=== PATIENT | male | born 1960 | race Caucasian/White ===

== ENCOUNTER 2016-02-24 22:57 | Inpatient (IN) | payer OTHER ==
[~2016-02-24] VITALS: Ht 185.4 cm; Wt 131.5 kg
[~2016-02-24 22:57] MED LIST: BICALUTAMIDE50 M1 PO; CIPRO500 M1 PO; LASIX20 M1 PO; LUPRON DEPOT7.5 M1; MOBIC 15MG15 MG PO; MOVANTIK25 M1 PO; OXYBUTYNIN CHLOR5 M2 PO; PERCOCET 5-3251 EACH PO; PREDNISONE5 M1 PO; TAMSULOSIN HCL0.4 M1 PO; URIBEL CAPSULE1 EACH PO; VALTREX1000 MG PO; ZYTIGA250 M1 PO
--- NOTE | 2016-02-24 23:45 | ED GI/GU/ABDOMINAL COMPLAINT ---
History of Present Illness General Chief Complaint: Abdominal Pain/Flank Pain Stated Complaint: "NO BM X3DAYS, ABD PAIN" Source: patient, family Exam Limitations: no limitations Vital Signs & Intake/Output Vital Signs & Intake/Output Vital Signs Date Time Temp Pulse Resp B/P Pulse O2 O2 Flow FiO2 Ox Delivery Rate 02/24 0239 97.8 87 18 134/73 93 Room Air 02/23 2305 97.5 90 18 131/83 96 Room Air ED Intake and Output 02/24 0000 02/23 1200 Intake Total Output Total Balance Patient 290 lb Weight Allergies Coded Allergies: Penicillins (Intermediate, CLOSES THROAT, HIVES 02/07/16) ragweed pollen (Intermediate, NASAL CONGESTION 01/07/16) Reconcile Medications Abiraterone Acetate (Zytiga) 250 MG TABLET 4 TAB PO DAILY CHEMO (Reported) Bicalutamide 50 MG TABLET 1 TAB PO DAILY HORMONE (Reported) Ciprofloxacin HCl (Cipro) 500 MG TABLET 1 TAB PO BID PROSTATE CANCER ( Reported) Naloxegol Oxalate (Movantik) 25 MG TABLET 1 TAB PO DAILY PRN CONSTIPATION Oxycodone HCl/Acetaminophen (Percocet 5-325 MG Tablet) 5 MG-325 MG TABLET 1-2 TAB PO Q6P PRN PAIN Prednisone 5 MG TABLET 1 TAB PO BID STEROID (Reported) Tamsulosin HCl 0.4 MG CAP.ER.24H 1 CAP PO BID PROSTATE (Reported) Valacyclovir HCl (Valtrex) 1,000 MG TABLET 1 TAB PO TID SHINGLES Triage Note: PT STATES THAT HE HAS STAGE 4 PROSTATE CANCER AND THAT HE WAS SEEN HERE WEDNESDAY FOR URINARY PROBLEMS, PT STATES THAT HE IS STILL HAVING L SIDE ABD PAIN BUT THAT HE HAS NOT MOVED HIS BOWELS IN 5 DAYS, USED SUPOSITORY 0930/1130 THIS AM , [facility] AND [facility] WITH NO RESULTS, COMPLAINS OF NAUSEA. Triage Nurses Notes Reviewed? yes Onset: Gradual Duration: day(s):, continues in ED, getting worse Timing: recent history Quality/Severity: cramping Location: generalized abdomen Radiation: no radiation Activities at Onset: "I've been on pain medications." Prior Abdominal Problems: "different from when I couldn't urinate." Modifying Factors: Worsens With: palpation. Associated Symptoms: abdominal pain HPI: 55 yo gentleman with stage iv prostate cancer, s/p Transurethral prostate debulking, now presents with abdominal pain, distension. He notes that he has not had a bowel movement for the past 5 days. He notes that he is able to urinate without problem. He has no fever, chills, flank pain , dyspnea, cough. He is otherwise well. Past History Travel History Traveled to [place] past 21 day No Medical History Any Pertinent Medical History? 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 No Review of Systems Review of Systems Constitutional: Reports: no symptoms. EENTM: Reports: no symptoms. Respiratory: Reports: no symptoms. Cardiovascular: Reports: no symptoms. GI: Reports: no symptoms. Genitourinary: Reports: no symptoms. Musculoskeletal: Reports: no symptoms. Skin: Reports: no symptoms. Neurological/Psychological: Reports: no symptoms. Hematologic/Endocrine: Reports: no symptoms. Immunologic/Allergic: Reports: no symptoms. All Other Systems: Reviewed and Negative Physical Exam Physical Exam General Appearance: well developed/nourished, mild distress Head: atraumatic, normal appearance Eyes: Bilateral: normal appearance. Ears, Nose, Throat, Mouth: hearing grossly normal, moist mucous membrane Neck: normal inspection, supple, full range of motion, normal alignment Respiratory: normal breath sounds, chest non-tender, no respiratory distress, quiet respiration, lungs clear Cardiovascular: regular rate/rhythm Gastrointestinal: normal bowel sounds, soft, mild distension, minimally tender to palpation. diminished bowel sounds. Rectal: guiac negative. no stool in the rectal vault. Extremities: normal range of motion Neurologic/Psych: no motor/sensory deficits, awake, alert, oriented x 3 Skin: intact, normal color, warm/dry Core Measures ACS in differential dx? No Severe Sepsis Present: No Septic Shock Present: No Progress Differential Diagnosis: constipation, obstruction, vs other. Plan of Care: Orders Procedure Date/time Status Regular Diet 02/24 B Active Intake & Output 02/24 629 Active Patient Data 02/24 050 Active Lab Add-on Test 02/24 458 Active Pathway - chart 02/25 456 Active House Staff 02/25 456 Active Patient Data 02/25 456 Active Code Status 02/25 456 Active Patient Data 02/24 442 Active BLOOD CULTURE 02/24 035 Active Admit to inpatient 02/24 349 Active Add-on Test (ER Only) 02/24 349 Active BLOOD CULTURE 02/24 349 Active CULTURE,URINE 02/24 0026 Active VTE Mechanical Prophylaxis 02/24 UNK Active URINALYSIS 02/23 235 Complete LIPASE 02/23 2352 Complete HEPATIC FUNCTION PANEL 02/23 235 Complete CBC WITHOUT DIFFERENTIAL 02/24 2352 Complete BASIC METABOLIC PANEL 02/23 235 Complete AMYLASE 02/23 235 Complete Current Medications Sig/Aurora Start time Last Medication Dose Stop Time Status Admin Bicalutamide 50 MG DAILY 02/24 1000 AC (Casodex 50MG) Cefepime HCl 1,000 MG Q12 02/24 1000 AC (Maxipime) Polyethylene Glycol 17 GM DAILY 02/24 1000 AC (Miralax) Prednisone 5 MG BID 02/24 1000 AC Tamsulosin HCl 0.4 MG BID 02/24 1000 AC (Flomax) Valacyclovir HCl 1,000 MG TID 02/24 1000 AC (Valtrex) Bisacodyl 10 MG DAILY PRN 02/24 0615 AC (Dulcolax Supp) Senna/Docusate Sodium 2 TAB DAILY PRN 02/24 0615 AC (Senokot S) Heparin Sodium 5,000 UNIT Q8 02/24 0600 AC (Porcine) Oxycodone/ See Dose Q6P PRN 02/24 0515 AC Acetaminophen Insts (1) (Percocet) Acetaminophen 325 MG Q6 PRN 02/24 0500 AC (Tylenol) Sodium Chloride 1,000 ML Q13H 02/24 0500 AC (Normal Saline 0.9%) 02/24 1759 Dose Instructions: (1)Oxycodone/Acetaminophen (Percocet): 1-2 TAB Laboratory Tests 02/25/16 0026: Urinalysis MANY H, Urine Color YEL, Urine Clarity TURBD H, Urine pH 6.0, Ur Specific Maynard >= 1.030, Urine Protein 100 H, Urine Ketones NEG, Urine Nitrite POS H, Urine Bilirubin NEG, Urine Urobilinogen 1.0, Ur Leukocyte Esterase SMALL H, Ur Microscopic SEDIMENT EXAMINED, Urine RBC 25-50 H, Urine WBC 25-50 H, Ur Epithelial Cells FEW, Urine Mucus MOD H, Urine Hemoglobin LARGE H, Urine Glucose NEG 02/25/16 0021: Anion Gap 8, Estimated GFR 49 L, BUN/Creatinine Ratio 13.3, Glucose 114 H, Calcium 8.5, Total Bilirubin 0.6, Direct Bilirubin 0.4, AST 23, ALT 22, Alkaline Phosphatase 125, Total Protein 6.0 L, Albumin 3.2 L, Amylase 30, Lipase 66, CBC w Diff NO MAN DIFF REQ, RBC 4.29 L, MCV 81.9, MCH 26.7 L, RDW 14.4, MPV 8.3, Gran % 81.3 H, Lymphocytes % 12.1 L, Monocytes % 5.9, Eosinophils % 0.6, Basophils % 0.1, Absolute Granulocytes 10.2 H, Absolute Lymphocytes 1.5, Absolute Monocytes 0.7 H, Absolute Eosinophils 0.1, Absolute Basophils 0, PUBS MCHC 32.6 L Microbiology 02/24 0518 BLOOD: Blood Culture - RECD 02/24 0447 BLOOD: Blood Culture - RECD 02/24 0026 URINE ROUT: Urine Culture - RECD Diagnostic Imaging: Viewed by Me: CT Scan. Discussed w/RAD: CT Scan. Radiology Impression: abd/pelvic ct... left perinephric stranding with left hydro ... full report below. Initial ED EKG: none Comments: PATIENT: EFRAIN OLIVERA PRESENT AGE: 55 PATIENT ACCOUNT NO: [id number] : 62 LOCATION: [facility] ORDERING PHYSICIAN: JULIETTE QUINTERO MD SERVICE DATE: 02/24/16 EXAM TYPE: CAT - CT ABD & PELVIS W/O IV CONTRAS EXAMINATION: CT ABDOMEN AND PELVIS WITHOUT CONTRAST CLINICAL INFORMATION: Abdominal pain and distention. Question small bowel obstruction. History of prostate cancer. COMPARISON: CT abdomen pelvis 02/22/2016. TECHNIQUE: Multidetector volumetric imaging was performed from the superior aspect of the liver through the pubic symphysis. Sagittal and coronal reformatted images were obtained on the technologist's workstation. DLP: 1553 mGy-cm. FINDINGS: LUNG BASES: Trace bilateral pleural effusions and adjacent basilar atelectasis/consolidation. LIVER, GALLBLADDER, AND BILIARY TREE: Persistent hypodense lesions within Couinaud's segment 8 and 4. No biliary ductal dilatation. No evidence of gallstones or cholecystitis. PANCREAS: Unremarkable. SPLEEN: Unremarkable. ADRENAL GLANDS: Unchanged nodular fullness of the left adrenal gland measuring less than 10 Hounsfield units, consistent with an adenoma. KIDNEYS AND URETERS: There is left-sided hydroureteronephrosis with increased left perinephric stranding. Fluid extends inferiorly within the left retroperitoneum into the pelvis. No obstructing calculus is demonstrated. No suspicious renal mass. BLADDER: Predominantly decompressed. Mild indistinctness of the bladder wall. GASTROINTESTINAL TRACT: Bowel gas pattern is nonobstructive. No evidence of acute bowel inflammation. A few colonic diverticula are noted. The appendix is normal. ABDOMINAL WALL: No significant hernia is appreciated. LYMPH NODES: Retroperitoneal and pelvic adenopathy is redemonstrated. VASCULAR: Scattered atherosclerotic calcification including mild coronary artery calcification. PELVIC VISCERA: Trace free fluid within the pelvis. Prostate gland and seminal vesicles are unchanged. OSSEOUS STRUCTURES: A few unchanged scattered sclerotic foci within the visualized skeleton are redemonstrated. IMPRESSION: 1. New left perinephric stranding and left retroperitoneal fluid suggesting a left renal/ureteral inflammatory process. There is persistent left hydroureteronephrosis extending to the bladder. No obstructing calculus. There is mural indistinctness of the predominantly decompressed bladder, which may represent inflammation. 2. Persistent retroperitoneal/pelvic adenopathy. 3. Persistent hypodense hepatic lesions. 4. No evidence of bowel obstruction. No acute bowel pathology. 5. Additional findings as described. DICTATED BY: LAITH DE GUZMAN MD DATE/TIME DICTATED:02/25/1644 MANAGER CARDIOVASCULAR:KAYY DATE/TIME TRANSCRIBED:02/25/1644 CONFIDENTIAL, DO NOT COPY WITHOUT APPROPRIATE AUTHORIZATION. <Electronically signed in Other Vendor System> SIGNED BY: LAITH DE GUZMAN MD 02/25/16 0118 Departure Departure Disposition: STILL A PATIENT Condition: Stable Clinical Impression Primary Impression: Pyelonephritis Secondary Impressions: Dehydration, Prostate cancer metastatic to bone, Renal failure, Sepsis Referrals: MATTHEW VALDEZ DO (PCP/Family) Referred to [facility] as new patient No Departure Forms: Customer Survey General Discharge Information Admission Note Spoke With: JACKELINE YOUNG MD Documentation of Exam: Documentation of any treatments & extenuating circumstances including Concerns Regarding Discharge (functional status, medication knowledge or non-compliance, living conditions, etc.) that warrant an admission rather than observation: pt meets criteria for sepsis, merits iv fluids, iv abx. Also will need coordination of care with his prostate CA chemotherapy. Critical Care Note Critical Care Note Critical Care Time: 30-74 min
[2016-02-25 00:49] LABS: ABSOLUTE BASOPHIL COUNT 0 /CUMM (0.0-0.2); ABSOLUTE EOSINOPHIL COUNT 0.1 /CUMM (0.0-0.7); ABSOLUTE GRANULOCYTE CT 10.2 /CUMM (1.4-6.5); ABSOLUTE LYMPH COUNT 1.5 /CUMM (1.2-3.4); ABSOLUTE MONOCYTE COUNT 0.7 /CUMM (0.10-0.60); BASOPHIL % 0.1 % (0.0-2.0); EOSINOPHIL % 0.6 % (0-5); GRANULOCYTE % 81.3 % (42.2-75.2); HEMATOCRIT 35.2 % (42-52); MEAN CORPUSCULAR HGB 26.7 PG (27.0-31.0); MEAN CORPUSCULAR HGB CONC 32.6 G/DL (33.0-37.0); MEAN CORPUSCULAR VOLUME 81.9 FL (80.0-94.0); MEAN PLATELET VOLUME 8.3 FL (7.4-10.4); PLATELET COUNT 240 /CUMM (130-400); RBC DISTRIBUTION WIDTH 14.4 % (11.5-14.5); RED BLOOD CELL CT 4.29 /CUMM (4.70-6.10); WHITE BLOOD CELL COUNT 12.5 /CUMM (4.8-10.8)
--- NOTE | 2016-02-25 01:18 | CT SCAN REPORT ---
EXAMINATION: CT ABDOMEN AND PELVIS WITHOUT CONTRAST CLINICAL INFORMATION: Abdominal pain and distention. Question small bowel obstruction. History of prostate cancer. COMPARISON: CT abdomen pelvis 02/22/2016. TECHNIQUE: Multidetector volumetric imaging was performed from the superior aspect of the liver through the pubic symphysis. Sagittal and coronal reformatted images were obtained on the technologist's workstation. DLP: 1553 mGy-cm. FINDINGS: LUNG BASES: Trace bilateral pleural effusions and adjacent basilar atelectasis/consolidation. LIVER, GALLBLADDER, AND BILIARY TREE: Persistent hypodense lesions within Couinaud's segment 8 and 4. No biliary ductal dilatation. No evidence of gallstones or cholecystitis. PANCREAS: Unremarkable. SPLEEN: Unremarkable. ADRENAL GLANDS: Unchanged nodular fullness of the left adrenal gland measuring less than 10 Hounsfield units, consistent with an adenoma. KIDNEYS AND URETERS: There is left-sided hydroureteronephrosis with increased left perinephric stranding. Fluid extends inferiorly within the left retroperitoneum into the pelvis. No obstructing calculus is demonstrated. No suspicious renal mass. BLADDER: Predominantly decompressed. Mild indistinctness of the bladder wall. GASTROINTESTINAL TRACT: Bowel gas pattern is nonobstructive. No evidence of acute bowel inflammation. A few colonic diverticula are noted. The appendix is normal. ABDOMINAL WALL: No significant hernia is appreciated. LYMPH NODES: Retroperitoneal and pelvic adenopathy is redemonstrated. VASCULAR: Scattered atherosclerotic calcification including mild coronary artery calcification. PELVIC VISCERA: Trace free fluid within the pelvis. Prostate gland and seminal vesicles are unchanged. OSSEOUS STRUCTURES: A few unchanged scattered sclerotic foci within the visualized skeleton are redemonstrated. IMPRESSION: 1. New left perinephric stranding and left retroperitoneal fluid suggesting a left renal/ureteral inflammatory process. There is persistent left hydroureteronephrosis extending to the bladder. No obstructing calculus. There is mural indistinctness of the predominantly decompressed bladder, which may represent inflammation. 2. Persistent retroperitoneal/pelvic adenopathy. 3. Persistent hypodense hepatic lesions. 4. No evidence of bowel obstruction. No acute bowel pathology. 5. Additional findings as described.
--- NOTE | 2016-02-25 05:04 | History & Physical ---
General Information and HPI Allergies/Medications Allergies: Coded Allergies: Penicillins (Intermediate, CLOSES THROAT, HIVES 02/07/16) ragweed pollen (Intermediate, NASAL CONGESTION 01/07/16) Home Med list Abiraterone Acetate (Zytiga) 250 MG TABLET 4 TAB PO DAILY CHEMO (Reported) Bicalutamide 50 MG TABLET 1 TAB PO DAILY HORMONE (Reported) Ciprofloxacin HCl (Cipro) 500 MG TABLET 1 TAB PO BID PROSTATE CANCER ( Reported) Naloxegol Oxalate (Movantik) 25 MG TABLET 1 TAB PO DAILY PRN CONSTIPATION Oxycodone HCl/Acetaminophen (Percocet 5-325 MG Tablet) 5 MG-325 MG TABLET 1-2 TAB PO Q6P PRN PAIN Prednisone 5 MG TABLET 1 TAB PO BID STEROID (Reported) Tamsulosin HCl 0.4 MG CAP.ER.24H 1 CAP PO BID PROSTATE (Reported) Valacyclovir HCl (Valtrex) 1,000 MG TABLET 1 TAB PO TID SHINGLES Past History Travel History Traveled to [place] past 21 day No Medical History Neurological: NONE EENT: NONE Cardiovascular: NONE Respiratory: obstructive sleep apnea Gastrointestinal: NONE Hepatic: NONE Renal: NONE Musculoskeletal: NONE Psychiatric: NONE Endocrine: NONE Blood Disorders: NONE Cancer(s): 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
--- NOTE | 2016-02-25 05:53 | History & Physical ---
DOARNELMARGARET 02/25/16 0522: General Information and HPI MD Statement: I have seen and personally examined EFRAIN OLIVERA and documented this H&P. The patient is a 55 year old M who presented with a patient stated chief complaint of [left-sided flank pain]. Source of Information: patient, family Exam Limitations: no limitations History of Present Illness: Patient is a 55-year-old male with a past medical history of 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 Patient was diagnosed with stage IV prostate cancer about 1-1/2 years ago and has been on chemotherapy, follows up with Dr. Mondragon. He was found to have bony metastasis and a recent imaging showed a new spot in his lung. He has been having urinary problems since the past one year primarily urinary retention and abdominal discomfort. He underwent TURP for urinary retention on 02/10/2016. He was on Marie after the procedure which was later removed as he was able to urinate by himself. Was started on mouth ciprofloxacin. Patient was urinating well at home but developed left-sided flank pain radiating to whole abdomen which has been worsening since the last 2 weeks. Pain is 8 on 10 in intensity, continuous, radiating to the whole andomen. Patient denies any fevers, chills, nausea, vomiting, dysuria, lightheadedness, palpitations, chest pain. He has been having severe constipation and had used several suppositories/enemas with no result. He was also seen in the ER on February 21 and for similar complaints and discharged home with enema and suppository but there was improvement in his symptoms. Vitals in the ED temperature of 97.5, pulse 90, respiration 18, blood pressure 131/83, pulse ox and 6% on room air. Labs showed white count of 12.5, H&H 11.4/ 35.2, creatinine 1.5(baseline 0.9) UA: Turbid, nitrate positive, small leukocyte esterase, white cells 25-30, hemoglobin large. Abdominal and pelvis CT: New left perinephric stranding and left retroperitoneal fluid suggesting a left renal/ureteral inflammatory process. There is persistent left hydroureteronephrosis extending to the bladder. No obstructing calculus. There is mural indistinctness of the predominantly decompressed bladder,which may represent inflammation.Persistent retroperitoneal/pelvic adenopathy. Persistent hypodense hepatic lesions.No evidence of bowel obstruction. Allergies/Medications Home Med list Abiraterone Acetate (Zytiga) 250 MG TABLET 4 TAB PO DAILY CHEMO (Reported) Bicalutamide 50 MG TABLET 1 TAB PO DAILY HORMONE (Reported) Ciprofloxacin HCl (Cipro) 500 MG TABLET 1 TAB PO BID PROSTATE CANCER ( Reported) Naloxegol Oxalate (Movantik) 25 MG TABLET 1 TAB PO DAILY PRN CONSTIPATION Oxycodone HCl/Acetaminophen (Percocet 5-325 MG Tablet) 5 MG-325 MG TABLET 1-2 TAB PO Q6P PRN PAIN Prednisone 5 MG TABLET 1 TAB PO BID STEROID (Reported) Tamsulosin HCl 0.4 MG CAP.ER.24H 1 CAP PO BID PROSTATE (Reported) Valacyclovir HCl (Valtrex) 1,000 MG TABLET 1 TAB PO TID SHINGLES Past History Travel History Traveled to [place] past 21 day No Medical History Neurological: NONE EENT: NONE Cardiovascular: NONE Respiratory: obstructive sleep apnea Gastrointestinal: NONE Hepatic: NONE Renal: NONE Musculoskeletal: NONE Psychiatric: NONE Endocrine: NONE Blood Disorders: NONE Cancer(s): prostate cancer, METS TO BREASTBONE 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 EENTM: Reports: no symptoms. Cardiovascular: Reports: no symptoms. Respiratory: Reports: no symptoms. GI: Reports: abdominal pain, constipation. Genitourinary: Reports: no symptoms. Musculoskeletal: Reports: no symptoms. Exam & Diagnostic Data Last 24 Hrs of Vital Signs/I&O Vital Signs Date Time Temp Pulse Resp B/P Pulse O2 O2 Flow FiO2 Ox Delivery Rate 02/24 0239 97.8 87 18 134/73 93 Room Air 02/23 2305 97.5 90 18 131/83 96 Room Air Intake & Output 02/24 0800 02/24 0000 02/23 1600 Intake Total Output Total Balance Patient 131.542 kg Weight Physical Exam General Appearance Alert, Oriented X3, Mild Distress Skin swelling over the sternum 2/2 metastasis HEENT Atraumatic, PERRLA, EOMI Neck Supple, No JVD Lymphatic Cervical nl Cardiovascular Regular Rate, Normal S1, Normal S2, No Murmurs Lungs Clear to Auscultation, basal crackles on the left base Abdomen Soft, CVA TENDERNESS ON THE LEFT, NORMAL BOWEL SOUNDS Neurological Normal Gait, Normal Speech, Strength at 5/5 X4 Ext, Normal Tone, Sensation Intact Extremities No Clubbing, No Cyanosis, No Edema, Normal Pulses Assessment/Plan Assessment: Patient is a 55-year-old male with a past medical history of 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 Patient is status post TURP on 02/10/2016. Has increasing left flank pain/CVA tenderness with dirty urine and constipation. Labs showed white count of 12.5, H&H 11.4/ 35.2, creatinine 1.5(baseline 0.9) UA: Turbid, nitrate positive, small leukocyte esterase, white cells 25-30, hemoglobin large. Abdominal and pelvis CT: New left perinephric stranding and left retroperitoneal fluid suggesting a left renal/ureteral inflammatory process. There is persistent left hydroureteronephrosis extending to the bladder. No obstructing calculus. There is mural indistinctness of the predominantly decompressed bladder,which may represent inflammation.Persistent retroperitoneal/pelvic adenopathy. Persistent hypodense hepatic lesions.No evidence of bowel obstruction. Problems: * Pyelonephritis with perinephric stranding and retroperitoneal fluid. * Status post TURP on 02/10/2016 for urinary retention with outpatient treatment with by mouth ciprofloxacin * Left-sided hydronephrosis extending to the bladder * Stage IV prostate cancer with metastases to bones and lung * HEENA likely postrenal due to urinary obstruction * Constipation * Shingles Plan * Admit patient to GEN med * Gentle Hydration with normal saline at 75 mL x1 bag * Urology consult with Dr. Granados in a.m. * Will start patient on IV Ceftriaxone at that time 1 g every 12 hours given recent instrumentation an outpatient by mouth Cipro failure * Closely monitor urine output, Marie if signs of retention * Follow blood and urine cultures * Continue chemotherapy zytiga,bicalutamide and prednisone * Continue Valtrex for herpes zoster * Bowel regimen for constipation * Consider called to Dr. Mondragon to inform him of the admission * DVT prophylaxis subcutaneous heparin * Full code * Regular diet * Mild pain pathway As Ranked By This Provider Problem List: 1. Hydronephrosis, left 2. Urinary obstruction 3. Urinary retention 4. Pyelonephritis Core Measures/Miscellaneous Acute Coronary Syndrome ACS Diagnosis: No Cerebrovascular Accident CVA/TIA Diagnosis: No Congestive Heart Failure CHF Diagnosis: No Venous Thromboembolism VTE Risk Factors: Age > 40, Cancer/chemo/oth therapy VTE Prophylaxis Ordered Inpt: Pharm- Heparin No Mech VTE prophylaxis d/t: No contraindications No VTE Pharm Prophylaxis d/t: No contraindications VTE Diagnosis: No VTE Type: NONE VTE Confirmed by (Test): NONE Severe Sepsis Severe Sepsis Present: No Septic Shock Septic Shock Present: No Miscellaneous Documentation Attending Case Discussed With: FEDE GONSALES MD Primary Care Physician: MATTHEW VALDEZ DO Patient sees these Specialists Dr Granados Level of Patient Care: General Medicine FEDE GONSALES MD 02/27/16 1114: General Information and HPI Allergies/Medications Allergies: Coded Allergies: ragweed pollen (Intermediate, NASAL CONGESTION 01/07/16) Penicillins (UNKNOWN 02/27/16) Attending MD Review Statement Attending Statement Attending MD Statement: examined this patient, discuss w/resident/PA/INTERLOCKING MACHINE OPERATOR, agreed w/resident/PA/INTERLOCKING MACHINE OPERATOR, reviewed EMR data (avail) Attending Assessment/Plan: 55-year-old male with a history of metastatic prostate CA, obstructive uropathy who is here with what appears to be an acute pyelonephritis. He had a recent TURP procedure and he came in with a white count of 12,000, and a positive UA. I am worried that he is growing coag negative staph in the past in the urine and given that ,the choice of antibiotics appears to be unclear. He also is allergy to penicillin and really cannot recall any time that he has gotten cephalosporins. At this point will call ID and urology to help us out for choice of antibiotics. Onc f/u, hydrate and DVT prophylaxis
--- NOTE | 2016-02-25 07:23 | PN- Housestaff ---
JAKUB CAMPOS 02/25/16 0721: Subjective Follow-up For: pylonephritis Subjective: I have seen and examined the patient. He still has the pain in her left side. On IV fluids. Review of Systems Constitutional: Reports: see HPI. Objective Last 24 Hrs of Vital Signs/I&O Vital Signs Date Time Temp Pulse Resp B/P Pulse O2 O2 Flow FiO2 Ox Delivery Rate 02/24 0239 97.8 87 18 134/73 93 Room Air 02/23 2305 97.5 90 18 131/83 96 Room Air Intake & Output 02/24 0800 02/24 0000 02/23 1600 Intake Total 200 Output Total Balance 200 Intake, IV 200 Patient 290 lb Weight Physical Exam General Appearance: Alert, Oriented X3, Cooperative Assessment/Plan Assessment: Patient is a 55-year-old male with a past medical history of 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 Patient is status post TURP on 02/10/2016. Has increasing left flank pain/CVA tenderness with dirty urine and constipation. Labs showed white count of 12.5, H&H 11.4/ 35.2, creatinine 1.5(baseline 0.9) UA: Turbid, nitrate positive, small leukocyte esterase, white cells 25-30, hemoglobin large. Abdominal and pelvis CT: New left perinephric stranding and left retroperitoneal fluid suggesting a left renal/ureteral inflammatory process. There is persistent left hydroureteronephrosis extending to the bladder. No obstructing calculus. There is mural indistinctness of the predominantly decompressed bladder,which may represent inflammation.Persistent retroperitoneal/pelvic adenopathy. Persistent hypodense hepatic lesions.No evidence of bowel obstruction. Problems: * Pyelonephritis with perinephric stranding and retroperitoneal fluid. * Status post TURP on 02/10/2016 for urinary retention with outpatient treatment with by mouth ciprofloxacin * Left-sided hydronephrosis extending to the bladder * Stage IV prostate cancer with metastases to bones and lung * HEENA likely postrenal due to urinary obstruction * Constipation Plan * Gentle Hydration with normal saline at 75 mL for now * Urology consult with PENDING * Will start patient on IV Ceftriaxone at that time 1 g every 12 hours given recent instrumentation an outpatient by mouth Cipro failure * Closely monitor urine output, Marie if signs of retention * Follow blood and urine cultures * Continue chemotherapy zytiga,bicalutamide and prednisone * Bowel regimen for constipation * Dr. Mondragon is aware * Antibiotic therapy per ID recommendation * penicillin allergy removed inCMR per ID rec DVT prophylaxis subcutaneous heparin,Full code,Regular diet, Mild pain pathway Problem List: 1. Pyelonephritis Pain Ratin Pain Location: left flank Pain Goal: Pain 4 or less Pain Plan: same Tomorrow's Labs & Rationales: cbc bEP kidney infection FEDE GONSALES MD 02/25/16 1300: Attending MD Review Statement Attending Statement Attending MD Statement: examined this patient, discuss w/resident/PA/WIRE ANNEALER, agreed w/resident/PA/WIRE ANNEALER, reviewed EMR data (avail), discussed with nursing Attending Assessment/Plan: 55-year-old male with a history of metastatic prostate CA, obstructive uropathy who is here with what appears to be an acute pyelonephritis. He had a recent TURP procedure and he came in with a white count of 12,000, and a positive UA. I am worried that he is growing coag negative staph in the past in the urine and given that ,the choice of antibiotics appears to be unclear. He also is allergy to penicillin and really cannot recall any time that he has gotten cephalosporins. At this point will call ID and urology to help us out for choice of antibiotics.
[2016-02-25 08:39] VITALS: BP 150/90
[2016-02-25 13:55] VITALS: BP 160/70
--- NOTE | 2016-02-25 16:29 | Cons- Infect Disease ---
General Information and HPI Consulting Request Date of Consult: 02/25/16 Requested By: FEDE GONSALES MD Reason for Consult: Rule out left pyelonephritis Source of Information: patient, old records, friend History of Present Illness: This is a 55-year-old man diagnosed with prostate cancer over one year prior to admission, treated with chemotherapy for 3 months and hormonal therapy to the present time, restarted on chemotherapy 2-1/2 months prior to admission based on an increase in his PSA and findings on CT scan and bone scan of metastatic disease to the lymph nodes, bone and, possibly, the liver, seen in the emergency room several times over the past few months for urinary retention and hematuria, requiring a Marie catheter for over one month, with a urine culture sent from the ER nearly 3 weeks prior to admission positive for coag negative Staph, apparently treated with Ciprofloxacin, status post TURP 2 weeks prior to admission, with the urine culture again positive for coag negative Staph, discharged on Ciprofloxacin for 5 days, with no Marie catheter, seen in the emergency room 3 days prior to admission with left flank pain and hematuria, found to be afebrile, with a urinalysis revealing greater than 75 RBCs and 15-25 WBCs, and a CT of the abdomen and pelvis revealing impingement on the bladder base with mild left hydronephrosis, discharged on pain meds, admitted on February 23 after returning to the emergency room with persistent left flank pain, nausea and constipation with mild dysuria. On admission he was afebrile. Laboratory data revealed a white blood cell count of 13,000, BUN/creatinine 20 and 1.5, with normal liver enzymes. Urinalysis 25-50 RBC/25-[address] of the abdomen and pelvis revealed new left perinephric stranding and left retroperitoneal fluid, with persistent left hydroureteronephrosis extending to the bladder. He was given 1 dose of Ciprofloxacin this morning. He has been afebrile since admission. Allergies/Medications Allergies: Coded Allergies: Penicillins (Intermediate, CLOSES THROAT, HIVES 02/07/16) ragweed pollen (Intermediate, NASAL CONGESTION 01/07/16) Home Med List: Abiraterone Acetate (Zytiga) 250 MG TABLET 4 TAB PO DAILY CHEMO (Reported) Bicalutamide 50 MG TABLET 1 TAB PO DAILY HORMONE (Reported) Ciprofloxacin HCl (Cipro) 500 MG TABLET 1 TAB PO BID PROSTATE CANCER ( Reported) Naloxegol Oxalate (Movantik) 25 MG TABLET 1 TAB PO DAILY PRN CONSTIPATION Oxycodone HCl/Acetaminophen (Percocet 5-325 MG Tablet) 5 MG-325 MG TABLET 1-2 TAB PO Q6P PRN PAIN Prednisone 5 MG TABLET 1 TAB PO BID STEROID (Reported) Tamsulosin HCl 0.4 MG CAP.ER.24H 1 CAP PO BID PROSTATE (Reported) Valacyclovir HCl (Valtrex) 1,000 MG TABLET 1 TAB PO TID SHINGLES Past History Travel History Traveled to [place] past 21 day No Medical History Blood Transfusion Hx: No Neurological: NONE EENT: NONE Cardiovascular: NONE Respiratory: obstructive sleep apnea Gastrointestinal: NONE Hepatic: NONE Musculoskeletal: NONE Psychiatric: NONE Endocrine: NONE Blood Disorders: NONE Cancer(s): prostate cancer, METS TO the lymph nodes, bone and, possibly, the liver 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 Home Services at Home: None Smoking Status: Current Some Day Smoker ETOH Use: denies use Illicit Drug Use: denies illicit drug use Review of Systems Review of Systems Respiratory: Denies: cough, short of breath. GI: Reports: abdominal pain, constipation, nausea. Denies: vomiting. All Other Systems: Reviewed and Negative Exam & Diagnostic Data Last 24 Hrs of Vital Signs/I&O Vital Signs Date Time Temp Pulse Resp B/P Pulse O2 O2 Flow FiO2 Ox Delivery Rate 02/24 1355 97.8 83 20 160/70 92 Room Air 02/24 0839 98.7 81 20 150/90 94 Room Air 02/24 0758 94 Room Air 02/24 0745 99.5 84 18 122/73 94 Room Air 02/24 0239 97.8 87 18 134/73 93 Room Air 02/23 2305 97.5 90 18 131/83 96 Room Air Intake & Output 02/24 1600 02/24 0800 02/24 0000 Intake Total 1000 200 Output Total 375 Balance 625 200 Intake, IV 600 200 Intake, Oral 400 Number 1 Bowel Movements Output, Urine 375 Patient 290 lb 290 lb Weight Physical Exam Other Physical Findings: He is awake and alert in no acute distress. He is afebrile. Skin reveals no rash. HEENT exam is negative. Neck is supple with no adenopathy. Lungs bibasilar crackles. Heart regular rhythm with no murmur. Abdomen is obese, soft, mildly tender on palpation of the left upper quadrant, with positive bowel sounds. Back marked left CVA tenderness. Extremities no cyanosis, clubbing or edema. Neuro is without focality. Last 24 Hours of Lab Results: Laboratory Tests 02/24 02/24 0026 0021 Chemistry Sodium (137 - 145 mmol/L) 137 Potassium (3.5 - 5.1 mmol/L) 4.3 Chloride (98 - 107 mmol/L) 102 Carbon Dioxide (22 - 30 mmol/L) 27 Anion Gap (5 - 16) 8 BUN (9 - 20 mg/dL) 20 Creatinine (0.7 - 1.2 mg/dL) 1.5 H Estimated GFR (>60 ml/min) 49 L BUN/Creatinine Ratio (7 - 25 %) 13.3 Glucose (65 - 99 mg/dL) 114 H Calcium (8.4 - 10.2 mg/dL) 8.5 Total Bilirubin (0.2 - 1.3 mg/dL) 0.6 Direct Bilirubin (< 0.4 mg/dL) 0.4 AST (17 - 59 U/L) 23 ALT (21 - 72 U/L) 22 Alkaline Phosphatase (< 127 U/L) 125 Total Protein (6.3 - 8.2 g/dL) 6.0 L Albumin (3.5 - 5.0 g/dL) 3.2 L Amylase (30 - 110 U/L) 30 Lipase (23 - 300 U/L) 66 Hematology CBC w Diff NO MAN DIFF REQ WBC (4.8 - 10.8 /CUMM) 12.5 H RBC (4.70 - 6.10 /CUMM) 4.29 L Hgb (14.0 - 18.0 G/DL) 11.4 L Hct (42 - 52 %) 35.2 L MCV (80.0 - 94.0 FL) 81.9 MCH (27.0 - 31.0 PG) 26.7 L RDW (11.5 - 14.5 %) 14.4 Plt Count (130 - 400 /CUMM) 240 MPV (7.4 - 10.4 FL) 8.3 Gran % (42.2 - 75.2 %) 81.3 H Lymphocytes % (20.5 - 51.1 %) 12.1 L Monocytes % (1.7 - 9.3 %) 5.9 Eosinophils % (0 - 5 %) 0.6 Basophils % (0.0 - 2.0 %) 0.1 Absolute Granulocytes (1.4 - 6.5 /CUMM) 10.2 H Absolute Lymphocytes (1.2 - 3.4 /CUMM) 1.5 Absolute Monocytes (0.10 - 0.60 /CUMM) 0.7 H Absolute Eosinophils (0.0 - 0.7 /CUMM) 0.1 Absolute Basophils (0.0 - 0.2 /CUMM) 0 PUBS MCHC (33.0 - 37.0 G/DL) 32.6 L Urines Urinalysis MANY H Urine Color (YEL,AMB,STR) YEL Urine Clarity (CLEAR) TURBD H Urine pH (5.0 - 8.0) 6.0 Ur Specific [place] (1.001 - 1.035) >= 1.030 Urine Protein (NEG,<30 MG/DL) 100 H Urine Ketones (NEG) NEG Urine Nitrite (NEG) POS H Urine Bilirubin (NEG) NEG Urine Urobilinogen (0.1 - 1.0 EU/dl) 1.0 Ur Leukocyte Esterase (NEG) SMALL H Ur Microscopic SEDIMENT EXAMINED Urine RBC (0 - 5 /HPF) 25-50 H Urine WBC (0 - 2 /HPF) 25-50 H Ur Epithelial Cells (NONE,FEW) FEW Urine Mucus (FEW,NONE) MOD H Urine Hemoglobin (NEG) LARGE H Urine Glucose (N MG/DL) NEG Last 24 Hours of Raymundo Results: Blood cultures February 24 pending Urine culture February 24 pending Blood cultures February 21 negative Urine culture February 21 greater than 100,000 colonies of coag-negative Staph sensitive to Nitrofurantoin, Tetracycline, Bactrim, Azithromycin, Clindamycin, Erythromycin and Vancomycin Diagnostic Data Recent Imaging Findings: CT of the abdomen and pelvis February 23 reveals new left perinephric stranding with left retroperitoneal fluid suggesting a left renal/ureteral inflammatory process, with persistent left hydroureteronephrosis extending to the bladder, with no obstructing calculus; persistent retroperitoneal/pelvic adenopathy; persistent hypodense hepatic lesions; trace bilateral pleural effusions with adjacent basilar atelectasis/consolidation Assessment/Plan Assessment/Plan Impression: This is a 55-year-old man with metastatic prostate cancer, treated in the past with chemotherapy and maintained on hormonal therapy, with chemotherapy restarted 2 1/2 months prior to admission because of evidence of metastatic disease, with urinary retention and hematuria over the last several months prior to admission, status post TURP 2 weeks prior to admission, treated with Ciprofloxacin for 10 days perioperatively, with multiple urine cultures over the past several weeks positive for coag negative Staph, admitted early this morning with several days of left flank pain and constipation, found to be afebrile with a mild leukocytosis, hematuria and pyuria, and with evidence on CT scan of left perinephric stranding and mild left hydroureteronephrosis. Though coag-negative Staph is not a typical urinary pathogen his symptoms are suggestive of pyelonephritis and, in the absence of any other microbiologic data, feel that this organism should be treated. The hydroureteronephrosis suggests obstruction and, as discussed with Urology, he may require a ureteral stent. He has a remote history of a Penicillin allergy, but he was apparently given Amoxicillin in September 2014 by his previous urologist, Dr. Starks, for a presumed urinary tract infection, and he tolerated this without any problems; therefore he should not be considered Penicillin allergic. Suggestion: 1. Follow-up recent cultures 2. Await Urology follow-up for possible cystoscopy and left ureteral stent 3. Would remove Penicillin from patient's list of allergies 4. Begin Vancomycin 1.25 grams IV every 12 hours Consult Acknowledgment - Thank you for your consult request.
--- NOTE | 2016-02-25 17:08 | Cons- Oncology ---
General Information and HPI Consulting Request Date of Consult: 02/25/16 Requested By: ILDA BROWN,FEDE Velez History of Present Illness: The patient is a 55-year-old gentleman well-known to me with advanced prostate cancer. Initially treated with complete hormonal blockade and Taxotere. Since The discontinuation Taxotere , his PSA was noted to rise and he had objective radiologic data to suggest progression. He was then switched Zytiga/prednisone 10 mg per day. Patient is now admitted flank pain and chills. Allergies/Medications Allergies: Coded Allergies: ragweed pollen (Intermediate, NASAL CONGESTION 01/07/16) Home Med List: Abiraterone Acetate (Zytiga) 250 MG TABLET 4 TAB PO DAILY CHEMO (Reported) Bicalutamide 50 MG TABLET 1 TAB PO DAILY HORMONE (Reported) Ciprofloxacin HCl (Cipro) 500 MG TABLET 1 TAB PO BID PROSTATE CANCER ( Reported) Naloxegol Oxalate (Movantik) 25 MG TABLET 1 TAB PO DAILY PRN CONSTIPATION Oxycodone HCl/Acetaminophen (Percocet 5-325 MG Tablet) 5 MG-325 MG TABLET 1-2 TAB PO Q6P PRN PAIN Prednisone 5 MG TABLET 1 TAB PO BID STEROID (Reported) Tamsulosin HCl 0.4 MG CAP.ER.24H 1 CAP PO BID PROSTATE (Reported) Valacyclovir HCl (Valtrex) 1,000 MG TABLET 1 TAB PO TID SHINGLES Current Medications: Current Medications Sig/Aurora Start time Last Medication Dose Route Stop Time Status Admin Acetaminophen 325 MG Q6 PRN 02/24 0500 AC PO Bicalutamide 50 MG DAILY 02/24 1000 AC 02/24 PO 1001 Bisacodyl 10 MG DAILY PRN 02/24 0615 AC [place] Cefepime HCl 1,000 MG Q12 02/24 1000 CAN IV Ceftriaxone Sodium 1,000 MG DAILY 02/24 1000 DC IV Ciprofloxacin 400 MG ONCE ONE 02/24 0400 DC 02/24 IV 02/24 0401 0526 Heparin Sodium 0 .STK-MED ONE 02/24 0753 DC (Porcine) .ROUTE Heparin Sodium 5,000 UNIT Q8 02/24 0600 AC 02/24 (Porcine) SC 1403 Hydromorphone HCl 0 .STK-MED ONE 02/24 0034 DC .ROUTE Hydromorphone HCl 1 MG ONCE ONE 02/24 0015 DC 02/24 IV 02/24 0016 0045 Oxycodone/ See Dose Q6P PRN 02/24 0515 02/24 Acetaminophen Insts (1) PO 1049 Patient Medication 1 ED .STK-MED ONE 02/24 1416 OR Teaching ED 02/24 1417 Polyethylene Glycol 17 GM DAILY 02/24 1000 AC 02/24 PO 1002 Prednisone 5 MG BID 02/24 1000 AC 02/24 PO 1002 Senna/Docusate Sodium 2 TAB DAILY PRN 02/24 0615 02/24 PO 1001 Sodium Chloride 1,000 ML Q13H 02/24 0500 02/24 IV 1600 Tamsulosin HCl 0.4 MG BID 02/24 1000 AC 02/24 PO 1001 Valacyclovir HCl 1,000 MG TID 02/24 1000 DC PO Dose Instructions: (1)Oxycodone/Acetaminophen: 1-2 TAB Review of Systems Review of Systems: Patient denies headaches or dizziness. The patient denies shortness of breath cough chest pain or hemoptysis. The patient denies nausea vomiting or upper abdominal pain. 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 Home Services at Home: None Smoking Status: Current Some Day Smoker ETOH Use: denies use Illicit Drug Use: denies illicit drug use Exam & Diagnostic Data Vital Signs and I&O Vital Signs Date Time Temp Pulse Resp B/P Pulse O2 O2 Flow FiO2 Ox Delivery Rate 02/24 1355 97.8 83 20 160/70 92 Room Air 02/24 0839 98.7 81 20 150/90 94 Room Air 02/24 0758 94 Room Air 02/24 0745 99.5 84 18 122/73 94 Room Air 02/24 0239 97.8 87 18 134/73 93 Room Air 02/23 2305 97.5 90 18 131/83 96 Room Air Intake & Output 02/24 1600 02/24 0800 02/24 0000 Intake Total 1000 200 Output Total 375 Balance 625 200 Intake, IV 600 200 Intake, Oral 400 Number 1 Bowel Movements Output, Urine 375 Patient 290 lb 290 lb Weight Gen.: in NAD ENT: Sclera anicteric Chest: Normal respiratory effort, decreased breath sounds Cor: RRR, no extra sounds Abdomen: Soft, bowel sounds present, no tenderness, no rebound Extremities: Without clubbing, cyanosis, or edema, no dramatic CVA tenderness Neurology: Alert and oriented 3, no gross deficit Skin: No rashes Last 48 Hours of Lab Results: Laboratory Tests 02/24 02/24 0026 0021 Chemistry Sodium (137 - 145 mmol/L) 137 Potassium (3.5 - 5.1 mmol/L) 4.3 Chloride (98 - 107 mmol/L) 102 Carbon Dioxide (22 - 30 mmol/L) 27 Anion Gap (5 - 16) 8 BUN (9 - 20 mg/dL) 20 Creatinine (0.7 - 1.2 mg/dL) 1.5 H Estimated GFR (>60 ml/min) 49 L BUN/Creatinine Ratio (7 - 25 %) 13.3 Glucose (65 - 99 mg/dL) 114 H Calcium (8.4 - 10.2 mg/dL) 8.5 Total Bilirubin (0.2 - 1.3 mg/dL) 0.6 Direct Bilirubin (< 0.4 mg/dL) 0.4 AST (17 - 59 U/L) 23 ALT (21 - 72 U/L) 22 Alkaline Phosphatase (< 127 U/L) 125 Total Protein (6.3 - 8.2 g/dL) 6.0 L Albumin (3.5 - 5.0 g/dL) 3.2 L Amylase (30 - 110 U/L) 30 Lipase (23 - 300 U/L) 66 Hematology CBC w Diff NO MAN DIFF REQ WBC (4.8 - 10.8 /CUMM) 12.5 H RBC (4.70 - 6.10 /CUMM) 4.29 L Hgb (14.0 - 18.0 G/DL) 11.4 L Hct (42 - 52 %) 35.2 L MCV (80.0 - 94.0 FL) 81.9 MCH (27.0 - 31.0 PG) 26.7 L RDW (11.5 - 14.5 %) 14.4 Plt Count (130 - 400 /CUMM) 240 MPV (7.4 - 10.4 FL) 8.3 Gran % (42.2 - 75.2 %) 81.3 H Lymphocytes % (20.5 - 51.1 %) 12.1 L Monocytes % (1.7 - 9.3 %) 5.9 Eosinophils % (0 - 5 %) 0.6 Basophils % (0.0 - 2.0 %) 0.1 Absolute Granulocytes (1.4 - 6.5 /CUMM) 10.2 H Absolute Lymphocytes (1.2 - 3.4 /CUMM) 1.5 Absolute Monocytes (0.10 - 0.60 /CUMM) 0.7 H Absolute Eosinophils (0.0 - 0.7 /CUMM) 0.1 Absolute Basophils (0.0 - 0.2 /CUMM) 0 PUBS MCHC (33.0 - 37.0 G/DL) 32.6 L Urines Urinalysis MANY H Urine Color (YEL,AMB,STR) YEL Urine Clarity (CLEAR) TURBD H Urine pH (5.0 - 8.0) 6.0 Ur Specific [place] (1.001 - 1.035) >= 1.030 Urine Protein (NEG,<30 MG/DL) 100 H Urine Ketones (NEG) NEG Urine Nitrite (NEG) POS H Urine Bilirubin (NEG) NEG Urine Urobilinogen (0.1 - 1.0 EU/dl) 1.0 Ur Leukocyte Esterase (NEG) SMALL H Ur Microscopic SEDIMENT EXAMINED Urine RBC (0 - 5 /HPF) 25-50 H Urine WBC (0 - 2 /HPF) 25-50 H Ur Epithelial Cells (NONE,FEW) FEW Urine Mucus (FEW,NONE) MOD H Urine Hemoglobin (NEG) LARGE H Urine Glucose (N MG/DL) NEG Imaging/Other Studies: CT-abdomen and pelvis-left hydronephrosis perinephric stranding, chest and lymphadenopathy, left lower lobe 1.5 cm nodule, bone metastases Assessment/Plan Assessment: 1. Flank pain/hydronephrosis-patient also noted to have bacteriuria (staph coagulase-negative) Presumed to have pyelonephritis Recommend- Follow ID recommendations service to see patient 2. Recent PSA in my office elevated now to 139, recent previous PSA was 26. All data suggest disease progression on Zytiga. Recommend- As an outpatient, I will recommend reinstitution of Taxotere chemotherapy. I have discussed this in full with the patient and house staff Recommendations: .. Consult Acknowledgment - Thank you for your consult request.
[2016-02-25 22:49] VITALS: BP 146/82
[2016-02-26 06:54] VITALS: BP 114/74
--- NOTE | 2016-02-26 07:23 | PN- Housestaff ---
JAKUB CAMPOS 02/26/16 0723: Subjective Follow-up For: PYLONEPHRITIES PROSTATE CANCER WITH METS Subjective: I have seen and examined the patient. Patient is still has left flank pain. But is better with the medication. Creatinine has risen. Review of Systems Constitutional: Reports: see HPI. Objective Last 24 Hrs of Vital Signs/I&O Vital Signs Date Time Temp Pulse Resp B/P Pulse O2 O2 Flow FiO2 Ox Delivery Rate 02/25 0654 98.0 76 20 114/74 93 Room Air 02/25 0524 140/82 02/24 2249 98.3 81 20 146/82 93 Room Air 02/24 1355 97.8 83 20 160/70 92 Room Air 02/24 0839 98.7 81 20 150/90 94 Room Air Intake & Output 02/25 1600 02/25 0800 02/25 0000 Intake Total 800 420 Output Total 100 Balance 800 320 Intake, IV 800 300 Intake, Oral 120 Output, Urine 100 Physical Exam General Appearance: Alert, Oriented X3, Cooperative, No Acute Distress Cardiovascular: Regular Rate, Normal S1, Normal S2 Lungs: Clear to Auscultation, Normal Air Movement Abdomen: Soft, distended with generalized tenderness and left flank tenderness Extremities: No Clubbing, No Cyanosis, No Edema Current Medications: Current Medications Sig/Aurora Start time Last Medication Dose Route Stop Time Status Admin Acetaminophen 325 MG Q6 PRN 02/24 0500 AC PO Bicalutamide 50 MG 0600 02/25 0600 AC 02/25 PO 0525 Bicalutamide 50 MG DAILY 02/24 1000 DC 02/24 PO 1001 Bisacodyl 10 MG DAILY PRN 02/24 0615 AC [place] Cefepime HCl 1,000 MG Q12 02/24 1000 CAN IV Ceftriaxone Sodium 1,000 MG DAILY 02/24 1000 DC IV Heparin Sodium 5,000 UNIT Q8 02/24 0600 AC 02/25 (Porcine) SC 0525 Oxycodone/ See Dose Q6P PRN 02/24 0515 AC 02/25 Acetaminophen Insts (1) PO 0352 Patient Medication 1 ED .STK-MED ONE 02/24 1416 DC Teaching ED 02/24 1417 Polyethylene Glycol 17 GM DAILY 02/24 1000 AC 02/24 PO 1002 Prednisone 5 MG 0600,1800 02/25 0600 AC 02/25 PO 0525 Prednisone 5 MG BID 02/24 1000 DC 02/24 PO 1928 Senna/Docusate Sodium 2 TAB DAILY PRN 02/24 0615 AC 02/24 PO 1001 Sodium Chloride 1,000 ML Q13H 02/24 0500 AC 02/25 IV 0522 Tamsulosin HCl 0.4 MG 0600,1800 02/25 0600 AC 02/25 PO 0524 Tamsulosin HCl 0.4 MG BID 02/24 1000 DC 02/24 PO 1928 Valacyclovir HCl 1,000 MG TID 02/24 1000 DC PO Vancomycin HCl 1,250 MG Q12 02/24 2200 DC Sodium Chloride 250 ML IV Vancomycin HCl 1,250 MG Q12H 02/24 1900 AC 02/25 Sodium Chloride 250 ML IV 0646 Dose Instructions: (1)Oxycodone/Acetaminophen: 1-2 TAB Assessment/Plan Assessment: Patient is a 55-year-old male with a past medical history of 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 Patient is status post TURP on 02/10/2016. Has increasing left flank pain/CVA tenderness with dirty urine and constipation. Labs showed white count of 12.5, H&H 11.4/ 35.2, creatinine 1.5(baseline 0.9) UA: Turbid, nitrate positive, small leukocyte esterase, white cells 25-30, hemoglobin large. Abdominal and pelvis CT: New left perinephric stranding and left retroperitoneal fluid suggesting a left renal/ureteral inflammatory process. There is persistent left hydroureteronephrosis extending to the bladder. No obstructing calculus. There is mural indistinctness of the predominantly decompressed bladder,which may represent inflammation.Persistent retroperitoneal/pelvic adenopathy. Persistent hypodense hepatic lesions.No evidence of bowel obstruction. Problems: * Pyelonephritis with perinephric stranding and retroperitoneal fluid. * Status post TURP on 02/10/2016 for urinary retention with outpatient treatment with by mouth ciprofloxacin * Left-sided hydronephrosis extending to the bladder * Stage IV prostate cancer with metastases to bones and lung * HEENA likely postrenal due to urinary obstruction * Constipation Plan * dc Hydration, patient creatinine is rising. * Urology consult with , patient will get left-sided stent tomorrow, and NPO tonight * Patient is on vancomycin twice a day per ID * Closely monitor urine output, Marie if signs of retention * Follow blood and urine cultures(gram-positive cocci in clusters in the urine) * Continue chemotherapy zytiga,bicalutamide and prednisone * Bowel regimen for constipation, portable abdominal x-ray did not show any obstruction. Decrease the interval of oxycodone * Dr. Mondragon is aware DVT prophylaxis subcutaneous heparin,Full code,Regular diet, Mild pain pathway Problem List: 1. Hydronephrosis, left 2. Constipation 3. Pyelonephritis Pain Ratin Pain Location: left Flank Pain Goal: Pain 4 or less Pain Plan: decreas the interval of the pain meds administration Tomorrow's Labs & Rationales: BC, BEP, PT PTT, stent placement tomorrow FEDE GONSALES MD 02/26/16 1022: Attending MD Review Statement Attending Statement Attending MD Statement: examined this patient, discuss w/resident/PA/SAMPLE ROOM SUPERVISOR, agreed w/resident/PA/SAMPLE ROOM SUPERVISOR, reviewed EMR data (avail), discussed with nursing Attending Assessment/Plan: Patient continues to have flank tenderness and discomfort on urination. Yesterday there was a concern of retention but the bladder scan was negative. He is a 55-year-old male with metastatic prostate CA on chronic prednisone therapy here with pyelonephritis. Appreciate ID evaluation and we are treating him with IV Vanco for coag negative staph in the urine. Dr. Mariano saw him yesterday and given his persistent symptoms and his hydronephrosis he probably needs a stent.
[2016-02-26 08:04] LABS: ABSOLUTE BASOPHIL COUNT 0 /CUMM (0.0-0.2); ABSOLUTE EOSINOPHIL COUNT 0.1 /CUMM (0.0-0.7); ABSOLUTE GRANULOCYTE CT 6.3 /CUMM (1.4-6.5); ABSOLUTE LYMPH COUNT 1.7 /CUMM (1.2-3.4); ABSOLUTE MONOCYTE COUNT 0.6 /CUMM (0.10-0.60); BASOPHIL % 0.6 % (0.0-2.0); EOSINOPHIL % 1.1 % (0-5); GRANULOCYTE % 71.5 % (42.2-75.2); HEMATOCRIT 34.7 % (42-52); MEAN CORPUSCULAR VOLUME 81.7 FL (80.0-94.0); MEAN PLATELET VOLUME 8.6 FL (7.4-10.4); PLATELET COUNT 236 /CUMM (130-400); RED BLOOD CELL CT 4.25 /CUMM (4.70-6.10); WHITE BLOOD CELL COUNT 8.9 /CUMM (4.8-10.8)
[2016-02-26 11:00] VITALS: BP 152/90
--- NOTE | 2016-02-26 13:28 | PN- Infect Dx ---
Subjective Subjective: Afebrile on steroids. He notes no improvement in his left flank pain. He had 2 loose watery stools last night. He notes increased abdominal discomfort and distention with mild nausea. He is urinating minimal amounts, with bladder scan postvoid revealing 90 mL. Objective Last 24 Hrs of Vital Signs/I&O Vital Signs Date Time Temp Pulse Resp B/P Pulse O2 O2 Flow FiO2 Ox Delivery Rate 02/25 1100 152/90 02/25 0654 98.0 76 20 114/74 93 Room Air 02/25 0524 140/82 02/24 2249 98.3 81 20 146/82 93 Room Air 02/24 1355 97.8 83 20 160/70 92 Room Air Intake & Output 02/25 1600 02/25 0800 02/25 0000 Intake Total 800 420 Output Total 100 Balance 800 320 Intake, IV 800 300 Intake, Oral 120 Output, Urine 100 Physical Exam Other Physical Findings: He appears comfortable in no acute distress Lungs crackles at the right base Heart regular rhythm with no murmur Abdomen is obese, soft, mild tenderness on palpation over the left upper quadrant, with no guarding or rebound, positive bowel sounds Back left CVA tenderness Extremities no cyanosis, clubbing or edema Results Last 24 Hours of Lab Results: Laboratory Tests 02/25 0630 Chemistry Sodium (137 - 145 mmol/L) 138 Potassium (3.5 - 5.1 mmol/L) 4.5 Chloride (98 - 107 mmol/L) 102 Carbon Dioxide (22 - 30 mmol/L) 26 Anion Gap (5 - 16) 11 BUN (9 - 20 mg/dL) 20 Creatinine (0.7 - 1.2 mg/dL) 1.6 H Estimated GFR (>60 ml/min) 45 L BUN/Creatinine Ratio (7 - 25 %) 12.5 Hematology CBC w Diff NO MAN DIFF REQ WBC (4.8 - 10.8 /CUMM) 8.9 RBC (4.70 - 6.10 /CUMM) 4.25 L Hgb (14.0 - 18.0 G/DL) 11.5 L Hct (42 - 52 %) 34.7 L MCV (80.0 - 94.0 FL) 81.7 MCH (27.0 - 31.0 PG) 27.0 RDW (11.5 - 14.5 %) 15.0 H Plt Count (130 - 400 /CUMM) 236 MPV (7.4 - 10.4 FL) 8.6 Gran % (42.2 - 75.2 %) 71.5 Lymphocytes % (20.5 - 51.1 %) 19.7 L Monocytes % (1.7 - 9.3 %) 7.1 Eosinophils % (0 - 5 %) 1.1 Basophils % (0.0 - 2.0 %) 0.6 Absolute Granulocytes (1.4 - 6.5 /CUMM) 6.3 Absolute Lymphocytes (1.2 - 3.4 /CUMM) 1.7 Absolute Monocytes (0.10 - 0.60 /CUMM) 0.6 Absolute Eosinophils (0.0 - 0.7 /CUMM) 0.1 Absolute Basophils (0.0 - 0.2 /CUMM) 0 PUBS MCHC (33.0 - 37.0 G/DL) 33.0 Last 24 Hours of Raymundo Results: Blood cultures 2 February 24 negative Urine culture February 24 greater than 100,000 colonies of gram-positive cocci Assessment/Plan Impression: Stable on Vancomycin Day 1 of treatment for presumed pyelonephritis secondary to coag-negative Staph, with this organism isolated from multiple urine cultures, with temperatures remaining normal and with white blood cell count now normal, though he continues to complain of left flank pain/tenderness. He may require urologic intervention, for example left ureteral stent for the mild left hydronephrosis, as discussed yesterday with Urology, and will await their follow -up. His creatinine continues to increase with decreased urine output despite IV fluids, suggesting the possibility of bilateral obstruction, though this was not noted on the recent CT scan, and, again, will await Urology follow-up. His abdominal discomfort is likely secondary to constipation, with the recent CT negative for any evidence of bowel obstruction. Suggestion: 1. Await Urology follow-up for possible cystoscopy and left ureteral stent 2. Follow-up final cultures 3. Further management of his constipation per Medicine 4. Continue Vancomycin pending above
--- NOTE | 2016-02-26 14:50 | RADIOLOGY REPORT ---
EXAMINATION: XR PORTABLE ABDOMEN CLINICAL INFORMATION: Abdominal distention. No bowel movement in one week. Evaluate for bowel obstruction. COMPARISON: CT abdomen and pelvis without contrast 02/25/2016. TECHNIQUE: Single AP view of the abdomen and pelvis. FINDINGS: There is a minimal amount of retained stool within the cecum and ascending colon. The bowel gas pattern is otherwise nonspecific, without findings indicative of obstruction or ileus. There is identified within the descending colon as well as the rectosigmoid colon. Soft tissues appear unremarkable. No acute osseous abnormality. IMPRESSION: Nonspecific bowel gas pattern, without findings indicative of obstruction or ileus. There is a minimal amount of retained stool within the cecum and ascending colon.
[2016-02-26 14:54] VITALS: BP 120/80
[2016-02-26 22:33] VITALS: BP 124/60
[2016-02-27 06:10] VITALS: BP 132/87
--- NOTE | 2016-02-27 07:23 | PN- Housestaff ---
JAKUB CAMPOS 02/27/16 0722: Subjective Follow-up For: metastatis prostate cancer pylonephrities Subjective: I have seen and examined the patient. Patient had minimal bowel movement yesterday. Patient still has the left flank pain. Creatinines rising up. he get this sent today.. Review of Systems Constitutional: Reports: see HPI. Objective Last 24 Hrs of Vital Signs/I&O Vital Signs Date Time Temp Pulse Resp B/P Pulse O2 O2 Flow FiO2 Ox Delivery Rate 02/26 0610 98.0 73 20 132/87 94 02/25 2233 98.3 64 20 124/60 94 02/25 1454 98.1 61 20 120/80 95 02/25 1100 152/90 Intake & Output 02/26 1600 02/26 0800 02/26 0000 Intake Total 360 480 Output Total 275 775 Balance 85 -295 Intake, IV 300 Intake, Oral 60 480 Output, Urine 275 775 Physical Exam General Appearance: Alert, Oriented X3, Cooperative Other Physical Findings: Cardiovascular: Regular Rate, Normal S1, Normal S2 Lungs: Clear to Auscultation, Normal Air Movement Abdomen: Soft, distended with generalized tenderness and left flank tenderness Extremities: No Clubbing, No Cyanosis, No Edema Current Medications: Current Medications Sig/Aurora Start time Last Medication Dose Route Stop Time Status Admin Acetaminophen 325 MG Q6 PRN 02/24 0500 AC 02/26 PO 0830 Al Hydroxide/Mg 30 ML .STK-MED ONE 02/25 1731 DC Hydroxide PO 02/25 1732 Al Hydroxide/Mg 30 ML Q4-6 PRN PRN 02/25 1715 AC 02/25 Hydroxide PO 1737 Bicalutamide 50 MG 0600 02/25 0600 AC 02/26 PO 0555 Bisacodyl 10 MG .STK-MED ONE 02/25 1250 DC ND 02/25 1251 Bisacodyl 10 MG DAILY PRN 02/24 0615 AC ND Heparin Sodium 5,000 UNIT Q8 02/24 0600 AC 02/26 (Porcine) SC 0555 Omeprazole 40 MG DAILY AC 02/25 1706 AC 02/25 PO 1916 Oxycodone/ 1 TAB Q4-6 PRN PRN 02/25 1500 DC Acetaminophen PO Oxycodone/ 2 TAB Q4-6 PRN PRN 02/25 1500 AC 12/29 Acetaminophen PO 0555 Oxycodone/ 1 TAB Q4-6 PRN PRN 02/25 1500 AC Acetaminophen PO Oxycodone/ See Dose Q6P PRN 02/24 0515 DC 02/25 Acetaminophen Insts (1) PO 0921 Polyethylene Glycol 17 GM DAILY 02/24 1000 AC 02/25 PO 0922 Prednisone 5 MG 0600,1800 02/25 0600 AC 02/26 PO 0554 Senna/Docusate Sodium 2 TAB DAILY PRN 02/24 0615 AC 02/25 PO 1328 Sodium Chloride 1,000 ML Q13H 02/26 0600 AC 02/26 IV 0556 Sodium Chloride 1,000 ML Q13H 02/24 0500 DC 02/25 IV 0522 Tamsulosin HCl 0.4 MG 0600,1800 02/25 0600 AC 02/26 PO 0554 Vancomycin HCl 1,250 MG Q12H 02/24 1900 AC 02/26 Sodium Chloride 250 ML IV 0554 Dose Instructions: (1)Oxycodone/Acetaminophen: 1-2 TAB Assessment/Plan Assessment: Patient is a 55-year-old male with a past medical history of 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 Patient is status post TURP on 02/10/2016. Has increasing left flank pain/CVA tenderness with dirty urine and constipation. Labs showed white count of 12.5, H&H 11.4/ 35.2, creatinine 1.5(baseline 0.9) UA: Turbid, nitrate positive, small leukocyte esterase, white cells 25-30, hemoglobin large. Abdominal and pelvis CT: New left perinephric stranding and left retroperitoneal fluid suggesting a left renal/ureteral inflammatory process. There is persistent left hydroureteronephrosis extending to the bladder. No obstructing calculus. There is mural indistinctness of the predominantly decompressed bladder,which may represent inflammation.Persistent retroperitoneal/pelvic adenopathy. Persistent hypodense hepatic lesions.No evidence of bowel obstruction. Problems: * Pyelonephritis with perinephric stranding and retroperitoneal fluid. * Status post TURP on 02/10/2016 for urinary retention with outpatient treatment with by mouth ciprofloxacin * Left-sided hydronephrosis extending to the bladder * Stage IV prostate cancer with metastases to bones and lung * HEENA likely postrenal due to urinary obstruction * Constipation Plan * On Hydration causes NPO today for stent placement, patient creatinine is still rising(1.8) * Urology consult with , patient will get left-sided stent today. * Patient is on vancomycin twice a day per ID * Closely monitor urine output, Marie if signs of retention * Follow blood and urine cultures(gram-positive cocci in clusters in the urine) * Continue chemotherapy zytiga,bicalutamide and prednisone, outpatient start of Taxotere per heme/Onc * Bowel regimen for constipation, portable abdominal x-ray did not show any obstruction. * Pain management with oxycodone DVT prophylaxis subcutaneous heparin,Full code,Regular diet, Mild pain pathway Problem List: 1. Pyelonephritis Pain Ratin Pain Location: left flank Pain Goal: Pain 4 or less Pain Plan: same Tomorrow's Labs & Rationales: CBC, BEP, prostate cancer, HEENA ILDA BROWN,FEDE 02/27/16 1000: Attending MD Review Statement Attending Statement Attending MD Statement: examined this patient, discuss w/resident/PA/CONSTRUCTION IRONWORKER HELPER, agreed w/resident/PA/CONSTRUCTION IRONWORKER HELPER, reviewed EMR data (avail) Attending Assessment/Plan: Pt continues to have discomfort and left flank pain. He is worried about his urine output. He is a 55-year-old male with metastatic prostate CA with documented bony metastases is here with obstructive uropathy and pyelonephritis. He is on IV vancomycin for coag negative staph in his urine per ID and the plan is a stent today for the obstructive nephropathy. His creatinine is going up which is worrisome and will need to follow that closely.
[2016-02-27 08:12] LABS: ABSOLUTE BASOPHIL COUNT 0 /CUMM (0.0-0.2); ABSOLUTE EOSINOPHIL COUNT 0.1 /CUMM (0.0-0.7); ABSOLUTE GRANULOCYTE CT 5.3 /CUMM (1.4-6.5); ABSOLUTE LYMPH COUNT 2.1 /CUMM (1.2-3.4); ABSOLUTE MONOCYTE COUNT 0.5 /CUMM (0.10-0.60); BASOPHIL % 0.5 % (0.0-2.0); EOSINOPHIL % 1.6 % (0-5); GRANULOCYTE % 65.6 % (42.2-75.2); HEMATOCRIT 35.5 % (42-52); MEAN CORPUSCULAR HGB 27.1 PG (27.0-31.0); MEAN CORPUSCULAR VOLUME 82.1 FL (80.0-94.0); MEAN PLATELET VOLUME 8.4 FL (7.4-10.4); PLATELET COUNT 238 /CUMM (130-400); RED BLOOD CELL CT 4.32 /CUMM (4.70-6.10); WHITE BLOOD CELL COUNT 8.1 /CUMM (4.8-10.8)
[2016-02-27 08:24] LABS: PT 11.7 SEC (9.4-12.5); PTT 32 SEC (25-37)
--- NOTE | 2016-02-27 10:05 | Discharge Summary ---
Visit Information Visit Dates Admission Date: 02/25/16 Discharge Date: 03/03/16 Hospital Course Course Attending Physician: ILDA BROWN,FEDE Velez Primary Care Physician: MATTHEW VALDEZ DO Consulting Request: Consulting Specialty: Urology Consulting Physician: Dr BISHOP Reason for Consult: pylonephrities, ureter obstruction Hospital Course: 55-year-old male with a past medical history of stage IV prostate cancer with metastases to bones and lung who presented to the ED with a chief complaint of increased left-sided abdominal discomfort and constipation for the past few weeks. Patient is status post TURP on 02/10/2016. He also had increasing left flank pain/CVA tenderness with dirty urine(despite being on ciprofloxacin ) and constipation. Vitals in the ED temperature of 97.5, pulse 90, respiration 18, blood pressure 131/83, pulse ox and 6% on room air. Physical Exam General Appearance Alert, Oriented X3, Mild Distress Skin swelling over the sternum 2/2 metastasis HEENT Atraumatic, PERRLA, EOMI Neck Supple, No JVD Lymphatic Cervical nl Cardiovascular Regular Rate, Normal S1, Normal S2, No Murmurs Lungs Clear to Auscultation, basal crackles on the left base Abdomen Soft, CVA TENDERNESS ON THE LEFT, NORMAL BOWEL SOUNDS Neurological Normal Gait, Normal Speech, Strength at 5/5 X4 Ext, Normal Tone, Sensation Intact Extremities No Clubbing, No Cyanosis, No Edema, Normal Pulses Labs showed white count of 12.5, H&H 11.4/ 35.2, creatinine 1.5(baseline 0.9) UA: Turbid, nitrate positive, small leukocyte esterase, white cells 25-30, hemoglobin large. Abdominal and pelvis CT: New left perinephric stranding and left retroperitoneal fluid suggesting a left renal/ureteral inflammatory process. There is persistent left hydroureteronephrosis extending to the bladder. No obstructing calculus. There is mural indistinctness of the predominantly decompressed bladder,which may represent inflammation.Persistent retroperitoneal/pelvic adenopathy. Persistent hypodense hepatic lesions.No evidence of bowel obstruction. patient was admitted to general floor and treated for these medical conditions: #HEENA and Pyelonephritis due to Ureteral Obstruction due to progression of the prostate cancer Patient was put on IV hydration, IV Cefrtiaxone>>> on second day changed to IV vancomycin (urine culture showed growth of staph coag negative). The trial of Ureteral stent placement was unsuccessful and Bilateral Nephrostomy tubes were placed by IR. Patient HEENA had resolved and his condition improved. IV vancomycin was changed to PO Bactrim. patient was discharged with instructions to complete the antibiotic therapy and follow up with Urology and his PCP. #Prostate Cancer we continued zytiga,bicalutamide and prednisone.Chest CT showed possible worsening of Metastasis. also saw the patient and recommended restarting outpatient Taxotrete therapy #Constipation patient has suffered from constipation due to being on narcotics. He was put on aggressive bowel regimen which was continued for discharge home medications as well. Allergies: Coded Allergies: ragweed pollen (Intermediate, NASAL CONGESTION 01/07/16) Penicillins (UNKNOWN 02/27/16) Significant Procedures: bilateral nephrostomy tube placement PATIENT: EFRAIN OLIVERA PRESENT AGE: 55 PATIENT ACCOUNT NO: [id number] : 62 LOCATION: [facility] ORDERING PHYSICIAN: JULIETTE QUINTERO MD SERVICE DATE: 02/24/16 EXAM TYPE: CAT - CT ABD & PELVIS W/O IV CONTRAS EXAMINATION: CT ABDOMEN AND PELVIS WITHOUT CONTRAST CLINICAL INFORMATION: Abdominal pain and distention. Question small bowel obstruction. History of prostate cancer. COMPARISON: CT abdomen pelvis 02/22/2016. TECHNIQUE: Multidetector volumetric imaging was performed from the superior aspect of the liver through the pubic symphysis. Sagittal and coronal reformatted images were obtained on the technologist's workstation. DLP: 1553 mGy-cm. FINDINGS: LUNG BASES: Trace bilateral pleural effusions and adjacent basilar atelectasis/consolidation. LIVER, GALLBLADDER, AND BILIARY TREE: Persistent hypodense lesions within Couinaud's segment 8 and 4. No biliary ductal dilatation. No evidence of gallstones or cholecystitis. PANCREAS: Unremarkable. SPLEEN: Unremarkable. ADRENAL GLANDS: Unchanged nodular fullness of the left adrenal gland measuring less than 10 Hounsfield units, consistent with an adenoma. KIDNEYS AND URETERS: There is left-sided hydroureteronephrosis with increased left perinephric stranding. Fluid extends inferiorly within the left retroperitoneum into the pelvis. No obstructing calculus is demonstrated. No suspicious renal mass. BLADDER: Predominantly decompressed. Mild indistinctness of the bladder wall. GASTROINTESTINAL TRACT: Bowel gas pattern is nonobstructive. No evidence of acute bowel inflammation. A few colonic diverticula are noted. The appendix is normal. ABDOMINAL WALL: No significant hernia is appreciated. LYMPH NODES: Retroperitoneal and pelvic adenopathy is redemonstrated. VASCULAR: Scattered atherosclerotic calcification including mild coronary artery calcification. PELVIC VISCERA: Trace free fluid within the pelvis. Prostate gland and seminal vesicles are unchanged. OSSEOUS STRUCTURES: A few unchanged scattered sclerotic foci within the visualized skeleton are redemonstrated. IMPRESSION: 1. New left perinephric stranding and left retroperitoneal fluid suggesting a left renal/ureteral inflammatory process. There is persistent left hydroureteronephrosis extending to the bladder. No obstructing calculus. There is mural indistinctness of the predominantly decompressed bladder, which may represent inflammation. 2. Persistent retroperitoneal/pelvic adenopathy. 3. Persistent hypodense hepatic lesions. 4. No evidence of bowel obstruction. No acute bowel pathology. 5. Additional findings as described. DICTATED BY: LAITH DE GUZMAN MD DATE/TIME DICTATED:02/25/1644 SUPERVISOR POWDER AND PRIMER CANNING:KAYY DATE/TIME TRANSCRIBED:02/25/1644 CONFIDENTIAL, DO NOT COPY WITHOUT APPROPRIATE AUTHORIZATION. <Electronically signed in Other Vendor System> SIGNED BY: LAITH DE GUZMAN MD 02/25/16 0118 Pertinent Lab Results: PATIENT: EFRAIN OLIVERA PRESENT AGE: 55 PATIENT ACCOUNT NO: [id number] : 62 LOCATION: [facility] ORDERING PHYSICIAN: JULIETTE QUINTERO MD SERVICE DATE: 02/24/16 EXAM TYPE: CAT - CT ABD & PELVIS W/O IV CONTRAS EXAMINATION: CT ABDOMEN AND PELVIS WITHOUT CONTRAST CLINICAL INFORMATION: Abdominal pain and distention. Question small bowel obstruction. History of prostate cancer. COMPARISON: CT abdomen pelvis 02/22/2016. TECHNIQUE: Multidetector volumetric imaging was performed from the superior aspect of the liver through the pubic symphysis. Sagittal and coronal reformatted images were obtained on the technologist's workstation. DLP: 1553 mGy-cm. FINDINGS: LUNG BASES: Trace bilateral pleural effusions and adjacent basilar atelectasis/consolidation. LIVER, GALLBLADDER, AND BILIARY TREE: Persistent hypodense lesions within Couinaud's segment 8 and 4. No biliary ductal dilatation. No evidence of gallstones or cholecystitis. PANCREAS: Unremarkable. SPLEEN: Unremarkable. ADRENAL GLANDS: Unchanged nodular fullness of the left adrenal gland measuring less than 10 Hounsfield units, consistent with an adenoma. KIDNEYS AND URETERS: There is left-sided hydroureteronephrosis with increased left perinephric stranding. Fluid extends inferiorly within the left retroperitoneum into the pelvis. No obstructing calculus is demonstrated. No suspicious renal mass. BLADDER: Predominantly decompressed. Mild indistinctness of the bladder wall. GASTROINTESTINAL TRACT: Bowel gas pattern is nonobstructive. No evidence of acute bowel inflammation. A few colonic diverticula are noted. The appendix is normal. ABDOMINAL WALL: No significant hernia is appreciated. LYMPH NODES: Retroperitoneal and pelvic adenopathy is redemonstrated. VASCULAR: Scattered atherosclerotic calcification including mild coronary artery calcification. PELVIC VISCERA: Trace free fluid within the pelvis. Prostate gland and seminal vesicles are unchanged. OSSEOUS STRUCTURES: A few unchanged scattered sclerotic foci within the visualized skeleton are redemonstrated. IMPRESSION: 1. New left perinephric stranding and left retroperitoneal fluid suggesting a left renal/ureteral inflammatory process. There is persistent left hydroureteronephrosis extending to the bladder. No obstructing calculus. There is mural indistinctness of the predominantly decompressed bladder, which may represent inflammation. 2. Persistent retroperitoneal/pelvic adenopathy. 3. Persistent hypodense hepatic lesions. 4. No evidence of bowel obstruction. No acute bowel pathology. 5. Additional findings as described. DICTATED BY: LAITH DE GUZMAN MD DATE/TIME DICTATED:02/25/1644 SUPERVISOR POWDER [employer] PRIM[employer] CANNING:KAYY DATE/TIME TRANSCRIBED:02/25/1644 CONFIDENTIAL, DO NOT COPY WITHOUT APPROPRIATE AUTHORIZATION. <Electronically signed in Other Vendor System> SIGNED BY: LAITH DE GUZMAN MD 02/25/16 0118 Disposition Summary Disposition Principal Diagnosis: pyelonephritis due to ureter stricture Additional Diagnosis: prostate cancer with Metastasis Discharge Disposition: home or self care Discharge Instructions General Discharge Information Code Status: Full Code Patient's Diet: regular Patient's Activity: as tolerated Follow-Up Instructions/Appts: -Please follow-up with your primary care provider within 7 days after discharge. -please follow up with Dr. BISHOP 7 DAYS after discharge. -We have made changes to your home medications, please read the instructions carefully. -Please come back to the hospital if your symptoms got worse. Medications at Discharge Discharge Medications: Stop taking the following medications: Ciprofloxacin HCl (Cipro) 500 MG TABLET ORAL TWICE DAILY Continue taking these medications: Bicalutamide (Bicalutamide) 50 MG TABLET 1 Tablet ORAL DAILY Qty = 30 Comments: Last Taken:03/03/15 Time: 0720 AM Tamsulosin HCl (Tamsulosin HCl) 0.4 MG CAP.ER.24H 1 Capsule ORAL TWICE DAILY Qty = 30 Comments: Last Taken: 03/03/15 Time: 0720 AM Naloxegol Oxalate (Movantik) 25 MG TABLET 1 Tablet ORAL DAILY as needed for CONSTIPATION Qty = 30 Comments: NOT TAKEN IN HOSPITAL Start taking the following new medications: Sulfamethoxazole/Trimethoprim (Sulfamethoxazole-Tmp Ds Tablet) 800 MG-160 MG TABLET 1 Tablet ORAL TWICE DAILY Days = 8 No Refills Comments: Last Taken: 03/03/15 Time: 1000 Morphine Sulfate (Morphine Sulfate) 15 MG TABLET 30 Milligram ORAL EVERY 4 HOURS NEEDED as needed for PAIN SCALE 7-10 ( SEVERE) Qty = 15 No Refills Comments: Last Taken: 03/02/15 Time: 0513 AM Polyethylene Glycol 3350 (Miralax) 17 GRAM/DOSE POWDER 17 Gram ORAL DAILY Days = 28 No Refills Comments: Last Taken: 03/03/15 Time: 1000 Sennosides/Docusate Sodium (Senna Plus Tablet) 8.6 MG-50 MG TABLET 2 Tablet ORAL DAILY as needed for CONSTIPATION Days = 28 No Refills Finasteride (Finasteride) 5 MG TABLET 5 Milligram ORAL DAILY Days = 28 No Refills Comments: Last Taken: 03/03/15 Time: 1000 Copies To: SAIDA VALDEZ DO, MD,MICHELE Velez; MARY JANE BROWN,DESTINEY Kramer; EDNA BROWN,JESSICA
--- NOTE | 2016-02-27 11:15 | Admission Certification ---
Admission Certification Certification Statement - As attending physician, I certify that at the time of - admission, based on clinical presentation, severity of - symptoms, need for further diagnostic testing and - therapeutic interventions, and risk of adverse outcomes - without in-hospital treatment, in my clinical assessment, - this patient requires an acute hospital stay for a minimum - of two nights or longer. I have also considered psychsocial - factors such as support system, advanced age, financial - issues, cognitive issues, and failed out-patient treatments, - past re-admission history, safety of patient, and lack of - compliance as applicable. Specific rationale supporting this admission is: Acute pyelonephritis in patient with metastatic prostate CA.
--- NOTE | 2016-02-27 14:37 | RADIOLOGY REPORT ---
EXAMINATION: XR ABDOMEN CLINICAL INDICATION: Cystoscopy COMPARISON: None. TECHNIQUE: Fluoroscopic guidance for cystoscopy. Total fluoroscopic time 0.9 minutes. 11 fluoroscopic images were submitted. FINDINGS: Initial images demonstrate a scope overlying the bladder. A wire is placed. A catheter is seen in the bladder on later images with contrast filling of the bladder. IMPRESSION: Fluoroscopic guidance for cystoscopy. Please refer to operative report for further information.
--- NOTE | 2016-02-27 15:17 | Cons- Urology ---
General Information and HPI Consulting Request Date of Consult: 02/26/16 Requested By: FEDE GONSALES MD Reason for Consult: METASTATIC PROSTATE CANCER: LEFT HYDRO WITH WORSENING RENAL FUNCTION AND DECREASING URINE OUTPUT Source of Information: patient, family, old records Exam Limitations: no limitations History of Present Illness: 55 YEAR OLD WITH PROSTATE CANCER STAGE 4: ADMITTED WITH HEMATURIA, AND WORSENING PSA DESPITE CHEMOTHERAPY. CT WITH LEFT HYDRO. PLAN IS CYSTO-LEFT STENT: POSSIBLE URETEROSCOPY WITH LASER. Allergies/Medications Allergies: Coded Allergies: ragweed pollen (Intermediate, NASAL CONGESTION 01/07/16) Penicillins (UNKNOWN 02/27/16) Home Med List: Abiraterone Acetate (Zytiga) 250 MG TABLET 4 TAB PO DAILY CHEMO (Reported) Bicalutamide 50 MG TABLET 1 TAB PO DAILY HORMONE (Reported) Ciprofloxacin HCl (Cipro) 500 MG TABLET 1 TAB PO BID PROSTATE CANCER ( Reported) Naloxegol Oxalate (Movantik) 25 MG TABLET 1 TAB PO DAILY PRN CONSTIPATION Oxycodone HCl/Acetaminophen (Percocet 5-325 MG Tablet) 5 MG-325 MG TABLET 1-2 TAB PO Q6P PRN PAIN Prednisone 5 MG TABLET 1 TAB PO BID STEROID (Reported) Tamsulosin HCl 0.4 MG CAP.ER.24H 1 CAP PO BID PROSTATE (Reported) Valacyclovir HCl (Valtrex) 1,000 MG TABLET 1 TAB PO TID SHINGLES Current Medications: Current Medications Sig/Aurora Start time Last Medication Dose Route Stop Time Status Admin Acetaminophen 325 MG Q6 PRN 02/24 0500 AC 02/26 PO 0830 Al Hydroxide/Mg 30 ML .STK-MED ONE 02/25 1731 DC Hydroxide PO 02/25 1732 Al Hydroxide/Mg 30 ML Q4-6 PRN PRN 02/25 1715 DC 02/25 Hydroxide PO 1737 Bicalutamide 50 MG 0600 02/25 0600 AC 02/26 PO 0555 Bisacodyl 10 MG DAILY PRN 02/24 0615 AC MI Docusate Sodium 100 MG BID 02/26 1015 AC PO Heparin Sodium 5,000 UNIT Q8 02/24 0600 DC 02/26 (Porcine) SC 0555 Magnesium Hydroxide 30 ML Q8P PRN 02/26 1015 AC PO Omeprazole 40 MG DAILY AC 02/25 1706 AC 02/25 PO 1916 Oxycodone/ 2 TAB Q4-6 PRN PRN 02/25 1500 AC 02/26 Acetaminophen PO 1001 Oxycodone/ 1 TAB Q4-6 PRN PRN 02/25 1500 AC Acetaminophen PO Polyethylene Glycol 17 GM DAILY 02/24 1000 AC 02/25 PO 0922 Prednisone 5 MG 0600,1800 02/25 0600 AC 02/26 PO 0554 Senna/Docusate Sodium 2 TAB DAILY PRN 02/24 0615 AC 02/25 PO 1328 Sodium Chloride 1,000 ML Q13H 02/26 0600 AC 02/26 IV 02/27 0600 0556 Tamsulosin HCl 0.4 MG 0600,1800 02/25 0600 AC 02/26 PO 0554 Vancomycin HCl 1,250 MG Q12H 02/24 1900 AC 02/26 Sodium Chloride 250 ML IV 0554 Past History Medical History Blood Transfusion Hx: No Neurological: NONE EENT: NONE Cardiovascular: NONE Respiratory: obstructive sleep apnea Gastrointestinal: NONE Hepatic: NONE Musculoskeletal: NONE Psychiatric: NONE Endocrine: NONE Blood Disorders: NONE Cancer(s): prostate cancer, METS TO the lymph nodes, bone and, possibly, the liver 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 Home Services at Home: None Smoking Status: Current Some Day Smoker ETOH Use: denies use Illicit Drug Use: denies illicit drug use Employment History Retired? no Review of Systems Review of Systems Constitutional: Denies: no symptoms. EENTM: Denies: no symptoms. Cardiovascular: Denies: no symptoms. Respiratory: Denies: no symptoms. GI: Reports: abdominal pain. Genitourinary: Reports: hematuria. Musculoskeletal: Denies: no symptoms. Skin: Denies: no symptoms. All Other Systems: Reviewed and Negative Exam & Diagnostic Data Vital Signs and I&O Vital Signs Date Time Temp Pulse Resp B/P Pulse O2 O2 Flow FiO2 Ox Delivery Rate 02/26 08 Room Air 02/26 0610 98.0 73 20 132/87 94 02/25 2233 98.3 64 20 124/60 94 Intake & Output 02/26 1600 02/26 0800 02/26 0000 02/25 1600 02/25 0800 02/25 0000 Intake Total 042 724 7415 800 420 Output Total 275 775 550 100 Balance 85 -295 450 800 320 Intake, IV 300 200 800 300 Intake, Oral 60 480 800 120 Output, Urine 275 775 550 100 Physical Exam General Appearance: well developed/nourished, obese Head: atraumatic Ears, Nose, Throat: normal pharynx Neck: normal inspection Respiratory: normal breath sounds Cardiovascular: regular rate/rhythm Gastrointestinal: normal bowel sounds Back: CVA tenderness (L) Extremities: normal inspection Skin: intact, normal color, warm/dry Reproductive: Normal male genitalia Last 24 Hours of Labs: Laboratory Tests 02/26 0650 Chemistry Sodium (137 - 145 mmol/L) 139 Potassium (3.5 - 5.1 mmol/L) 4.5 Chloride (98 - 107 mmol/L) 100 Carbon Dioxide (22 - 30 mmol/L) 28 Anion Gap (5 - 16) 11 BUN (9 - 20 mg/dL) 19 Creatinine (0.7 - 1.2 mg/dL) 1.8 H Estimated GFR (>60 ml/min) 40 L BUN/Creatinine Ratio (7 - 25 %) 10.6 Coagulation PT (9.4 - 12.5 SEC) 11.7 INR (0.90 - 1.17) 1.12 APTT (25 - 37 SEC) 32 Hematology CBC w Diff NO MAN DIFF REQ WBC (4.8 - 10.8 /CUMM) 8.1 RBC (4.70 - 6.10 /CUMM) 4.32 L Hgb (14.0 - 18.0 G/DL) 11.7 L Hct (42 - 52 %) 35.5 L MCV (80.0 - 94.0 FL) 82.1 MCH (27.0 - 31.0 PG) 27.1 RDW (11.5 - 14.5 %) 15.0 H Plt Count (130 - 400 /CUMM) 238 MPV (7.4 - 10.4 FL) 8.4 Gran % (42.2 - 75.2 %) 65.6 Lymphocytes % (20.5 - 51.1 %) 25.6 Monocytes % (1.7 - 9.3 %) 6.7 Eosinophils % (0 - 5 %) 1.6 Basophils % (0.0 - 2.0 %) 0.5 Absolute Granulocytes (1.4 - 6.5 /CUMM) 5.3 Absolute Lymphocytes (1.2 - 3.4 /CUMM) 2.1 Absolute Monocytes (0.10 - 0.60 /CUMM) 0.5 Absolute Eosinophils (0.0 - 0.7 /CUMM) 0.1 Absolute Basophils (0.0 - 0.2 /CUMM) 0 PUBS MCHC (33.0 - 37.0 G/DL) 33.0 Imaging Results: PATIENT: EFRAIN OLIVERA PRESENT AGE: 55 PATIENT ACCOUNT NO: [id number] : 62 LOCATION: [facility] ORDERING PHYSICIAN: JULIETTE QUINTERO MD SERVICE DATE: 02/24/16 EXAM TYPE: CAT - CT ABD & PELVIS W/O IV CONTRAS EXAMINATION: CT ABDOMEN AND PELVIS WITHOUT CONTRAST CLINICAL INFORMATION: Abdominal pain and distention. Question small bowel obstruction. History of prostate cancer. COMPARISON: CT abdomen pelvis 02/22/2016. TECHNIQUE: Multidetector volumetric imaging was performed from the superior aspect of the liver through the pubic symphysis. Sagittal and coronal reformatted images were obtained on the technologist's workstation. DLP: 1553 mGy-cm. FINDINGS: LUNG BASES: Trace bilateral pleural effusions and adjacent basilar atelectasis/consolidation. LIVER, GALLBLADDER, AND BILIARY TREE: Persistent hypodense lesions within Couinaud's segment 8 and 4. No biliary ductal dilatation. No evidence of gallstones or cholecystitis. PANCREAS: Unremarkable. SPLEEN: Unremarkable. ADRENAL GLANDS: Unchanged nodular fullness of the left adrenal gland measuring less than 10 Hounsfield units, consistent with an adenoma. KIDNEYS AND URETERS: There is left-sided hydroureteronephrosis with increased left perinephric stranding. Fluid extends inferiorly within the left retroperitoneum into the pelvis. No obstructing calculus is demonstrated. No suspicious renal mass. BLADDER: Predominantly decompressed. Mild indistinctness of the bladder wall. GASTROINTESTINAL TRACT: Bowel gas pattern is nonobstructive. No evidence of acute bowel inflammation. A few colonic diverticula are noted. The appendix is normal. ABDOMINAL WALL: No significant hernia is appreciated. LYMPH NODES: Retroperitoneal and pelvic adenopathy is redemonstrated. VASCULAR: Scattered atherosclerotic calcification including mild coronary artery calcification. PELVIC VISCERA: Trace free fluid within the pelvis. Prostate gland and seminal vesicles are unchanged. OSSEOUS STRUCTURES: A few unchanged scattered sclerotic foci within the visualized skeleton are redemonstrated. IMPRESSION: 1. New left perinephric stranding and left retroperitoneal fluid suggesting a left renal/ureteral inflammatory process. There is persistent left hydroureteronephrosis extending to the bladder. No obstructing calculus. There is mural indistinctness of the predominantly decompressed bladder, which may represent inflammation. 2. Persistent retroperitoneal/pelvic adenopathy. 3. Persistent hypodense hepatic lesions. 4. No evidence of bowel obstruction. No acute bowel pathology. 5. Additional findings as described. Assessment/Plan Assessment/Plan MET. PROSTATE CANCER, HEMATURIA POST TURP 2 WEEKS AGO. LEFT HYDRO: PLAN IS CYSTO-LEFT STENT/URETEROSCOPY Copies To: JESSICA BISHOP MD Consult Acknowledgment - Thank you for your consult request. Attending MD Review Statement Attending Statement Attending MD Statement: examined this patient, discuss w/resident/PA/ASSEMBLER DC FIELD RING Attending Assessment/Plan: MET CA PROSTATE WITH ARF: LEFT HYDRO: FOR STENT JIM.
--- NOTE | 2016-02-27 15:30 | PN- Infect Dx ---
Subjective Subjective: Afebrile. He continues to complain of dysuria and left flank pain, with no improvement since admission. He has undergone cystoscopy, with inability to place a left ureteral stent secondary to obstruction, and he will require a left percutaneous nephrostomy, which is scheduled for later today. Objective Last 24 Hrs of Vital Signs/I&O Vital Signs Date Time Temp Pulse Resp B/P Pulse O2 O2 Flow FiO2 Ox Delivery Rate 02/26 0800 Room Air 02/26 0610 98.0 73 20 132/87 94 02/25 2233 98.3 64 20 124/60 94 Intake & Output 02/26 1600 02/26 0800 02/26 0000 Intake Total 360 480 Output Total 275 775 Balance 85 -295 Intake, IV 300 Intake, Oral 60 480 Output, Urine 275 775 Physical Exam Other Physical Findings: He appears comfortable in no acute distress Lungs are clear Back left flank tenderness on minimal palpation Extremities no cyanosis, clubbing or edema Marie catheter is in place Results Last 24 Hours of Lab Results: Laboratory Tests 02/26 0650 Chemistry Sodium (137 - 145 mmol/L) 139 Potassium (3.5 - 5.1 mmol/L) 4.5 Chloride (98 - 107 mmol/L) 100 Carbon Dioxide (22 - 30 mmol/L) 28 Anion Gap (5 - 16) 11 BUN (9 - 20 mg/dL) 19 Creatinine (0.7 - 1.2 mg/dL) 1.8 H Estimated GFR (>60 ml/min) 40 L BUN/Creatinine Ratio (7 - 25 %) 10.6 Coagulation PT (9.4 - 12.5 SEC) 11.7 INR (0.90 - 1.17) 1.12 APTT (25 - 37 SEC) 32 Hematology CBC w Diff NO MAN DIFF REQ WBC (4.8 - 10.8 /CUMM) 8.1 RBC (4.70 - 6.10 /CUMM) 4.32 L Hgb (14.0 - 18.0 G/DL) 11.7 L Hct (42 - 52 %) 35.5 L MCV (80.0 - 94.0 FL) 82.1 MCH (27.0 - 31.0 PG) 27.1 RDW (11.5 - 14.5 %) 15.0 H Plt Count (130 - 400 /CUMM) 238 MPV (7.4 - 10.4 FL) 8.4 Gran % (42.2 - 75.2 %) 65.6 Lymphocytes % (20.5 - 51.1 %) 25.6 Monocytes % (1.7 - 9.3 %) 6.7 Eosinophils % (0 - 5 %) 1.6 Basophils % (0.0 - 2.0 %) 0.5 Absolute Granulocytes (1.4 - 6.5 /CUMM) 5.3 Absolute Lymphocytes (1.2 - 3.4 /CUMM) 2.1 Absolute Monocytes (0.10 - 0.60 /CUMM) 0.5 Absolute Eosinophils (0.0 - 0.7 /CUMM) 0.1 Absolute Basophils (0.0 - 0.2 /CUMM) 0 PUBS MCHC (33.0 - 37.0 G/DL) 33.0 Last 24 Hours of Raymundo Results: Blood cultures 2 February 24 negative Urine culture February 24 greater than 100,000 colonies of coag-negative Staph sensitive to Vancomycin Recent Imaging Studies: Abdominal x-ray February 17 nonspecific bowel gas pattern with no evidence of obstruction or ileus Assessment/Plan Impression: Obstructive uropathy secondary to progression of his prostate cancer, status post cystoscopy and unsuccessful placement of a left ureteral stent, with increasing creatinine suggesting bilateral involvement. He will require a left percutaneous nephrostomy, which is scheduled for later today. He remains afebrile with white blood cell count normal on Vancomycin Day 2 of treatment for presumed pyelonephritis secondary to coag-negative Staph, though he has no improvement in his dysuria or left flank pain/tenderness to date. Suggestion: 1. Await placement of left percutaneous nephrostomy per IR 2. Continue close monitoring of his creatinine 3. Continue Vancomycin pending above
--- NOTE | 2016-02-27 17:53 | INTERVENTIONAL RADIOLOGY RPT ---
CLINICAL HISTORY: This patient is a 55-year-old male who presents to interventional radiology for placement of bilateral percutaneous nephrostomy catheters. He has a history of invasive prostate cancer with obstructive uropathy. The urology team was unable to place retrograde catheters. PROCEDURES: 1. Focal sonographic evaluation of the bilateral kidneys. 2. Bilateral antegrade nephrostograms. 3. Placement of a right-sided 8 Fr percutaneous nephrostomy catheter. 4. Placement of a left-sided 8 Fr percutaneous nephrostomy catheter. 5. Post procedure bilateral tube nephrostograms. PHYSICIANS: Dr. Elly Wilkerson (attending). MONITORING: The procedure was performed with conscious sedation and analgesia under my direct supervision. Continuous blood pressure, pulse oximetry as well as heartrate monitoring was performed by an independent registered nurse. Physician intraservice sedation time was 55 minutes. MEDICATIONS: 1. 2 mg of Versed and 100 micrograms of fentanyl were administered. 2. 20 mL of 1% lidocaine SQ. 3. Vancomycin COMPLICATIONS: None. ESTIMATED BLOOD LOSS: < 5 mL. SPECIMENS: None. CONTRAST: 15 mL Optiray 320, post nephron. FLUOROSCOPY TIME: 4.4 minutes PROCEDURE NOTE: Informed consent was obtained from the patient prior to the procedure. During this process, the procedure and potential alternatives were explained along with the intended outcome and benefits. The risks of the procedure, including the possibility of an unsuccessful procedure, as well as the risk of not doing the procedure, were discussed. The patient was given the opportunity to ask questions regarding the procedure and appeared competent to make decisions. A signed consent form documenting this discussion was placed in the medical record. A time-out procedure was performed. The patient was placed prone on the fluoroscopy table. The back was prepped and draped in usual sterile fashion. RIGHT KIDNEY: After localizing an approach, the anticipated needle track was anesthetized with local lidocaine injection. Under ultrasound-guidance, a 22 gauge Grebb needle was advanced into a posterior lower pole calyx and position within the urinary system was confirmed with urine reflux out of the needle hub. Contrast was gently injected for antegrade nephrostogram evaluation. Next, a 0.018 in wire was advanced through the needle into the collecting system. A Grebb set set was then advanced over the wire under fluoroscopic guidance. A 0.035 in Amplatz wire was advanced through the set sheath into the ureter. The sheath was removed over the wire and a 8 Fr pigtail nephrostomy catheter was advanced into the collecting system and coiled within the renal pelvis. Position was confirmed with gentle contrast injection and the tube was locked in position. The tube was secured into position with a 0 silk suture. LEFT KIDNEY: After localizing an approach, the anticipated needle track was anesthetized with local lidocaine injection. Under ultrasound-guidance, a 22 gauge Grebb needle was advanced into a posterior lower pole calyx and position within the urinary system was confirmed with urine reflux out of the needle hub. Contrast was gently injected for antegrade nephrostogram evaluation. Next, a 0.018 in wire was advanced through the needle into the collecting system. A Grebb set set was then advanced over the wire under fluoroscopic guidance. A 0.035 in Amplatz wire was advanced through the set sheath into the ureter. The sheath was removed over the wire and a 8 Fr pigtail nephrostomy catheter was advanced into the collecting system and coiled within the renal pelvis. Position was confirmed with gentle contrast injection and the tube was locked in position. The tube was secured into position with a 0 silk suture. FINDINGS: 1. Right-sided moderate hydronephrosis with low-grade obstruction at the level of the distal ureter. 2. Left-sided moderate hydronephrosis with low-grade obstruction at the level of the distal ureter. 3. Successful placement of a right 8 Fr nephrostomy catheter. 4. Successful placement of a left 8 Fr nephrostomy catheter. IMPRESSION: 1. Bilateral hydronephrosis as detailed above. 2. Successful placement of bilateral percutaneous nephrostomy catheters. PLAN: 1. The patient was stable after the procedure and was transferred to the interventional recovery area. The patient will be transferred to the floor. 2. The tubes should be left to external gravity drainage via drainage bag. 3. The patient should return to interventional radiology in 8-12 weeks for routine catheter exchange.
[2016-02-27 18:16] VITALS: BP 134/80
--- NOTE | 2016-02-27 18:21 | Event Note ---
Event Note Event Note: The patient is on Vancomycin 1250 mg BID, am dose was at 0554, but the creatinine is creeping up with the Cr level of 1.8 in the morning today. He had already received 4 doses of Vancomycin. She was suppposed to get a Vancomycin trough done at 5:30 pm sharp today before administering the next dose at 6 pm. The patient was in IR for a nephrostomy tube placement and got a dose of Vancymin at 4:30 pm according to the nurse. Now the patient has had 3 doses of Vancymycin. With the creatinine that is trending up, it is important to check the Vancymycin trough levels before giving the next dose. Will get a Vanc trough at 5:30 am sharp and dose Vancymycin accordingly, with a renally adjusted dose. The order to check Vanc trough is in, Vanc order has been cancelled and it has been communicated to his nurse.
--- NOTE | 2016-02-27 19:56 | Operative Report ---
Operative/Inv Procedure Report Surgery Date: 02/27/16 Name of Procedure: Cystoscopy. Attempt of bilateral stent insertion, and left ureteroscopy, with laser standby. Pre-Operative Diagnosis: Metastatic, advancing prostate cancer, with new left hydronephrosis and decreased renal function. Post-Operative Diagnosis: PROSTATE CANCER ADVANCING INTO TRIGONE OF BLADDER WITH BILATERAL URETERAL OBSTRUCTION, AND NON-VISUALIZATION. Estimated Blood Loss: less than 50ml Surgeon/Resourcing Advisor: MD EDNA, [facility] Anesthesia: laryngeal mask airway Drains: 22 Greenlandic coud CBI with normal saline. Complications: Unable to find bilateral ureteral orifices due to prostate cancer invading trigone of bladder. Operative/Procedure Note Note: The patient was taken to the operating room placed on the OR table in supine position. Timeout was performed with the patient awake, in order to confirm identity, procedure, antibiotics, anesthesia, and other pertinent perioperative information. After adequate anesthesia and IV antibiotics, the patient was then placed lithotomy stirrups, draped and prepped in the usual surgical fashion. A 22 Greenlandic cystoscope sheath with a 30 angle lens was inserted under direct visualization. Upon entering the prostatic urethra, the prostate was noted to be friable with multiple areas of small bleeding vessels, due to recent laser TURP. Upon entering the bladder, the bladder was noted to be severely trabeculated with no evidence of urothelial tumor. The trigone of the bladder was noted to be nodular hypervascular and irregular in shape. The trigone appears to be involved in the advancing prostate cancer. Methylene blue was given intravenously by anesthesia. Both ureteral orifices were not visible despite thorough and systematic surveillance with the 30 angle lens, 70 angle lens, and flexible cystoscope. No methylene blue was noted to reflux from either side after 30 minutes of visualization. At this point the attempt of bilateral stent insertion, left ureteroscopy with laser standby was abandoned. The bladder was left full and the cystoscope was removed. A 22 Greenlandic three-way Marie catheter was inserted without significant difficulty using kasigl[place] tip technique. 30 mL was placed into the balloon. A cystogram was performed in order to confirm presence of the balloon in the bladder. Continuous bladder irrigation was initiated with good inflow and outflow of light fluid. The patient our procedure well was then taken to recovery in satisfactory condition. The plan is for the patient to receive left, possible bilateral, nephrostomy tubes with internalization of stent. These findings, and plan were discussed with the patient and his family at the bedside. Findings: Nodular prostate cancer progressing into the trigone of the bladder, obstructing both ureteral orifices. Despite methylene blue, no reflux of blue was seen after 30 minutes of observation. Discharge Disposition: PACU Additional Comments: Patient to have left, possible bilateral nephrostomy tube placements by interventional radiology, with attempted internalization of stents. CC: JESSICA BISHOP MD
[2016-02-27 22:35] VITALS: BP 142/84
[2016-02-28 06:32] LABS: ABSOLUTE BASOPHIL COUNT 0.1 /CUMM (0.0-0.2); ABSOLUTE EOSINOPHIL COUNT 0.1 /CUMM (0.0-0.7); ABSOLUTE GRANULOCYTE CT 6.1 /CUMM (1.4-6.5); ABSOLUTE LYMPH COUNT 1.3 /CUMM (1.2-3.4); ABSOLUTE MONOCYTE COUNT 0.6 /CUMM (0.10-0.60); BASOPHIL % 0.8 % (0.0-2.0); EOSINOPHIL % 1.1 % (0-5); GRANULOCYTE % 74.4 % (42.2-75.2); HEMATOCRIT 33.1 % (42-52); MEAN CORPUSCULAR HGB 26.9 PG (27.0-31.0); MEAN CORPUSCULAR HGB CONC 32.8 G/DL (33.0-37.0); MEAN PLATELET VOLUME 8.2 FL (7.4-10.4); PLATELET COUNT 237 /CUMM (130-400); RED BLOOD CELL CT 4.04 /CUMM (4.70-6.10); WHITE BLOOD CELL COUNT 8.1 /CUMM (4.8-10.8)
[2016-02-28 06:44] VITALS: BP 142/84
--- NOTE | 2016-02-28 07:27 | PN- Oncology ---
Subjective Subjective: Yesterday's events reviewed-patient now status post nephrostomy, complaining of minimal back pain Review of Systems: 12 point review of systems otherwise unchanged Objective Vital Signs and I&Os Vital Signs Date Time Temp Pulse Resp B/P Pulse O2 O2 Flow FiO2 Ox Delivery Rate 02/27 0644 98.8 88 18 142/84 92 02/26 2235 98.3 75 20 142/84 94 02/26 1856 80 110/70 02/26 1816 97.4 78 20 134/80 96 02/26 0800 Room Air Intake & Output 02/27 0800 02/27 0000 02/26 1600 02/26 0802/26 0000 02/25 1600 Intake Total 500 5 235 392 1595 Output Total 3000 300 275 775 550 Balance -2500 -295 85 -295 450 Intake, IV 300 200 Intake, Oral 500 5 60 480 800 Output, Urine 3000 300 275 775 550 Gen.: in NAD ENT: Sclera anicteric Chest: Normal respiratory effort, clear breath sounds Cor: RRR, no extra sounds Abdomen: Soft, bowel sounds present, no tenderness, no rebound Extremities: Without clubbing, cyanosis, or edema Neurology: Alert and oriented 3, Current Medications: Current Medications Sig/Aurora Start time Last Medication Dose Route Stop Time Status Admin Acetaminophen 325 MG .STK-MED ONE 02/26 827 DC PO 02/26 08 Acetaminophen 325 MG Q6 PRN 02/24 0500 AC 02/26 PO 0830 Al Hydroxide/Mg 30 ML Q4-6 PRN PRN 02/25 1715 DC 02/25 Hydroxide PO 1737 Bicalutamide 50 MG 0600 02/25 0600 AC 02/27 PO 0612 Bisacodyl 10 MG DAILY PRN 02/24 0615 AC OR Docusate Sodium 100 MG BID 02/26 1015 AC 02/26 PO 2147 Fentanyl Citrate 100 MCG .STK-MED ONE 02/26 08 DC IM 02/26 0819 Heparin Sodium 5,000 UNIT Q8 02/24 06 DC 02/26 (Porcine) SC 0555 Hydromorphone HCl 2 MG .STK-MED ONE 02/26 1438 DC IM 02/26 1439 Magnesium Hydroxide 30 ML Q8P PRN 02/26 1015 AC PO Midazolam HCl 2 MG .STK-MED ONE 02/26 818 DC IM 02/26 0819 Morphine Sulfate 2 MG ONCE ONE 02/26 2145 DC 02/26 IV 02/26 214 2147 Morphine Sulfate 2 MG Q4P PRN 02/26 1845 AC 02/27 IV 0613 Omeprazole 40 MG DAILY AC 02/25 1706 AC 02/27 PO 0612 Oxycodone/ 1 TAB Q4 HRS NEEDED PRN 02/26 1845 AC Acetaminophen PO Oxycodone/ 2 TAB Q4 HRS NEEDED PRN 02/26 1845 AC Acetaminophen PO Oxycodone/ 2 TAB Q4-6 PRN PRN 02/25 1500 DC 02/26 Acetaminophen PO 1001 Oxycodone/ 1 TAB Q4-6 PRN PRN 02/25 1500 DC Acetaminophen PO Polyethylene Glycol 17 GM DAILY 02/24 1000 AC 02/25 PO 0922 Prednisone 5 MG 0600,1800 02/25 0600 AC 02/27 PO 0612 Senna/Docusate Sodium 2 TAB DAILY PRN 02/24 0615 AC 02/25 PO 1328 Sodium Chloride 1,000 ML Q13H 02/26 0600 DC 02/26 IV 02/27 0600 2000 Tamsulosin HCl 0.4 MG 0600,1800 02/25 0600 AC 02/27 PO 0613 Vancomycin HCl 1,250 MG Q12H 02/27 0715 UNVr Sodium Chloride 250 ML IV Vancomycin HCl 1,250 MG Q12H 02/26 2130 DC Sodium Chloride 250 ML IV Vancomycin HCl 1,250 MG Q12H 02/24 1900 DC 02/26 Sodium Chloride 250 ML IV 0554 Results Last 24 Hours of Lab Results: Laboratory Tests 02/27 02/27 02/26 0600 0540 1830 Chemistry Sodium (137 - 145 mmol/L) Cancelled 141 Potassium (3.5 - 5.1 mmol/L) Cancelled 4.5 Chloride (98 - 107 mmol/L) Cancelled 107 Carbon Dioxide (22 - 30 mmol/L) Cancelled 28 Anion Gap (5 - 16) Cancelled 6 BUN (9 - 20 mg/dL) Cancelled 13 Creatinine (0.7 - 1.2 mg/dL) Cancelled 1.3 H Estimated GFR (>60 ml/min) 58 L BUN/Creatinine Ratio (7 - 25 %) Cancelled 10.0 Hematology CBC w Diff NO MAN DIFF REQ WBC (4.8 - 10.8 /CUMM) 8.1 RBC (4.70 - 6.10 /CUMM) 4.04 L Hgb (14.0 - 18.0 G/DL) 10.9 L Hct (42 - 52 %) 33.1 L MCV (80.0 - 94.0 FL) 82.0 MCH (27.0 - 31.0 PG) 26.9 L RDW (11.5 - 14.5 %) 15.0 H Plt Count (130 - 400 /CUMM) 237 MPV (7.4 - 10.4 FL) 8.2 Gran % (42.2 - 75.2 %) 74.4 Lymphocytes % (20.5 - 51.1 %) 16.3 L Monocytes % (1.7 - 9.3 %) 7.4 Eosinophils % (0 - 5 %) 1.1 Basophils % (0.0 - 2.0 %) 0.8 Absolute Granulocytes (1.4 - 6.5 /CUMM) 6.1 Absolute Lymphocytes (1.2 - 3.4 /CUMM) 1.3 Absolute Monocytes (0.10 - 0.60 /CUMM) 0.6 Absolute Eosinophils (0.0 - 0.7 /CUMM) 0.1 Absolute Basophils (0.0 - 0.2 /CUMM) 0.1 PUBS MCHC (33.0 - 37.0 G/DL) 32.8 L Toxicology Vancomycin Trough (10.0 - 20.0 ug/mL) 15.1 Cancelled 02/26 1800 Coagulation APTT Cancelled Assessment/Plan Assessment/Recommendations: 1. UTI/pyelonephritis-antibiotics as per Jason Solorio MD 2. Prostate cancer-operative note carefully reviewed, anticipate chemotherapy as an outpatient Hopefully patient can be discharged soon. Please call if any further issues develop during his hospitalization
--- NOTE | 2016-02-28 07:31 | PN- Housestaff ---
Subjective Follow-up For: prostate cancer with mets HEENA due to obructions Subjective: I have seen and examined the patient. Patient pain has subsided after the bilateral nephrostomy tubes. Creatinine has decreased. Patient still did not have a bowel movement. Review of Systems Constitutional: Reports: see HPI. Objective Last 24 Hrs of Vital Signs/I&O Vital Signs Date Time Temp Pulse Resp B/P Pulse O2 O2 Flow FiO2 Ox Delivery Rate 02/27 0644 98.8 88 18 142/84 92 02/26 2235 98.3 75 20 142/84 94 02/26 1856 80 110/70 02/26 1816 97.4 78 20 134/80 96 Intake & Output 02/27 1600 02/27 0800 02/27 0000 Intake Total 760 500 Output Total 2850 3000 Balance -2090 -2500 Intake, IV 400 Intake, Oral 360 500 Output, Urine 2850 3000 Physical Exam General Appearance: Alert, Oriented X3, Cooperative Cardiovascular: Regular Rate, Normal S1, Normal S2 Lungs: Clear to Auscultation, Normal Air Movement Abdomen: Normal Bowel Sounds, Soft, distended, bilateral nephrostomy tube in both flanks Extremities: No Clubbing, No Cyanosis Current Medications: Current Medications Sig/Aurora Start time Last Medication Dose Route Stop Time Status Admin Acetaminophen 650 MG Q4P PRN 02/27 0815 UNVr PO Acetaminophen 325 MG .STK-MED ONE 02/26 0827 DC PO 02/26 0828 Acetaminophen 325 MG Q6 PRN 02/24 0500 DC 02/26 PO 0830 Al Hydroxide/Mg 30 ML Q4-6 PRN PRN 02/25 1715 DC 02/25 Hydroxide PO 1737 Bicalutamide 50 MG 0600 02/25 0600 AC 02/27 PO 0612 Bisacodyl 10 MG DAILY PRN 02/24 0615 AC NC Docusate Sodium 100 MG BID 02/26 1015 AC 02/26 PO 2147 Fentanyl Citrate 100 MCG .STK-MED ONE 02/26 0818 DC IM 02/26 0819 Heparin Sodium 5,000 UNIT Q8 02/24 0600 DC 02/26 (Porcine) SC 0555 Hydromorphone HCl 2 MG .STK-MED ONE 02/26 1438 DC IM 02/26 1439 Magnesium Hydroxide 30 ML Q8P PRN 02/26 1015 AC PO Midazolam HCl 2 MG .STK-MED ONE 02/26 0818 DC IM 02/26 0819 Morphine Sulfate 2 MG ONCE ONE 02/26 2145 DC 02/26 IV 02/26 2146 2147 Morphine Sulfate 2 MG Q4P PRN 02/26 1845 AC 02/27 IV 0613 Omeprazole 40 MG DAILY AC 02/25 1706 AC 02/27 PO 0612 Oxycodone/ 1 TAB Q4 HRS NEEDED PRN 02/26 1845 DC Acetaminophen PO Oxycodone/ 2 TAB Q4 HRS NEEDED PRN 02/26 1845 AC Acetaminophen PO Oxycodone/ 2 TAB Q4-6 PRN PRN 02/25 1500 DC 02/26 Acetaminophen PO 1001 Oxycodone/ 1 TAB Q4-6 PRN PRN 02/25 1500 DC Acetaminophen PO Polyethylene Glycol 17 GM DAILY 02/24 1000 AC 02/25 PO 0922 Prednisone 5 MG 0600,1800 02/25 0600 AC 02/27 PO 0612 Senna/Docusate Sodium 2 TAB DAILY PRN 02/24 0615 AC 02/25 PO 1328 Sodium Chloride 1,000 ML Q13H 02/26 0600 DC 02/26 IV 02/27 0600 2000 Tamsulosin HCl 0.4 MG 0600,1800 02/25 0600 AC 02/27 PO 0613 Vancomycin HCl 1,250 MG Q12H 02/27 0900 AC Sodium Chloride 250 ML IV Vancomycin HCl 1,250 MG Q12H 02/26 2130 DC Sodium Chloride 250 ML IV Vancomycin HCl 1,250 MG Q12H 02/24 1900 DC 02/26 Sodium Chloride 250 ML IV 0554 Assessment/Plan Assessment: Patient is a 55-year-old male with a past medical history of 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 Patient is status post TURP on 02/10/2016. Has increasing left flank pain/CVA tenderness with dirty urine and constipation. Labs showed white count of 12.5, H&H 11.4/ 35.2, creatinine 1.5(baseline 0.9) UA: Turbid, nitrate positive, small leukocyte esterase, white cells 25-30, hemoglobin large. Abdominal and pelvis CT: New left perinephric stranding and left retroperitoneal fluid suggesting a left renal/ureteral inflammatory process. There is persistent left hydroureteronephrosis extending to the bladder. No obstructing calculus. There is mural indistinctness of the predominantly decompressed bladder,which may represent inflammation.Persistent retroperitoneal/pelvic adenopathy. Persistent hypodense hepatic lesions.No evidence of bowel obstruction. Assessment and plan #Pyelonephritis with perinephric stranding and retroperitoneal fluid. Status post TURP on 02/10/2016 for urinary retention with outpatient treatment with by mouth ciprofloxacin +Left-sided hydronephrosis extending to the bladder * A stent placement by urology was unsuccessful yesterday due to invasion of the prostate cancer to the bladder trigone area * Patient underwent bilateral nephrostomy tubes by IR * Creatinine is trending down * we will continue vancomycin twice a day * Continue CBI for now * Urine culture revealed staph coag negative growth #Stage IV prostate cancer with metastases to bones and lung * We will continue prednisone, Zytiga,bicalutamide * is following and he recommended outpatient Taxotere . * Pain management with Tylenol for mild, moderate and morphine for severe pain #HEENA likely postrenal due to urinary obstruction * vanc trough therapeutic limits, we will continue vancomycin * Creatinine is trending down #Constipation * Aggressive bowel regimen * Encourage the patient for ambulation * Patient may need Fleet enema DVT prophylaxis subcutaneous heparin,Full code,Regular diet, Mild pain pathway Problem List: 1. Urinary obstruction 2. Prostate cancer metastatic to bone Pain Ratin Pain Location: left flank Pain Goal: Pain 4 or less Pain Plan: Tylenol for mild, Percocet for moderate, IV morphine for severe pain Tomorrow's Labs & Rationales: CBC, BEP, prostate cancer with metastases Consulting Request: Consulting Specialty: Urology Consulting Physician: Dr BISHOP Reason for Consult: pylonephrities, ureter obstruction
--- NOTE | 2016-02-28 08:55 | Patient Discharge Instructions ---
Discharge Instructions General Discharge Information You were seen/treated for: Elevated creatinine Urinary obstruction due to prostate cancer Constipation You had these procedures: Bilateral nephrostomy tube placements Special Instructions: -Please follow-up with your primary care provider within 7 days after discharge. -please follow up with Dr. BISHOP 7 DAYS after discharge. -We have made changes to your home medications, please read the instructions carefully. -Please come back to the hospital if your symptoms got worse. Diet Recommended Diet: Regular Activity Full Activity/No Limits: Yes (as tolerated) Acute Coronary Syndrome Inclusion Criteria At DC or during hospital stay patient has or had the following: ACS DIAGNOSIS No Discharge Core Measures Meds if any: Prescribed or Continued at Discharge Meds if any: NOT Prescribed or Continued at Discharge Congestive Heart Failure Inclusion Criteria At DC or during hospital stay patient has or had the following: CHF DIAGNOSIS No Discharge Core Measures Meds if any: Prescribed or Continued at Discharge Meds if any: NOT Prescribed or Continued at Discharge Cerebrovascular accident Inclusion Criteria At DC or during hospital stay patient has or had the following: CVA/TIA Diagnosis No Discharge Core Measures Meds if any: Prescribed or Continued at Discharge Meds if any: NOT Prescribed or Continued at Discharge Venous thromboembolism Inclusion Criteria VTE Diagnosis No VTE Type NONE VTE Confirmed by (Test) NONE Discharge Core Measures - Per Current guidelines, there needs to be overlap - treatment for the first 5 days of Warfarin therapy. - If discharged on Warfarin prior to 5 days of - overlap therapy, the patient will need to be - assessed for post discharge needs including - *Post discharge parental anticoagulation - *Warfarin and/or parental anticoagulation education - *Follow up date to check INR post discharge At least 5 days overlap therapy as Inpatient No Meds if any: Prescribed or Continued at Discharge Note: Overlap Therapy is Warfarin and Anticoagulant Meds if any: NOT Prescribed or Continued at Discharge
--- NOTE | 2016-02-28 09:33 | PN- Att Addend ---
Attending Addendum Attending Brief Note Pt seen and examined. We spoke to his as well. He still in quite a lot of pain and the area around his penis is very raw. He has the CBI going which is completely clear. He is a 55-year-old male with metastatic prostate CA, documented metastases to the bone was here with pyelonephritis and obstructive uropathy. We have him on IV Vanco for Coag negative staph in his urine. He had an unsuccessful attempt at ureteral stents yesterday and now has bilateral nephrostomy tubes due to a local advancement of his cancer and the bladder trigone area. The creatinine has come down from 1.8-1.3. He still in a lot of pain within her try oral morphine but if that doesn't work keep the IV morphine when necessary. We can ask Dr. Mariano if he can take out the catheter. Ambulate him and follow-up per ID.
[2016-02-28 14:23] VITALS: BP 120/60
[2016-02-28 22:30] VITALS: BP 122/78
[2016-02-29 00:38] LABS: ABSOLUTE BASOPHIL COUNT 0 /CUMM (0.0-0.2); ABSOLUTE EOSINOPHIL COUNT 0.1 /CUMM (0.0-0.7); ABSOLUTE GRANULOCYTE CT 7.3 /CUMM (1.4-6.5); ABSOLUTE LYMPH COUNT 1.3 /CUMM (1.2-3.4); ABSOLUTE MONOCYTE COUNT 0.7 /CUMM (0.10-0.60); BASOPHIL % 0.4 % (0.0-2.0); EOSINOPHIL % 1.1 % (0-5); GRANULOCYTE % 77.3 % (42.2-75.2); HEMATOCRIT 33.9 % (42-52); MEAN CORPUSCULAR HGB 26.7 PG (27.0-31.0); MEAN CORPUSCULAR HGB CONC 32.8 G/DL (33.0-37.0); MEAN CORPUSCULAR VOLUME 81.4 FL (80.0-94.0); MEAN PLATELET VOLUME 7.9 FL (7.4-10.4); PLATELET COUNT 248 /CUMM (130-400); RBC DISTRIBUTION WIDTH 14.9 % (11.5-14.5); RED BLOOD CELL CT 4.17 /CUMM (4.70-6.10); WHITE BLOOD CELL COUNT 9.4 /CUMM (4.8-10.8)
[2016-02-29 06:30] VITALS: BP 134/80
[2016-02-29 08:00] LABS: ABSOLUTE BASOPHIL COUNT 0.1 /CUMM (0.0-0.2); ABSOLUTE EOSINOPHIL COUNT 0.1 /CUMM (0.0-0.7); ABSOLUTE GRANULOCYTE CT 6.2 /CUMM (1.4-6.5); ABSOLUTE LYMPH COUNT 1.9 /CUMM (1.2-3.4); ABSOLUTE MONOCYTE COUNT 0.4 /CUMM (0.10-0.60); BASOPHIL % 0.7 % (0.0-2.0); EOSINOPHIL % 1.4 % (0-5); GRANULOCYTE % 71.7 % (42.2-75.2); HEMATOCRIT 35.3 % (42-52); MEAN CORPUSCULAR HGB 26.9 PG (27.0-31.0); MEAN CORPUSCULAR HGB CONC 32.7 G/DL (33.0-37.0); MEAN CORPUSCULAR VOLUME 82.2 FL (80.0-94.0); MEAN PLATELET VOLUME 8.3 FL (7.4-10.4); PLATELET COUNT 248 /CUMM (130-400); RBC DISTRIBUTION WIDTH 14.8 % (11.5-14.5); RED BLOOD CELL CT 4.29 /CUMM (4.70-6.10); WHITE BLOOD CELL COUNT 8.6 /CUMM (4.8-10.8)
--- NOTE | 2016-02-29 09:23 | PN- Housestaff ---
MINERVA PEARSON 02/29/16 0923: Subjective Follow-up For: prostate cancer with mets HEENA due to obructions Complaints: hematuria Subjective: She was seen and examined this morning. He was sitting comfortably on bed but complaining of bilateral back pain on movement. He has pink tinged urine emptied from nephrostomy tubes bilaterally. He also complains of painful micturition and urine is all blood through urethra which is almost 20 mL. He remained afebrile. Saturating 92% on room air with normal blood pressure and pulse. Review of Systems Constitutional: Denies: chills, fever, weakness. Cardiovascular: Denies: chest pain, edema, orthopena. Respiratory: Denies: cough, orthopnea. Gastrointestinal: Denies: constipation, diarrhea. Genitourinary: Reports: dysuria, hematuria. Objective Last 24 Hrs of Vital Signs/I&O Vital Signs Date Time Temp Pulse Resp B/P Pulse O2 O2 Flow FiO2 Ox Delivery Rate 02/28 0630 98.6 89 18 134/80 92 Room Air 02/28 0549 88 16 122/78 02/27 2230 99.1 88 16 122/78 93 Room Air 02/27 1701 120/60 02/27 1423 98.5 80 20 120/60 95 Intake & Output 02/28 1600 02/28 0800 02/28 0000 Intake Total 120 700 Output Total 850 800 Balance -730 -100 Intake, IV 250 Intake, Oral 120 450 Number 0 Bowel Movements Output, Urine 850 800 Physical Exam General Appearance: Alert, Oriented X3, No Acute Distress Cardiovascular: Regular Rate, Normal S1, Normal S2 Lungs: Normal Air Movement Abdomen: Soft, protuberant Extremities: No Clubbing, No Cyanosis Current Medications: Current Medications Sig/Aurora Start time Last Medication Dose Route Stop Time Status Admin Acetaminophen 650 MG Q4P PRN 02/27 0815 AC PO Bicalutamide 50 MG 0600 02/25 0600 AC 02/28 PO 0548 Bisacodyl 10 MG DAILY PRN 02/24 0615 AC ME Docusate Sodium 100 MG BID 02/26 1015 AC 02/27 PO 2150 Heparin Sodium 5,000 UNIT Q8 02/28 0600 CAN (Porcine) SC Lidocaine 2 ROMY BID 02/27 1000 AC 02/27 TOP 1000 Magnesium Hydroxide 30 ML Q8P PRN 02/26 1015 AC PO Morphine Sulfate 30 MG Q4 HRS NEEDED PRN 02/27 0930 AC 02/28 PO 0924 Morphine Sulfate 2 MG Q4P PRN 02/26 1845 AC 02/27 IV 0613 Omeprazole 40 MG DAILY AC 02/25 1706 AC 02/28 PO 0549 Oxycodone/ 2 TAB Q4 HRS NEEDED PRN 02/26 1845 AC 02/27 Acetaminophen PO 2145 Polyethylene Glycol 17 GM DAILY 02/24 1000 AC 02/27 PO 1027 Prednisone 5 MG 0600,1800 02/25 0600 AC 02/28 PO 0549 Senna/Docusate Sodium 2 TAB DAILY PRN 02/24 0615 AC 02/25 PO 1328 Tamsulosin HCl 0.4 MG 0600,1800 02/25 0600 AC 02/28 PO 0549 Vancomycin HCl 1,250 MG Q12H 02/27 0900 AC 02/28 Sodium Chloride 250 ML IV 0925 Last 24 Hrs of Lab/Raymundo Results Last 24 Hrs of Labs/Mics: Laboratory Tests 02/29/16 0600: Anion Gap 10, Estimated GFR > 60, BUN/Creatinine Ratio 14.2, CBC w Diff NO MAN DIFF REQ, RBC 4.29 L, MCV 82.2, MCH 26.9 L, RDW 14.8 H, MPV 8.3, Gran % 71.7, Lymphocytes % 21.7, Monocytes % 4.5, Eosinophils % 1.4, Basophils % 0.7, Absolute Granulocytes 6.2, Absolute Lymphocytes 1.9, Absolute Monocytes 0.4, Absolute Eosinophils 0.1, Absolute Basophils 0.1, PUBS MCHC 32.7 L 02/29/16 0015: CBC w Diff NO MAN DIFF REQ, RBC 4.17 L, MCV 81.4, MCH 26.7 L, RDW 14.9 H, MPV 7.9, Gran % 77.3 H, Lymphocytes % 14.2 L, Monocytes % 7.0, Eosinophils % 1.1, Basophils % 0.4, Absolute Granulocytes 7.3 H, Absolute Lymphocytes 1.3, Absolute Monocytes 0.7 H, Absolute Eosinophils 0.1, Absolute Basophils 0, PUBS MCHC 32.8 L Microbiology 02/27 1303 LOWER RESP: Respiratory Culture - CAN Cancelled: Cancelled via OE: Per Decision 02/27 1303 LOWER RESP: Gram Stain - CAN Cancelled: Cancelled via OE: Per MD Decision Assessment/Plan Assessment: Patient is a 55-year-old male with a past medical history of 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 Patient is status post TURP on 02/10/2016. Has increasing left flank pain/CVA tenderness with dirty urine and constipation. Labs showed white count of 12.5, H&H 11.4/ 35.2, creatinine 1.5(baseline 0.9) UA: Turbid, nitrate positive, small leukocyte esterase, white cells 25-30, hemoglobin large. Abdominal and pelvis CT: New left perinephric stranding and left retroperitoneal fluid suggesting a left renal/ureteral inflammatory process. There is persistent left hydroureteronephrosis extending to the bladder. No obstructing calculus. There is mural indistinctness of the predominantly decompressed bladder,which may represent inflammation.Persistent retroperitoneal/pelvic adenopathy. Persistent hypodense hepatic lesions.No evidence of bowel obstruction. Assessment and plan #Pyelonephritis with perinephric stranding and retroperitoneal fluid. Status post TURP on 02/10/2016 for urinary retention with outpatient treatment with by mouth ciprofloxacin +Left-sided hydronephrosis extending to the bladder * A stent placement by urology was unsuccessful day before yesterday due to invasion of the prostate cancer to the bladder trigone area * Patient underwent bilateral nephrostomy tubes by IR * Creatinine is trending down to 1.2 today * we will continue vancomycin twice a day * Urine culture revealed staph coag negative growth #Stage IV prostate cancer with metastases to bones and lung * We will continue prednisone, Zytiga,bicalutamide * is following and he recommended outpatient Taxotere . * Pain management with Tylenol for mild, moderate and morphine for severe pain #HEENA likely postrenal due to urinary obstruction * vanc trough therapeutic limits, we will continue vancomycin * Creatinine is trending down #Constipation * Aggressive bowel regimen * Encourage the patient for ambulation * Patient may need Fleet enema DVT prophylaxis alps,Full code,Regular diet, Mild pain pathway Problem List: 1. Hematuria Pain Ratin Pain Location: back Pain Goal: Remain pain free Pain Plan: morphine Tomorrow's Labs & Rationales: bep,cbc Consulting Request: Consulting Specialty: Urology Consulting Physician: Dr BISHOP Reason for Consult: pylonephrities, ureter obstruction FEDE GONSALES MD 02/29/16 1240: Attending MD Review Statement Attending Statement Attending MD Statement: examined this patient, discuss w/resident/PA/WEBMETHODS CONSULTANT, agreed w/resident/PA/WEBMETHODS CONSULTANT, reviewed EMR data (avail), discussed with nursing Attending Assessment/Plan: Patient says overall he feels better but he has a lot of discomfort when he passes urine and it's very bloody. He is concerned about this. He is constipation is also not resolved. He is a 55-year-old male with metastatic prostate CA who was admitted with acute pyelonephritis he is getting IV Vanco for quite negative staph in his urine and we are treating the constipation with MiraLAX, senna and Colace. He had obstructive uropathy with a very raw tumor in the bladder trigone area and got bilateral percutaneous nephrostomy tubes. Because of the bleeding and the procedures the DVT prophylaxis has been held and now because of this ongoing bleeding he is on Alps. At this point will watch his crit closely, talk to ID about the appropriate oral antibiotic. I asked him to move around as much as possible and ordered a Fleet enema when necessary if he still has ongoing constipation.
[2016-02-29 13:46] VITALS: BP 140/68
--- NOTE | 2016-02-29 15:28 | PN- Infect Dx ---
Subjective Subjective: Afebrile. He feels overall improved with decreased left flank pain but does note dysuria and hematuria with urination. He also remains constipated. Objective Last 24 Hrs of Vital Signs/I&O Vital Signs Date Time Temp Pulse Resp B/P Pulse O2 O2 Flow FiO2 Ox Delivery Rate 02/28 1346 99.0 96 18 140/68 93 Room Air 02/28 0630 98.6 89 18 134/80 92 Room Air 02/28 0549 88 16 122/78 02/27 2230 99.1 88 16 122/78 93 Room Air 02/27 1701 120/60 Intake & Output 02/28 1600 02/28 0800 02/28 0000 Intake Total 1050 120 700 Output Total 325 850 800 Balance 725 -730 -100 Intake, IV 250 250 Intake, Oral 800 120 450 Number 0 Bowel Movements Output, Urine 325 850 800 Physical Exam Other Physical Findings: He appears more comfortable in no acute distress Lungs are clear Heart regular rhythm with no murmur Back bilateral CVA tenderness, with bilateral percutaneous nephrostomies in place, with over 2 L of urine output from each catheter yesterday Extremities no cyanosis, clubbing or edema Results Last 24 Hours of Lab Results: Laboratory Tests 02/28 02/28 0600 0015 Chemistry Sodium (137 - 145 mmol/L) 140 Potassium (3.5 - 5.1 mmol/L) 4.4 Chloride (98 - 107 mmol/L) 105 Carbon Dioxide (22 - 30 mmol/L) 25 Anion Gap (5 - 16) 10 BUN (9 - 20 mg/dL) 17 Creatinine (0.7 - 1.2 mg/dL) 1.2 Estimated GFR (>60 ml/min) > 60 BUN/Creatinine Ratio (7 - 25 %) 14.2 Hematology CBC w Diff NO MAN DIFF REQ NO MAN DIFF REQ WBC (4.8 - 10.8 /CUMM) 8.6 9.4 RBC (4.70 - 6.10 /CUMM) 4.29 L 4.17 L Hgb (14.0 - 18.0 G/DL) 11.5 L 11.1 L Hct (42 - 52 %) 35.3 L 33.9 L MCV (80.0 - 94.0 FL) 82.2 81.4 MCH (27.0 - 31.0 PG) 26.9 L 26.7 L RDW (11.5 - 14.5 %) 14.8 H 14.9 H Plt Count (130 - 400 /CUMM) 248 248 MPV (7.4 - 10.4 FL) 8.3 7.9 Gran % (42.2 - 75.2 %) 71.7 77.3 H Lymphocytes % (20.5 - 51.1 %) 21.7 14.2 L Monocytes % (1.7 - 9.3 %) 4.5 7.0 Eosinophils % (0 - 5 %) 1.4 1.1 Basophils % (0.0 - 2.0 %) 0.7 0.4 Absolute Granulocytes (1.4 - 6.5 /CUMM) 6.2 7.3 H Absolute Lymphocytes (1.2 - 3.4 /CUMM) 1.9 1.3 Absolute Monocytes (0.10 - 0.60 /CUMM) 0.4 0.7 H Absolute Eosinophils (0.0 - 0.7 /CUMM) 0.1 0.1 Absolute Basophils (0.0 - 0.2 /CUMM) 0.1 0 PUBS MCHC (33.0 - 37.0 G/DL) 32.7 L 32.8 L Last 24 Hours of Raymundo Results: Blood cultures February 24 remain negative Assessment/Plan Impression: Overall improved status post placement of bilateral percutaneous nephrostomies 2 days ago for presumably bilateral obstructive uropathy secondary to progression of his prostate cancer, with creatinine improving since this intervention. He maintains afebrile with white blood cell count normal on Vancomycin Day 4 of treatment for presumed pyelonephritis secondary to coag-negative Staph and he will require a total of 14 days of antibiotics. Suggestion: 1. Continue Vancomycin until discharge, at which point he can be changed to Bactrim DS 1 po every 12 hours to complete a 14 day course of treatment
[2016-02-29 22:36] VITALS: BP 140/84
[2016-03-01 07:31] VITALS: BP 150/84
[2016-03-01 08:56] LABS: ABSOLUTE BASOPHIL COUNT 0.1 /CUMM (0.0-0.2); ABSOLUTE EOSINOPHIL COUNT 0.2 /CUMM (0.0-0.7); ABSOLUTE GRANULOCYTE CT 7.1 /CUMM (1.4-6.5); ABSOLUTE MONOCYTE COUNT 0.5 /CUMM (0.10-0.60); BASOPHIL % 0.7 % (0.0-2.0); EOSINOPHIL % 1.6 % (0-5); GRANULOCYTE % 72.4 % (42.2-75.2); HEMATOCRIT 34.6 % (42-52); MEAN CORPUSCULAR HGB CONC 32.6 G/DL (33.0-37.0); MEAN CORPUSCULAR VOLUME 82.9 FL (80.0-94.0); MEAN PLATELET VOLUME 8.2 FL (7.4-10.4); PLATELET COUNT 248 /CUMM (130-400); RBC DISTRIBUTION WIDTH 15.1 % (11.5-14.5); RED BLOOD CELL CT 4.17 /CUMM (4.70-6.10); WHITE BLOOD CELL COUNT 9.9 /CUMM (4.8-10.8)
--- NOTE | 2016-03-01 09:07 | PN- Housestaff ---
[facility] 03/01/16 0907: Subjective Follow-up For: -Metastatic prostate cancer -Pyelonephritis/ Urine Cx grews G+ve staph -Status post bilateral nephrostomy tube placements Complaints: no complaints Subjective: Patient seen and examined at the bedside, he is lying in the bed comfortable with no acute distress. Slept well overnight with no fever, chills, pain. 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 He remains afebrile, bilateral nephrostomy tube in place with good amount of dark urine on bilateral bag. Other vitals are stable he is on room air with oxygen saturation of 92%, review of system is negative. Review of Systems Constitutional: Reports: no symptoms. EENTM: Reports: no symptoms. Cardiovascular: Reports: no symptoms. Respiratory: Reports: no symptoms. Gastrointestinal: Reports: no symptoms. Genitourinary: Reports: see HPI, hematuria. Musculoskeletal: Reports: no symptoms. Skin: Reports: no symptoms. Neurological/Psychological: Reports: no symptoms. Immunologic/Allergic: Reports: no symptoms. Objective Last 24 Hrs of Vital Signs/I&O Vital Signs Date Time Temp Pulse Resp B/P Pulse O2 O2 Flow FiO2 Ox Delivery Rate 03/01 0731 97.8 86 18 150/84 92 Room Air 03/01 0606 97.8 86 18 150/84 02/28 2236 98.2 94 20 140/84 20 02/28 1346 99.0 96 18 140/68 93 Room Air Intake & Output 03/01 1600 03/01 0800 03/01 0000 Intake Total 100 850 Output Total 550 800 Balance -450 50 Intake, IV 0 350 Intake, Oral 100 500 Number 0 0 Bowel Movements Output, Urine 550 800 Physical Exam General Appearance: Alert, Oriented X3, Cooperative, No Acute Distress Skin: No Rashes, No Breakdown, No Significant Lesion HEENT: Atraumatic, PERRLA, EOMI, Mucous Membr. moist/pink Neck: Supple, No JVD, No thryomegaly Cardiovascular: Regular Rate, Normal S1, Normal S2, No Murmurs Lungs: Clear to Auscultation, Normal Air Movement Abdomen: Normal Bowel Sounds, Soft, No Tenderness Neurological: Normal Gait, Normal Speech, Strength at 5/5 X4 Ext, Normal Tone Extremities: No Clubbing, No Cyanosis, No Edema, Normal Pulses Vascular: Normal Pulses, Pulses Symmetrical Current Medications: Current Medications Sig/Aurora Start time Last Medication Dose Route Stop Time Status Admin Acetaminophen 650 MG Q4P PRN 02/27 0815 AC PO Bicalutamide 50 MG 0600 02/25 0600 AC 03/01 PO 0604 Bisacodyl 10 MG DAILY PRN 02/24 0615 AC KS Docusate Sodium 100 MG BID 02/26 1015 AC 03/01 PO 0855 Lidocaine 2 ROMY BID 02/27 1000 AC 02/27 TOP 1000 Magnesium Hydroxide 30 ML Q8P PRN 02/26 1015 AC PO Morphine Sulfate 30 MG Q4 HRS NEEDED PRN 02/27 0930 AC 03/01 PO 0030 Morphine Sulfate 2 MG Q4P PRN 02/26 1845 AC 02/27 IV 0613 Omeprazole 40 MG DAILY AC 02/25 1706 AC 03/01 PO 0605 Oxycodone/ 2 TAB Q4 HRS NEEDED PRN 02/26 1845 AC 02/27 Acetaminophen PO 2145 Polyethylene Glycol 17 GM DAILY 02/24 1000 AC 03/01 PO 0855 Prednisone 5 MG 0600,1800 02/25 0600 AC 03/01 PO 0605 Senna/Docusate Sodium 2 TAB DAILY PRN 02/24 0615 AC 02/25 PO 1328 Sodium Phosphate 1 UNIT DAILY NEEDED PRN 02/28 1245 AC KS Tamsulosin HCl 0.4 MG 0600,1800 02/25 0600 AC 03/01 PO 0606 Vancomycin HCl 1,250 MG Q12H 02/27 0900 AC 02/28 Sodium Chloride 250 ML IV 2141 Last 24 Hrs of Lab/Raymundo Results Last 24 Hrs of Labs/Mics: Laboratory Tests 03/01/16 0605: Sodium Pending, Potassium Pending, Chloride Pending, Carbon Dioxide Pending, Anion Gap Pending, BUN Pending, Creatinine Pending, BUN/Creatinine Ratio Pending , CBC w Diff NO MAN DIFF REQ, RBC 4.17 L, MCV 82.9, MCH 27.0, RDW 15.1 H, MPV 8.2, Gran % 72.4, Lymphocytes % 19.9 L, Monocytes % 5.4, Eosinophils % 1.6, Basophils % 0.7, Absolute Granulocytes 7.1 H, Absolute Lymphocytes 2.0, Absolute Monocytes 0.5, Absolute Eosinophils 0.2, Absolute Basophils 0.1, PUBS MCHC 32.6 L Lines/Diet/Fluids Catheters/Tubes: bilateral nephrostomy tube Assessment/Plan Assessment: Patient is a 55-year-old male with a past medical history of 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 Patient is status post TURP on 02/10/2016. Has increasing left flank pain/CVA tenderness with dirty urine and constipation. Abdominal and pelvis CT: New left perinephric stranding and left retroperitoneal fluid suggesting a left renal/ureteral inflammatory process. There is persistent left hydroureteronephrosis extending to the bladder. No obstructing calculus. There is mural indistinctness of the predominantly decompressed bladder,which may represent inflammation.Persistent retroperitoneal/pelvic adenopathy. Persistent hypodense hepatic lesions.No evidence of bowel obstruction. Status post bilateral nephrostomy tube placed about 3 days ago to relieve bilateral obstruction secondary to metastatic prostatic cancer Assessment and plan #Pyelonephritis with perinephric stranding and retroperitoneal fluid. Status post TURP on 02/10/2016 for urinary retention, status post bilateral nephrostomy tube placement * Creatinine is trending down to 1.2 today * we will dicontinue vancomycin per ID Jason Solorio MD and will start Bactrim DS 1 po every 12 hours for 9 days * Urine culture revealed staph coag negative growth sensitive to vancomycin * Need urology follow-up regarding hematuria #Stage IV prostate cancer with metastases to bones and lung * We will continue prednisone, Zytiga,bicalutamide * is following and he recommended outpatient Taxotere . * Pain management with Tylenol for mild, moderate and morphine for severe pain #HEENA likely postrenal due to urinary obstruction * vanc trough therapeutic limits, we will continue vancomycin * Creatinine is trending down #Constipation * Aggressive bowel regimen * Encourage the patient for ambulation * Patient may need Fleet enema DVT prophylaxis alps,Full code,Regular diet, Mild pain pathway Problem List: 1. Hematuria 2. Prostate cancer metastatic to bone 3. Constipation 4. Urinary obstruction Pain Ratin Pain Location: - Pain Goal: Remain pain free Pain Plan: Morphine Tomorrow's Labs & Rationales: CBC, BEP DVT/Prophylaxis: mechanical Consulting Request: Consulting Specialty: Urology Consulting Physician: Dr BISHOP Reason for Consult: pylonephrities, ureter obstruction FEDE GONSALES MD 03/01/16 1023: Attending MD Review Statement Attending Statement Attending MD Statement: examined this patient, discuss w/resident/PA/PROPOSAL MANAGER, agreed w/resident/PA/PROPOSAL MANAGER, reviewed EMR data (avail), discussed with nursing, discussed with case mgmt Attending Assessment/Plan: Patient is doing well. He is ambulating. His nephrostomy tubes appear okay the area of the right nephrostomy tube is irritating the skin a little bit and will put some bacitracin ointment over that. We'll switch him to by mouth Bactrim for a pyelonephritis with an obstructive uropathy. His pain is well controlled on oral morphine. We are still actively treating his constipation and plan will be likely discharge in a.m.
--- NOTE | 2016-03-01 10:50 | PN- Infect Dx ---
Subjective Subjective: Afebrile. He feels improved, though still reports hematuria and dysuria. He also states that he has not moved his bowels other than passing a small amount of liquid stool. Objective Last 24 Hrs of Vital Signs/I&O Vital Signs Date Time Temp Pulse Resp B/P Pulse O2 O2 Flow FiO2 Ox Delivery Rate 03/01 730 97.8 86 18 150/84 92 Room Air 03/01 0606 97.8 86 18 150/84 02/28 2236 98.2 94 20 140/84 20 02/28 1346 99.0 96 18 140/68 93 Room Air Intake & Output 03/01 1600 03/01 0800 03/01 0000 Intake Total 100 850 Output Total 550 800 Balance -450 50 Intake, IV 0 350 Intake, Oral 100 500 Number 0 0 Bowel Movements Output, Urine 550 800 Physical Exam Other Physical Findings: He appears comfortable in no acute distress Lungs are clear Heart regular rhythm and no murmur Back mild bilateral CVA tenderness; percutaneous nephrostomy tubes remain in place, with approximately 600 mL output from each yesterday Extremities no cyanosis, clubbing or edema Results Last 24 Hours of Lab Results: Laboratory Tests 03/01 604 Chemistry Sodium (137 - 145 mmol/L) 141 Potassium (3.5 - 5.1 mmol/L) 4.5 Chloride (98 - 107 mmol/L) 102 Carbon Dioxide (22 - 30 mmol/L) 28 Anion Gap (5 - 16) 10 BUN (9 - 20 mg/dL) 17 Creatinine (0.7 - 1.2 mg/dL) 1.2 Estimated GFR (>60 ml/min) > 60 BUN/Creatinine Ratio (7 - 25 %) 14.2 Hematology CBC w Diff NO MAN DIFF REQ WBC (4.8 - 10.8 /CUMM) 9.9 RBC (4.70 - 6.10 /CUMM) 4.17 L Hgb (14.0 - 18.0 G/DL) 11.3 L Hct (42 - 52 %) 34.6 L MCV (80.0 - 94.0 FL) 82.9 MCH (27.0 - 31.0 PG) 27.0 RDW (11.5 - 14.5 %) 15.1 H Plt Count (130 - 400 /CUMM) 248 MPV (7.4 - 10.4 FL) 8.2 Gran % (42.2 - 75.2 %) 72.4 Lymphocytes % (20.5 - 51.1 %) 19.9 L Monocytes % (1.7 - 9.3 %) 5.4 Eosinophils % (0 - 5 %) 1.6 Basophils % (0.0 - 2.0 %) 0.7 Absolute Granulocytes (1.4 - 6.5 /CUMM) 7.1 H Absolute Lymphocytes (1.2 - 3.4 /CUMM) 2.0 Absolute Monocytes (0.10 - 0.60 /CUMM) 0.5 Absolute Eosinophils (0.0 - 0.7 /CUMM) 0.2 Absolute Basophils (0.0 - 0.2 /CUMM) 0.1 PUBS MCHC (33.0 - 37.0 G/DL) 32.6 L Last 24 Hours of Raymundo Results: No recent cultures Assessment/Plan Impression: Overall improved status post placement of bilateral percutaneous nephrostomies 3 days ago for presumably bilateral obstructive uropathy secondary to progression of his prostate cancer, with creatinine improved since this intervention. He remains afebrile with white blood cell count normal on Vancomycin Day 5 of treatment for presumed pyelonephritis secondary to coag-negative Staph and he will require a total of 14 days of antibiotics. He has lost his IV access; therefore can switch to oral antibiotic to complete his course of treatment. Suggestion: 1. Urology follow-up regarding his continued complaints of dysuria and hematuria 2. Discontinue Vancomycin 3. Begin Bactrim DS 1 po every 12 hours for 9 days
--- NOTE | 2016-03-01 13:20 | Event Note ---
Event Note Event Note: Contacted Dr. Mariano regarding hematuria, he recommended to start patient on Proscar 5 mg daily to minimize vascularity of advancing prostatic cancer. It's okay to discharge patient from a genitourinary perspective as long as H/H stable.
[2016-03-01 15:36] VITALS: BP 130/80
[2016-03-01 22:48] VITALS: BP 130/80
[2016-03-02 06:30] VITALS: BP 122/78
[2016-03-02 07:49] LABS: ABSOLUTE BASOPHIL COUNT 0 /CUMM (0.0-0.2); ABSOLUTE EOSINOPHIL COUNT 0.1 /CUMM (0.0-0.7); ABSOLUTE GRANULOCYTE CT 7.6 /CUMM (1.4-6.5); ABSOLUTE LYMPH COUNT 1.6 /CUMM (1.2-3.4); ABSOLUTE MONOCYTE COUNT 0.6 /CUMM (0.10-0.60); BASOPHIL % 0.4 % (0.0-2.0); EOSINOPHIL % 1.4 % (0-5); HEMATOCRIT 36.6 % (42-52); MEAN CORPUSCULAR HGB 26.8 PG (27.0-31.0); MEAN CORPUSCULAR HGB CONC 32.5 G/DL (33.0-37.0); MEAN CORPUSCULAR VOLUME 82.4 FL (80.0-94.0); MEAN PLATELET VOLUME 8.1 FL (7.4-10.4); PLATELET COUNT 258 /CUMM (130-400); RBC DISTRIBUTION WIDTH 15.2 % (11.5-14.5); RED BLOOD CELL CT 4.45 /CUMM (4.70-6.10); WHITE BLOOD CELL COUNT 10.1 /CUMM (4.8-10.8)
--- NOTE | 2016-03-02 09:30 | PN- Housestaff ---
Subjective Follow-up For: -Metastatic prostate cancer -Pyelonephritis/ Urine Cx grews G+ve staph -Status post bilateral nephrostomy tube placements Complaints: no complaints Subjective: Patient seen and examined at the bedside, he is lying in the bed comfortable with no acute distress. No events overnight, no complaints. Vitals stable. Still some bloody urine from penis. 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 In -ve fluid balance Review of Systems Constitutional: Reports: no symptoms. EENTM: Reports: no symptoms. Cardiovascular: Reports: no symptoms. Respiratory: Reports: no symptoms. Gastrointestinal: Reports: no symptoms. Genitourinary: Reports: hematuria. Musculoskeletal: Reports: no symptoms. Skin: Reports: no symptoms. Neurological/Psychological: Reports: no symptoms. Hematologic/Endocrine: Reports: no symptoms. Objective Last 24 Hrs of Vital Signs/I&O Vital Signs Date Time Temp Pulse Resp B/P Pulse O2 O2 Flow FiO2 Ox Delivery Rate 03/02 0630 97.9 91 20 122/78 90 Room Air 03/02 0517 97.9 91 18 122/78 03/01 2248 98.4 94 20 130/80 90 Room Air 03/01 1536 98.1 76 20 130/80 93 Intake & Output 03/02 1600 03/02 0800 03/02 0000 Intake Total 450 Output Total 600 750 Balance -150 -750 Intake, Oral 450 Output, Urine 600 750 Physical Exam General Appearance: Alert, Oriented X3, Cooperative, No Acute Distress Cardiovascular: Regular Rate, Normal S1, Normal S2 Lungs: Clear to Auscultation, Normal Air Movement Abdomen: Normal Bowel Sounds, Soft, No Tenderness, B/L nephrostomy bag in place full in urine Extremities: No Edema, Normal Pulses Current Medications: Current Medications Sig/Aurora Start time Last Medication Dose Route Stop Time Status Admin Acetaminophen 650 MG Q4P PRN 02/27 0815 AC PO Bacitracin 1 ROMY BID 03/01 1023 AC 03/02 TOP 0826 Bicalutamide 50 MG 02/25 0600 AC 03/02 PO 0513 Bisacodyl 10 MG DAILY PRN 02/24 0615 AC CA Docusate Sodium 100 MG BID 02/26 1015 AC 03/02 PO 0826 Finasteride 5 MG DAILY 03/01 1320 AC 03/02 PO 0826 Lidocaine 2 ROMY BID 02/27 1000 AC 03/02 TOP 0826 Magnesium Hydroxide 30 ML Q8P PRN 02/26 1015 AC PO Morphine Sulfate 30 MG Q4 HRS NEEDED PRN 02/27 0930 AC 03/02 PO 0513 Morphine Sulfate 2 MG Q4P PRN 02/26 1845 AC 02/27 IV 0613 Omeprazole 40 MG DAILY AC 02/25 1706 AC 03/02 PO 0517 Oxycodone/ 2 TAB Q4 HRS NEEDED PRN 02/26 1845 AC 02/27 Acetaminophen PO 2145 Polyethylene Glycol 17 GM DAILY 02/24 1000 AC 03/02 PO 0826 Prednisone 5 MG 0600,1800 02/25 0600 AC 03/02 PO 0517 Senna/Docusate Sodium 2 TAB DAILY PRN 02/24 0615 AC 02/25 PO 1328 Sodium Phosphate 1 UNIT DAILY NEEDED PRN 02/28 1245 AC CA Tamsulosin HCl 0.4 MG 0600,1800 02/25 0600 AC 03/02 PO 0517 Trimethoprim/ 1 TAB BID 03/01 1022 AC 03/02 Sulfamethoxazole PO 08 Vancomycin HCl 1,250 MG Q12H 02/27 0900 DC 02/28 Sodium Chloride 250 ML IV 2141 Last 24 Hrs of Lab/Raymundo Results Last 24 Hrs of Labs/Mics: Laboratory Tests 03/02/16 0705: Anion Gap 10, Estimated GFR > 60, BUN/Creatinine Ratio 15.5, CBC w Diff NO MAN DIFF REQ, RBC 4.45 L, MCV 82.4, MCH 26.8 L, RDW 15.2 H, MPV 8.1, Gran % 76.0 H, Lymphocytes % 16.4 L, Monocytes % 5.8, Eosinophils % 1.4, Basophils % 0.4, Absolute Granulocytes 7.6 H, Absolute Lymphocytes 1.6, Absolute Monocytes 0.6, Absolute Eosinophils 0.1, Absolute Basophils 0, PUBS MCHC 32.5 L Assessment/Plan Assessment: Patient is a 55-year-old male with a past medical history of 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 Patient is status post TURP on 02/10/2016. Has increasing left flank pain/CVA tenderness with dirty urine and constipation. Abdominal and pelvis CT: New left perinephric stranding and left retroperitoneal fluid suggesting a left renal/ureteral inflammatory process. There is persistent left hydroureteronephrosis extending to the bladder. No obstructing calculus. There is mural indistinctness of the predominantly decompressed bladder,which may represent inflammation.Persistent retroperitoneal/pelvic adenopathy. Persistent hypodense hepatic lesions.No evidence of bowel obstruction. Status post bilateral nephrostomy tube placed about 3 days ago to relieve bilateral obstruction secondary to metastatic prostatic cancer Assessment and plan #Pyelonephritis with perinephric stranding and retroperitoneal fluid. Status post TURP on 02/10/2016 for urinary retention, status post bilateral nephrostomy tube placement * Creatinine is trending down to 1.1 today * Day 2 of Bactrim DS 1 po every 12 hours for 9 days * Urine culture revealed staph coag negative growth sensitive to vancomycin * Per recommendation Proscar 5mg daily started yesterday. #Stage IV prostate cancer with metastases to bones and lung * We will continue prednisone, Zytiga,bicalutamide * is following and he recommended outpatient Taxotere . * Pain management with Tylenol for mild, moderate and morphine for severe pain #HEENA likely postrenal due to urinary obstruction * Creatinine is trending down #Constipation * Aggressive bowel regimen * Encourage the patient for ambulation * Patient may need Fleet enema DVT prophylaxis alps,Full code,Regular diet, Mild pain pathway Problem List: 1. Hematuria 2. Prostate cancer metastatic to bone Pain Ratin Pain Location: - Pain Goal: Remain pain free Pain Plan: - Tomorrow's Labs & Rationales: - DVT/Prophylaxis: mechanical Consulting Request: Consulting Specialty: Urology Consulting Physician: Dr BISHOP Reason for Consult: pylonephrities, ureter obstruction
--- NOTE | 2016-03-02 10:34 | PN- Att Addend ---
Attending Addendum Attending Brief Note Pt seen and examined. He is eager to go home but remains constipated. We have him on MiraLAX and Colace with a Fleet enema when necessary. He wasn't keen on taking the Fleet enema. On exam he is afebrile, normotensive, breathing at 16-18. He is ambulating, awake alert oriented, lungs are clear to auscultation, heart is S1-S2 regular, he is obese and his abdomen is soft and his bilateral nephrostomy tubes are draining well. Will order mag citrate for him for the severe constipation and if he has a bowel movement he is safe to go home on by mouth Bactrim and by mouth opiates.
[2016-03-02] MEDS ORDERED: FINASTERIDE5 M1 PO (10:49)
[2016-03-02] MEDS ORDERED: SULFAMETHOXAZO1 EAC1 PO (10:49)
[2016-03-02] MEDS ORDERED: MIRALAX119 GM PO (10:49)
[2016-03-02] MEDS ORDERED: SENNA PLUS TAB1 EACH PO (10:49)
[2016-03-02] MEDS ORDERED: MORPHINE SULFAT15 M4 PO (10:49)
[2016-03-02] MEDS ORDERED: LIDOCAINE HCL5 ML TOP (10:49)
[2016-03-02 15:25] VITALS: BP 120/80
[2016-03-02 22:17] VITALS: BP 140/90
[2016-03-03 07:28] VITALS: BP 130/80
--- NOTE | 2016-03-03 07:54 | PN- Housestaff ---
JAKUB CAMPOS 03/03/16 0754: Subjective Follow-up For: constipatin prostate cancer with mets Subjective: I saw the patient. he had a bowel movement. he will be discharged today. Review of Systems Constitutional: Reports: see HPI. Objective Last 24 Hrs of Vital Signs/I&O Vital Signs Date Time Temp Pulse Resp B/P Pulse O2 O2 Flow FiO2 Ox Delivery Rate 03/03 0728 98.1 98 20 130/80 94 Room Air 03/03 0721 86 152/98 03/02 2217 98.1 89 20 140/90 93 03/02 1716 78 120/80 03/02 1525 97.2 78 20 120/80 94 Room Air Intake & Output 03/03 1600 03/03 0800 03/03 0000 Intake Total 240 120 Output Total 400 350 Balance -160 -230 Intake, Oral 240 120 Number 0 Bowel Movements Output, Urine 400 350 Physical Exam General Appearance: Alert, Oriented X3, Cooperative Other Physical Findings: Cardiovascular: Regular Rate, Normal S1, Normal S2 Lungs: Clear to Auscultation, Normal Air Movement Abdomen: Normal Bowel Sounds, Soft, No Tenderness, B/L nephrostomy bag in place full in urine Extremities: No Edema, Normal Pulses Current Medications: Current Medications Sig/Aurora Start time Last Medication Dose Route Stop Time Status Admin Acetaminophen 650 MG Q4P PRN 02/27 0815 AC PO Bacitracin 1 ROMY BID 03/01 1023 AC 03/02 TOP 2220 Bicalutamide 50 MG 0600 02/25 0600 AC 03/03 PO 0721 Bisacodyl 10 MG DAILY PRN 02/24 0615 AC MS Docusate Sodium 100 MG BID 02/26 1015 AC 03/02 PO 0826 Finasteride 5 MG DAILY 03/01 1320 AC 03/03 PO 0942 Lidocaine 2 ROMY BID 02/27 1000 AC 03/02 TOP 0826 Magnesium Citrate 300 ML ONE ONE 03/02 1030 DC 03/02 PO 03/02 1031 1131 Magnesium Hydroxide 30 ML Q8P PRN 02/26 1015 AC PO Morphine Sulfate 30 MG Q4 HRS NEEDED PRN 02/27 0930 AC 03/02 PO 0513 Morphine Sulfate 2 MG Q4P PRN 02/26 1845 AC 02/27 IV 0613 Omeprazole 40 MG DAILY AC 02/25 1706 AC 03/03 PO 0720 Oxycodone/ 2 TAB Q4 HRS NEEDED PRN 02/26 1845 AC 03/02 Acetaminophen PO 2219 Patient Medication 1 ED .[facility] [place] 03/02 1406 [place] Teaching ED 03/02 1407 Polyethylene Glycol 17 GM DAILY 02/24 1000 AC 03/03 PO 0943 Prednisone 5 MG 0600,1800 02/25 0600 AC 03/03 PO 0720 Senna/Docusate Sodium 2 TAB DAILY PRN 02/24 0615 AC 02/25 PO 1328 Sodium Phosphate 1 UNIT DAILY NEEDED PRN 02/28 1245 AC MS Tamsulosin HCl 0.4 MG 0600,1800 02/25 0600 AC 03/03 PO 0721 Trimethoprim/ 1 TAB BID 03/01 1022 AC 03/03 Sulfamethoxazole PO 0942 Assessment/Plan Assessment: Patient is a 55-year-old male with a past medical history of 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 Patient is status post TURP on 02/10/2016. Has increasing left flank pain/CVA tenderness with dirty urine and constipation. Abdominal and pelvis CT: New left perinephric stranding and left retroperitoneal fluid suggesting a left renal/ureteral inflammatory process. There is persistent left hydroureteronephrosis extending to the bladder. No obstructing calculus. There is mural indistinctness of the predominantly decompressed bladder,which may represent inflammation.Persistent retroperitoneal/pelvic adenopathy. Persistent hypodense hepatic lesions.No evidence of bowel obstruction. Status post bilateral nephrostomy tube placed about 3 days ago to relieve bilateral obstruction secondary to metastatic prostatic cancer Assessment and plan #Pyelonephritis with perinephric stranding and retroperitoneal fluid. Status post TURP on 02/10/2016 for urinary retention, status post bilateral nephrostomy tube placement * Creatinine is trending down to 1.1 today * Day 2 of Bactrim DS 1 po every 12 hours for 9 days * Urine culture revealed staph coag negative growth sensitive to vancomycin * Per recommendation Proscar 5mg daily started yesterday. #Stage IV prostate cancer with metastases to bones and lung * We will continue prednisone, Zytiga,bicalutamide * is following and he recommended outpatient Taxotere . * Pain management with Tylenol for mild, moderate and morphine for severe pain #HEENA likely postrenal due to urinary obstruction * Creatinine is trending down #Constipation * Aggressive bowel regimen * Encourage the patient for ambulation * Patient may need Fleet enema DVT prophylaxis alps,Full code,Regular diet, Mild pain pathway Pain Ratin Pain Location: back Pain Goal: Pain 4 or less Pain Plan: samer Tomorrow's Labs & Rationales: dc today Consulting Request: Consulting Specialty: Urology Consulting Physician: Dr BISHOP Reason for Consult: pylonephrities, ureter obstruction ILDA BROWN,FEDE 03/03/16 1141: Assessment/Plan Problem List: 1. Urinary retention 2. Urinary obstruction 3. Constipation 4. Prostate cancer metastatic to bone Attending MD Review Statement Attending Statement Attending MD Statement: examined this patient, discuss w/resident/PA/LOG PREPARER, agreed w/resident/PA/LOG PREPARER, reviewed EMR data (avail), discussed with nursing, discussed with case mgmt Attending Assessment/Plan: Patient is doing better and had a bowel movement after the mag citrate yesterday. The plan is discharge today. He is a 55-year-old with metastatic prostate CA,he's failed most recent chemotherapy regimen and came in with pyelonephritis from coag negative staph with obstructive uropathy requiring bilateral percutaneous nephrostomy tubes. We were dealing with pain and is now controlled with oral morphine and severe constipation that required multiple medications including mag citrate. The plan today is discharge with home health care. And outpatient follow-up.
== END 2016-03-03 13:25 | disposition home health service (06) | DRG 660 ==
LOC: ERH 22:57 → 2NA 02-25 03:49 → ERHI 02-25 03:49 → 2NA 02-25 05:31
PROVIDERS: Internal Medicine; Ophthalmology; Pediatrics; Student in an Organized Health Care Education/Training Program; ADMIT Student in an Organized Health Care Education/Training Program
PROC: 0TJB8ZZ Inspection of Bladder, Via Natural or Artificial Opening Endoscopic (ICD-10-PCS; principal; 2016-02-27)
PROC: 0T9430Z Drainage of Left Kidney Pelvis with Drainage Device, Percutaneous Approach (ICD-10-PCS; 2016-02-27)
PROC: 0T9330Z Drainage of Right Kidney Pelvis with Drainage Device, Percutaneous Approach (ICD-10-PCS; 2016-02-27)
PROC: 3E1K88Z Irrigation of Genitourinary Tract using Irrigating Substance, Via Natural or Artificial Opening Endoscopic (ICD-10-PCS; 2016-02-27)
DX: N13.1 Hydronephrosis with ureteral stricture, not elsewhere classified (principal); C79.51 Secondary malignant neoplasm of bone; N17.9 Acute kidney failure, unspecified; C78.00 Secondary malignant neoplasm of unspecified lung; C61 Malignant neoplasm of prostate
CPT/HCPCS: 2NAP; 87184; 36415; 74000; 74176; 74475; 81001; 82436; 87040; 87070; 87086; 87147; 96374; C1769; J0692; J0744; J1644; J1940; J2250; J3010; J3370; J3490; J7040; J7512; J9202; Q9968

== ENCOUNTER 2016-03-04 14:41 | Inpatient (IN) | payer OTHER ==
[~2016-03-04] VITALS: Ht 185.4 cm; Wt 131.5 kg
[~2016-03-04 14:41] MED LIST changes: +FINASTERIDE5 M1 PO; +LIDOCAINE HCL5 ML TOP; +MIRALAX119 GM PO; +MORPHINE SULFAT15 M4 PO; +SENNA PLUS TAB1 EACH PO; +SULFAMETHOXAZO1 EAC1 PO
--- NOTE | 2016-03-04 15:20 | ED GENERAL ADULT ---
History of Present Illness General Chief Complaint: General Adult Stated Complaint: D/C'ED YEST FROM HOSP, SENT BY [facility] FOR ?SEPSIS Source: patient Exam Limitations: no limitations Vital Signs & Intake/Output Vital Signs & Intake/Output Vital Signs Date Time Temp Pulse Resp B/P Pulse O2 O2 Flow FiO2 Ox Delivery Rate 03/04 1832 97.0 80 20 143/74 96 Room Air 03/04 1607 97.0 84 18 142/63 96 Room Air 03/04 1450 97.9 91 20 110/78 96 Room Air Allergies Coded Allergies: ragweed pollen (Intermediate, NASAL CONGESTION 01/07/16) Penicillins (UNKNOWN 02/27/16) Reconcile Medications Abiraterone Acetate (Zytiga) 250 MG TABLET 4 TAB PO DAILY CHEMO (Reported) Bicalutamide 50 MG TABLET 1 TAB PO DAILY HORMONE (Reported) Finasteride 5 MG TABLET 5 MG PO DAILY prostate Lidocaine HCl 2 % JEL..ML. 2 ROMY TOP BID pain Morphine Sulfate 15 MG TABLET 30 MG PO Q4 HRS NEEDED PRN PAIN SCALE 7-10 ( SEVERE) Naloxegol Oxalate (Movantik) 25 MG TABLET 1 TAB PO DAILY PRN CONSTIPATION Oxycodone HCl/Acetaminophen (Percocet 5-325 MG Tablet) 5 MG-325 MG TABLET 1-2 TAB PO Q6P PRN PAIN Polyethylene Glycol 3350 (Miralax) 17 GRAM/DOSE POWDER 17 GM PO DAILY constipation Prednisone 5 MG TABLET 1 TAB PO BID STEROID (Reported) Sennosides/Docusate Sodium (Senna Plus Tablet) 8.6 MG-50 MG TABLET 2 TAB PO DAILY PRN CONSTIPATION Sulfamethoxazole/Trimethoprim (Sulfamethoxazole-Tmp Ds Tablet) 800 MG-160 MG TABLET 1 TAB PO BID urinary infection Tamsulosin HCl 0.4 MG CAP.ER.24H 1 CAP PO BID PROSTATE (Reported) Triage Note: PT WAS D/C'D FROM HOSPITAL YESTERDAY NEPHROSTOMY. PT FEELS COLD AND CLAMMY. PT C/O ABDOMINAL PAIN WITH N'/V BUT DENIES DIARRHEA. PT WAS ADMITTED HERE FOR 10 DAYS Triage Nurses Notes Reviewed? yes Onset: Abrupt Duration: day(s): Timing: recent history HPI: 03/04/16 3:42 PM This is a 55-year-old male presents to the emergency department with lower abdominal pain and vomiting bile. The patient was recently discharged for urinary retention. He is status post bilateral nephrostomy tubes. He has a history of invasive prostate cancer. The onset of the symptoms were abrupt, the duration was just today, the severity was significant as his symptoms required to come to the emergency department for care. Past History Travel History Traveled to [place] past 21 day No Medical History Any Pertinent Medical History? see below for history Neurological: NONE EENT: NONE Cardiovascular: NONE Respiratory: obstructive sleep apnea Gastrointestinal: NONE Hepatic: NONE Musculoskeletal: NONE Psychiatric: NONE Endocrine: NONE Blood Disorders: NONE Cancer(s): prostate cancer, METS TO the lymph nodes, bone and, possibly, the liver CLIPPER COUNTERS/Reproductive: NONE History of MRSA: No History of VRE: No History of CDIFF: No Surgical History Surgical History: prostatectomy, TONSILS Psychosocial History Who do you live with Significant Other Services at Home None What is your primary language Palauan Tobacco Use: Never used ETOH Use: denies use Illicit Drug Use: denies illicit drug use Family History Hx Contributory? No Review of Systems Review of Systems Constitutional: Denies: fever. EENTM: Denies: visual changes. Respiratory: Reports: short of breath. Cardiovascular: Denies: chest pain. GI: Reports: abdominal pain. Genitourinary: Reports: see HPI. Musculoskeletal: Reports: back pain. Skin: Denies: rash. Neurological/Psychological: Denies: headache. Hematologic/Endocrine: Reports: no symptoms. Physical Exam Physical Exam General Appearance: alert, awake, anxious, mild distress Head: atraumatic, normal appearance, active bleeding Eyes: Bilateral: normal appearance, PERRL. Ears, Nose, Throat: normal pharynx, hearing grossly normal Neck: normal inspection, full range of motion Respiratory: normal breath sounds, no respiratory distress Cardiovascular: regular rate/rhythm Peripheral Pulses: 4+ radial (R), 4+ radial (L) Gastrointestinal: soft, non-tender Rectal: heme positive stool Back: decreased range of motion (B/L NEPHROSTOMY TUBES) Extremities: pedal edema Neurologic/Psych: no motor/sensory deficits, awake, alert, oriented x 3 Skin: intact, normal color, warm/dry Core Measures ACS in differential dx? No CVA/TIA Diagnosis: No Severe Sepsis Present: No Septic Shock Present: No Progress Differential Diagnoses I considered the following diagnoses in my evaluation of the patient: [ Intestinal obstruction, biliary colic, metastatic carcinoma, versus drug reaction, pulmonary embolism, acute coronary syndrome] Plan of Care: Orders Procedure Date/time Status Heart Healthy Diet 03/05 B Active Add-on Test (ER Only) 03/04 1945 Active Admit to inpatient 03/04 1939 Active Code Status 03/04 1939 Active Admit to inpatient 03/04 1914 Active Vital Signs 03/04 1914 Active Code Status 03/04 191 Complete TROPONIN LEVEL 03/04 161 Complete BLOOD CULTURE 03/04 161 Active LACTIC ACID 03/04 161 Complete D-DIMER 03/04 1541 Complete EKG 03/04 1541 Active CULTURE,URINE 03/04 1530 Active URINALYSIS 03/04 153 Complete COMPREHENSIVE METABOLIC PANEL 03/04 153 Complete CBC WITHOUT DIFFERENTIAL 03/04 153 Complete Laboratory Tests 03/04/16 1645: Urine Color YEL, Urine Clarity CLDY H, Urine pH 6.0, Ur Specific [place] >= 1.030, Urine Protein 100 H, Urine Ketones 15 H, Urine Nitrite NEG, Urine Bilirubin NEG, Urine Urobilinogen 0.2, Ur Leukocyte Esterase SMALL H, Ur Microscopic SEDIMENT EXAMINED, Urine RBC >75 H, Urine WBC 10-15 H, Ur Epithelial Cells RARE, Urine Mucus MOD H, Urine Hemoglobin LARGE H, Urine Glucose NEG 03/04/16 1615: Lactic Acid 1.4 03/04/16 161: Anion Gap 12, Estimated GFR > 60, BUN/Creatinine Ratio 16.0, Glucose 134 H, Calcium 8.6, Total Bilirubin 0.6, AST 28, ALT 33, Alkaline Phosphatase 151 H, Troponin I < 0.01, Total Protein 6.2 L, Albumin 3.3 L, Globulin 2.9, Albumin/ Globulin Ratio 1.1, D-Dimer 3921 H, CBC w Diff NO MAN DIFF REQ, RBC 4.26 L, MCV 82.3, MCH 26.6 L, RDW 15.0 H, MPV 7.9, Gran % 85.2 H, Lymphocytes % 9.4 L, Monocytes % 4.5, Eosinophils % 0.2, Basophils % 0.7, Absolute Granulocytes 10.2 H, Absolute Lymphocytes 1.1 L, Absolute Monocytes 0.5, Absolute Eosinophils 0, Absolute Basophils 0.1, PUBS MCHC 32.4 L 03/04/16 1541: Troponin I Cancelled Microbiology 03/04 1645 URINE ROUT: Urine Culture - RECD 03/04 1634 BLOOD: Blood Culture - RECD 03/04 1615 BLOOD: Blood Culture - RECD Initial ED EKG: NSR, prolonged Q-T Departure Departure Disposition: STILL A PATIENT Condition: Stable Clinical Impression Primary Impression: Pulmonary embolus Secondary Impressions: Guaiac positive stools, 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 Known metastatic prostate cancer. Evaluate for obstruction. COMPARISON: CT abdomen and pelvis without contrast 02/25/2016. Multiple prior CTs of the abdomen and pelvis dating back to 12/09/2015. MR abdomen with and without contrast 12/20/2015. TECHNIQUE: Multidetector volumetric imaging was performed of the abdomen and pelvis before and after the IV administration of 95 mL of Optiray 320 intravenous contrast. Sagittal and coronal reformatted images were obtained on the technologist's workstation. DLP: 1957 mGy-cm. FINDINGS: LUNG BASES: Please refer to a similarly dated CTA chest for further details regarding the lungs. LIVER, GALLBLADDER, AND BILIARY TREE: Evaluation of the liver parenchyma is again notable for two ill-defined hypoattenuating lesions within the hepatic dome as well as within segment IVb of the liver. These lesions do not appear significantly changed in size relative to the most recent examination performed on 02/24/2016. However, the lesion within the hepatic dome, which measures 3.9 x 3.9 cm, is new relative to an MRI of the abdomen dated 12/20/2015. There is a 5.2 x 7.8 cm ill-defined hypoattenuating but enhancing lesion within segment 4b of the liver (series 5, image 26). This lesion appears grossly stable in size relative to the most recent examination but has increased in size relative to a prior exam dating back to 12/09/2015 and which it measured 2.3 x 2.5 cm. The gallbladder is unremarkable with no evidence of radiopaque gallstones, gallbladder wall thickening, or obvious pericholecystic inflammatory changes. No intrahepatic or extrahepatic biliary ductal dilatation is identified. PANCREAS: Unremarkable. SPLEEN: Unremarkable. ADRENAL GLANDS: Evaluation of the bilateral adrenal glands is again notable for a 1.8 x 2.4 cm left adrenal gland mass, grossly unchanged in size relative to the most recent exam. There is also a stable 1.0 x 1.0 cm right adrenal gland nodule. KIDNEYS AND URETERS: Evaluation of the bilateral kidneys and renal collecting systems demonstrates postsurgical changes related to interval placement of bilateral percutaneous nephrostomy tubes. The catheters are visualized traversing the flanks bilaterally and terminating within the renal collecting systems bilaterally. The left-sided percutaneous nephrostomy tube terminates within the left renal pelvis. The right-sided percutaneous nephrostomy tube appears to terminate within a lower pole calyx of the right kidney. There is no appreciable hydronephrosis of either kidney. Redemonstrated is a simple renal cortical cysts along the lower pole of the left kidney measuring 2.3 cm. No renal or ureteral stones are identified. BLADDER: The urinary bladder is underdistended, limiting evaluation. There is diffuse circumferential bladder wall thickening, with no discernible fat plane between the prostate gland and the adjacent bladder. Soft tissue is visualized within the bladder lumen and is suspicious for local invasion of the urinary bladder by the patient's known prostate cancer. GASTROINTESTINAL TRACT: Normal anatomic orientation of the stomach relative to the duodenum. Normal caliber of abdominal and pelvic bowel loops, without evidence of obstruction or ileus. No circumferential bowel wall thickening with surrounding inflammatory changes to suggest an underlying infectious or inflammatory enterocolitis. Normal-appearing appendix within the right lower quadrant of the abdomen. Scattered colonic diverticulosis, without secondary signs of acute diverticulitis. Redemonstrated is a moderate hiatal hernia. No organizing intra-abdominal fluid collections or free intraperitoneal air. ABDOMINAL WALL: Small bilateral fat-containing inguinal hernias. LYMPH NODES: Prominent retroperitoneal adenopathy visualized measuring up to 3.1 cm within the left periaortic region, grossly unchanged relative to the most recent examination and indicative of ayse metastasis from metastatic prostate cancer. There is a stable right common iliac chain lymph node measuring 1.9 x 3.2 cm. Prominent adenopathy is also identified along the right pelvic sidewall and also appears grossly unchanged relative to the prior exam. VASCULAR: Scattered atherosclerosis of the abdominal aorta and its branching vessels, without aneurysmal dilatation. Limited evaluation for vascular patency given phase of contrast imaging. PELVIC VISCERA: Bulky heterogeneously enhancing prostate gland with visible tumor extension into the extra prostatic fat as well as the urinary bladder, corresponding to the patient's known prostate cancer. There is also suspected invasion of the seminal vesicles. OSSEOUS STRUCTURES: Multiple sclerotic lesions scattered throughout the axial and appendicular skeleton, grossly unchanged relative to the prior examination and corresponding to the patient's previously described sclerotic osseous metastases. No acute osseous abnormality. IMPRESSION: 1. No acute findings within the abdomen or pelvis to explain patient symptomatology. Postsurgical changes related to interval placement of bilateral percutaneous nephrostomy tubes, with interval decompression of the renal collecting systems bilaterally. No appreciable hydroureteronephrosis of either kidney or renal collecting system. 2. Bulky and heterogeneously enhancing prostate gland with extra prostatic extension of tumor and associated invasion of the adjacent urinary bladder, corresponding to the patient's known locally invasive prostate cancer. Stable bulky retroperitoneal adenopathy. 3. Normal caliber of abdominal and pelvic bowel loops, without findings indicative of obstruction or ileus. 4. Ill-defined hypoattenuating lesions within the hepatic dome and the medial segment of the left hepatic lobe, as described above. These lesions are stable in size relative to the most recent examination. The lesion within segment IVb of the liver has increased in size relative to a prior exam dating back to 12/09/2015, indicative of interval progression of metastatic disease. The lesion within the hepatic dome is new relative to the MRI and CT of the abdomen dating back to 12/19/2015. 5. No acute osseous abnormality. Several sclerotic foci scattered throughout the axial and appendicular skeleton as well as the pelvis and bilateral proximal femurs, corresponding to the patient's known sclerotic osseous metastases. DICTATED BY: KYLEIGH ROQUE MD DATE/TIME DICTATED:03/04/161850 BENDER MACHINE OPERATOR:KAYY DATE/TIME TRANSCRIBED:03/04/161850 CONFIDENTIAL, DO NOT COPY WITHOUT APPROPRIATE AUTHORIZATION. <Electronically signed in Other Vendor System> PATIENT: EFRAIN OLIVERA PRESENT AGE: 55 PATIENT ACCOUNT NO: [id number] : 62 LOCATION: [facility] ORDERING PHYSICIAN: THALIA WALTER DO SERVICE DATE: 03/04/16 EXAM TYPE: CAT - CTA CHEST-PULMONARY EMBOLISM EXAMINATION: CT ANGIOGRAM OF THE CHEST WITH AND WITHOUT CONTRAST (CT PULMONARY ANGIOGRAM FOR PE) CLINICAL INFORMATION: Shortness of breath. Elevated d-dimer. History of prostate cancer. COMPARISON: No pertinent prior studies are available for comparison. TECHNIQUE: Prior to contrast administration, noncontrast localization images were obtained. Subsequently, multidetector volumetric imaging was performed from the thoracic inlet to below the diaphragms following the administration of 95 mL Optiray 320 intravenous contrast. No contrast reaction reported. Sagittal, coronal, and MIP oblique sagittal reformatted images were obtained on the CT workstation, uploaded to PACS, and reviewed. Total exam dose-length product 1957 mGy-cm. FINDINGS: QUALITY OF STUDY/CONTRAST BOLUS: Suboptimal contrast opacification of the pulmonary arterial vasculature. PULMONARY ARTERIES: Nevertheless, there are intraluminal filling defects within segmental and subsegmental branches of the right lower lobe, indicative of pulmonary emboli. No large central pulmonary emboli are identified. THORACIC AORTA: Normal caliber of the thoracic aorta, without evidence of aortic dissection. LUNG: Evaluation of the lung parenchyma demonstrates bilateral pulmonary nodules. For instance, there is a 1.0 x 1.3 cm nodule along the right minor fissure (series 2, image 170). A 1.1 x 1.3 cm nodule is identified within the left lower lobe (series 2, image 166). There is bibasilar subsegmental atelectasis. The central airways are patent, without endobronchial obstructing lesions. PLEURA: There are trace bilateral pleural effusions. No pneumothoraces. MEDIASTINUM: Normal heart size, without significant pericardial effusion. Normal three-vessel branching of the radiocarpal. Normal caliber of the thoracic aorta and main pulmonary artery. Of note, there are prominent and bulky mediastinal and left hilar lymph nodes, suspicious for ayse metastasis given the patient's history of metastatic prostate cancer. Specifically, there are prominent bulky lymph nodes within the prevascular space, visualized measuring up to 2.4 x 4.0 cm (series 4, image 18). Prominent lymph nodes within the right paratracheal region or visualized measuring up to 1.6 x 2.0 cm (series 4, image 9). There are prominent left hilar lymph nodes measuring up to 1.6 x 2.0 cm (series 4, image 20). Prominent lymph nodes are also identified within the precarinal and subcarinal regions and along the distal esophagus. There is no evidence of septal bowing or right heart strain. CHEST WALL/AXILLA: No significant axillary adenopathy. OSSEOUS STRUCTURES: Metastatic foci throughout the imaged axial and appendicular skeleton, indicative of sclerotic osseous metastases from prostate cancer. Specifically, there is a 1.8 x 2.7 cm sclerotic mass within the T6 vertebral body. There are smaller punctate sclerotic lesions within the T5, T11 and L1 vertebral bodies. There is diffuse sclerosis of the manubrium of the sternum with significant periosteal reaction, indicative of metastasis. There is associated soft tissue surrounding this structure lesion within the manubrium of the sternum. UPPER ABDOMEN: Hypoattenuating lesions within the imaged portions of the liver, corresponding to previously identified suspected liver metastases. No reflux of contrast into the hepatic veins to suggest elevated right heart pressures. IMPRESSION: 1. Suboptimal contrast opacification of the pulmonary arterial vasculature. Nevertheless, there are intraluminal filling defects within segmental and subsegmental branches of the right lower lobe, indicative of pulmonary emboli. No large central emboli are identified. There are no findings suggestive of right heart strain. 2. Bilateral pulmonary nodules. Specifically, there is a 1.0 x 1.3 cm nodule within the right lung, along the right minor fissure. A 1.1 x 1.3 cm nodule is identified within the left lower lobe. These nodules are suspicious for pulmonary metastases. 3. Bulky mediastinal and left hilar adenopathy, as described above, suspicious for ayse metastases. The largest lymph node within the prevascular space measures 2.4 x 4.0 cm. There is diffuse sclerosis of the manubrium of the sternum with significant periosteal reaction and surrounding soft tissue, indicative of sclerotic osseous metastasis to the sternum. Additional sclerotic metastases are identified within the thoracolumbar vertebral bodies, as detailed above. VTE: Positive. This critical result was discussed with Dr. Mamadou Townsend at 6:55 PM on 03/04/2016 and it was ascertained that the content and urgency of the report was understood at the time of direct communication. DICTATED BY: KYLEIGH ROQUE MD DATE/TIME DICTATED:03/04/161833 BENDER MACHINE OPERATOR:KAYY DATE/TIME TRANSCRIBED:01/04/17 / 1834 CONFIDENTIAL, DO NOT COPY WITHOUT APPROPRIATE AUTHORIZATION. <Electronically signed in Other Vendor System> SIGNED BY: MYA BROWN,KYLEIGH 03/04/16 1859 03/04/16 8 PM The patient is being admitted to the telemetry unit under the hospitalist service. He is hemodynamically stable and not hypoxic. CTA shows metastatic carcinoma the right lower lobe pulmonary embolism. I spoke with the ON-CALL vascular surgeon (Dr Real) who said that he may be consulted as needed for vena cava filter, obtain lower extremity ultrasound, and heparinize if indicated. Admission Note Spoke With: CHEVY BROWN,ANTIONE Documentation of Exam: Documentation of any treatments & extenuating circumstances including Concerns Regarding Discharge (functional status, medication knowledge or non-compliance, living conditions, etc.) that warrant an admission rather than observation: [The patient needs admission for anticoagulation, monitoring of H&H, oncology consult , vascular surgery consult,] Critical Care Note Critical Care Note Critical Care Time: non-applicable
[2016-03-04 16:30] LABS: ABSOLUTE BASOPHIL COUNT 0.1 /CUMM (0.0-0.2); ABSOLUTE EOSINOPHIL COUNT 0 /CUMM (0.0-0.7); ABSOLUTE GRANULOCYTE CT 10.2 /CUMM (1.4-6.5); ABSOLUTE LYMPH COUNT 1.1 /CUMM (1.2-3.4); ABSOLUTE MONOCYTE COUNT 0.5 /CUMM (0.10-0.60); BASOPHIL % 0.7 % (0.0-2.0); EOSINOPHIL % 0.2 % (0-5); GRANULOCYTE % 85.2 % (42.2-75.2); MEAN CORPUSCULAR HGB 26.6 PG (27.0-31.0); MEAN CORPUSCULAR HGB CONC 32.4 G/DL (33.0-37.0); MEAN CORPUSCULAR VOLUME 82.3 FL (80.0-94.0); MEAN PLATELET VOLUME 7.9 FL (7.4-10.4); PLATELET COUNT 261 /CUMM (130-400); RED BLOOD CELL CT 4.26 /CUMM (4.70-6.10); WHITE BLOOD CELL COUNT 11.9 /CUMM (4.8-10.8)
--- NOTE | 2016-03-04 16:30 | ULTRASOUND REPORT ---
EXAMINATION: US RETROPERITONEAL COMPLETE (RENAL) CLINICAL INFORMATION: History of bilateral nephrostomy catheter placement. Vomiting. Evaluate hydronephrosis.. COMPARISON: CT abdomen and pelvis, 02/25/2016. TECHNIQUE: Real-time imaging of the kidneys and bladder. FINDINGS: RIGHT KIDNEY: 10.9 x 5.6 x 6.5 cm (SAG x AP x TRV). The kidney has normal cortical thickness and cortical echotexture. There is no residual hydronephrosis. No renal calculi. LEFT KIDNEY: 11.7 x 6.1 x 5.9 cm (SAG x AP x TRV). The kidney has normal cortical thickness and cortical echotexture. 1.5 x 1.3 x 1.8 cm simple cortical cyst is seen at the lower pole. No nephrolithiasis. The mild left hydronephrosis of 02/25/2016 has decreased. BLADDER: Urinary bladder is nearly completely empty and, therefore, suboptimally evaluated. Large prostate gland measures approximately 5.5 cm transverse, 4.5 cm AP and 6.8 m craniocaudal; the prostate tissue appears to infiltrate into the bladder wall. IMPRESSION: 1. Right kidney is unremarkable. 2. Mild left hydronephrosis has decreased compared to 02/25/2016. 3. Large, irregular prostate gland appears to extend into the bladder wall, suggestive of bladder invasive carcinoma.
--- NOTE | 2016-03-04 18:59 | CT SCAN REPORT ---
EXAMINATION: CT ANGIOGRAM OF THE CHEST WITH AND WITHOUT CONTRAST (CT PULMONARY ANGIOGRAM FOR PE) CLINICAL INFORMATION: Shortness of breath. Elevated d-dimer. History of prostate cancer. COMPARISON: No pertinent prior studies are available for comparison. TECHNIQUE: Prior to contrast administration, noncontrast localization images were obtained. Subsequently, multidetector volumetric imaging was performed from the thoracic inlet to below the diaphragms following the administration of 95 mL Optiray 320 intravenous contrast. No contrast reaction reported. Sagittal, coronal, and MIP oblique sagittal reformatted images were obtained on the CT workstation, uploaded to PACS, and reviewed. Total exam dose-length product 1957 mGy-cm. FINDINGS: QUALITY OF STUDY/CONTRAST BOLUS: Suboptimal contrast opacification of the pulmonary arterial vasculature. PULMONARY ARTERIES: Nevertheless, there are intraluminal filling defects within segmental and subsegmental branches of the right lower lobe, indicative of pulmonary emboli. No large central pulmonary emboli are identified. THORACIC AORTA: Normal caliber of the thoracic aorta, without evidence of aortic dissection. LUNG: Evaluation of the lung parenchyma demonstrates bilateral pulmonary nodules. For instance, there is a 1.0 x 1.3 cm nodule along the right minor fissure (series 2, image 170). A 1.1 x 1.3 cm nodule is identified within the left lower lobe (series 2, image 166). There is bibasilar subsegmental atelectasis. The central airways are patent, without endobronchial obstructing lesions. PLEURA: There are trace bilateral pleural effusions. No pneumothoraces. MEDIASTINUM: Normal heart size, without significant pericardial effusion. Normal three-vessel branching of the radiocarpal. Normal caliber of the thoracic aorta and main pulmonary artery. Of note, there are prominent and bulky mediastinal and left hilar lymph nodes, suspicious for ayse metastasis given the patient's history of metastatic prostate cancer. Specifically, there are prominent bulky lymph nodes within the prevascular space, visualized measuring up to 2.4 x 4.0 cm (series 4, image 18). Prominent lymph nodes within the right paratracheal region or visualized measuring up to 1.6 x 2.0 cm (series 4, image 9). There are prominent left hilar lymph nodes measuring up to 1.6 x 2.0 cm (series 4, image 20). Prominent lymph nodes are also identified within the precarinal and subcarinal regions and along the distal esophagus. There is no evidence of septal bowing or right heart strain. CHEST WALL/AXILLA: No significant axillary adenopathy. OSSEOUS STRUCTURES: Metastatic foci throughout the imaged axial and appendicular skeleton, indicative of sclerotic osseous metastases from prostate cancer. Specifically, there is a 1.8 x 2.7 cm sclerotic mass within the T6 vertebral body. There are smaller punctate sclerotic lesions within the T5, T11 and L1 vertebral bodies. There is diffuse sclerosis of the manubrium of the sternum with significant periosteal reaction, indicative of metastasis. There is associated soft tissue surrounding this structure lesion within the manubrium of the sternum. UPPER ABDOMEN: Hypoattenuating lesions within the imaged portions of the liver, corresponding to previously identified suspected liver metastases. No reflux of contrast into the hepatic veins to suggest elevated right heart pressures. IMPRESSION: 1. Suboptimal contrast opacification of the pulmonary arterial vasculature. Nevertheless, there are intraluminal filling defects within segmental and subsegmental branches of the right lower lobe, indicative of pulmonary emboli. No large central emboli are identified. There are no findings suggestive of right heart strain. 2. Bilateral pulmonary nodules. Specifically, there is a 1.0 x 1.3 cm nodule within the right lung, along the right minor fissure. A 1.1 x 1.3 cm nodule is identified within the left lower lobe. These nodules are suspicious for pulmonary metastases. 3. Bulky mediastinal and left hilar adenopathy, as described above, suspicious for ayse metastases. The largest lymph node within the prevascular space measures 2.4 x 4.0 cm. There is diffuse sclerosis of the manubrium of the sternum with significant periosteal reaction and surrounding soft tissue, indicative of sclerotic osseous metastasis to the sternum. Additional sclerotic metastases are identified within the thoracolumbar vertebral bodies, as detailed above. VTE: Positive. This critical result was discussed with Dr. Mamadou Townsend at 6:55 PM on 03/04/2016 and it was ascertained that the content and urgency of the report was understood at the time of direct communication.
--- NOTE | 2016-03-04 19:18 | CT SCAN REPORT ---
EXAMINATION: CT ABDOMEN AND PELVIS WITH CONTRAST CLINICAL INFORMATION: Vomiting. Known metastatic prostate cancer. Evaluate for obstruction. COMPARISON: CT abdomen and pelvis without contrast 02/25/2016. Multiple prior CTs of the abdomen and pelvis dating back to 12/09/2015. MR abdomen with and without contrast 12/20/2015. TECHNIQUE: Multidetector volumetric imaging was performed of the abdomen and pelvis before and after the IV administration of 95 mL of Optiray 320 intravenous contrast. Sagittal and coronal reformatted images were obtained on the technologist's workstation. DLP: 1957 mGy-cm. FINDINGS: LUNG BASES: Please refer to a similarly dated CTA chest for further details regarding the lungs. LIVER, GALLBLADDER, AND BILIARY TREE: Evaluation of the liver parenchyma is again notable for two ill-defined hypoattenuating lesions within the hepatic dome as well as within segment IVb of the liver. These lesions do not appear significantly changed in size relative to the most recent examination performed on 02/24/2016. However, the lesion within the hepatic dome, which measures 3.9 x 3.9 cm, is new relative to an MRI of the abdomen dated 12/20/2015. There is a 5.2 x 7.8 cm ill-defined hypoattenuating but enhancing lesion within segment 4b of the liver (series 5, image 26). This lesion appears grossly stable in size relative to the most recent examination but has increased in size relative to a prior exam dating back to 12/09/2015 and which it measured 2.3 x 2.5 cm. The gallbladder is unremarkable with no evidence of radiopaque gallstones, gallbladder wall thickening, or obvious pericholecystic inflammatory changes. No intrahepatic or extrahepatic biliary ductal dilatation is identified. PANCREAS: Unremarkable. SPLEEN: Unremarkable. ADRENAL GLANDS: Evaluation of the bilateral adrenal glands is again notable for a 1.8 x 2.4 cm left adrenal gland mass, grossly unchanged in size relative to the most recent exam. There is also a stable 1.0 x 1.0 cm right adrenal gland nodule. KIDNEYS AND URETERS: Evaluation of the bilateral kidneys and renal collecting systems demonstrates postsurgical changes related to interval placement of bilateral percutaneous nephrostomy tubes. The catheters are visualized traversing the flanks bilaterally and terminating within the renal collecting systems bilaterally. The left-sided percutaneous nephrostomy tube terminates within the left renal pelvis. The right-sided percutaneous nephrostomy tube appears to terminate within a lower pole calyx of the right kidney. There is no appreciable hydronephrosis of either kidney. Redemonstrated is a simple renal cortical cysts along the lower pole of the left kidney measuring 2.3 cm. No renal or ureteral stones are identified. BLADDER: The urinary bladder is underdistended, limiting evaluation. There is diffuse circumferential bladder wall thickening, with no discernible fat plane between the prostate gland and the adjacent bladder. Soft tissue is visualized within the bladder lumen and is suspicious for local invasion of the urinary bladder by the patient's known prostate cancer. GASTROINTESTINAL TRACT: Normal anatomic orientation of the stomach relative to the duodenum. Normal caliber of abdominal and pelvic bowel loops, without evidence of obstruction or ileus. No circumferential bowel wall thickening with surrounding inflammatory changes to suggest an underlying infectious or inflammatory enterocolitis. Normal-appearing appendix within the right lower quadrant of the abdomen. Scattered colonic diverticulosis, without secondary signs of acute diverticulitis. Redemonstrated is a moderate hiatal hernia. No organizing intra-abdominal fluid collections or free intraperitoneal air. ABDOMINAL WALL: Small bilateral fat-containing inguinal hernias. LYMPH NODES: Prominent retroperitoneal adenopathy visualized measuring up to 3.1 cm within the left periaortic region, grossly unchanged relative to the most recent examination and indicative of ayse metastasis from metastatic prostate cancer. There is a stable right common iliac chain lymph node measuring 1.9 x 3.2 cm. Prominent adenopathy is also identified along the right pelvic sidewall and also appears grossly unchanged relative to the prior exam. VASCULAR: Scattered atherosclerosis of the abdominal aorta and its branching vessels, without aneurysmal dilatation. Limited evaluation for vascular patency given phase of contrast imaging. PELVIC VISCERA: Bulky heterogeneously enhancing prostate gland with visible tumor extension into the extra prostatic fat as well as the urinary bladder, corresponding to the patient's known prostate cancer. There is also suspected invasion of the seminal vesicles. OSSEOUS STRUCTURES: Multiple sclerotic lesions scattered throughout the axial and appendicular skeleton, grossly unchanged relative to the prior examination and corresponding to the patient's previously described sclerotic osseous metastases. No acute osseous abnormality. IMPRESSION: 1. No acute findings within the abdomen or pelvis to explain patient symptomatology. Postsurgical changes related to interval placement of bilateral percutaneous nephrostomy tubes, with interval decompression of the renal collecting systems bilaterally. No appreciable hydroureteronephrosis of either kidney or renal collecting system. 2. Bulky and heterogeneously enhancing prostate gland with extra prostatic extension of tumor and associated invasion of the adjacent urinary bladder, corresponding to the patient's known locally invasive prostate cancer. Stable bulky retroperitoneal adenopathy. 3. Normal caliber of abdominal and pelvic bowel loops, without findings indicative of obstruction or ileus. 4. Ill-defined hypoattenuating lesions within the hepatic dome and the medial segment of the left hepatic lobe, as described above. These lesions are stable in size relative to the most recent examination. The lesion within segment IVb of the liver has increased in size relative to a prior exam dating back to 12/09/2015, indicative of interval progression of metastatic disease. The lesion within the hepatic dome is new relative to the MRI and CT of the abdomen dating back to 12/19/2015. 5. No acute osseous abnormality. Several sclerotic foci scattered throughout the axial and appendicular skeleton as well as the pelvis and bilateral proximal femurs, corresponding to the patient's known sclerotic osseous metastases.
[2016-03-04 20:03] LABS: PT 12.1 SEC (9.4-12.5)
--- NOTE | 2016-03-04 20:55 | History & Physical ---
ALYSSA CAUSEY 03/04/162054: General Information and HPI MD Statement: I have seen and personally examined EFRAIN OLIVERA and documented this H&P. The patient is a 55 year old M who presented with a patient stated chief complaint of [nausea, vomiting, chills]. Source of Information: patient, old records Exam Limitations: no limitations History of Present Illness: Mr Zamudio is a 55-year-old gentleman with a PMH of stage IV prostate CA with metastasis to lung and bone, TURP (02/10/16), recent admission to [place] in January 2016 for pyelonephritis that was attributed to obstructive uropathy in the setting of progressive prostate CA requiring bilateral nephrostomy tubes, urine culture positive for coag negative staph sensitive to Bactrim and was discharged home on Wednesday with a planned duration of Bactrim DS 1 tab BID for 9 days duration but returned with sudden onset of clammy sensation, sweating, nausea and bilious emesis that started yesterday morning. He does have a history of chronic constipation but denies any associated diarrhea during this time. ROS: (+) for shallow breathing during the episodes of N/V. He denies any purulent drainage/darker urine or decreased output from the urostomy bags. Allergies/Medications Allergies: Coded Allergies: ragweed pollen (Intermediate, NASAL CONGESTION 01/07/16) Penicillins (UNKNOWN 02/27/16) Home Med list Bicalutamide 50 MG TABLET 1 TAB PO DAILY HORMONE (Reported) Finasteride 5 MG TABLET 5 MG PO DAILY prostate Morphine Sulfate 15 MG TABLET 30 MG PO Q4 HRS NEEDED PRN PAIN SCALE 7-10 ( SEVERE) Naloxegol Oxalate (Movantik) 25 MG TABLET 1 TAB PO DAILY PRN CONSTIPATION Polyethylene Glycol 3350 (Miralax) 17 GRAM/DOSE POWDER 17 GM PO DAILY constipation Sennosides/Docusate Sodium (Senna Plus Tablet) 8.6 MG-50 MG TABLET 2 TAB PO DAILY PRN CONSTIPATION Sulfamethoxazole/Trimethoprim (Sulfamethoxazole-Tmp Ds Tablet) 800 MG-160 MG TABLET 1 TAB PO BID urinary infection Tamsulosin HCl 0.4 MG CAP.ER.24H 1 CAP PO BID PROSTATE (Reported) Past History Travel History Traveled to [place] past 21 day No Medical History Neurological: NONE EENT: NONE Cardiovascular: NONE Respiratory: obstructive sleep apnea Gastrointestinal: NONE Hepatic: NONE Musculoskeletal: NONE Psychiatric: NONE Endocrine: NONE Blood Disorders: NONE Cancer(s): prostate cancer, METS TO the lymph nodes, bone and, possibly, the liver PAPER 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 EENTM: Reports: no symptoms. Cardiovascular: Reports: no symptoms. Respiratory: Reports: see HPI. GI: Reports: see HPI. Genitourinary: Reports: see HPI. Exam & Diagnostic Data Last 24 Hrs of Vital Signs/I&O Vital Signs Date Time Temp Pulse Resp B/P Pulse O2 O2 Flow FiO2 Ox Delivery Rate 03/04 2335 140/76 03/04 2103 97.2 80 18 140/76 97 Room Air 03/04 1832 97.0 80 20 143/74 96 Room Air 03/04 1607 97.0 84 18 142/63 96 Room Air 03/04 1450 97.9 91 20 110/78 96 Room Air Intake & Output 03/05 1600 03/05 0800 03/05 0000 Intake Total 1000 Output Total 520 725 Balance -520 275 Intake, IV 1000 Output, Urine 520 725 Physical Exam General Appearance Alert, Cooperative, SLight lethargy but easily arousable Skin Erythema around the Right side urotosomy insertion site on his back HEENT PERRLA, RIght eye strabismus (chronic), Mucous membranes slightly dry Cardiovascular Regular Rate, Normal S1, Normal S2 Lungs Clear to Auscultation, Normal Air Movement Abdomen Normal Bowel Sounds, Soft, No Tenderness Extremities Normal Pulses, 1+ pitting BL LE Vascular Pulses Symmetrical Diagnostic Data EKG Results HR 85, sinus rhythm, T abnormalities anterior leads, borderline prolonged QT interval. QTC 481 Other Results CHEST CTA: Suboptimal contrast opacification of the pulmonary arterial vasculature. Nevertheless, there are intraluminal filling defects within segmental and subsegmental branches of the right lower lobe, indicative of pulmonary emboli. No large central emboli are identified. There are no findings suggestive of right heart strain. Bilateral pulmonary nodules. Specifically, there is a 1.0 x 1.3 cm nodule within the right lung, along the right minor fissure. A 1.1 x 1.3 cm nodule is identified within the left lower lobe. These nodules are suspicious for pulmonary metastases. Bulky mediastinal and left hilar adenopathy, as described above, suspicious for ayse metastases. The largest lymph node within the prevascular space measures 2.4 x 4.0 cm. There is diffuse sclerosis of the manubrium of the sternum with significant periosteal reaction and surrounding soft tissue, indicative of sclerotic osseous metastasis to the sternum. Additional sclerotic metastases are identified within the thoracolumbar vertebral bodies, as detailed above. VTE: Positive. RENAL US: Right kidney unremarkable. Mild left hydronephrosis decreased compared to 02/24. Large irregular prostate gland appears to extend into the bladder wall suggestive of bladder invasive carcinoma. VENOUS DOPPLER: Normal triplex scan without evidence of deep venous thrombosis involving the bilateral lower extremities. Assessment/Plan Assessment: 55-year-old gentleman with a PMH of stage IV prostate CA with metastasis to lung and bone, TURP (02/10/16), recent admission to [place] in January 2016 for pyelonephritis that was attributed to obstructive uropathy in the setting of progressive prostate CA requiring bilateral nephrostomy tubes, urine culture positive for coag negative staph sensitive to Bactrim and was discharged home on Wednesday with a planned duration of Bactrim DS 1 tab BID for 9 days duration but returned with sudden onset of clammy sensation, sweating, nausea and bilious emesis that started yesterday morning. VS on admission: BP 110/78, HR 91, RR 20, SPO2 96% on RA, T 97.9 Pertinent labs: WBC 11.9, H&H 11.3/35.0 D-dimer: 3921 Troponin: <0.01 Echo (09/05/2015): Stage I diastolic heart failure, EF > 65% Problem list: 1. New-onset PE 2. Pyelonephritis S/P bilateral nephrostomy tube placement 3. Stage IV metastatic prostate CA 4. Stage I diastolic heart failure Plan: * Admit to telemetry for continuous cardiac monitoring * Serial EKG/troponin at 0200 hrs., 0800 hrs. * Repeat echocardiogram. Follows up with Dr. Boswell * We'll start the patient on heparin drip. Close monitoring of platelet count in the setting of heparin, malignancy and Bactrim that can be associated with thrombocytopenia * We will continue him on Bactrim DS 1 tab BID with plan total duration 498 * Follow blood cultures and consider broad-spectrum if evidence of sepsis * Continue with hormone replacement with Bicalutamide * Constipation: In-house pharmacy is out of Movantik. If worsening symptoms, consider Relistor * Follow-up hematology recommendations. Consult already placed * Follow-up for vascular recommendations for possibility of IVC filter. Consult already placed * Regular diet * Full code As Ranked By This Provider Problem List: 1. Pulmonary embolus 2. Metastatic renal cell carcinoma to prostate 3. Guaiac positive stools 4. Pyelonephritis Core Measures/Miscellaneous Acute Coronary Syndrome ACS Diagnosis: No Cerebrovascular Accident CVA/TIA Diagnosis: No Congestive Heart Failure CHF Diagnosis: No Venous Thromboembolism VTE Risk Factors: Age > 40 VTE Prophylaxis Ordered Inpt: Pharm- Heparin No Mech VTE prophylaxis d/t: No contraindications No VTE Pharm Prophylaxis d/t: No contraindications VTE Diagnosis: Yes VTE Type: Pulmonary Embolism VTE Confirmed by (Test): CT CHEST ANGIOGRAM Severe Sepsis Severe Sepsis Present: No Septic Shock Septic Shock Present: No Miscellaneous Documentation Attending Case Discussed With: ANTIONE REECE MD Primary Care Physician: MATTHEW VALDEZ DO Patient sees these Specialists Dr. Mondragon (hematology oncology) Level of Patient Care: Telemetry ANTIONE REECE 03/05/16 0805: Attending MD Review Statement Attending Statement Attending Statement: examined this patient, discuss w/resident/PA/FLATBED OWNER OPERATOR, agreed w/resident/PA/FLATBED OWNER OPERATOR, reviewed EMR data (avail), reviewed images, amended to note Attending Assessment/Plan: CC: Diaphoresis and vomiting PMHx: Stage IV prostate cancer, status post laser TURP, recent urinary obstruction status post bilateral nephrostomy Patient was discharged yesterday, treated for complicated UTI along with urinary obstruction. Bilateral nephrostomy Tubes were placed. Patient was fine after discharge. Next morning patient developed an episode of diaphoresis, followed by rapid shallow breathing. Patient tries to rest for a few hours but patient had an episode of vomiting. Home health nurse was visiting for initial consult, who suggested to go to ER. Vitals: Afebrile, HR, RR, blood pressure, O2 saturation in acceptable range. On exam: A O 3, pale looking, no acute distress, anxious. Neck supple, no lymphadenopathy, no JVD. RS: Clear air entry bilaterally present, CVS: S1-S2, RRR. Abdomen: Soft, nontender, back shows bilateral nephrostomy, sites are clear. No obvious skin rashes. No focal neurological deficit. calf soft nontender, no dependent edema. Labs: WBC 11.9, hemoglobin 11.3, otherwise BMP, LFT in acceptable range, lactate 1.4, alkaline phosphatase 151. UA shows leukocyte esterase and blurred, d-dimer was 3921 CTA chest: there are intraluminal filling defects within segmental and subsegmental branches of the right lower lobe, indicative of pulmonary emboli. No large central emboli are identified. There are no findings suggestive of right heart strain. Pulmonary nodules bilaterally, bulky mediastinal and left hilar lymphadenopathy. CT abdomen and pelvis: Postsurgical changes for bilateral percutaneous nephrostomy tubes interval decompression of the renal collecting system. No evidence of gallbladder wall thickening, or obvious pericholecystic inflammation. A and P #1 right segmental and submucosal subsegmental PE: Patient has underlying malignancy: Guaiac test was minimally positive in ER. Initially there was discussion whether to start heparin or not. As patient did not have any active bleeding, hip area and was started. Oncology was consulted from ER. Vascular surgery was also consulted for IVC filter from ER. Continue heparin drip, follow oncology recommendations for transition. Obtain transthoracic echocardiogram to rule out any cardiac strain. Trend troponin and cardiac enzymes. #2 nausea vomiting: Unclear etiology, abdomen soft, no evidence of gallbladder inflammation on CT abdomen, check lipase, continue gentle hydration. #3 patient was on Bactrim for recent E complicated UTI: Continue Bactrim in hospital. #4 stage IV prostate cancer: Inform oncology. #5 status post bilateral nephrostomy tube placement: There is no evidence of obstructive uropathy at this moment, site for the nephrostomy tubes appeared clean and noninfected. #6 adequate pain control.
--- NOTE | 2016-03-04 21:34 | ULTRASOUND REPORT ---
EXAMINATION: US TRIPLEX LOWER EXTREMITY, BILATERAL CLINICAL INFORMATION: Bilateral lower extremity edema. COMPARISON: None. TECHNIQUE: Color-flow triplex imaging with spectral analysis and compression Doppler were performed on the bilateral lower extremities. FINDINGS: Respiratory variation, normal compression and augmented flow are noted throughout the bilateral lower extremities. The visualized common femoral vein, superficial femoral vein, profunda femoral vein, popliteal vein and mid calf peroneal and posterior tibial venous segments show no evidence of deep venous thrombosis. There is no Luque's cyst. Bilateral lower extremity edema. IMPRESSION: Normal triplex scan without evidence of deep venous thrombosis involving the bilateral lower extremities.
[2016-03-05 05:00] LABS: PTT 28 SEC (25-37)
--- NOTE | 2016-03-05 07:34 | PN- Urology ---
Surgical Brief Attending Note Brief Attending Note: Pt's family called to make me aware of patient's admission. Now with bilateral nephrostomies and PE. Would keep anticoagulation at lower end of therapeutic range. Would have nurse change nephrostomy dressings now and then they should be changed twice per week
--- NOTE | 2016-03-05 07:41 | Cons- Oncology ---
General Information and HPI Consulting Request Date of Consult: 03/05/16 Requested By: ANTIONE REECE MD History of Present Illness: Patient is a 55-year-old man with metastatic hormone resistant prostate cancer discharge from [facility] for polynephritis due to obstructive uropathy. Patient is now admitted with shortness of breath associated with nausea and vomiting. Patient was found to have a pulmonary embolism. Currently he feels better. He Denies chest pain ,hemoptysis or leg swelling Allergies/Medications Allergies: Coded Allergies: ragweed pollen (Intermediate, NASAL CONGESTION 01/07/16) Penicillins (UNKNOWN 02/27/16) Home Med List: Abiraterone Acetate (Zytiga) 250 MG TABLET 4 TAB PO DAILY CHEMO (Reported) Bicalutamide 50 MG TABLET 1 TAB PO DAILY HORMONE (Reported) Finasteride 5 MG TABLET 5 MG PO DAILY prostate Lidocaine HCl 2 % JEL..ML. 2 ROMY TOP BID pain Morphine Sulfate 15 MG TABLET 30 MG PO Q4 HRS NEEDED PRN PAIN SCALE 7-10 ( SEVERE) Naloxegol Oxalate (Movantik) 25 MG TABLET 1 TAB PO DAILY PRN CONSTIPATION Oxycodone HCl/Acetaminophen (Percocet 5-325 MG Tablet) 5 MG-325 MG TABLET 1-2 TAB PO Q6P PRN PAIN Polyethylene Glycol 3350 (Miralax) 17 GRAM/DOSE POWDER 17 GM PO DAILY constipation Prednisone 5 MG TABLET 1 TAB PO BID STEROID (Reported) Sennosides/Docusate Sodium (Senna Plus Tablet) 8.6 MG-50 MG TABLET 2 TAB PO DAILY PRN CONSTIPATION Sulfamethoxazole/Trimethoprim (Sulfamethoxazole-Tmp Ds Tablet) 800 MG-160 MG TABLET 1 TAB PO BID urinary infection Tamsulosin HCl 0.4 MG CAP.ER.24H 1 CAP PO BID PROSTATE (Reported) Current Medications: Current Medications Sig/Aurora Start time Last Medication Dose Route Stop Time Status Admin Acetaminophen 650 MG Q6P PRN 03/040 AC PO Bicalutamide 50 MG DAILY 03/05 1000 AC PO Finasteride 5 MG DAILY 03/05 1000 AC PO Heparin Sodium 0 .STK-MED ONE 03/04 2110 DC (Porcine) .ROUTE Heparin Sodium 4,000 UNIT ONCE ONE 03/04 2044 DC 03/04 (Porcine) IV 03/04 Heparin Sodium 25,000 UNIT Q24H 03/045 AC 03/04 (Porcine) IV 2127 Sodium Chloride 500 ML Metoclopramide HCl 10 MG ONCE ONE 03/04 1645 DC 03/04 IV 03/04 1646 1653 Metoclopramide HCl 0 .STK-MED ONE 03/04 1638 DC .ROUTE Non-Formulary 0 SEE ADMIN CRITERIA 03/04 2199 CAN Medication ANY Oxycodone/ 1 TAB Q6P PRN 03/04 2199 AC Acetaminophen PO Oxycodone/ 2 TAB Q6P PRN 03/04 220 AC Acetaminophen PO Polyethylene Glycol 17 GM DAILY 03/05 1000 AC PO Senna/Docusate Sodium 2 TAB DAILY PRN 03/04 220 AC PO Sodium Chloride 1,000 ML ONCE ONE 03/04 1530 DC 03/04 IV 03/04 220 165 Tamsulosin HCl 0.4 MG BID 03/04 220 AC 03/04 PO 2335 Trimethoprim/ 1 TAB BID 03/04 2199 AC 03/04 Sulfamethoxazole PO 2335 Review of Systems Review of Systems: Patient denies headaches or dizziness. The patient denies current nausea or vomiting or abdominal pain. Patient denies dysuria. Patient denies new bone pain or focal neurologic deficit Past History Travel History Traveled to [place] past 21 day No Medical History Neurological: NONE EENT: NONE Cardiovascular: NONE Respiratory: obstructive sleep apnea Gastrointestinal: NONE Hepatic: NONE Musculoskeletal: NONE Psychiatric: NONE Endocrine: NONE Blood Disorders: NONE Cancer(s): prostate cancer, METS TO the lymph nodes, bone and, possibly, the liver FLOUR DISTRIBUTOR/Reproductive: NONE Surgical History Surgical History: prostatectomy, TONSILS Psychosocial History Services at Home: None ETOH Use: denies use Illicit Drug Use: denies illicit drug use Exam & Diagnostic Data Vital Signs and I&O Vital Signs Date Time Temp Pulse Resp B/P Pulse O2 O2 Flow FiO2 Ox Delivery Rate 03/04 2335 140/76 03/04 2103 97.2 80 18 140/76 97 Room Air 03/04 1832 97.0 80 20 143/74 96 Room Air 03/04 1607 97.0 84 18 142/63 96 Room Air 03/04 1450 97.9 91 20 110/78 96 Room Air Intake & Output 03/05 0800 03/05 0000 03/04 1600 Intake Total 1000 Output Total 520 725 Balance -520 275 Intake, IV 1000 Output, Urine 520 725 Patient 290 lb Weight Gen.: in NAD ENT: Sclera anicteric Chest: Normal respiratory effort, decreased breath sounds Cor: RRR, no extra sounds Abdomen: Soft, bowel sounds present, no tenderness, no rebound Extremities: Without clubbing, cyanosis, or asymmetric edema Neurology: Alert and oriented 3, no gross deficit Last 48 Hours of Lab Results: Laboratory Tests 03/05 03/05 03/04 03/04 0444 0205 1645 1615 Chemistry Lactic Acid (0.7 - 2.1 mmol/L) 1.4 Troponin I (<0.11 ng/ml) < 0.01 Lipase (23 - 300 U/L) 118 Coagulation APTT (25 - 37 SEC) 28 Urines Urine Color (YEL,AMB,STR) YEL Urine Clarity (CLEAR) CLDY H Urine pH (5.0 - 8.0) 6.0 Ur Specific [place] (1.001 - 1.035) >= 1.030 Urine Protein (NEG,<30 MG/DL) 100 H Urine Ketones (NEG) 15 H Urine Nitrite (NEG) NEG Urine Bilirubin (NEG) NEG Urine Urobilinogen (0.1 - 1.0 EU/dl) 0.2 Ur Leukocyte Esterase (NEG) SMALL H Ur Microscopic SEDIMENT EXAMINED Urine RBC (0 - 5 /HPF) >75 H Urine WBC (0 - 2 /HPF) 10-15 H Ur Epithelial Cells (NONE,FEW) RARE Urine Mucus (FEW,NONE) MOD H Urine Hemoglobin (NEG) LARGE H Urine Glucose (N MG/DL) NEG 03/04 03/04 1615 1541 Chemistry Sodium (137 - 145 mmol/L) 137 Potassium (3.5 - 5.1 mmol/L) 3.9 Chloride (98 - 107 mmol/L) 101 Carbon Dioxide (22 - 30 mmol/L) 24 Anion Gap (5 - 16) 12 BUN (9 - 20 mg/dL) 16 Creatinine (0.7 - 1.2 mg/dL) 1.0 Estimated GFR (>60 ml/min) > 60 BUN/Creatinine Ratio (7 - 25 %) 16.0 Glucose (65 - 99 mg/dL) 134 H Calcium (8.4 - 10.2 mg/dL) 8.6 Total Bilirubin (0.2 - 1.3 mg/dL) 0.6 AST (17 - 59 U/L) 28 ALT (21 - 72 U/L) 33 Alkaline Phosphatase (< 127 U/L) 151 H Troponin I (<0.11 ng/ml) < 0.01 Cancelled Total Protein (6.3 - 8.2 g/dL) 6.2 L Albumin (3.5 - 5.0 g/dL) 3.3 L Globulin (1.9 - 4.2 gm/dL) 2.9 Albumin/Globulin Ratio (1.1 - 2.2 %) 1.1 Coagulation PT (9.4 - 12.5 SEC) 12.1 INR (0.90 - 1.17) 1.15 D-Dimer (70 - 232 ng/ml) 3921 H Hematology CBC w Diff NO MAN DIFF REQ WBC (4.8 - 10.8 /CUMM) 11.9 H RBC (4.70 - 6.10 /CUMM) 4.26 L Hgb (14.0 - 18.0 G/DL) 11.3 L Hct (42 - 52 %) 35.0 L MCV (80.0 - 94.0 FL) 82.3 MCH (27.0 - 31.0 PG) 26.6 L RDW (11.5 - 14.5 %) 15.0 H Plt Count (130 - 400 /CUMM) 261 MPV (7.4 - 10.4 FL) 7.9 Gran % (42.2 - 75.2 %) 85.2 H Lymphocytes % (20.5 - 51.1 %) 9.4 L Monocytes % (1.7 - 9.3 %) 4.5 Eosinophils % (0 - 5 %) 0.2 Basophils % (0.0 - 2.0 %) 0.7 Absolute Granulocytes (1.4 - 6.5 /CUMM) 10.2 H Absolute Lymphocytes (1.2 - 3.4 /CUMM) 1.1 L Absolute Monocytes (0.10 - 0.60 /CUMM) 0.5 Absolute Eosinophils (0.0 - 0.7 /CUMM) 0 Absolute Basophils (0.0 - 0.2 /CUMM) 0.1 PUBS MCHC (33.0 - 37.0 G/DL) 32.4 L Imaging/Other Studies: SHU-yajlb-ywnwnxrxp emboli, mediastinal lymphadenopathy CT-abdomen pelvis-no acute process Doppler ultrasound-no DVTs Assessment/Plan Assessment: 1. Pulmonary embolism-not associated with DVT-patient is hypercoagulable due to his current oncologic status Recommend-the heparin with conversion to oral anticoagulant 2. Metastatic prostate cancer-chemotherapy to resume as an outpatient Recommendations: .. Consult Acknowledgment - Thank you for your consult request.
--- NOTE | 2016-03-05 08:00 | PN- Housestaff ---
LEONARD MOSER 03/05/16 0759: Subjective Follow-up For: New onset PE Subjective: Patient seen and examined. Offers no complaints. Nice headache, nausea, vomiting, chest pain, shortness of breath, palpitation, abdominal pain, urinary symptoms, hematuria. Vital signs stable. Review of Systems Constitutional: Denies: see HPI. Objective Last 24 Hrs of Vital Signs/I&O Vital Signs Date Time Temp Pulse Resp B/P Pulse O2 O2 Flow FiO2 Ox Delivery Rate 03/05 1831 98.2 101 20 136/75 94 Room Air 03/05 1602 98.0 97 20 128/70 95 Room Air 03/05 1245 98.7 98 18 124/84 95 Room Air 03/05 1050 89 20 135/77 97 Room Air 03/05 1025 97.2 89 20 135/77 03/05 0800 97.0 78 20 142/77 97 Room Air 03/04 2335 140/76 03/04 2103 97.2 80 18 140/76 97 Room Air Intake & Output 03/05 1600 03/05 0800 03/05 0000 Intake Total 1000 Output Total 225 520 725 Balance -225 -520 275 Intake, IV 1000 Output, Urine 225 520 725 Physical Exam General Appearance: Alert, Oriented X3, Cooperative, No Acute Distress Skin: No Rashes, No Breakdown, No Significant Lesion HEENT: Atraumatic, PERRLA, EOMI, Mucous Membr. moist/pink, Right eye with strabismus Neck: Supple, No JVD, No thryomegaly, +2 Carotid Pulse wo Bruit, No LAD Lymphatic: Axillary nl, Cervical nl Cardiovascular: Regular Rate, Normal S1, Normal S2, No Murmurs, Gallops Lungs: Clear to Auscultation, Normal Air Movement Abdomen: Normal Bowel Sounds, Soft, No Tenderness, No Hepatospenomegaly, No Masses, nephrostomy tube intacts bilaterally, urine present in bags, yellow color, no hematuria Neurological: Normal Speech, Strength at 5/5 X4 Ext, Normal Tone, Sensation Intact, Cranial Nerves 3-12 NL, Reflexes 2+ Extremities: No Clubbing, No Cyanosis, No Edema, Normal Pulses, No Tenderness/ Swelling Vascular: Pulses Symmetrical Current Medications: Current Medications Sig/Aurora Start time Last Medication Dose Route Stop Time Status Admin Acetaminophen 650 MG Q6P PRN 03/04 2200 AC PO Bicalutamide 50 MG DAILY 03/05 1000 AC 03/05 PO 1016 Enoxaparin Sodium 100 MG BID 03/05 1000 AC 03/05 SC 1016 Enoxaparin Sodium 30 MG BID 03/05 1000 AC 03/05 SC 1016 Finasteride 5 MG DAILY 03/05 1000 AC 03/05 PO 1016 Heparin Sodium 0 .STK-MED ONE 03/04 2110 DC (Porcine) .ROUTE Heparin Sodium 4,000 UNIT ONCE ONE 03/04 2044 DC 03/04 (Porcine) IV 03/04 Heparin Sodium 25,000 UNIT Q24H 03/04 2044 DC 03/04 (Porcine) IV 2127 Sodium Chloride 500 ML Non-Formulary 0 SEE ADMIN CRITERIA 03/04 2199 CAN Medication ANY Oxycodone/ 0 .STK-MED ONE 03/05 1723 DC Acetaminophen PO Oxycodone/ 0 .STK-MED ONE 03/05 1328 DC Acetaminophen PO Oxycodone/ 1 TAB Q6P PRN 03/04 220 AC 03/05 Acetaminophen PO 1724 Oxycodone/ 2 TAB Q6P PRN 03/04 2200 AC Acetaminophen PO Polyethylene Glycol 17 GM DAILY 03/05 1000 AC 03/05 PO 1016 Senna/Docusate Sodium 2 TAB DAILY PRN 03/04 2200 AC PO Sodium Chloride 1,000 ML ONCE ONE 03/04 1530 DC 03/04 IV 03/04 220 1653 Tamsulosin HCl 0.4 MG BID 03/04 2199 AC 03/05 PO 1025 Trimethoprim/ 0 .STK-MED ONE 03/05 1009 DC Sulfamethoxazole PO Trimethoprim/ 1 TAB BID 03/04 2199 AC 03/05 Sulfamethoxazole PO 1016 Warfarin Sodium 5 MG COUMADIN 1700 ONE 03/05 1700 DC 03/05 PO 03/05 1701 1724 Last 24 Hrs of Lab/Raymundo Results Last 24 Hrs of Labs/Mics: Laboratory Tests 03/05/16 1300: Anion Gap 14, Estimated GFR > 60, BUN/Creatinine Ratio 13.6, Troponin I < 0.01, CBC w Diff NO MAN DIFF REQ, RBC 4.44 L, MCV 82.4, MCH 26.4 L, RDW 15.1 H, MPV 7.9, Gran % 77.1 H, Lymphocytes % 16.0 L, Monocytes % 4.5, Eosinophils % 0.8, Basophils % 1.6, Absolute Granulocytes 8.6 H, Absolute Lymphocytes 1.8, Absolute Monocytes 0.5, Absolute Eosinophils 0.1, Absolute Basophils 0.2, PUBS MCHC 32.0 L 03/05/16 0500: Sodium Cancelled, Potassium Cancelled, Chloride Cancelled, Carbon Dioxide Cancelled, Anion Gap Cancelled, BUN Cancelled, Creatinine Cancelled, BUN/ Creatinine Ratio Cancelled 03/05/16 0444: APTT 28 03/05/16 0205: Troponin I < 0.01, Lipase 118 Assessment/Plan Assessment: This is a 55-year-old gentleman with a PMH of stage IV prostate CA with metastasis to lung and bone, TURP (02/10/16), recent admission to [facility] in January 2016 for pyelonephritis that was attributed to obstructive uropathy in the setting of progressive prostate CA requiring bilateral nephrostomy tubes, urine culture positive for coag negative staph sensitive to Bactrim and was discharged home on Wednesday with a planned duration of Bactrim DS 1 tab BID for 9 days duration but returned with sudden onset of clammy sensation, sweating, nausea and bilious emesis for 1 day. CTA chest on admission showed new onset PE. Lower extremity Doppler ultrasound was negative for DVT. He was started on IV heparin. #New onset PE: * Most likely secondary to hypercoagulable state given prostate malignancy * Oncology was consulted with follow recommendations. * Prosthetic prostate cancer's chemotherapy to be resumed as outpatient; continue rest of home medications * Urology is recommending to maintain INR at a lower level therapeutic range given high bleeding risk and surgery of penile bleeding * Will change IV heparin to subcutaneous Lovenox and eventually patient will require by mouth warfarin. * With those 5 mg warfarin today and recheck INR in the morning * Per urology, nephrostomy dressings to be changed twice per week * Follow-up echocardiogram * Monitor H&H closely * Telemetry monitoring not required #DVT prophylaxis: * Subcutaneous Lovenox #CODE STATUS: * Patient is full code Problem List: 1. Prostate cancer metastatic to bone 2. Pulmonary embolism Pain Ratin Pain Location: NA Pain Goal: Remain pain free Pain Plan: Tylenol, oxycodone Tomorrow's Labs & Rationales: INR, patient was started on warfarin CBC, to monitor H&H BEP to monitor creatinine and electrolytes ILDA BROWN,FEDE 03/05/16 0942: Attending MD Review Statement Attending Statement Attending MD Statement: examined this patient, discuss w/resident/PA/PAINT ROLLER COVERS SUPERVISOR, agreed w/resident/PA/PAINT ROLLER COVERS SUPERVISOR, reviewed EMR data (avail), discussed with nursing, discussed with case mgmt Attending Assessment/Plan: Patient well known to me and I just discharged him on 03/03. He is a 55-year-old male with metastatic prostate CA. He did come in with bilateral obstructive uropathy and coag negative staph pyelonephritis. We had treated him with IV Vanco and later transitioned him to by mouth Bactrim and he had bilateral nephrostomy tubes put in because of a very raw looking masslike lesion in the trigone of his bladder that was felt to be worsening prostate CA. He's come back with an acute pulmonary embolism. While he was here, we had had him on Alps because he was having the procedure done and then later had penile bleeding. His Doppler is negative for any clot. I spoke to Dr. Mondragon and he thinks the PE is because of his hypercoagulable state from his underlying malignancy. Given that the Dopplers negative for DVT I don't think he is a candidate for a filter. We'll transition him to subcutaneous Lovenox and to by mouth Coumadin. The reason for doing by mouth Coumadin is because he is a high bleeding risk as well given his very raw looking neoplasm and penile bleeding. Dr. Granados has asked that we keep him on the low side as far as therapeutic anticoagulation goes but that is difficult. His troponin is negative, he is not tachycardic. He needs an echo to follow- up on right heart issues with the PE but I don't think he needs telemetry at this point.
--- NOTE | 2016-03-05 08:07 | Admission Certification ---
Admission Certification Certification Statement - As attending physician, I certify that at the time of - admission, based on clinical presentation, severity of - symptoms, need for further diagnostic testing and - therapeutic interventions, and risk of adverse outcomes - without in-hospital treatment, in my clinical assessment, - this patient requires an acute hospital stay for a minimum - of two nights or longer. I have also considered psychsocial - factors such as support system, advanced age, financial - issues, cognitive issues, and failed out-patient treatments, - past re-admission history, safety of patient, and lack of - compliance as applicable. Specific rationale supporting this admission is: Acute Pulmonary embolism
[2016-03-05 13:10] LABS: ABSOLUTE BASOPHIL COUNT 0.2 /CUMM (0.0-0.2); ABSOLUTE EOSINOPHIL COUNT 0.1 /CUMM (0.0-0.7); ABSOLUTE GRANULOCYTE CT 8.6 /CUMM (1.4-6.5); ABSOLUTE LYMPH COUNT 1.8 /CUMM (1.2-3.4); ABSOLUTE MONOCYTE COUNT 0.5 /CUMM (0.10-0.60); BASOPHIL % 1.6 % (0.0-2.0); EOSINOPHIL % 0.8 % (0-5); GRANULOCYTE % 77.1 % (42.2-75.2); HEMATOCRIT 36.6 % (42-52); MEAN CORPUSCULAR HGB 26.4 PG (27.0-31.0); MEAN CORPUSCULAR VOLUME 82.4 FL (80.0-94.0); MEAN PLATELET VOLUME 7.9 FL (7.4-10.4); PLATELET COUNT 297 /CUMM (130-400); RBC DISTRIBUTION WIDTH 15.1 % (11.5-14.5); RED BLOOD CELL CT 4.44 /CUMM (4.70-6.10); WHITE BLOOD CELL COUNT 11.2 /CUMM (4.8-10.8)
[2016-03-06 02:13] VITALS: BP 142/74
[2016-03-06 04:17] VITALS: BP 136/78
--- NOTE | 2016-03-06 06:46 | PN- Housestaff ---
SULEMA BROWN,VITALY 03/06/16 0646: Subjective Follow-up For: New onset pulmonary embolism Complaints: bodyache Subjective: I followed up and examined the patient today. He was lying comfortably in the bed and did not seem to be in any acute distress. He did however mention that he has aches and pains all over the body, headache 6/10, pain over his right flank, but all that has been manageable after receiving Percocet once overnight. He also mentioned that his breathing is not at its best but is okay. He still has nephrostomy bags on either side, with mariya colored urine in both the bags. Vitals have been stable, not requiring additional oxygen. No overnight issues. Review of Systems Constitutional: Reports: see HPI. EENTM: Reports: no symptoms. Cardiovascular: Reports: no symptoms. Respiratory: Reports: no symptoms. Gastrointestinal: Reports: no symptoms. Genitourinary: Reports: no symptoms. Musculoskeletal: Reports: see HPI, back pain, muscle pain. Skin: Reports: no symptoms. Neurological/Psychological: Reports: no symptoms, headache. Hematologic/Endocrine: Reports: no symptoms. Objective Last 24 Hrs of Vital Signs/I&O Vital Signs Date Time Temp Pulse Resp B/P Pulse O2 O2 Flow FiO2 Ox Delivery Rate 03/06 1756 88.0 140/80 03/06 1414 98.8 88 20 140/80 98 03/06 0928 72 124/78 03/06 0809 98.2 80 20 130/80 98 03/06 0417 97.6 94 20 136/78 94 Room Air 03/06 0213 97.8 96 18 142/74 94 Room Air 03/05 2230 97.7 98 20 133/70 03/05 2159 97.7 98 20 133/70 95 Room Air 03/05 1831 98.2 101 20 136/75 94 Room Air Intake & Output 03/06 1600 03/06 0800 03/06 0000 Intake Total 600 320 Output Total Balance 600 320 Intake, Oral 600 320 Patient 131.542 kg Weight Physical Exam General Appearance: Alert, Oriented X3, Cooperative, No Acute Distress Other Physical Findings: Physical examnination: General: obese patient not in distress, has nephrostomy bags from both sides of the body with mariya colored (normal) urine Head: Normocephalic, atraumatic Eyes: Pupils normal in size, regular, reacting to light and accommodation, EOM normal Ears: B/l normal on inspection Nose: Normal on inspection Throat/mouth: Moist mucosa Neck: Supple, full range of motion, no thyromegaly Heart: Regular rate, regular rhythm Lung: Normal breath sound bilaterally Added sound not heard Abd: Soft, non-tender, no distention appreciated Back: Normal range of motion Extremities: Normal knee exam bilaterally, no pedal edema, Distal neurovascular intact Neurologic: Alert, oriented x3, Cranial exam grossly intact, Speech is clear and coherent Skin: Warm and dry Psychiatric: Calm, cooperative, coherant, no SI, no HI Current Medications: Current Medications Sig/Aurora Start time Last Medication Dose Route Stop Time Status Admin Acetaminophen 650 MG Q6P PRN 03/04 2199 AC PO Bicalutamide 50 MG 0603/07 06 AC PO Bicalutamide 50 MG DAILY 03/05 1000 DC 03/06 PO 0929 Enoxaparin Sodium 0 .STK-MED ONE 03/05 2220 DC SC Enoxaparin Sodium 100 MG BID 03/05 1000 AC 03/06 SC 0929 Enoxaparin Sodium 30 MG BID 03/05 1000 AC 03/06 SC 0929 Finasteride 5 MG 0600 03/07 0600 AC PO Finasteride 5 MG DAILY 03/05 1000 DC 03/06 PO 0929 Oxycodone/ 0 .STK-MED ONE 03/06 0100 DC Acetaminophen PO Oxycodone/ 1 TAB Q6P PRN 03/04 2200 AC 03/06 Acetaminophen PO 1602 Oxycodone/ 2 TAB Q6P PRN 03/04 2200 AC Acetaminophen PO Polyethylene Glycol 17 GM DAILY 03/05 1000 AC 03/06 PO 0930 Senna/Docusate Sodium 2 TAB DAILY PRN 03/04 2200 AC PO Tamsulosin HCl 0.4 MG 0600,1800 03/06 1800 AC 03/06 PO 1756 Tamsulosin HCl 0.4 MG BID 03/04 2199 DC 03/06 PO 0928 Trimethoprim/ 0 .STK-MED ONE 03/05 2219 DC Sulfamethoxazole PO Trimethoprim/ 1 TAB BID 03/04 2200 AC 03/06 Sulfamethoxazole PO 0930 Warfarin Sodium 5 MG COUMADIN 1700 ONE 03/06 1700 DC 03/06 PO 03/06 1701 1756 Last 24 Hrs of Lab/Raymundo Results Last 24 Hrs of Labs/Mics: Laboratory Tests 03/06/16 0600: Anion Gap 13, Estimated GFR > 60, BUN/Creatinine Ratio 17.0, PT 12.3, INR 1.17, CBC w Diff NO MAN DIFF REQ, RBC 3.96 L, MCV 81.1, MCH 27.2, RDW 15.0 H, MPV 8.8, Gran % 72.4, Lymphocytes % 20.9, Monocytes % 4.5, Eosinophils % 1.3, Basophils % 0.9, Absolute Granulocytes 6.7 H, Absolute Lymphocytes 2.0, Absolute Monocytes 0.4, Absolute Eosinophils 0.1, Absolute Basophils 0.1, PUBS MCHC 33.5 Assessment/Plan Assessment: 55 yo M with pmh of stage IV prostate CA with metastasis to lung and bone, TURP (02/10/16), recent admission to [place] in January 2016 for pyelonephritis that was attributed to obstructive uropathy in the setting of progressive prostate CA requiring bilateral nephrostomy tubes, urine culture positive for coag negative staph sensitive to Bactrim and was discharged home on Wednesday with a planned duration of Bactrim DS 1 tab BID for 9 days duration but returned with sudden onset of clammy sensation, sweating, nausea and bilious emesis for 1 day. CTA chest on admission showed new onset PE. Lower extremity Doppler ultrasound was negative for DVT. He was started on IV heparin. #New onset PE: * Most likely secondary to hypercoagulable state given prostate malignancy * Oncology was consulted: Prostate cancer's chemotherapy to be resumed as outpatient; continue rest of home medications * Urology is recommending to maintain INR at a lower level therapeutic range given high bleeding risk and surgery of penile bleeding * Patient is on subcutaneous Lovenox bridging oral warfarin. * Recheck INR in the morning being carried out * Per urology, nephrostomy dressings to be changed twice per week * Follow-up echocardiogram * Monitor H&H closely #DVT prophylaxis: * Subcutaneous Lovenox bridging Coumadin #Diet: Regular diet #CODE STATUS: * Patient is full code Problem List: 1. Pulmonary embolism 2. Metastatic renal cell carcinoma to prostate Pain Ratin Pain Location: head, right flank Pain Goal: Pain 4 or less Pain Plan: percocet prn Tomorrow's Labs & Rationales: INR (daily Coumadin dosing) SHITAL TRAORE MD 03/06/16 1222: Attending MD Review Statement Attending Statement Attending MD Statement: examined this patient, discuss w/resident/PA/DIAGRAMMER, agreed w/resident/PA/DIAGRAMMER, reviewed EMR data (avail) Attending Assessment/Plan: Continue current management. Will continue Coumadin and check daily INR, continue home medications, can be discharged home when INR is therapeutic. continue home medications, can be discharged home when INR is therapeutic.
--- NOTE | 2016-03-06 07:31 | PN- Oncology ---
Subjective Subjective: No shortness of breath chest pain or hemoptysis, complaining of right flank pain Review of Systems: 12 point review of systems otherwise unchanged Objective Vital Signs and I&Os Vital Signs Date Time Temp Pulse Resp B/P Pulse O2 O2 Flow FiO2 Ox Delivery Rate 03/06 0417 97.6 94 20 136/78 94 Room Air 03/06 0213 97.8 96 18 142/74 94 Room Air 03/05 2230 97.7 98 20 133/70 03/05 2159 97.7 98 20 133/70 95 Room Air 03/05 1831 98.2 101 20 136/75 94 Room Air 03/05 1602 98.0 97 20 128/70 95 Room Air 03/05 1245 98.7 98 18 124/84 95 Room Air 03/05 1050 89 20 135/77 97 Room Air 03/05 1025 97.2 89 20 135/77 03/05 0800 97.0 78 20 142/77 97 Room Air Intake & Output 03/06 0800 03/06 0000 03/05 1600 03/05 0800 03/05 0000 03/04 1600 Intake Total 320 1000 Output Total 225 520 725 Balance 320 -225 -520 275 Intake, IV 1000 Intake, Oral 320 Output, Urine 225 520 725 Patient 290 lb 290 lb Weight Gen.: in NAD ENT: Sclera anicteric Chest: Normal respiratory effort, decreased breath sounds Cor: RRR, no extra sounds Abdomen: Soft, bowel sounds present, no tenderness, no rebound Extremities: Without clubbing, cyanosis, or asymmetric edema Neurology: Alert and oriented 3, no gross deficit Current Medications: Current Medications Sig/Aurora Start time Last Medication Dose Route Stop Time Status Admin Acetaminophen 650 MG Q6P PRN 03/040 AC PO Bicalutamide 50 MG DAILY 03/05 1000 AC 03/05 PO 1016 Enoxaparin Sodium 0 .STK-MED ONE 03/050 DC SC Enoxaparin Sodium 100 MG BID 03/05 1000 AC 03/05 SC 2230 Enoxaparin Sodium 30 MG BID 03/05 1000 AC 03/05 SC 223 Finasteride 5 MG DAILY 03/05 1000 AC 03/05 PO 1016 Heparin Sodium 25,000 UNIT Q24H 03/04 2044 DC 03/04 (Porcine) IV 212 Sodium Chloride 500 ML Oxycodone/ 0 .STK-MED ONE 03/06 0100 DC Acetaminophen PO Oxycodone/ 0 .STK-MED ONE 03/05 1723 DC Acetaminophen PO Oxycodone/ 0 .STK-MED ONE 03/05 1328 DC Acetaminophen PO Oxycodone/ 1 TAB Q6P PRN 03/04 2200 AC 03/06 Acetaminophen PO 0116 Oxycodone/ 2 TAB Q6P PRN 03/04 220 AC Acetaminophen PO Polyethylene Glycol 17 GM DAILY 03/05 1000 AC 03/05 PO 1016 Senna/Docusate Sodium 2 TAB DAILY PRN 03/04 220 AC PO Tamsulosin HCl 0.4 MG BID 03/04 2199 AC 03/05 PO 2230 Trimethoprim/ 0 .STK-MED ONE 03/05 2219 DC Sulfamethoxazole PO Trimethoprim/ 0 .STK-MED ONE 03/05 1009 DC Sulfamethoxazole PO Trimethoprim/ 1 TAB BID 03/04 2199 AC 03/05 Sulfamethoxazole PO 2230 Warfarin Sodium 5 MG COUMADIN 1700 ONE 03/05 1700 DC 03/05 PO 03/05 1701 1724 Results Last 24 Hours of Lab Results: Laboratory Tests 03/06 03/05 0600 1300 Chemistry Sodium (137 - 145 mmol/L) Pending 139 Potassium (3.5 - 5.1 mmol/L) Pending 3.9 Chloride (98 - 107 mmol/L) Pending 101 Carbon Dioxide (22 - 30 mmol/L) Pending 25 Anion Gap (5 - 16) Pending 14 BUN (9 - 20 mg/dL) Pending 15 Creatinine (0.7 - 1.2 mg/dL) Pending 1.1 Estimated GFR (>60 ml/min) > 60 BUN/Creatinine Ratio (7 - 25 %) Pending 13.6 Troponin I (<0.11 ng/ml) < 0.01 Coagulation PT Pending INR Pending Hematology CBC w Diff Pending NO MAN DIFF REQ WBC (4.8 - 10.8 /CUMM) Pending 11.2 H RBC (4.70 - 6.10 /CUMM) Pending 4.44 L Hgb (14.0 - 18.0 G/DL) Pending 11.7 L Hct (42 - 52 %) Pending 36.6 L MCV (80.0 - 94.0 FL) Pending 82.4 MCH (27.0 - 31.0 PG) Pending 26.4 L RDW (11.5 - 14.5 %) Pending 15.1 H Plt Count (130 - 400 /CUMM) Pending 297 MPV (7.4 - 10.4 FL) Pending 7.9 Gran % (42.2 - 75.2 %) 77.1 H Lymphocytes % (20.5 - 51.1 %) 16.0 L Monocytes % (1.7 - 9.3 %) 4.5 Eosinophils % (0 - 5 %) 0.8 Basophils % (0.0 - 2.0 %) 1.6 Absolute Granulocytes (1.4 - 6.5 /CUMM) 8.6 H Absolute Lymphocytes (1.2 - 3.4 /CUMM) 1.8 Absolute Monocytes (0.10 - 0.60 /CUMM) 0.5 Absolute Eosinophils (0.0 - 0.7 /CUMM) 0.1 Absolute Basophils (0.0 - 0.2 /CUMM) 0.2 PUBS MCHC (33.0 - 37.0 G/DL) Pending 32.0 L Assessment/Plan Assessment/Recommendations: 1. Pulmonary embolism-patient being converted from Lovenox to warfarin 2. Metastatic prostate cancer-anticipating chemotherapy as an outpatient 3. Right flank pain-as per urology service
[2016-03-06 07:59] LABS: ABSOLUTE BASOPHIL COUNT 0.1 /CUMM (0.0-0.2); ABSOLUTE EOSINOPHIL COUNT 0.1 /CUMM (0.0-0.7); ABSOLUTE GRANULOCYTE CT 6.7 /CUMM (1.4-6.5); ABSOLUTE MONOCYTE COUNT 0.4 /CUMM (0.10-0.60); BASOPHIL % 0.9 % (0.0-2.0); EOSINOPHIL % 1.3 % (0-5); GRANULOCYTE % 72.4 % (42.2-75.2); HEMATOCRIT 32.1 % (42-52); MEAN CORPUSCULAR HGB 27.2 PG (27.0-31.0); MEAN CORPUSCULAR HGB CONC 33.5 G/DL (33.0-37.0); MEAN CORPUSCULAR VOLUME 81.1 FL (80.0-94.0); MEAN PLATELET VOLUME 8.8 FL (7.4-10.4); PLATELET COUNT 182 /CUMM (130-400); RED BLOOD CELL CT 3.96 /CUMM (4.70-6.10); WHITE BLOOD CELL COUNT 9.3 /CUMM (4.8-10.8)
[2016-03-06 08:09] VITALS: BP 130/80
[2016-03-06 08:24] LABS: PT 12.3 SEC (9.4-12.5)
[2016-03-06 14:14] VITALS: BP 140/80
--- NOTE | 2016-03-06 14:55 | Patient Discharge Instructions ---
Discharge Instructions General Discharge Information You were seen/treated for: New onset pulmonary embolism Special Instructions: Follow up with PCP in seven-ten days time. You have been started on blood thinner for pulmonary embolism (lung clots). You need to take it daily and have regular checkup of INR (blood test). Please visit your PCP for necessary dose adjustment, and follow up. Please visit the Emergency Department if you fall down, have bleeding of any kind. You are at increased shara of bleeding as you are taking blood thinner. Nephrostomy dressing on both sides need to be changed twice a week. Follow up with Dr. Byrne in two-three weeks after discharge, earlier if necessary. Follow up with Dr Mondragon within ten days of discharge. Avoid sick contacts, use masks and wash hands if close to sick people. (General precaution) Return to emergency if symptoms worsen. Diet Continue normal diet: Yes Recommended Diet: Heart Healthy Activity Full Activity/No Limits: No Activity Self Limited: Yes Acute Coronary Syndrome Inclusion Criteria At DC or during hospital stay patient has or had the following: ACS DIAGNOSIS No Discharge Core Measures Meds if any: Prescribed or Continued at Discharge Meds if any: NOT Prescribed or Continued at Discharge Congestive Heart Failure Inclusion Criteria At DC or during hospital stay patient has or had the following: CHF DIAGNOSIS No Discharge Core Measures Meds if any: Prescribed or Continued at Discharge Meds if any: NOT Prescribed or Continued at Discharge Cerebrovascular accident Inclusion Criteria At DC or during hospital stay patient has or had the following: CVA/TIA Diagnosis No Discharge Core Measures Meds if any: Prescribed or Continued at Discharge Meds if any: NOT Prescribed or Continued at Discharge Venous thromboembolism Inclusion Criteria VTE Diagnosis Yes VTE Type Pulmonary Embolism VTE Confirmed by (Test) CT CHEST ANGIOGRAM Discharge Core Measures - Per Current guidelines, there needs to be overlap - treatment for the first 5 days of Warfarin therapy. - If discharged on Warfarin prior to 5 days of - overlap therapy, the patient will need to be - assessed for post discharge needs including - *Post discharge parental anticoagulation - *Warfarin and/or parental anticoagulation education - *Follow up date to check INR post discharge At least 5 days overlap therapy as Inpatient Yes Meds if any: Prescribed or Continued at Discharge Note: Overlap Therapy is Warfarin and Anticoagulant Meds if any: NOT Prescribed or Continued at Discharge
[2016-03-06 22:12] VITALS: BP 110/58
[2016-03-07 06:38] VITALS: BP 130/74
[2016-03-07 08:00] LABS: ABSOLUTE GRANULOCYTE CT 5.4 /CUMM (1.4-6.5); ABSOLUTE LYMPH COUNT 1.4 /CUMM (1.2-3.4); RBC DISTRIBUTION WIDTH 15.1 % (11.5-14.5)
[2016-03-07 08:11] LABS: ABSOLUTE BASOPHIL COUNT 0 /CUMM (0.0-0.2); ABSOLUTE EOSINOPHIL COUNT 0.1 /CUMM (0.0-0.7); ABSOLUTE MONOCYTE COUNT 0.4 /CUMM (0.10-0.60); BASOPHIL % 0.6 % (0.0-2.0); EOSINOPHIL % 1.8 % (0-5); GRANULOCYTE % 73.7 % (42.2-75.2); HEMATOCRIT 34.2 % (42-52); MEAN CORPUSCULAR HGB 26.6 PG (27.0-31.0); MEAN CORPUSCULAR HGB CONC 32.5 G/DL (33.0-37.0); MEAN CORPUSCULAR VOLUME 81.9 FL (80.0-94.0); MEAN PLATELET VOLUME 8.4 FL (7.4-10.4); PLATELET COUNT 229 /CUMM (130-400); RED BLOOD CELL CT 4.17 /CUMM (4.70-6.10); WHITE BLOOD CELL COUNT 7.3 /CUMM (4.8-10.8)
[2016-03-07 08:17] LABS: PT 12.9 SEC (9.4-12.5)
--- NOTE | 2016-03-07 09:58 | PN- Housestaff ---
MANUEL ESCOBAR 03/07/16 0958: Subjective Follow-up For: New onset pulmonary embolism Locally extensive and metastatic prostate ca PE utereral obstruction s/p bilateral perc nephrostomies Subjective: seen and examined pt, states he feels unwell. States his he is coughing and bringing up sputum. Denies fever, chills, shortness of breath. Would like to have a shower today is at bedside. complaining nausea and one episode of non bloody vomitting this morning. Review of Systems Constitutional: Denies: chills, diaphoresis, fever, malaise, weakness, unexplained weight loss. Cardiovascular: Denies: chest pain, edema, orthopena, palpitations, peripheral edema, syncope. Respiratory: Denies: cough, hemoptysis, orthopnea, short of breath, sputum production, stridor, wheezing. Objective Last 24 Hrs of Vital Signs/I&O Vital Signs Date Time Temp Pulse Resp B/P Pulse O2 O2 Flow FiO2 Ox Delivery Rate 03/07 0638 97.5 86 20 130/74 92 Room Air 03/07 0616 97.5 80 20 130/74 03/06 2212 98.2 84 18 110/58 93 Room Air 03/06 1756 88.0 140/80 03/06 1414 98.8 88 20 140/80 98 Intake & Output 03/07 1600 03/07 0800 03/07 0000 Intake Total 100 Output Total 350 350 Balance -250 -350 Intake, Oral 100 Output, Urine 350 350 Patient 290 lb Weight Physical Exam General Appearance: Alert, Oriented X3, Cooperative, No Acute Distress Cardiovascular: Regular Rate, Normal S1, Normal S2 Lungs: Clear to Auscultation, Normal Air Movement Abdomen: Normal Bowel Sounds, Soft, No Tenderness Current Medications: Current Medications Sig/Aurora Start time Last Medication Dose Route Stop Time Status Admin Acetaminophen 650 MG Q6P PRN 03/04 2200 AC PO Bicalutamide 50 MG 03/07 AC 03/07 PO 06 Bicalutamide 50 MG DAILY 03/05 1000 DC 03/06 PO 09 Enoxaparin Sodium 100 MG BID 03/05 1000 AC 03/07 SC 0846 Enoxaparin Sodium 30 MG BID 03/05 1000 AC 03/07 SC 0846 Finasteride 5 MG 03/07 06 AC 03/07 PO 0613 Finasteride 5 MG DAILY 03/05 1000 DC 03/06 PO 0929 Oxycodone/ 1 TAB Q6P PRN 03/04 2199 AC 03/06 Acetaminophen PO 1602 Oxycodone/ 2 TAB Q6P PRN 03/04 2199 AC 03/06 Acetaminophen PO 2235 Polyethylene Glycol 17 GM DAILY 03/05 1000 AC 03/07 PO 0845 Senna/Docusate Sodium 2 TAB DAILY PRN 03/04 2199 AC PO Tamsulosin HCl 0.4 MG 0600,1800 03/06 1800 AC 03/07 PO 0616 Tamsulosin HCl 0.4 MG BID 03/04 2199 DC 03/06 PO 0928 Trimethoprim/ 1 TAB BID 03/04 2199 AC 03/07 Sulfamethoxazole PO 0845 Warfarin Sodium 5 MG COUMADIN 1700 ONE 03/06 1700 DC 03/06 PO 03/06 1701 1756 Last 24 Hrs of Lab/Raymundo Results Last 24 Hrs of Labs/Mics: Laboratory Tests 03/07/16 0600: PT 12.9 H, INR 1.23 H, CBC w Diff NO MAN DIFF REQ, RBC 4.17 L, MCV 81.9, MCH 26.6 L, RDW 15.1 H, MPV 8.4, Gran % 73.7, Lymphocytes % 18.6 L, Monocytes % 5.3, Eosinophils % 1.8, Basophils % 0.6, Absolute Granulocytes 5.4, Absolute Lymphocytes 1.4, Absolute Monocytes 0.4, Absolute Eosinophils 0.1, Absolute Basophils 0, PUBS MCHC 32.5 L Microbiology 03/07 1053 LOWER RESP: Respiratory Culture - ORD 03/07 1053 LOWER RESP: Gram Stain - ORD Assessment/Plan Assessment: 55 year old gentleman past medical significant for stage IV prostate CA with metastasis to lung and bone, s/p TURP (02/10/16), recent admission to [place] in January 2016 for pyelonephritis secondary to obstructive uropathy s/p bilateral nephrostomy tubes, urine culture positive for coag negative staph treated with Bactrim readmitted for sweating, nausea and bilious emesis for 1 day. CTA chest on admission showed new onset PE. Lower extremity Doppler ultrasound was negative for DVT. Monitored on tele, ACS r/o with neg trop and now transferred to [facility]. Continues to complain of nausea and diaphoresis with one episode of non bilious, non bloody vomitus. #PE: * Oncology was consulted: Prostate cancer's chemotherapy to be resumed as outpatient; * INR to be at a lower level therapeutic range given high bleeding risk and surgery of penile bleeding * Patient is on subcutaneous Lovenox bridging oral warfarin * coumadin dosed today, check INR in the morning * given one dose of zofran for nausea and vomitting #obstructive uropathy * Per urology, nephrostomy dressings to be changed twice per week * echocardiogram shows mild concentric left ventricular hypertrophy. * Monitor H&H closely #DVT prophylaxis: * Subcutaneous Lovenox bridging Coumadin #Diet: Regular diet #CODE STATUS: * Patient is full code Problem List: 1. Hematuria 2. Hydronephrosis, left 3. Prostate cancer metastatic to bone 4. Renal failure 5. Pulmonary embolus Pain Ratin Pain Location: na Pain Goal: Pain 4 or less Pain Plan: current regimen Tomorrow's Labs & Rationales: cbc to monitor h/h, bep LEÓN BROWN,HUGH 03/07/16 1436: Attending MD Review Statement Attending Statement Attending MD Statement: examined this patient, discuss w/resident/PA/HUMAN RESOURCES PROFESSIONAL, agreed w/resident/PA/HUMAN RESOURCES PROFESSIONAL, reviewed EMR data (avail) Attending Assessment/Plan: Continue current management. Will continue Coumadin and check daily INR, continue home medications, can be discharged home when INR is therapeutic.
--- NOTE | 2016-03-07 11:22 | PN- Urology ---
Subjective Subjective: No acute distress Objective Vital Signs and I&Os Vital Signs Date Time Temp Pulse Resp B/P Pulse O2 O2 Flow FiO2 Ox Delivery Rate 03/07 637 97.5 86 20 130/74 92 Room Air 03/07 0616 97.5 80 20 130/74 03/06 2212 98.2 84 18 110/58 93 Room Air 03/06 1756 88.0 140/80 03/06 1414 98.8 88 20 140/80 98 Intake & Output 03/07 0000 03/06 1600 03/06 0000 Intake Total 100 600 320 Output Total 400 350 350 480 Balance -400 -250 -350 120 320 Intake, Oral 100 600 320 Output, Urine 400 350 350 480 Patient 290 lb 290 lb Weight Abd: soft. L nephrostomy with dark tea-colore urine. R nephrostomy with clear urine. Voiding bloody urine Laboratory Tests 03/07 599 Coagulation PT (9.4 - 12.5 SEC) 12.9 H INR (0.90 - 1.17) 1.23 H Hematology CBC w Diff NO MAN DIFF REQ WBC (4.8 - 10.8 /CUMM) 7.3 RBC (4.70 - 6.10 /CUMM) 4.17 L Hgb (14.0 - 18.0 G/DL) 11.1 L Hct (42 - 52 %) 34.2 L MCV (80.0 - 94.0 FL) 81.9 MCH (27.0 - 31.0 PG) 26.6 L RDW (11.5 - 14.5 %) 15.1 H Plt Count (130 - 400 /CUMM) 229 MPV (7.4 - 10.4 FL) 8.4 Gran % (42.2 - 75.2 %) 73.7 Lymphocytes % (20.5 - 51.1 %) 18.6 L Monocytes % (1.7 - 9.3 %) 5.3 Eosinophils % (0 - 5 %) 1.8 Basophils % (0.0 - 2.0 %) 0.6 Absolute Granulocytes (1.4 - 6.5 /CUMM) 5.4 Absolute Lymphocytes (1.2 - 3.4 /CUMM) 1.4 Absolute Monocytes (0.10 - 0.60 /CUMM) 0.4 Absolute Eosinophils (0.0 - 0.7 /CUMM) 0.1 Absolute Basophils (0.0 - 0.2 /CUMM) 0 PUBS MCHC (33.0 - 37.0 G/DL) 32.5 L Assessment/Plan Assessment/Plan Imp: 1. Locally extensive and metastatic prostate ca 2. Ureteral obstruction due to prostate ca 3. s/p bilateral perc nephrostomies 4. Recent PE Plan: 1. Would stop finasteride as patient is on bicalutamide and Lupron 2. Nephrostomies to stay in place 3. Would tolerate hematuria in view of need for anticoagulation but keep INR at lower level of therapuetic range Core Measures/Miscellaneous Venous Thromboembolism VTE Risk Factors: Age > 40, Cancer/chemo/oth therapy VTE Contraindications: No Contraindications VTE Prophylaxis Ordered Inpt: Pharm- Heparin VTE Diagnosis: Yes VTE Type: Pulmonary Embolism VTE Confirmed by (Test): CT CHEST ANGIOGRAM Beta Angela Is Beta Angela a Home Med? No Antibiotics Is Patient on Antibiotics? Yes
--- NOTE | 2016-03-07 12:16 | ECHOCARDIOGRAM REPORT ---
EFRAIN OLIVERA Age: 55 : 1960 Gender: M Exam Date: 03/06/2016 18:35 Exam Location: [facility] Ht (in): 73 Wt (lb): 290 BSA: 2.65 BP: 140 / 80 Ordering Physician: ALYSSA CAUSEY MD Referring Physician: ALYSSA CAUSEY MD Technologist: Kathy Jackson [facility] Room Number: [id number] Indications: Rhythm: Sinus Technical Quality: Fair FINDINGS Left Ventricle Normal size left ventricle. Mild concentric left ventricular hypertrophy. Normal left ventricular ejection fraction visually estimated at %. No obvious regional wall motion abnormalities. Abnormal relaxation filling pattern of the left ventricle for age (stage 1 diastolic dysfunction). Right Ventricle The right ventricle is normal in size and function. Right Atrium The right atrium is normal in size. Left Atrium Left atrial size at the upper limits of normal. Mitral Valve The mitral valve is normal in structure and function. There is no mitral regurgitation. Aortic Valve Structurally normal aortic valve without significant sclerosis or stenosis. There is aortic regurgitation. Tricuspid Valve The tricuspid valve is normal in structure and function. There is no tricuspid regurgitation. Unable to estimate the right ventricular systolic pressure. Pulmonic Valve Structurally normal pulmonic valve. There is no pulmonic regurgitation. Pericardium Normal pericardium without effusion. No pleural effusion. Great Vessels Mildly dilated aortic root. CONCLUSIONS Mild concentric left ventricular hypertrophy. Normal left ventricular ejection fraction visually estimated at %. Abnormal relaxation filling pattern of the left ventricle for age (stage 1 diastolic dysfunction). Left atrial size at the upper limits of normal. No significant valve abnormalities. Unable to estimate the right ventricular systolic pressure. Butch Boswell M.D. (Electronically Signed) Final Date: 07 March 2016 12:15 MEASUREMENTS (Male / Female) Normal Values 2D ECHO LV Diastolic Diameter PLAX 4.7 cm 4.2 - 5.9 / 3.9 - 5.3 cm LV Systolic Diameter PLAX 3.6 cm 2.1 - 4.0 cm LV Fractional Shortening PLAX 23.4 % 25 - 46 % LV Ejection Fraction 2D Teich 46.8 % IVS Diastolic Thickness 1.1 cm LVPW Diastolic Thickness 1.2 cm LV Relative Wall Thickness 0.5 LVOT Diameter 2.3 cm Aortic Root Diameter 4.0 cm LA Systolic Diameter LX 3.2 cm 3.0 - 4.0 / 2.7 - 3.8 cm M-MODE Aortic Root Diameter MM 3.9 cm LA Systolic Diameter MM 3.6 cm 3.0 - 4.0 / 2.7 - 3.8 cm LA Ao Ratio MM 0.9 DOPPLER AV Peak Velocity 138.0 cm/s AV Peak Gradient 7.6 mmHg AV Mean Velocity 102.0 cm/s AV Mean Gradient 5.0 mmHg AV Velocity Time Integral 26.6 cm LVOT Peak Velocity 99.7 cm/s LVOT Peak Gradient 4.0 mmHg AV Area Cont Eq pk 3.0 cm MV Peak Velocity 77.2 cm/s MV Peak Gradient 2.4 mmHg MV Mean Velocity 58.7 cm/s MV Mean Gradient 2.0 mmHg Mitral E Point Velocity 63.7 cm/s Mitral A Point Velocity 79.0 cm/s Mitral E to A Ratio 0.8 MV PHT Velocity 82.8 cm/s MV Deceleration Island 252.0 cm/s MV Pressure Half Time 98.6 ms MV Area PHT 2.2 cm MV Deceleration Time 292.0 ms PV Peak Velocity 110.0 cm/s PV Peak Gradient 4.8 mmHg LV E' Lateral Velocity 8.0 cm/s Mitral E to LV E' Lateral Ratio 8.0 LV E' Septal Velocity 7.9 cm/s Mitral E to LV E' Septal Ratio 8.1
[2016-03-07 14:47] VITALS: BP 122/68
[2016-03-07 21:53] VITALS: BP 153/71
[2016-03-08 06:00] VITALS: BP 122/70
[2016-03-08 08:20] LABS: PT 15.5 SEC (9.4-12.5)
--- NOTE | 2016-03-08 09:16 | PN- Housestaff ---
ADRIANNE BROWN,BERONICA 03/08/16 0916: Subjective Follow-up For: PE Subjective: Complaint of cough with nausea and vomiting improved with antinausea medications Bilateral nephrostomy tube in place with adequate drainage Denies chest pain, abdominal pain, leg swelling, shortness of breath Review of Systems Constitutional: Reports: see HPI. Objective Last 24 Hrs of Vital Signs/I&O Vital Signs Date Time Temp Pulse Resp B/P Pulse O2 O2 Flow FiO2 Ox Delivery Rate 03/08 1451 99.2 107 20 150/77 92 03/08 0600 98.7 120 18 122/70 92 Room Air 03/08 0522 98.7 120 18 122/70 03/07 2153 99.0 109 20 153/71 92 03/07 1726 85 122/78 Intake & Output 03/08 1600 03/08 0803/08 0000 Intake Total 240 Output Total 350 175 Balance -110 -175 Intake, Oral 240 Output, Urine 350 175 Physical Exam General Appearance: Alert, Oriented X3, Cooperative, No Acute Distress Skin: No Rashes Cardiovascular: Regular Rate, Normal S1, Normal S2, No Murmurs Lungs: Clear to Auscultation Abdomen: Normal Bowel Sounds, Soft, No Tenderness Neurological: Normal Speech Extremities: No Clubbing, No Cyanosis, No Edema Current Medications: Current Medications Sig/Aurora Start time Last Medication Dose Route Stop Time Status Admin Acetaminophen 650 MG .STK-MED ONE 03/08 0407 DC PO 03/08 0408 Acetaminophen 650 MG .STK-MED ONE 03/07 1722 DC PO 03/07 1723 Acetaminophen 650 MG Q6P PRN 03/04 2200 AC 03/08 PO 1041 Benzonatate 100 MG TID 03/08 1600 UNVr PO Bicalutamide 50 MG 0603/07 06 AC 03/08 PO 0522 Enoxaparin Sodium 100 MG BID 03/05 1000 AC 03/08 SC 1040 Enoxaparin Sodium 30 MG BID 03/05 1000 AC 03/08 SC 1040 Ondansetron HCl 4 MG ONCE ONE 03/08 0745 DC IV 03/08 0746 Oxycodone/ 1 TAB Q6P PRN 03/04 2200 AC 03/06 Acetaminophen PO 1602 Oxycodone/ 2 TAB Q6P PRN 03/04 220 AC 03/06 Acetaminophen PO 2235 Polyethylene Glycol 17 GM DAILY 03/05 1000 AC 03/07 PO 0845 Senna/Docusate Sodium 2 TAB DAILY PRN 03/04 2200 AC PO Sodium Chloride 1,000 ML Q13H 03/08 0745 AC 03/08 IV 0818 Tamsulosin HCl 0.4 MG 0600,1800 03/06 1800 AC 03/08 PO 0522 Trimethoprim/ 1 TAB BID 03/04 2200 AC 03/08 Sulfamethoxazole PO 1039 Warfarin Sodium 5 MG COUMADIN 1700 ONE 03/08 1700 AC PO 03/08 1701 Warfarin Sodium 5 MG COUMADIN 1700 ONE 03/07 1700 DC 03/07 PO 03/07 1701 1725 Last 24 Hrs of Lab/Raymundo Results Last 24 Hrs of Labs/Mics: Laboratory Tests 03/08/16 1415: CBC w Diff NO MAN DIFF REQ, RBC 4.07 L, MCV 80.6, MCH 26.4 L, RDW 15.0 H, MPV 8.5, Gran % 85.3 H, Lymphocytes % 9.7 L, Monocytes % 4.3, Eosinophils % 0.5, Basophils % 0.2, Absolute Granulocytes 4.6, Absolute Lymphocytes 0.5 L, Absolute Monocytes 0.2, Absolute Eosinophils 0, Absolute Basophils 0, PUBS MCHC 32.8 L 03/08/16 0709: PT 15.5 H, INR 1.48 H Microbiology 03/08 1259 STOOL: Clostridium difficile Toxin A & B - COLB 03/08 1133 URINE ROUT: Urine Culture - COLB 03/08 0830 STOOL: Clostridium difficile Toxin A & B - COMP 03/07 1457 LOWER RESP: Respiratory Culture - CAN Cancelled: SPECIMEN NOT RECEIVED IN LABORATORY 03/07 145 LOWER RESP: Gram Stain - CAN Cancelled: SPECIMEN NOT RECEIVED IN LABORATORY Assessment/Plan Assessment: 55 year old gentleman past medical significant for stage IV prostate CA with metastasis to lung and bone, s/p TURP (02/10/16), recent admission to [place] in January 2016 for pyelonephritis secondary to obstructive uropathy s/p bilateral nephrostomy tubes, urine culture positive for coag negative staph treated with Bactrim readmitted for sweating, nausea and bilious emesis for 1 day. CTA chest on admission showed new onset PE. Lower extremity Doppler ultrasound was negative for DVT. Monitored on tele, ACS r/o with neg trop and now transferred to [facility]. Complains of cough with chills, nausea and diaphoresis # Cough: We will obtain chest x-ray. Unfortunately sputum cultures has been canceled multiple times in spite of being ordered repeatedly. We will try to order it again today. Nursing aware to collect sputum whenever possible. #PE: * Oncology was consulted: Prostate cancer's chemotherapy to be resumed as outpatient; * INR to be at a lower level therapeutic range given high bleeding risk and surgery of penile bleeding * Patient is on subcutaneous Lovenox bridging oral warfarin. INR subtherapeutic * coumadin dosed today, check INR in the morning * given one dose of zofran for nausea and vomitting #obstructive uropathy * Per urology, nephrostomy dressings to be changed twice per week. Nephrology aware. Drainage was more darker more of the nephrostomy tubes which appears to be clearing. Will check a repeat UA. Patient is on by mouth Bactrim for his UTI. * echocardiogram shows mild concentric LVH with normal ejection fraction and stage I diastolic dysfunction * Monitor H&H closely #DVT prophylaxis: * Subcutaneous Lovenox bridging Coumadin #Diet: Regular diet #CODE STATUS: * Patient is full code Problem List: 1. Metastatic renal cell carcinoma to prostate 2. Pulmonary embolism Pain Ratin Pain Location: back Pain Goal: Remain pain free Pain Plan: Percocet Tomorrow's Labs & Rationales: Needed SHITAL TRAORE MD 03/08/16 1852: Attending MD Review Statement Attending Statement Attending MD Statement: examined this patient, discuss w/resident/PA/LENS GRINDER AND POLISHER, agreed w/resident/PA/LENS GRINDER AND POLISHER, reviewed EMR data (avail) Attending Assessment/Plan: Continue current management. Will continue Coumadin and check daily INR, continue home medications, can be discharged home when INR is therapeutic. Patient appears more ill and weak today. Remains afebrile, vitals stable, labs unremakrable. Had diarrhea and nausea overnight. C.diff sent. Will also send urine culture and check CXR. Continue current management for now.
[2016-03-08 14:28] LABS: ABSOLUTE BASOPHIL COUNT 0 /CUMM (0.0-0.2); ABSOLUTE EOSINOPHIL COUNT 0 /CUMM (0.0-0.7); ABSOLUTE GRANULOCYTE CT 4.6 /CUMM (1.4-6.5); ABSOLUTE LYMPH COUNT 0.5 /CUMM (1.2-3.4); ABSOLUTE MONOCYTE COUNT 0.2 /CUMM (0.10-0.60); BASOPHIL % 0.2 % (0.0-2.0); EOSINOPHIL % 0.5 % (0-5); HEMATOCRIT 32.8 % (42-52); MEAN CORPUSCULAR HGB 26.4 PG (27.0-31.0); MEAN CORPUSCULAR HGB CONC 32.8 G/DL (33.0-37.0); MEAN CORPUSCULAR VOLUME 80.6 FL (80.0-94.0); MEAN PLATELET VOLUME 8.5 FL (7.4-10.4); PLATELET COUNT 218 /CUMM (130-400); RED BLOOD CELL CT 4.07 /CUMM (4.70-6.10); WHITE BLOOD CELL COUNT 5.4 /CUMM (4.8-10.8)
[2016-03-08 14:44] LABS: GRANULOCYTE % 85.3 % (42.2-75.2)
[2016-03-08 14:51] VITALS: BP 150/77
--- NOTE | 2016-03-08 14:59 | RADIOLOGY REPORT ---
EXAMINATION: XR PORTABLE CHEST CLINICAL INFORMATION: Cough COMPARISON: 02/04/[address] 03/04/2016 TECHNIQUE: 80 degrees portable upright chest FINDINGS: Increasing prominence of bulky mediastinal adenopathy particularly in the AP window. Low lung volumes. 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 Grossly clear lungs. Basal atelectasis in the posterior recesses is not well depicted on this portable radiograph. IMPRESSION: Progressive bulky mediastinal adenopathy. Unable to a follow-up of basal atelectasis on portable imaging.
[2016-03-08 16:56] VITALS: BP 150/70
[2016-03-08 22:20] VITALS: BP 128/74
--- NOTE | 2016-03-09 06:07 | PN- Housestaff ---
SULEMA BROWN,VITALY 03/09/16 0607: Subjective Follow-up For: Pulmonary Embolism Complaints: fever 102.1 max Subjective: I followed up and examined the patient today. He is lying comfortably on the bed and does not seem to be in acute distress. Overnight, he developed fever maximum 102.1F, and has been producing greenish phlegm. His vitals otherwise have been stable, he has not required oxygen, and no issues overnight. Review of Systems Constitutional: Reports: no symptoms. Objective Last 24 Hrs of Vital Signs/I&O Vital Signs Date Time Temp Pulse Resp B/P Pulse O2 O2 Flow FiO2 Ox Delivery Rate 03/09 1407 98.5 98 20 120/54 92 03/09 0653 99.2 106 20 140/66 91 Room Air 03/09 06 99.2 03/09 0424 101.1 03/09 0420 101.8 03/09 0228 99.9 03/08 2220 98.5 78 20 128/74 94 03/08 1951 98.6 03/08 1829 100.1 03/08 1707 102.1 03/08 1706 102 146/70 03/08 1656 102.1 104 20 150/70 96 Room Air Intake & Output 03/09 1600 03/09 0800 03/09 0000 Intake Total 120 225 Output Total 400 150 Balance -280 75 Intake, IV 225 Intake, Oral 120 Output, Urine 400 150 Physical Exam General Appearance: Alert, Oriented X3, Cooperative, No Acute Distress Other Physical Findings: Physical examnination: General: obese patient not in distress Head: Normocephalic, atraumatic Eyes: Pupils normal in size, regular, reacting to light and accommodation, EOM normal Ears: B/l normal on inspection Nose: Normal on inspection Throat/mouth: Moist mucosa Neck: Supple, full range of motion, no thyromegaly Heart: Regular rate, regular rhythm Lung: Normal breath sound bilaterally, occssional wheeze heard at the base of lungs b/l, not in resp distress Abd: Soft, non-tender, no distention appreciated, b/l urostomy bag in situ with clear uring collected Back: Normal range of motion Extremities: Normal knee exam bilaterally, no pedal edema, Distal neurovascular intact Neurologic: Alert, oriented x3, Cranial exam grossly intact, Speech is clear and coherent Skin: Warm and dry Psychiatric: Calm, cooperative, coherant Current Medications: Current Medications Sig/Aurora Start time Last Medication Dose Route Stop Time Status Admin Acetaminophen 650 MG .STK-MED ONE 03/09 0414 DC PO 03/09 0415 Acetaminophen 650 MG .STK-MED ONE 03/08 1659 DC PO 03/08 1700 Acetaminophen 650 MG Q6P PRN 03/04 2200 AC 03/09 PO 0420 Benzonatate 100 MG TID 03/08 1600 AC 03/09 PO 1000 Bicalutamide 50 MG 0600 03/07 0600 AC 03/09 PO 0607 Ceftazidime 1,000 MG Q8 03/09 1400 AC IV Ceftazidime 1,000 MG Q12 03/09 1041 DC IV Enoxaparin Sodium 100 MG BID 03/05 1000 AC 03/09 SC 1000 Enoxaparin Sodium 30 MG BID 03/05 1000 AC 03/09 SC 1000 Oxycodone/ 1 TAB Q6P PRN 03/04 2200 AC 03/06 Acetaminophen PO 1602 Oxycodone/ 2 TAB Q6P PRN 03/04 2200 AC 03/06 Acetaminophen PO 2235 Polyethylene Glycol 17 GM DAILY 03/05 1000 AC 03/07 PO 0845 Potassium Chloride 40 MEQ ONCE ONE 03/09 1330 DC PO 03/09 1331 Senna/Docusate Sodium 2 TAB DAILY PRN 03/04 2200 AC PO Sodium Chloride 1,000 ML Q13H 03/08 0745 AC 03/09 IV 1321 Tamsulosin HCl 0.4 MG 0600,1800 03/06 1800 AC 03/09 PO 0607 Trimethoprim/ 1 TAB BID 03/04 2200 DC 03/09 Sulfamethoxazole PO 1000 Vancomycin HCl 1,500 MG Q12 03/09 1040 AC 03/09 Sodium Chloride 250 ML IV 1317 Warfarin Sodium 5 MG COUMADIN 1700 ONE 03/09 1700 AC PO 03/09 1701 Warfarin Sodium 5 MG COUMADIN 1700 ONE 03/08 1700 DC 03/08 PO 03/08 1701 1707 Last 24 Hrs of Lab/Raymundo Results Last 24 Hrs of Labs/Mics: Laboratory Tests 03/09/16 0814: Anion Gap 12, Estimated GFR > 60, BUN/Creatinine Ratio 10.0, PT 15.8 H, INR 1.51 H 03/09/16 0220: Urinalysis MOD H, Urine Color YEL, Urine Clarity HAZY H, Urine pH 6.0, Ur Specific [place] 1.025, Urine Protein 30 H, Urine Ketones NEG, Urine Nitrite NEG, Urine Bilirubin NEG, Urine Urobilinogen 0.2, Ur Leukocyte Esterase NEG, Ur Microscopic SEDIMENT EXAMINED, Urine RBC >75 H, Urine WBC 3-5 H, Ur Epithelial Cells RARE, Urine Mucus FEW, Urine Hemoglobin LARGE H, Urine Glucose NEG Microbiology 03/09 1041 LOWER RESP: Respiratory Culture - COLB 03/09 1041 LOWER RESP: Gram Stain - COLB 03/09 0220 URINE ROUT: Urine Culture - RECD 03/08 2341 STOOL: Stool Culture - RECD 03/08 2205 BLOOD: Blood Culture - RES 03/08 210 BLOOD: Blood Culture - RES Assessment/Plan Assessment: 55 year old gentleman past medical significant for 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 CTA chest on admission showed new onset PE. Lower extremity Doppler ultrasound was negative for DVT. Monitored on tele, ACS r/o with neg trop and now [facility]. Complains of productive cough with fever, chills. # Cough: We will obtain chest x-ray. Unfortunately sputum cultures has been canceled multiple times in spite of being ordered repeatedly. We will try to order it again today. Nursing aware to collect sputum whenever possible. He has been producing sputum which is greenish color since last night, and is spiked a fever of 102.1, so the decision to change his antibiotic from Bactrim to vancomycin and Ceftazidime made during the morning round. -Will check on the response for next 24 hours and consider ID, and or pulmonary consultation #PE: * Oncology was consulted: Prostate cancer's chemotherapy to be resumed as outpatient; * INR to be at a lower level therapeutic range given high bleeding risk and surgery of penile bleeding * Patient is on subcutaneous Lovenox bridging oral warfarin. This is day 4 today. INR is 1.51 today. * coumadin 5mg dosed today, check INR in the morning * Was given one dose of zofran for nausea and vomitting yesterday. No nausea or vomiting today. #obstructive uropathy * Per urology, nephrostomy dressings to be changed twice per week. Nephrology aware. Drainage was more darker more of the nephrostomy tubes which appears to be clearing. Will check a repeat UA. Bactrim for UTI stopped today. Broader abx coverage now. * echocardiogram shows mild concentric LVH with normal ejection fraction and stage I diastolic dysfunction * Monitor H&H closely #DVT prophylaxis: * Subcutaneous Lovenox bridging Coumadin #Diet: Regular diet #CODE STATUS: * Patient is full code Problem List: 1. Metastatic renal cell carcinoma to prostate 2. Pulmonary embolism 3. Pneumonia Pain Ratin Pain Location: - Pain Goal: Pain 4 or less Pain Plan: percocet prn Tomorrow's Labs & Rationales: CBC, BEP as the patient is having new onset fever despite abx, has urostomy b/l, and we are searching source of infection, and follow-up on renal status SHITAL TRAORE MD 03/09/16 1217: Attending MD Review Statement Attending Statement Attending MD Statement: examined this patient, discuss w/resident/PA/VIDEO SPECIALIST, agreed w/resident/PA/VIDEO SPECIALIST, reviewed EMR data (avail) Attending Assessment/Plan: 55M PMH stage IV prostate CA with metastasis to lung and bone, s/p TURP (), recent admission to [facility] in January 2016 for pyelonephritis secondary to obstructive uropathy s/p bilateral nephrostomy tubes, urine culture positive for coag negative staph treated with Bactrim admitted with weakness, nausea, vomiting, found to have acute pulmonary embolism. Patient has been treated with heparin and Coumadin, however over the past 3 days he has felt more ill, weaker, and today complains of cough with green sputum. Febrile to 102 yesterday and 101 today. On exam he appears ill, coarse breath sounds bilaterally. CT chest today shows possible new infection with worsening lymphadenopathy. 1. Bilateral lower lobe pneumonia 2. Acute pulmonary embolism 3. Stage IV prostate cancer with lung and bony metastases 4. Obstructive uropathy Plan - Start Vancomycin and Ceftazidime - Repeat blood and sputum cultures - Pulmonary consult - Continue Lovenox. Give Coumadin tonight, recheck INR tomorrow - Continue home medications - Start Mucinex
[2016-03-09 06:53] VITALS: BP 140/66
--- NOTE | 2016-03-09 07:11 | PN- Urology ---
Subjective Subjective: Pt sleeping. No acute distress Objective Vital Signs and I&Os Vital Signs Date Time Temp Pulse Resp B/P Pulse O2 O2 Flow FiO2 Ox Delivery Rate 03/09 652 99.2 106 20 140/66 91 Room Air 03/09 607 99.2 03/09 423 101.1 03/09 419 101.8 03/09 227 99.9 03/08 2220 98.5 78 20 128/74 94 03/08 1951 98.6 03/08 1829 100.1 03/08 1707 102.1 03/08 1706 102 146/70 03/08 1656 102.1 104 20 150/70 96 Room Air 03/08 1451 99.2 107 20 150/77 92 Intake & Output 03/09 0000 03/08 1600 03/08 0000 03/07 1600 Intake Total 088 868 9163 240 603 Output Total 400 150 775 350 175 400 Balance -280 75 305 -110 -175 203 Intake, IV 225 600 3 Intake, Oral 120 480 240 600 Output, Urine 400 150 775 350 175 400 R and L nephrostomy with mostly clear urine Laboratory Tests 03/09 1415 Hematology CBC w Diff NO MAN DIFF REQ WBC (4.8 - 10.8 /CUMM) 5.4 RBC (4.70 - 6.10 /CUMM) 4.07 L Hgb (14.0 - 18.0 G/DL) 10.8 L Hct (42 - 52 %) 32.8 L MCV (80.0 - 94.0 FL) 80.6 MCH (27.0 - 31.0 PG) 26.4 L RDW (11.5 - 14.5 %) 15.0 H Plt Count (130 - 400 /CUMM) 218 MPV (7.4 - 10.4 FL) 8.5 Gran % (42.2 - 75.2 %) 85.3 H Lymphocytes % (20.5 - 51.1 %) 9.7 L Monocytes % (1.7 - 9.3 %) 4.3 Eosinophils % (0 - 5 %) 0.5 Basophils % (0.0 - 2.0 %) 0.2 Absolute Granulocytes (1.4 - 6.5 /CUMM) 4.6 Absolute Lymphocytes (1.2 - 3.4 /CUMM) 0.5 L Absolute Monocytes (0.10 - 0.60 /CUMM) 0.2 Absolute Eosinophils (0.0 - 0.7 /CUMM) 0 Absolute Basophils (0.0 - 0.2 /CUMM) 0 PUBS MCHC (33.0 - 37.0 G/DL) 32.8 L Urines Urinalysis MOD H Urine Color (YEL,AMB,STR) YEL Urine Clarity (CLEAR) HAZY H Urine pH (5.0 - 8.0) 6.0 Ur Specific [place] (1.001 - 1.035) 1.025 Urine Protein (NEG,<30 MG/DL) 30 H Urine Ketones (NEG) NEG Urine Nitrite (NEG) NEG Urine Bilirubin (NEG) NEG Urine Urobilinogen (0.1 - 1.0 EU/dl) 0.2 Ur Leukocyte Esterase (NEG) NEG Ur Microscopic SEDIMENT EXAMINED Urine RBC (0 - 5 /HPF) >75 H Urine WBC (0 - 2 /HPF) 3-5 H Ur Epithelial Cells (NONE,FEW) RARE Urine Mucus (FEW,NONE) FEW Urine Hemoglobin (NEG) LARGE H Urine Glucose (N MG/DL) NEG Assessment/Plan Assessment/Plan Imp: 1. Metastatic and locally extensive prostate ca with ureteral obstruction 2. s/p bilatertal nephrostomies 3. Recent PE 4. s/p TURP in 01/2016 Plan: 1. Nephrostomies to remain in place 2. Keep anticoagulation at lower end of therapuetic range 3. f/u results of fever w/u Core Measures/Miscellaneous Venous Thromboembolism VTE Risk Factors: Age > 40, Cancer/chemo/oth therapy VTE Contraindications: No Contraindications VTE Prophylaxis Ordered Inpt: Pharm- Heparin VTE Diagnosis: Yes VTE Type: Pulmonary Embolism VTE Confirmed by (Test): CT CHEST ANGIOGRAM Beta Angela Is Beta Angela a Home Med? No Antibiotics Is Patient on Antibiotics? Yes
--- NOTE | 2016-03-09 07:22 | PN- Oncology ---
Subjective Subjective: Dry cough persists, diarrhea persists Review of Systems: 12 point review of systems unchanged Objective Vital Signs and I&Os Vital Signs Date Time Temp Pulse Resp B/P Pulse O2 O2 Flow FiO2 Ox Delivery Rate 03/09 0653 99.2 106 20 140/66 91 Room Air 03/09 0608 99.2 03/09 0424 101.1 03/09 0420 101.8 03/09 0228 99.9 03/08 2220 98.5 78 20 128/74 94 03/08 1951 98.6 03/08 1829 100.1 03/08 1707 102.1 03/08 1706 102 146/70 03/08 1656 102.1 104 20 150/70 96 Room Air 03/08 1451 99.2 107 20 150/77 92 Intake & Output 03/09 0800 03/09 0000 03/08 1600 03/08 0803/08 0000 03/07 1600 Intake Total 803 659 3303 240 603 Output Total 400 150 775 350 175 400 Balance -280 75 305 -110 -175 203 Intake, IV 225 600 3 Intake, Oral 120 480 240 600 Output, Urine 400 150 775 350 175 400 Gen.: in NAD ENT: Sclera anicteric Chest: Normal respiratory effort, clear breath sounds Cor: RRR, no extra sounds Abdomen: Soft, bowel sounds present, no tenderness, no rebound Extremities: Without clubbing, cyanosis, or asymmetric edema Neurology: Alert and oriented 3, no gross deficit Current Medications: Current Medications Sig/Aurora Start time Last Medication Dose Route Stop Time Status Admin Acetaminophen 650 MG .STK-MED ONE 03/08 1659 DC PO 03/08 1700 Acetaminophen 650 MG .STK-MED ONE 03/08 1030 DC PO 03/08 1031 Acetaminophen 650 MG Q6P PRN 03/04 220 AC 03/09 PO 0420 Benzonatate 100 MG TID 03/08 1600 AC 03/08 PO 2212 Bicalutamide 50 MG 0600 03/07 0600 AC 03/09 PO 0607 Enoxaparin Sodium 100 MG BID 03/05 1000 AC 03/08 SC 2213 Enoxaparin Sodium 30 MG BID 03/05 1000 AC 03/08 SC 221 Ondansetron HCl 4 MG ONCE ONE 03/08 0745 DC IV 03/08 0746 Oxycodone/ 1 TAB Q6P PRN 03/04 2199 AC 03/06 Acetaminophen PO 1602 Oxycodone/ 2 TAB Q6P PRN 03/04 2200 AC 03/06 Acetaminophen PO 2235 Polyethylene Glycol 17 GM DAILY 03/05 1000 AC 03/07 PO 0845 Senna/Docusate Sodium 2 TAB DAILY PRN 03/04 2199 AC PO Sodium Chloride 1,000 ML Q13H 03/08 0745 AC 03/08 IV 2216 Tamsulosin HCl 0.4 MG 0600,1800 03/06 1800 AC 03/09 PO 0607 Trimethoprim/ 1 TAB BID 03/04 2199 AC 03/08 Sulfamethoxazole PO 2211 Warfarin Sodium 5 MG COUMADIN 1700 ONE 03/08 1700 DC 03/08 PO 03/08 1701 1707 Results Last 24 Hours of Lab Results: Laboratory Tests 03/09 03/08 0220 1415 Hematology CBC w Diff NO MAN DIFF REQ WBC (4.8 - 10.8 /CUMM) 5.4 RBC (4.70 - 6.10 /CUMM) 4.07 L Hgb (14.0 - 18.0 G/DL) 10.8 L Hct (42 - 52 %) 32.8 L MCV (80.0 - 94.0 FL) 80.6 MCH (27.0 - 31.0 PG) 26.4 L RDW (11.5 - 14.5 %) 15.0 H Plt Count (130 - 400 /CUMM) 218 MPV (7.4 - 10.4 FL) 8.5 Gran % (42.2 - 75.2 %) 85.3 H Lymphocytes % (20.5 - 51.1 %) 9.7 L Monocytes % (1.7 - 9.3 %) 4.3 Eosinophils % (0 - 5 %) 0.5 Basophils % (0.0 - 2.0 %) 0.2 Absolute Granulocytes (1.4 - 6.5 /CUMM) 4.6 Absolute Lymphocytes (1.2 - 3.4 /CUMM) 0.5 L Absolute Monocytes (0.10 - 0.60 /CUMM) 0.2 Absolute Eosinophils (0.0 - 0.7 /CUMM) 0 Absolute Basophils (0.0 - 0.2 /CUMM) 0 PUBS MCHC (33.0 - 37.0 G/DL) 32.8 L Urines Urinalysis MOD H Urine Color (YEL,AMB,STR) YEL Urine Clarity (CLEAR) HAZY H Urine pH (5.0 - 8.0) 6.0 Ur Specific [place] (1.001 - 1.035) 1.025 Urine Protein (NEG,<30 MG/DL) 30 H Urine Ketones (NEG) NEG Urine Nitrite (NEG) NEG Urine Bilirubin (NEG) NEG Urine Urobilinogen (0.1 - 1.0 EU/dl) 0.2 Ur Leukocyte Esterase (NEG) NEG Ur Microscopic SEDIMENT EXAMINED Urine RBC (0 - 5 /HPF) >75 H Urine WBC (0 - 2 /HPF) 3-5 H Ur Epithelial Cells (NONE,FEW) RARE Urine Mucus (FEW,NONE) FEW Urine Hemoglobin (NEG) LARGE H Urine Glucose (N MG/DL) NEG Recent Imaging Studies: Chest x-ray-no definite infiltrate Assessment/Plan Assessment/Recommendations: 1. Febrile illness-question , question GI, question pulmonary source 2. Metastatic prostate cancer-chemotherapy is outpatient 3. PE
[2016-03-09 08:30] LABS: PT 15.8 SEC (9.4-12.5)
--- NOTE | 2016-03-09 08:54 | PN- Student ---
Subjective Subjective: Source: Patient History of Present Illness: Mr. Junior is a 55 y/o that presented with a PE and the symptoms associated with it. The patient has a past medical history of Cancer metastasis to the bones and lungs. Upon morning visit the patient mentioned that he has been having GI issues and that yesterday night he had several vomiting spells and had diarrhea that he described as watery and brownish in color. The patient had a fever yesterday night but he denied any associated chills or night sweats with it. He also mentioned that he has been having a productive cough and stated that the color is green in color. The patient has abdominal cramps and also a decreased appetite. Allergies/Medications: Allergies - Ragweed pollen - Penicillin Objective Objective: Current Medications Sig/Aurora Start time Last Medication Dose Route Stop Time Status Admin Acetaminophen 650 MG .STK-MED ONE 03/08 1659 DC PO 03/08 1700 Acetaminophen 650 MG .STK-MED ONE 03/08 1030 DC PO 03/08 1031 Acetaminophen 650 MG Q6P PRN 03/04 2200 AC 03/09 PO 0420 Benzonatate 100 MG TID 03/08 1600 AC 03/08 PO 2212 Bicalutamide 50 MG 0600 03/07 0600 AC 03/09 PO 0607 Enoxaparin Sodium 100 MG BID 03/05 1000 AC 03/08 SC 2213 Enoxaparin Sodium 30 MG BID 03/05 1000 AC 03/08 SC 2212 Oxycodone/ 1 TAB Q6P PRN 03/04 2200 AC 03/06 Acetaminophen PO 1602 Oxycodone/ 2 TAB Q6P PRN 03/04 2200 AC 03/06 Acetaminophen PO 2235 Polyethylene Glycol 17 GM DAILY 03/05 1000 AC 03/07 PO 0845 Senna/Docusate Sodium 2 TAB DAILY PRN 03/04 2200 AC PO Sodium Chloride 1,000 ML Q13H 03/08 0745 AC 03/08 IV 2216 Tamsulosin HCl 0.4 MG 0600,1800 03/06 1800 AC 03/09 PO 0607 Trimethoprim/ 1 TAB BID 03/04 220 AC 03/08 Sulfamethoxazole PO 2211 Warfarin Sodium 5 MG COUMADIN 1700 ONE 03/08 1700 DC 03/08 PO 03/08 1701 1707 Vital Signs Date Time Temp Pulse Resp B/P Pulse O2 O2 Flow FiO2 Ox Delivery Rate 03/09 0553 99.2 106 20 140/66 91 Room Air 03/09 607 99.2 03/094 101.1 03/09 419 101.8 03/09 022 99.9 03/08 2220 98.5 78 20 128/74 94 03/08 1951 98.6 03/08 1829 100.1 03/08 1707 102.1 03/08 1706 102 146/70 03/08 1656 102.1 104 20 150/70 96 Room Air 03/08 1451 99.2 107 20 150/77 92 Intake & Output 03/09 1600 03/09 0800 03/09 0000 Intake Total 120 225 Output Total 400 150 Balance -280 75 Intake, IV 225 Intake, Oral 120 Output, Urine 400 150 Physical Examination: General: 55 y/o M with no respiratory distress, alert, GI discomfort and mild fever. HEENT: Not assessed Neck: Not assessed Mouth: Not assessed Lungs: Expiratory wheezes were appreciated at base of the lungs. CV: Not assessed GI: Not assessed Genitourinary: The neprhostmy collecting bags had urine and the color was normal yellow without any signs of blood or other discharge. MSK: Not assessed Upper Extremities: Not assessed Lower Extremities: Not assessed Neurological: Normal Speech. Additional Notes: No pertinent notes at the moment. Results Results: Laboratory Tests 03/09/16 0814: Sodium Pending, Potassium Pending, Chloride Pending, Carbon Dioxide Pending, Anion Gap Pending, BUN Pending, Creatinine Pending, BUN/Creatinine Ratio Pending , PT 15.8 H, INR 1.51 H 03/09/16 0220: Urinalysis MOD H, Urine Color YEL, Urine Clarity HAZY H, Urine pH 6.0, Ur Specific [place] 1.025, Urine Protein 30 H, Urine Ketones NEG, Urine Nitrite NEG, Urine Bilirubin NEG, Urine Urobilinogen 0.2, Ur Leukocyte Esterase NEG, Ur Microscopic SEDIMENT EXAMINED, Urine RBC >75 H, Urine WBC 3-5 H, Ur Epithelial Cells RARE, Urine Mucus FEW, Urine Hemoglobin LARGE H, Urine Glucose NEG 03/08/16 1415: CBC w Diff NO MAN DIFF REQ, RBC 4.07 L, MCV 80.6, MCH 26.4 L, RDW 15.0 H, MPV 8.5, Gran % 85.3 H, Lymphocytes % 9.7 L, Monocytes % 4.3, Eosinophils % 0.5, Basophils % 0.2, Absolute Granulocytes 4.6, Absolute Lymphocytes 0.5 L, Absolute Monocytes 0.2, Absolute Eosinophils 0, Absolute Basophils 0, PUBS MCHC 32.8 L 03/08/16 0709: PT 15.5 H, INR 1.48 H 03/07/16 0600: PT 12.9 H, INR 1.23 H, CBC w Diff NO MAN DIFF REQ, RBC 4.17 L, MCV 81.9, MCH 26.6 L, RDW 15.1 H, MPV 8.4, Gran % 73.7, Lymphocytes % 18.6 L, Monocytes % 5.3, Eosinophils % 1.8, Basophils % 0.6, Absolute Granulocytes 5.4, Absolute Lymphocytes 1.4, Absolute Monocytes 0.4, Absolute Eosinophils 0.1, Absolute Basophils 0, PUBS MCHC 32.5 L Microbiology 03/09 0220 URINE ROUT: Urine Culture - RECD 03/08 2204 BLOOD: Blood Culture - RECD 03/08 2102 BLOOD: Blood Culture - RECD 03/08 2024 STOOL: Stool Culture - COLB 03/08 1259 STOOL: Clostridium difficile Toxin A & B - COLB 03/08 1133 URINE ROUT: Urine Culture - CAN Cancelled: NOT REC'D IN LAB - UC ORDERED LATER IN DAY 03/08 0830 STOOL: Clostridium difficile Toxin A & B - COMP 03/07 1457 LOWER RESP: Respiratory Culture - CAN Cancelled: SPECIMEN NOT RECEIVED IN LABORATORY 03/07 1457 LOWER RESP: Gram Stain - CAN Cancelled: SPECIMEN NOT RECEIVED IN LABORATORY 03/07 1055 LOWER RESP: Respiratory Culture - CAN Cancelled: NUMBER OF SQUAMOUS CELLS INDICATES POOR QUALITY SPECIMEN 03/07 1055 LOWER RESP: Gram Stain - CAN Cancelled: NUMBER OF SQUAMOUS CELLS INDICATES POOR QUALITY SPECIMEN Assessment/Plan Assessment: Problem List: 1) PE 2) Productive cough 2) Productive cough Plan: Plan: -
--- NOTE | 2016-03-09 10:24 | CT SCAN REPORT ---
EXAMINATION: CT CHEST WITHOUT CONTRAST CLINICAL INFORMATION: Green sputum with fever. COMPARISON: Chest CTA 03/04/2015. Chest x-ray 03/08/2015. TECHNIQUE: Multidetector volumetric CT imaging of the chest was done. Axial MIP volume rendering provided. Sagittal and coronal reformatted images were obtained. FINDINGS: As described on yesterday's checks x-ray, bulky mediastinal lymphadenopathy has progressed with an increase in size and number of previously seen lymph nodes throughout the mediastinum with extension to the partially imaged supraclavicular regions bilaterally. Fatty prominence within the lower mediastinum appears stable. There is a small pericardial effusion that is stable. Retrocrural lymphadenopathy appears stable. There is a new 1.2 cm nodule within the left upper lobe on image 13 of series 3. Stable appearing 1.7 cm pulmonary nodule within the left upper lobe on image 20 of series 3. A 1.3 cm pulmonary nodule within the right lower lobe adjacent to the major fissure remains stable. There is also a stable appearing 0.5 cm mm nodule within the right minor fissure. A few 3 to 4 mm nodules within the left major fissure remains stable. The previously identified segmental and subsegmental pulmonary emboli are not diagnostically evaluated on this noncontrast CT. There are small bilateral pleural effusions with favored adjacent atelectasis that appears improved in comparison to the 03/04/[address] In light of the history, I cannot exclude superimposed pneumonia or aspiration. Low-density lesions within the partially imaged liver in keeping with known metastases. Stable appearing left adrenal lesion. Stable appearing osteoblastic metastases throughout the axial and appendicular skeleton. Stable appearing extensive periosteal reaction associated with an osteoblastic metastatic focus within the sternum with adjacent soft tissue. IMPRESSION: - There are small bilateral pleural effusions with favored adjacent atelectasis that appears improved in comparison to the 03/04/[address] In light of the history, I cannot exclude superimposed pneumonia or aspiration. - As described on yesterday's checks x-ray, bulky mediastinal lymphadenopathy has progressed with an increase in size and number of previously seen lymph nodes throughout the mediastinum with extension to the partially imaged supraclavicular regions bilaterally. Retrocrural lymphadenopathy appears stable. - There is a new nodule within the left upper lobe posteriorly on image 13 of series 3. Given the short development time of this nodule, an infectious etiology is of concern. The remaining pulmonary nodules appear stable in comparison to the 03/04/[address] with several nodules again noted to be large in size within the left upper lobe and the right lower lobe. - The previously identified segmental and subsegmental pulmonary emboli are not diagnostically evaluated on this noncontrast CT. - Stable appearing low-density lesions throughout the liver in keeping with known metastases. Stable appearing left adrenal lesion. - Stable appearing osteoblastic metastases throughout the axial and appendicular skeleton.
[2016-03-09 14:07] VITALS: BP 120/54
[2016-03-09 22:25] VITALS: BP 130/80
--- NOTE | 2016-03-10 05:57 | PN- Housestaff ---
SULEMA BROWN,VITALY 03/10/16 0557: Subjective Follow-up For: Pulmonary Embolism Complaints: no complaints Subjective: I followed up and examined the patient today. His lying comfortably on the bed and is not in any acute distress. He doesn't have any complaints, his cough has decreased and is not producing any phlegm. But he is still having some chest pain whenever he coughs. No complaints about urination. He still has the two uro bag connected to has 2 nephrostomy lines on. Vitals stable, afebrile, no issues overnight. Review of Systems Constitutional: Reports: no symptoms. EENTM: Reports: no symptoms. Cardiovascular: Reports: no symptoms, chest pain (pleuritic). Respiratory: Reports: no symptoms, cough (decreasing). Gastrointestinal: Reports: no symptoms. Genitourinary: Reports: no symptoms. Musculoskeletal: Reports: no symptoms. Skin: Reports: no symptoms. Neurological/Psychological: Reports: no symptoms. Hematologic/Endocrine: Reports: no symptoms. Objective Last 24 Hrs of Vital Signs/I&O Vital Signs Date Time Temp Pulse Resp B/P Pulse O2 O2 Flow FiO2 Ox Delivery Rate 03/10 0543 130/64 03/10 0000 91 Room Air 03/09 2225 98.2 88 20 130/80 91 Room Air 03/09 1754 102 126/60 03/09 1407 98.5 98 20 120/54 92 03/09 0653 99.2 106 20 140/66 91 Room Air Intake & Output 03/10 0800 03/10 0000 03/09 1600 Intake Total 480 800 Output Total 925 675 Balance -445 125 Intake, Oral 480 800 Number 6 Bowel Movements Output, Urine 925 675 Physical Exam General Appearance: Alert, Oriented X3, Cooperative, No Acute Distress Other Physical Findings: Physical examnination: General: obese patient not in distress Head: Normocephalic, atraumatic Eyes: Pupils normal in size, regular, reacting to light and accommodation, EOM normal Ears: B/l normal on inspection Nose: Normal on inspection Throat/mouth: Moist mucosa Neck: Supple, full range of motion, no thyromegaly Heart: Regular rate, regular rhythm Lung: Bilateral air entry equal, minimal crepitations heard in by basilar region , no wheezes heard. Better than yesterday b/l. Abd: Soft, non-tender, no distention appreciated, b/l urostomy bag in situ with clear uring collected Back: Normal range of motion Extremities: Normal knee exam bilaterally, no pedal edema, Distal neurovascular intact Neurologic: Alert, oriented x3, Cranial exam grossly intact, Speech is clear and coherent Skin: Warm and dry Psychiatric: Calm, cooperative, coherant Current Medications: Current Medications Sig/Aurora Start time Last Medication Dose Route Stop Time Status Admin Acetaminophen 650 MG Q6P PRN 03/04 2200 AC 03/10 PO 0433 Benzonatate 100 MG TID 03/08 1600 AC 03/09 PO 2127 Bicalutamide 50 MG 0600 03/07 0600 AC 03/10 PO 0542 Ceftazidime 1,000 MG Q8 03/09 1400 AC 03/10 IV 0542 Ceftazidime 1,000 MG Q12 03/09 1041 DC IV Enoxaparin Sodium 100 MG BID 03/05 1000 AC 03/09 SC 2127 Enoxaparin Sodium 30 MG BID 03/05 1000 AC 03/09 SC 2127 Oxycodone/ 1 TAB Q6P PRN 03/04 2200 AC 03/06 Acetaminophen PO 1602 Oxycodone/ 2 TAB Q6P PRN 03/04 2200 AC 03/09 Acetaminophen PO 1601 Polyethylene Glycol 17 GM DAILY 03/05 1000 AC 03/07 PO 0845 Potassium Chloride 40 MEQ ONCE ONE 03/09 1330 DC 03/09 PO 03/09 1331 1600 Senna/Docusate Sodium 2 TAB DAILY PRN 03/04 2200 AC PO Sodium Chloride 1,000 ML Q13H 03/08 0745 AC 03/10 IV 0550 Tamsulosin HCl 0.4 MG 0600,1800 03/06 1800 AC 03/10 PO 0543 Trimethoprim/ 1 TAB BID 03/04 2200 DC 03/09 Sulfamethoxazole PO 1000 Vancomycin HCl 1,500 MG Q12 03/09 1040 AC 03/09 Sodium Chloride 250 ML IV 2344 Warfarin Sodium 5 MG COUMADIN 1700 ONE 03/09 1700 DC 03/09 PO 03/09 1701 1754 Last 24 Hrs of Lab/Raymundo Results Last 24 Hrs of Labs/Mics: Laboratory Tests 03/09/16 0814: Anion Gap 12, Estimated GFR > 60, BUN/Creatinine Ratio 10.0, PT 15.8 H, INR 1.51 H Microbiology 03/09 1041 LOWER RESP: Respiratory Culture - COLB 03/09 1041 LOWER RESP: Gram Stain - COLB Assessment/Plan Assessment: 55 year old gentleman past medical significant for 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 CTA chest on admission showed new onset PE. Lower extremity Doppler ultrasound was negative for DVT. Monitored on tele, ACS r/o with neg trop and now transferred to [facility]. Complains of productive cough with fever, chills. # Cough: We will obtain chest x-ray. Unfortunately sputum cultures has been canceled multiple times in spite of being ordered repeatedly. We will try to order it again today. Nursing aware to collect sputum whenever possible. He has been producing sputum which is greenish color since last night, and is spiked a fever of 102.1, so the decision to change his antibiotic from Bactrim to vancomycin and Ceftazidime made during the morning round. -Will check on the response for next 24 hours and consider ID, and or pulmonary consultation #PE: * Oncology was consulted: Prostate cancer's chemotherapy to be resumed as outpatient; * INR to be at a lower level therapeutic range given high bleeding risk and surgery of penile bleeding * Patient is on subcutaneous Lovenox bridging oral warfarin. This is day 4 today. INR is 1.51 today. * coumadin 5mg dosed today, check INR in the morning * Was given one dose of zofran for nausea and vomitting yesterday. No nausea or vomiting today. #obstructive uropathy * Per urology, nephrostomy dressings to be changed twice per week. Nephrology aware. Drainage was more darker more of the nephrostomy tubes which appears to be clearing. Will check a repeat UA. Bactrim for UTI stopped today. Broader abx coverage now. * echocardiogram shows mild concentric LVH with normal ejection fraction and stage I diastolic dysfunction * Monitor H&H closely #DVT prophylaxis: * Subcutaneous Lovenox bridging Coumadin #Diet: Regular diet #CODE STATUS: * Patient is full code Problem List: 1. Pulmonary embolism 2. Pneumonia 3. Prostate cancer, primary, with metastasis from prostate to other site Pain Ratin Pain Location: - Pain Goal: Remain pain free Pain Plan: PERCOCET PRN Tomorrow's Labs & Rationales: INR FOR DAILY COUMADIN DOSING BEP FOR [facility] 03/10/16 1427: Attending MD Review Statement Attending Statement Attending MD Statement: examined this patient, discuss w/resident/PA/ROLLER CHECKER, agreed w/resident/PA/ROLLER CHECKER, reviewed EMR data (avail) Attending Assessment/Plan: 55M PMH stage IV prostate CA with metastasis to lung and bone, s/p TURP (), recent admission to [place] in January 2016 for pyelonephritis secondary to obstructive uropathy s/p bilateral nephrostomy tubes, urine culture positive for coag negative staph treated with Bactrim admitted with weakness, nausea, vomiting, found to have acute pulmonary embolism. Patient has been treated with heparin and Coumadin, however over the past 3 days he has felt more ill, weaker, and today complains of cough with green sputum. On exam he appears ill, coarse breath sounds bilaterally. CT chest today shows possible new infection with worsening lymphadenopathy. Today patient is vastly improved. He is more alert and energetic and no longer appears ill. No fevers for >24 hours. Cultures thus far have been negative. 1. Bilateral lower lobe pneumonia 2. Acute pulmonary embolism 3. Stage IV prostate cancer with lung and bony metastases 4. Obstructive uropathy Plan - Continue Vancomycin and Ceftazidime - Follow blood and sputum cultures - Pulmonary consult - Continue Lovenox. Give Coumadin tonight, increase dose to 7.5mg, recheck INR tomorrow - Continue home medications - Start Mucinex - Start Mucinex
--- NOTE | 2016-03-10 06:59 | PN- Oncology ---
Subjective Subjective: Feeling better with decreased cough Review of Systems: 12 point review of systems unchanged Objective Vital Signs and I&Os Vital Signs Date Time Temp Pulse Resp B/P Pulse O2 O2 Flow FiO2 Ox Delivery Rate 03/10 0543 130/64 03/10 0000 91 Room Air 03/09 2225 98.2 88 20 130/80 91 Room Air 03/09 1754 102 126/60 03/09 1407 98.5 98 20 120/54 92 Intake & Output 03/10 0800 03/10 0000 03/09 1600 03/09 0803/09 0000 03/08 1600 Intake Total 480 800 900 533 3983 Output Total 925 675 400 150 775 Balance -445 125 -280 75 305 Intake, IV 225 600 Intake, Oral 480 800 120 480 Number 6 Bowel Movements Output, Urine 925 675 400 150 775 Gen.: in NAD ENT: Sclera anicteric Chest: Normal respiratory effort, clear breath sounds Cor: RRR, no extra sounds Abdomen: Soft, bowel sounds present, no tenderness, no rebound Extremities: Without clubbing, cyanosis, or asymmetric edema Neurology: Alert and oriented 3, Current Medications: Current Medications Sig/Aurora Start time Last Medication Dose Route Stop Time Status Admin Acetaminophen 650 MG Q6P PRN 03/04 2199 AC 03/10 PO 0433 Benzonatate 100 MG TID 03/08 1600 AC 03/09 PO 2127 Bicalutamide 50 MG 0600 03/07 0600 AC 03/10 PO 0542 Ceftazidime 1,000 MG Q8 03/09 1400 AC 03/10 IV 0542 Ceftazidime 1,000 MG Q12 03/09 1041 DC IV Enoxaparin Sodium 100 MG BID 03/05 1000 AC 03/09 SC 2127 Enoxaparin Sodium 30 MG BID 03/05 1000 AC 03/09 SC 2127 Guaifenesin 600 MG Q12 03/10 1000 UNVr PO Oxycodone/ 1 TAB Q6P PRN 03/04 2199 AC 03/06 Acetaminophen PO 1602 Oxycodone/ 2 TAB Q6P PRN 03/04 2200 AC 03/09 Acetaminophen PO 1601 Polyethylene Glycol 17 GM DAILY 03/05 1000 AC 03/07 PO 0845 Potassium Chloride 40 MEQ ONCE ONE 03/09 1330 DC 03/09 PO 03/09 1331 1600 Senna/Docusate Sodium 2 TAB DAILY PRN 03/04 2199 AC PO Sodium Chloride 1,000 ML Q13H 03/08 0745 AC 03/10 IV 0550 Tamsulosin HCl 0.4 MG 0600,1800 03/06 1800 AC 03/10 PO 0543 Trimethoprim/ 1 TAB BID 03/04 2199 DC 03/09 Sulfamethoxazole PO 1000 Vancomycin HCl 1,500 MG Q12 03/09 1040 AC 03/09 Sodium Chloride 250 ML IV 2344 Warfarin Sodium 5 MG COUMADIN 1700 ONE 03/09 1700 DC 03/09 PO 03/09 1701 1754 Results Last 24 Hours of Lab Results: Laboratory Tests 03/09 03/09 0814 0659 Chemistry Sodium (137 - 145 mmol/L) 138 Potassium (3.5 - 5.1 mmol/L) 3.4 L Chloride (98 - 107 mmol/L) 104 Carbon Dioxide (22 - 30 mmol/L) 22 Anion Gap (5 - 16) 12 BUN (9 - 20 mg/dL) 11 Creatinine (0.7 - 1.2 mg/dL) 1.1 Estimated GFR (>60 ml/min) > 60 BUN/Creatinine Ratio (7 - 25 %) 10.0 Coagulation PT (9.4 - 12.5 SEC) 15.8 H INR (0.90 - 1.17) 1.51 H Hematology CBC w Diff Cancelled WBC Cancelled RBC Cancelled Hgb Cancelled Hct Cancelled MCV Cancelled MCH Cancelled RDW Cancelled Plt Count Cancelled MPV Cancelled PUBS MCHC Cancelled Cultures-thus far negative Recent Imaging Studies: [id number] adenopathy, no definite infiltrates Assessment/Plan Assessment/Recommendations: 1. Febrile illness-afebrile now on antibiotics, ? Etiology 2. Stage IV prostate cancer-chemotherapy to resume as an outpatient
[2016-03-10 07:10] VITALS: BP 130/80
--- NOTE | 2016-03-10 07:10 | PN- Urology ---
Subjective Subjective: Feels better. No acute distress Objective Vital Signs and I&Os Vital Signs Date Time Temp Pulse Resp B/P Pulse O2 O2 Flow FiO2 Ox Delivery Rate 03/10 0543 130/64 03/10 0000 91 Room Air 03/09 2225 98.2 88 20 130/80 91 Room Air 03/09 1754 102 126/60 03/09 1407 98.5 98 20 120/54 92 Intake & Output 03/10 0800 03/10 0000 03/09 1600 03/09 0803/09 0000 03/08 1600 Intake Total 480 800 094 390 5716 Output Total 925 675 400 150 775 Balance -445 125 -280 75 305 Intake, IV 225 600 Intake, Oral 480 800 120 480 Number 6 Bowel Movements Output, Urine 925 675 400 150 775 R and L nephrostomy draining clear urine. Pt voiding some as well and urine is clear CT chest shows increasing adenopathy, small bilateral pleural effusions and adjacent atelectasis Laboratory Tests 03/09 813 Chemistry Sodium (137 - 145 mmol/L) 138 Potassium (3.5 - 5.1 mmol/L) 3.4 L Chloride (98 - 107 mmol/L) 104 Carbon Dioxide (22 - 30 mmol/L) 22 Anion Gap (5 - 16) 12 BUN (9 - 20 mg/dL) 11 Creatinine (0.7 - 1.2 mg/dL) 1.1 Estimated GFR (>60 ml/min) > 60 BUN/Creatinine Ratio (7 - 25 %) 10.0 Coagulation PT (9.4 - 12.5 SEC) 15.8 H INR (0.90 - 1.17) 1.51 H Assessment/Plan Assessment/Plan Imp: Metastatic and locally extensive prostate ca Recent PE Recently febrile, seems to have resolved Plan: Both nephrostomies to remain in place Out patient chemo for metastatic prostate ca Consider incentive spirometer for atelectasis seen on CT scan Being transitioned from lovenox to coumadin
--- NOTE | 2016-03-10 08:35 | PN- Student ---
Subjective Subjective: Source: Patient History of Present Illness: Mr. Junior is a 55 y/o that presented with a PE and the symptoms associated with it. The patient has a past medical history of Cancer metastasis to the bones and lungs. Upon morning visit the patient mentioned that he has been having GI issues and that yesterday night he had several vomiting spells and had diarrhea that he described as watery and brownish in color. The patient had a fever yesterday night but he denied any associated chills or night sweats with it. He also mentioned that he has been having a productive cough and stated that the color is green in color. The patient has abdominal cramps and also a decreased appetite. Allergies/Medications: Allergies - Ragweed pollen - Penicillin Review of Systems: General: HEENT: Patient denies any visual changes or dizzines. Mild scleral Jaundice. Cardiovascular: Patient denies any palpitations. Respiratory: Refer to HPI. GI: Refer to HPI. Genitourinary: Refer to HPI. Skin: NONE Upper Limbs: NONE. Lower Limbs: NONE. MSK: NONE Objective Objective: Current Medications Sig/Aurora Start time Last Medication Dose Route Stop Time Status Admin Acetaminophen 650 MG Q6P PRN 03/04 2199 AC 03/10 PO 0433 Benzonatate 100 MG TID 03/08 1600 AC 03/09 PO 2127 Bicalutamide 50 MG 0600 03/07 0600 AC 03/10 PO 0542 Ceftazidime 1,000 MG Q8 03/09 1400 AC 03/10 IV 0542 Ceftazidime 1,000 MG Q12 03/09 1041 DC IV Enoxaparin Sodium 100 MG BID 03/05 1000 AC 03/09 SC 2127 Enoxaparin Sodium 30 MG BID 03/05 1000 AC 03/09 SC 2127 Guaifenesin 600 MG Q12 03/10 1000 AC PO Oxycodone/ 1 TAB Q6P PRN 03/040 AC 03/06 Acetaminophen PO 1602 Oxycodone/ 2 TAB Q6P PRN 03/04 2200 AC 03/09 Acetaminophen PO 1601 Polyethylene Glycol 17 GM DAILY 03/05 1000 AC 03/07 PO 0845 Potassium Chloride 40 MEQ ONCE ONE 03/09 1330 DC 03/09 PO 03/09 1331 1600 Senna/Docusate Sodium 2 TAB DAILY PRN 03/04 2200 AC PO Sodium Chloride 1,000 ML Q13H 03/08 0745 AC 03/10 IV 0550 Tamsulosin HCl 0.4 MG 0600,1800 03/06 1800 AC 03/10 PO 0543 Trimethoprim/ 1 TAB BID 03/04 2200 DC 03/09 Sulfamethoxazole PO 1000 Vancomycin HCl 1,500 MG Q12 03/09 1040 AC 03/09 Sodium Chloride 250 ML IV 2344 Warfarin Sodium 5 MG COUMADIN 1700 ONE 03/09 1700 DC 03/09 PO 03/09 1701 1754 Vital Signs Date Time Temp Pulse Resp B/P Pulse O2 O2 Flow FiO2 Ox Delivery Rate 03/10 07 97.9 89 20 130/80 92 Room Air 03/10 0543 130/64 Physical Examination: General: 55 y/o M with no respiratory distress, alert, GI discomfort and mild fever. HEENT: Not assessed Neck: Not assessed Mouth: Not assessed Lungs: Expiratory wheezes were appreciated at base of the lungs. CV: Not assessed GI: Not assessed Genitourinary: The neprhostmy collecting bags had urine and the color was normal yellow without any signs of blood or other discharge. MSK: Not assessed Upper Extremities: Not assessed Lower Extremities: Not assessed Neurological: Normal Speech. Additional Notes: No pertinent notes at the moment. Results Results: Laboratory Tests 03/10/16 0810: Sodium Pending, Potassium Pending, Chloride Pending, Carbon Dioxide Pending, Anion Gap Pending, BUN Pending, Creatinine Pending, BUN/Creatinine Ratio Pending , PT Pending, INR Pending, CBC w Diff Pending, WBC Pending, RBC Pending, Hgb Pending, Hct Pending, MCV Pending, MCH Pending, RDW Pending, Plt Count Pending, MPV Pending, PUBS MCHC Pending 03/09/16 0814: Anion Gap 12, Estimated GFR > 60, BUN/Creatinine Ratio 10.0, PT 15.8 H, INR 1.51 H 03/09/16 0659: CBC w Diff Cancelled, WBC Cancelled, RBC Cancelled, Hgb Cancelled, Hct Cancelled , MCV Cancelled, MCH Cancelled, RDW Cancelled, Plt Count Cancelled, MPV Cancelled, PUBS MCHC Cancelled 03/09/16 0220: Urinalysis MOD H, Urine Color YEL, Urine Clarity HAZY H, Urine pH 6.0, Ur Specific [place] 1.025, Urine Protein 30 H, Urine Ketones NEG, Urine Nitrite NEG, Urine Bilirubin NEG, Urine Urobilinogen 0.2, Ur Leukocyte Esterase NEG, Ur Microscopic SEDIMENT EXAMINED, Urine RBC >75 H, Urine WBC 3-5 H, Ur Epithelial Cells RARE, Urine Mucus FEW, Urine Hemoglobin LARGE H, Urine Glucose NEG 03/08/16 1415: CBC w Diff NO MAN DIFF REQ, RBC 4.07 L, MCV 80.6, MCH 26.4 L, RDW 15.0 H, MPV 8.5, Gran % 85.3 H, Lymphocytes % 9.7 L, Monocytes % 4.3, Eosinophils % 0.5, Basophils % 0.2, Absolute Granulocytes 4.6, Absolute Lymphocytes 0.5 L, Absolute Monocytes 0.2, Absolute Eosinophils 0, Absolute Basophils 0, PUBS MCHC 32.8 L 03/08/16 0709: PT 15.5 H, INR 1.48 H Microbiology 03/09 1041 LOWER RESP: Respiratory Culture - COLB 03/09 1041 LOWER RESP: Gram Stain - COLB 03/09 0220 URINE ROUT: Urine Culture - RECD 03/08 2341 STOOL: Stool Culture - RES 03/08 2205 BLOOD: Blood Culture - RES 03/08 2103 BLOOD: Blood Culture - RES 03/08 1259 STOOL: Clostridium difficile Toxin A & B - CAN Cancelled: DUPLICATE ORDER 03/08 1133 URINE ROUT: Urine Culture - CAN Cancelled: NOT REC'D IN LAB - UC ORDERED LATER IN DAY 03/08 0830 STOOL: Clostridium difficile Toxin A & B - COMP 03/07 1457 LOWER RESP: Respiratory Culture - CAN Cancelled: SPECIMEN NOT RECEIVED IN LABORATORY 03/07 1457 LOWER RESP: Gram Stain - CAN Cancelled: SPECIMEN NOT RECEIVED IN LABORATORY 03/07 1055 LOWER RESP: Respiratory Culture - CAN Cancelled: NUMBER OF SQUAMOUS CELLS INDICATES POOR QUALITY SPECIMEN 03/07 1055 LOWER RESP: Gram Stain - CAN Cancelled: NUMBER OF SQUAMOUS CELLS INDICATES POOR QUALITY SPECIMEN Assessment/Plan Assessment: Mr. Junior is a 55 y/o patient that has a History of methastasized cancer and came in due to a Pulmonary Embolism. The patient has not had any fever or signs relevant to ongoing infection. The patient is producing urine and is not in any type of distress. Problem List: 1) PE 2) Productive cough Plan: - Continue current antibiotic regimen. - Continue monitoring INR to reach the target value (2).
[2016-03-10 08:49] LABS: ABSOLUTE BASOPHIL COUNT 0 /CUMM (0.0-0.2); ABSOLUTE EOSINOPHIL COUNT 0 /CUMM (0.0-0.7); ABSOLUTE LYMPH COUNT 1.2 /CUMM (1.2-3.4); ABSOLUTE MONOCYTE COUNT 0.3 /CUMM (0.10-0.60); BASOPHIL % 0.5 % (0.0-2.0); EOSINOPHIL % 0.8 % (0-5); GRANULOCYTE % 71.9 % (42.2-75.2); MEAN CORPUSCULAR HGB 26.7 PG (27.0-31.0); MEAN CORPUSCULAR VOLUME 80.9 FL (80.0-94.0); MEAN PLATELET VOLUME 8.6 FL (7.4-10.4); PLATELET COUNT 197 /CUMM (130-400); RBC DISTRIBUTION WIDTH 15.1 % (11.5-14.5); WHITE BLOOD CELL COUNT 5.6 /CUMM (4.8-10.8)
[2016-03-10 08:56] LABS: PT 17.7 SEC (9.4-12.5)
[2016-03-10 14:32] VITALS: BP 115/63
[2016-03-10 22:31] VITALS: BP 108/72
--- NOTE | 2016-03-11 05:48 | PN- Housestaff ---
SULEMA BROWN,VITALY 03/11/16 0548: Subjective Follow-up For: Pulmonary Embolism Complaints: cough persistant, but better Subjective: I followed up and examined the patient today. He is lying comfortably in bed and mentions that there is no change since yesterday regarding his symptoms, which is better than the day before. He doesn't have any fever, vitals have been stable, urine output normal, cough although has been persistent but is not productive. No issues overnight. Review of Systems Constitutional: Reports: no symptoms. EENTM: Reports: no symptoms. Cardiovascular: Reports: no symptoms. Respiratory: Reports: cough. Denies: hemoptysis, orthopnea, short of breath, sputum production, wheezing. Gastrointestinal: Reports: no symptoms. Genitourinary: Reports: no symptoms. Musculoskeletal: Reports: no symptoms. Skin: Reports: no symptoms. Neurological/Psychological: Reports: no symptoms. Hematologic/Endocrine: Reports: no symptoms. Objective Last 24 Hrs of Vital Signs/I&O Vital Signs Date Time Temp Pulse Resp B/P Pulse O2 O2 Flow FiO2 Ox Delivery Rate 03/11 0646 97.9 90 20 120/70 94 Room Air 03/11 0549 80 150/76 03/11 0000 95 Room Air 03/10 2231 98.2 85 20 108/72 93 Room Air 03/10 1904 80 118/60 03/10 1432 97.3 95 19 115/63 95 Room Air 03/10 0800 Room Air 03/10 0710 97.9 89 20 130/80 92 Room Air Intake & Output 03/11 0800 03/11 0000 03/10 1600 Intake Total 383 930 1891 Output Total 1347 836 5284 Balance -245 625 275 Intake, IV 600 600 700 Intake, Oral 200 325 700 Number 1 Bowel Movements Output, Urine 1864 583 6673 Physical Exam General Appearance: Alert, Oriented X3, Cooperative, No Acute Distress Other Physical Findings: Physical examnination: General: obese patient not in distress Head: Normocephalic, atraumatic Eyes: Pupils normal in size, regular, reacting to light and accommodation, EOM normal Ears: B/l normal on inspection Nose: Normal on inspection Throat/mouth: Moist mucosa Neck: Supple, full range of motion, no thyromegaly Heart: Regular rate, regular rhythm Lung: Bilateral bibasilar crackles heard, no wheezes, rest of the lung zones sound normal. Abd: Soft, non-tender, no distention appreciated, b/l urostomy bag in situ with clear uring collected Back: Normal range of motion Extremities: Normal knee exam bilaterally, no pedal edema, Distal neurovascular intact Neurologic: Alert, oriented x3, Cranial exam grossly intact, Speech is clear and coherent Skin: Warm and dry Psychiatric: Calm, cooperative, coherant Current Medications: Current Medications Sig/Aurora Start time Last Medication Dose Route Stop Time Status Admin Acetaminophen 650 MG .STK-MED ONE 03/10 1448 DC PO 03/10 1449 Acetaminophen 650 MG Q6P PRN 03/04 2200 AC 03/10 PO 1452 Benzonatate 100 MG TID 03/08 1600 AC 03/10 PO 2047 Bicalutamide 50 MG 0600 03/07 0600 AC 03/11 PO 0549 Ceftazidime 1,000 MG Q8 03/09 1400 AC 03/11 IV 0547 Enoxaparin Sodium 100 MG BID 03/05 1000 AC 03/10 SC 2048 Enoxaparin Sodium 30 MG BID 03/05 1000 AC 03/10 SC 2049 Guaifenesin 600 MG Q12 03/10 1000 AC 03/10 PO 2048 Oxycodone/ 1 TAB Q6P PRN 03/04 2200 AC 03/06 Acetaminophen PO 1602 Oxycodone/ 2 TAB Q6P PRN 03/04 2200 AC 03/09 Acetaminophen PO 1601 Polyethylene Glycol 17 GM DAILY 03/05 1000 AC 03/07 PO 0845 Potassium Chloride 40 MEQ ONCE ONE 03/10 0915 DC 03/10 PO 03/10 0916 1038 Senna/Docusate Sodium 2 TAB DAILY PRN 03/04 2200 AC PO Sodium Chloride 1,000 ML Q13H 03/08 0745 AC 03/10 IV 2048 Tamsulosin HCl 0.4 MG 0600,1800 03/06 1800 AC 03/11 PO 0549 Vancomycin HCl 1,500 MG Q12 03/09 1040 AC 03/10 Sodium Chloride 250 ML IV 2048 Warfarin Sodium 5 MG COUMADIN 1700 ONE 03/10 1700 DC PO 03/10 1701 Warfarin Sodium 7.5 MG COUMADIN 1700 ONE 03/10 1700 DC 03/10 PO 03/10 1701 1904 Last 24 Hrs of Lab/Raymundo Results Last 24 Hrs of Labs/Mics: Laboratory Tests 03/11/16 0655: Anion Gap 11, Estimated GFR > 60, BUN/Creatinine Ratio 10.0, PT 20.6 H, INR 1.98 H Assessment/Plan Assessment: 55 year old gentleman past medical significant for 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 CTA chest on admission showed new onset PE. Lower extremity Doppler ultrasound was negative for DVT. Monitored on tele, ACS r/o with neg trop and now transferred to [facility]. Complains of productive cough with fever, chills. # Cough: We obtained chest x-ray. Unfortunately sputum cultures has been canceled multiple times in spite of being ordered repeatedly. Nursing aware to collect sputum whenever possible. He has been producing sputum which is greenish color, which has decreased since yesterday. -Still continuing with Vancomycin and Ceftazidime -Will check on the response for next 24 hours and consider ID, and or pulmonary consultation accordingly #PE: * Oncology was consulted: Prostate cancer's chemotherapy to be resumed as outpatient; * INR to be at a lower level therapeutic range given high bleeding risk and surgery of penile bleeding * Patient is on subcutaneous Lovenox bridging oral warfarin. This is day 5 today. INR is 1.98 today. * coumadin 5mg dosed today, check INR in the morning. Stopping Lovenox today. #obstructive uropathy * Per urology, nephrostomy dressings to be changed twice per week. Nephrology aware. Drainage was more darker more of the nephrostomy tubes which appears to be clearing. Broader abx coverage now. * Echocardiogram shows mild concentric LVH with normal ejection fraction and stage I diastolic dysfunction * Monitor H&H closely #DVT prophylaxis: * Subcutaneous Lovenox bridging Coumadin till today, then Coumadin only #Diet: Regular diet #CODE STATUS: * Patient is full code Problem List: 1. Pulmonary embolism 2. Pneumonia 3. Prostate cancer, primary, with metastasis from prostate to other site Pain Ratin Pain Location: - Pain Goal: Pain 4 or less Pain Plan: percocet prn Tomorrow's Labs & Rationales: INR, daily dosing of Coumadin BEP for hypokalemia f/u, repleted today [facility] 03/11/16 1542: Attending MD Review Statement Attending Statement Attending MD Statement: examined this patient, discuss w/resident/PA/REHABILITATION TEAM LEAD, agreed w/resident/PA/REHABILITATION TEAM LEAD, reviewed EMR data (avail) Attending Assessment/Plan: 55M PMH stage IV prostate CA with metastasis to lung and bone, s/p TURP (), recent admission to [facility] in January 2016 for pyelonephritis secondary to obstructive uropathy s/p bilateral nephrostomy tubes, urine culture positive for coag negative staph treated with Bactrim admitted with weakness, nausea, vomiting, found to have acute pulmonary embolism. On 03/07 patient reported feeling more ill, weaker, and complained of cough with green sputum. On exam he appeared ill, coarse breath sounds bilaterally. CT chest showed possible new pneumonia with worsening lymphadenopathy. Today patient is vastly improved. He is more alert and energetic and no longer appears ill. No fevers for >48 hours. Cultures thus far have been negative. 1. Bilateral lower lobe pneumonia 2. Acute pulmonary embolism 3. Stage IV prostate cancer with lung and bony metastases 4. Obstructive uropathy Plan - Continue Vancomycin and Ceftazidime - Follow blood and sputum cultures - Pulmonary consult - Continue Coumadin, may discontinue Lovenox when INR therapeutic - Continue home medications - Continue Mucinex - Anticipated discharge tomorrow if continues to improve with outpatient follow up
[2016-03-11 06:46] VITALS: BP 120/70
--- NOTE | 2016-03-11 07:12 | PN- Urology ---
Subjective Subjective: Still with cough. No acute distress Objective Vital Signs and I&Os Vital Signs Date Time Temp Pulse Resp B/P Pulse O2 O2 Flow FiO2 Ox Delivery Rate 03/11 0646 97.9 90 20 120/70 94 Room Air 03/11 0549 80 150/76 03/11 0000 95 Room Air 03/10 2231 98.2 85 20 108/72 93 Room Air 03/10 1904 80 118/60 03/10 1432 97.3 95 19 115/63 95 Room Air 03/10 0800 Room Air 03/10 0710 97.9 89 20 130/80 92 Room Air Intake & Output 03/11 0800 03/11 0000 03/10 1600 03/10 0800 03/10 0000 03/09 1600 Intake Total 953 879 2164 800 480 800 Output Total 4966 585 0989 750 925 675 Balance -245 625 275 50 -445 125 Intake, IV 600 600 700 600 Intake, Oral 200 325 700 200 480 800 Number 1 6 Bowel Movements Output, Urine 1688 050 9152 750 925 675 Abd: soft and nontender. Voiding spontaneously. R and L nephrostomy draining clear urine Laboratory Tests 03/10 809 Chemistry Sodium (137 - 145 mmol/L) 139 Potassium (3.5 - 5.1 mmol/L) 3.4 L Chloride (98 - 107 mmol/L) 106 Carbon Dioxide (22 - 30 mmol/L) 22 Anion Gap (5 - 16) 11 BUN (9 - 20 mg/dL) 11 Creatinine (0.7 - 1.2 mg/dL) 1.1 Estimated GFR (>60 ml/min) > 60 BUN/Creatinine Ratio (7 - 25 %) 10.0 Coagulation PT (9.4 - 12.5 SEC) 17.7 H INR (0.90 - 1.17) 1.69 H Hematology CBC w Diff NO MAN DIFF REQ WBC (4.8 - 10.8 /CUMM) 5.6 RBC (4.70 - 6.10 /CUMM) 3.70 L Hgb (14.0 - 18.0 G/DL) 9.9 L Hct (42 - 52 %) 30.0 L MCV (80.0 - 94.0 FL) 80.9 MCH (27.0 - 31.0 PG) 26.7 L RDW (11.5 - 14.5 %) 15.1 H Plt Count (130 - 400 /CUMM) 197 MPV (7.4 - 10.4 FL) 8.6 Gran % (42.2 - 75.2 %) 71.9 Lymphocytes % (20.5 - 51.1 %) 20.6 Monocytes % (1.7 - 9.3 %) 6.2 Eosinophils % (0 - 5 %) 0.8 Basophils % (0.0 - 2.0 %) 0.5 Absolute Granulocytes (1.4 - 6.5 /CUMM) 4.0 Absolute Lymphocytes (1.2 - 3.4 /CUMM) 1.2 Absolute Monocytes (0.10 - 0.60 /CUMM) 0.3 Absolute Eosinophils (0.0 - 0.7 /CUMM) 0 Absolute Basophils (0.0 - 0.2 /CUMM) 0 PUBS MCHC (33.0 - 37.0 G/DL) 33.0 Urine C&S: no growth to date Assessment/Plan Assessment/Plan Imp: Metastatic and locally extensive prostate ca bilateral ureteral obstruction, s/p bilateral nephrostomy PE Plan: Bilateral nephrostomies to remain in place Anticoagulation Continue hormone therapy for prostate ca and outpatient chemo When pt discharged will need VNA for nephrostomy dressing change twice per week
[2016-03-11 08:17] LABS: PT 20.6 SEC (9.4-12.5)
--- NOTE | 2016-03-11 09:45 | PN- Student ---
Subjective Subjective: History of Present Illness: Follow up visit for: Mr. Junior is a 55 y/o that presented with a PE and the symptoms associated with it. The patient has a past medical history of Cancer metastasis to the bones and lungs. I followed up on the patient this morning and the patient was lying on bed comfortably without any notable signs of distress. The patient claims to have a cough that is lightly productive. The patient described the phlegm as clear- colored and has pain on coughing but associated with the underlying methastasis to the bone. The patient denies any GI symptom and expressed that he feels well. Allergies/Medications: Allergies -Ragweed pollen -Penicillin Past Medical Hx: Travel History Patient denies any trips outside of the [facility]. Review of Systems: General: 55 y/o M with no respiratory distress, alert, afebrile, no chills or night sweats. HEENT: Strabismus. Cardiovascular: Patient denies any palpitations. Respiratory: Refer to HPI. GI: NONE Genitourinary: Bilateral nephrostomy tubes. Skin: NONE Upper Limbs: NONE. Lower Limbs: NONE. MSK: NONE Objective Objective: Current Medications Sig/Aurora Start time Last Medication Dose Route Stop Time Status Admin Acetaminophen 650 MG .STK-MED ONE 03/10 1448 DC PO 03/10 1449 Acetaminophen 650 MG Q6P PRN 03/040 AC 03/10 PO 1452 Benzonatate 100 MG TID 03/08 1600 AC 03/10 PO 2047 Bicalutamide 50 MG 0600 03/07 0600 AC 03/11 PO 0549 Ceftazidime 1,000 MG Q8 03/09 1400 AC 03/11 IV 0547 Enoxaparin Sodium 100 MG BID 03/05 1000 DC 03/10 SC 2048 Enoxaparin Sodium 30 MG BID 03/05 1000 DC 03/10 SC 2049 Guaifenesin 600 MG Q12 03/10 1000 AC 03/10 PO 2048 Oxycodone/ 1 TAB Q6P PRN 03/040 AC 03/06 Acetaminophen PO 1602 Oxycodone/ 2 TAB Q6P PRN 03/04 2200 AC 03/09 Acetaminophen PO 1601 Polyethylene Glycol 17 GM DAILY 03/05 1000 AC 03/07 PO 0845 Potassium Chloride 40 MEQ Q1 03/11 0900 AC PO 03/11 1001 Senna/Docusate Sodium 2 TAB DAILY PRN 03/04 2200 AC PO Sodium Chloride 1,000 ML Q13H 03/08 0745 AC 03/10 IV 2048 Tamsulosin HCl 0.4 MG 0600,1800 03/06 1800 AC 03/11 PO 0549 Vancomycin HCl 1,500 MG Q12 03/09 1040 AC 03/10 Sodium Chloride 250 ML IV 2048 Warfarin Sodium 7.5 MG COUMADIN 170 ONE 03/11 1700 DC PO 03/11 170 Warfarin Sodium 5 MG COUMADIN 17003/11 1700 AC PO 03/11 1701 Warfarin Sodium 5 MG COUMADIN 170 ONE 03/10 1700 DC PO 03/10 170 Warfarin Sodium 7.5 MG COUMADIN 170 ONE 03/10 170 DC 03/10 PO 03/10 170 1904 Laboratory Tests 03/11 03/10 03/09 0655 0810 0814 Chemistry Sodium (137 - 145 mmol/L) 141 139 138 Potassium (3.5 - 5.1 mmol/L) 3.2 L 3.4 L 3.4 L Chloride (98 - 107 mmol/L) 106 106 104 Carbon Dioxide (22 - 30 mmol/L) 24 22 22 Anion Gap (5 - 16) 11 11 12 BUN (9 - 20 mg/dL) 8 L 11 11 Creatinine (0.7 - 1.2 mg/dL) 0.8 1.1 1.1 Estimated GFR (>60 ml/min) > 60 > 60 > 60 BUN/Creatinine Ratio (7 - 25 %) 10.0 10.0 10.0 Coagulation PT (9.4 - 12.5 SEC) 20.6 H 17.7 H 15.8 H INR (0.90 - 1.17) 1.98 H 1.69 H 1.51 H Hematology CBC w Diff NO MAN DIFF REQ WBC (4.8 - 10.8 /CUMM) 5.6 RBC (4.70 - 6.10 /CUMM) 3.70 L Hgb (14.0 - 18.0 G/DL) 9.9 L Hct (42 - 52 %) 30.0 L MCV (80.0 - 94.0 FL) 80.9 MCH (27.0 - 31.0 PG) 26.7 L RDW (11.5 - 14.5 %) 15.1 H Plt Count (130 - 400 /CUMM) 197 MPV (7.4 - 10.4 FL) 8.6 Gran % (42.2 - 75.2 %) 71.9 Lymphocytes % (20.5 - 51.1 %) 20.6 Monocytes % (1.7 - 9.3 %) 6.2 Eosinophils % (0 - 5 %) 0.8 Basophils % (0.0 - 2.0 %) 0.5 Absolute Granulocytes (1.4 - 6.5 /CUMM) 4.0 Absolute Lymphocytes (1.2 - 3.4 /CUMM) 1.2 Absolute Monocytes (0.10 - 0.60 /CUMM) 0.3 Absolute Eosinophils (0.0 - 0.7 /CUMM) 0 Absolute Basophils (0.0 - 0.2 /CUMM) 0 PUBS MCHC (33.0 - 37.0 G/DL) 33.0 03/09 03/09 0659 0220 Hematology CBC w Diff Cancelled WBC Cancelled RBC Cancelled Hgb Cancelled Hct Cancelled MCV Cancelled MCH Cancelled RDW Cancelled Plt Count Cancelled MPV Cancelled PUBS MCHC Cancelled Urines Urinalysis MOD H Urine Color (YEL,AMB,STR) YEL Urine Clarity (CLEAR) HAZY H Urine pH (5.0 - 8.0) 6.0 Ur Specific [place] (1.001 - 1.035) 1.025 Urine Protein (NEG,<30 MG/DL) 30 H Urine Ketones (NEG) NEG Urine Nitrite (NEG) NEG Urine Bilirubin (NEG) NEG Urine Urobilinogen (0.1 - 1.0 EU/dl) 0.2 Ur Leukocyte Esterase (NEG) NEG Ur Microscopic SEDIMENT EXAMINED Urine RBC (0 - 5 /HPF) >75 H Urine WBC (0 - 2 /HPF) 3-5 H Ur Epithelial Cells (NONE,FEW) RARE Urine Mucus (FEW,NONE) FEW Urine Hemoglobin (NEG) LARGE H Urine Glucose (N MG/DL) NEG 03/08 1415 Hematology CBC w Diff NO MAN DIFF REQ WBC (4.8 - 10.8 /CUMM) 5.4 RBC (4.70 - 6.10 /CUMM) 4.07 L Hgb (14.0 - 18.0 G/DL) 10.8 L Hct (42 - 52 %) 32.8 L MCV (80.0 - 94.0 FL) 80.6 MCH (27.0 - 31.0 PG) 26.4 L RDW (11.5 - 14.5 %) 15.0 H Plt Count (130 - 400 /CUMM) 218 MPV (7.4 - 10.4 FL) 8.5 Gran % (42.2 - 75.2 %) 85.3 H Lymphocytes % (20.5 - 51.1 %) 9.7 L Monocytes % (1.7 - 9.3 %) 4.3 Eosinophils % (0 - 5 %) 0.5 Basophils % (0.0 - 2.0 %) 0.2 Absolute Granulocytes (1.4 - 6.5 /CUMM) 4.6 Absolute Lymphocytes (1.2 - 3.4 /CUMM) 0.5 L Absolute Monocytes (0.10 - 0.60 /CUMM) 0.2 Absolute Eosinophils (0.0 - 0.7 /CUMM) 0 Absolute Basophils (0.0 - 0.2 /CUMM) 0 PUBS MCHC (33.0 - 37.0 G/DL) 32.8 L Vital Signs Date Time Temp Pulse Resp B/P Pulse O2 O2 Flow FiO2 Ox Delivery Rate 03/11 0646 97.9 90 20 120/70 94 Room Air 03/11 0549 80 150/76 03/11 0000 95 Room Air 03/10 2231 98.2 85 20 108/72 93 Room Air 03/10 1904 80 118/60 03/10 1432 97.3 95 19 115/63 95 Room Air Intake & Output 03/11 1600 03/11 0800 03/11 0000 Intake Total 800 925 Output Total 1045 300 Balance -245 625 Intake, IV 600 600 Intake, Oral 200 325 Output, Urine 1045 300 Physical Examination: General: 55 y/o M with no respiratory distress, alert, afebrile, no chills or night sweats. HEENT: Not assessed Neck: Not assessed Mouth: Not assessed Lungs: Mild expiratory wheezes were appreciated at base of the lungs. CV: S1, S2 were appreciated; no associated murmurs were heard. GI: Not assessed Genitourinary: The neprhostmy collecting bags had urine and the color was normal yellow without any signs of blood or other discharge. MSK: Not assessed Upper Extremities: Not assessed Lower Extremities: Not assessed Neurological: Normal Speech. Results Results: Laboratory Tests 03/11/16 0655: Anion Gap 11, Estimated GFR > 60, BUN/Creatinine Ratio 10.0, PT 20.6 H, INR 1.98 H 03/10/16 0810: Anion Gap 11, Estimated GFR > 60, BUN/Creatinine Ratio 10.0, PT 17.7 H, INR 1.69 H, CBC w Diff NO MAN DIFF REQ, RBC 3.70 L, MCV 80.9, MCH 26.7 L, RDW 15.1 H, MPV 8.6, Gran % 71.9, Lymphocytes % 20.6, Monocytes % 6.2, Eosinophils % 0.8, Basophils % 0.5, Absolute Granulocytes 4.0, Absolute Lymphocytes 1.2, Absolute Monocytes 0.3, Absolute Eosinophils 0, Absolute Basophils 0, PUBS MCHC 33.0 03/09/16 0814: Anion Gap 12, Estimated GFR > 60, BUN/Creatinine Ratio 10.0, PT 15.8 H, INR 1.51 H 03/09/16 0659: CBC w Diff Cancelled, WBC Cancelled, RBC Cancelled, Hgb Cancelled, Hct Cancelled , MCV Cancelled, MCH Cancelled, RDW Cancelled, Plt Count Cancelled, MPV Cancelled, PUBS MCHC Cancelled 03/09/16 0220: Urinalysis MOD H, Urine Color YEL, Urine Clarity HAZY H, Urine pH 6.0, Ur Specific [place] 1.025, Urine Protein 30 H, Urine Ketones NEG, Urine Nitrite NEG, Urine Bilirubin NEG, Urine Urobilinogen 0.2, Ur Leukocyte Esterase NEG, Ur Microscopic SEDIMENT EXAMINED, Urine RBC >75 H, Urine WBC 3-5 H, Ur Epithelial Cells RARE, Urine Mucus FEW, Urine Hemoglobin LARGE H, Urine Glucose NEG 03/08/16 1415: CBC w Diff NO MAN DIFF REQ, RBC 4.07 L, MCV 80.6, MCH 26.4 L, RDW 15.0 H, MPV 8.5, Gran % 85.3 H, Lymphocytes % 9.7 L, Monocytes % 4.3, Eosinophils % 0.5, Basophils % 0.2, Absolute Granulocytes 4.6, Absolute Lymphocytes 0.5 L, Absolute Monocytes 0.2, Absolute Eosinophils 0, Absolute Basophils 0, PUBS MCHC 32.8 L Microbiology 03/09 1041 LOWER RESP: Respiratory Culture - CAN Cancelled: SPECIMEN NOT RECEIVED IN LABORATORY 03/09 1041 LOWER RESP: Gram Stain - CAN Cancelled: SPECIMEN NOT RECEIVED IN LABORATORY 03/09 0220 URINE ROUT: Urine Culture - RES 03/08 2341 STOOL: Stool Culture - RES 03/08 2205 BLOOD: Blood Culture - RES 03/08 2103 BLOOD: Blood Culture - RES 03/08 1259 STOOL: Clostridium difficile Toxin A & B - CAN Cancelled: DUPLICATE ORDER 03/08 1133 URINE ROUT: Urine Culture - CAN Cancelled: NOT REC'D IN LAB - UC ORDERED LATER IN DAY Assessment/Plan Assessment: Mr. Junior is a 55 y/o patient that has a History of methastasized cancer and came in due to a Pulmonary Embolism. He currently doesn't has any GI symptoms or fever but has a lightly productive cough which is clear-colored. During his stay the INR has been monitored and today it was elevated to 1.9, which is close to the target value (2.0). The patient is currently on Lovenox ( Enoxaparin) and could be changed to Warfarin since the bridging has be reached. The patient could be monitored for the next 24 hours and there's potential for discharge. Plan: - DC Lovenox and start the patient on Warfarin (5mg PO). - Start the patient on Guaifenesin to relieve the current basilar mucous consolidation. - Keep monitoring INr values. - Potential discharge for tomorrow.
[2016-03-11 15:16] VITALS: BP 122/68
[2016-03-11 22:08] VITALS: BP 132/80
[2016-03-12 06:23] VITALS: BP 130/70
--- NOTE | 2016-03-12 07:34 | PN- Housestaff ---
SULEMA BROWN,VITALY 03/12/16 0734: Subjective Follow-up For: Pulmonary Embolism Complaints: no complaints Subjective: I followed up and examined the patient today. He is lying comfortably in bed and mentions that he is feeling better than yesterday regarding his symptoms. He doesn't have any fever, vitals have been stable, urine output normal, cough has decreased, not productive. No issues overnight. Nephrostomy tubes and bags in situ. Korin yellow urine in both. No issues with that. Review of Systems Constitutional: Reports: no symptoms. EENTM: Reports: no symptoms. Cardiovascular: Reports: no symptoms. Respiratory: Reports: no symptoms. Gastrointestinal: Reports: no symptoms. Genitourinary: Reports: no symptoms. Musculoskeletal: Reports: no symptoms. Skin: Reports: no symptoms. Neurological/Psychological: Reports: no symptoms. Hematologic/Endocrine: Reports: no symptoms. Objective Last 24 Hrs of Vital Signs/I&O Vital Signs Date Time Temp Pulse Resp B/P Pulse O2 O2 Flow FiO2 Ox Delivery Rate 03/12 0623 97.7 95 20 130/70 93 Room Air 03/11 2208 98.2 82 20 132/80 92 Room Air 03/11 1803 91 124/74 03/11 1600 Room Air 03/11 1516 97.7 82 20 122/68 94 Intake & Output 03/12 1600 03/12 0800 03/12 0000 Intake Total 140 730 Output Total 1030 550 Balance -890 180 Intake, IV 250 Intake, Oral 140 480 Output, Urine 1030 550 Physical Exam General Appearance: Alert, Oriented X3, Cooperative, No Acute Distress Other Physical Findings: Physical examnination: General: obese patient not in distress Head: Normocephalic, atraumatic Eyes: Pupils normal in size, regular, reacting to light and accommodation, EOM normal Ears: B/l normal on inspection Nose: Normal on inspection Throat/mouth: Moist mucosa Neck: Supple, full range of motion, no thyromegaly Heart: Regular rate, regular rhythm Lung: Bilateral bibasilar crackles heard, no wheezes, rest of the lung zones sound normal. Better than yesterday. Improving. Abd: Soft, non-tender, no distention appreciated, b/l urostomy bag in situ with clear uring collected Back: Normal range of motion Extremities: Normal knee exam bilaterally, no pedal edema, Distal neurovascular intact Neurologic: Alert, oriented x3, Cranial exam grossly intact, Speech is clear and coherent Skin: Warm and dry Psychiatric: Calm, cooperative, coherant Current Medications: Current Medications Sig/Aurora Start time Last Medication Dose Route Stop Time Status Admin Acetaminophen 650 MG Q6P PRN 03/04 2200 AC 03/12 PO 0943 Benzonatate 100 MG TID 03/08 1600 AC 03/12 PO 0942 Bicalutamide 50 MG 0600 03/07 0600 AC 03/12 PO 0518 Ceftazidime 1,000 MG Q8 03/09 1400 DC 03/11 IV 1459 Guaifenesin 600 MG Q12 03/10 1000 AC 03/12 PO 0942 Moxifloxacin HCl 400 MG DAILY 03/12 1000 AC PO Oxycodone/ 1 TAB Q6P PRN 03/04 2200 AC 03/06 Acetaminophen PO 1602 Oxycodone/ 2 TAB Q6P PRN 03/04 2200 AC 03/09 Acetaminophen PO 1601 Polyethylene Glycol 17 GM DAILY 03/05 1000 AC 03/07 PO 0845 Senna/Docusate Sodium 2 TAB DAILY PRN 03/04 2200 AC PO Tamsulosin HCl 0.4 MG 0600,1800 03/06 1800 AC 03/12 PO 0517 Vancomycin HCl 1,500 MG Q12 03/09 1040 DC 03/11 Sodium Chloride 250 ML IV 1223 Warfarin Sodium 5 MG COUMADIN 1700 ONE 03/12 1700 AC PO 03/12 1701 Warfarin Sodium 5 MG COUMADIN 1700 ONE 03/11 1700 DC 03/11 PO 03/11 1701 1614 Last 24 Hrs of Lab/Raymundo Results Last 24 Hrs of Labs/Mics: Laboratory Tests 03/12/16 0740: Anion Gap 13, Estimated GFR > 60, BUN/Creatinine Ratio 8.8, PT 21.6 H, INR 2.07 H Assessment/Plan Assessment: 55 year old gentleman past medical significant for 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 CTA chest on admission showed new onset PE. Lower extremity Doppler ultrasound was negative for DVT. Monitored on tele, ACS r/o with neg trop and then [facility]. Complains of productive cough with fever, chills have now subsided. He has been afebrile with antibiotics. Abx stopped yesterday. # Cough: We obtained chest x-ray. Unfortunately sputum cultures has been canceled multiple times in spite of being ordered repeatedly. Nursing aware to collect sputum whenever possible. He has been producing sputum which is greenish color, which has decreased already since 3 days. -Vancomycin and Ceftazidime was stopped yesterday. -Will check on the response for next 24 hours and consider ID, and or pulmonary consultation accordingly -He has significantly improved clinically, and does not have any active issues. Plan to discharge him to home with home visiting nurse. #PE: * Oncology was consulted: Prostate cancer's chemotherapy to be resumed as outpatient; * INR to be at a lower level therapeutic range given high bleeding risk and surgery of penile bleeding * INR today was 2.07, so Coumadin 5mg dosed today, check INR regularly. Script written off for the next one and a visit to his PCP recommended. he has been explained about the bleeding risk while he is on Coumadin, and also written in his discharge instructions. #obstructive uropathy, sp b/l nephrostomy tubes, bags * Per urology, nephrostomy dressings to be changed twice per week. Nephrology aware. Drainage was more darker more of the nephrostomy tubes which appears to be clearing. Broader abx coverage now. * He has a home visiting nurse who can change his dressing twice daily and he needs a follow up with Dr Villegas in two-three weeks time. #DVT prophylaxis: * Coumadin daily #Diet: Regular diet #CODE STATUS: * Patient is full code Problem List: 1. Pulmonary embolism 2. Prostate cancer, primary, with metastasis from prostate to other site 3. Nephrostomy status Pain Ratin Pain Location: - Pain Goal: Pain 4 or less Pain Plan: percocet prn Tomorrow's Labs & Rationales: - as he is getting discharged today SHITAL TRAORE MD 03/12/16 1444: Attending Review Statement Attending Statement Attending MD Statement: examined this patient, discuss w/resident/PA/CREDIT AND COLLECTIONS ANALYST, agreed w/resident/PA/CREDIT AND COLLECTIONS ANALYST, reviewed EMR data (avail) Attending Assessment/Plan: 55M PMH stage IV prostate CA with metastasis to lung and bone, s/p TURP (), recent admission to [facility] in January 2016 for pyelonephritis secondary to obstructive uropathy s/p bilateral nephrostomy tubes, urine culture positive for coag negative staph treated with Bactrim admitted with weakness, nausea, vomiting, found to have acute pulmonary embolism. On 03/07 patient reported feeling more ill, weaker, and complained of cough with green sputum. On exam he appeared ill, coarse breath sounds bilaterally. CT chest showed possible new pneumonia with worsening lymphadenopathy. Today patient is awake and alert. He is more alert and energetic and no longer appears ill. No fevers for >72 hours. Cultures thus far have been negative. 1. Bilateral lower lobe pneumonia 2. Acute pulmonary embolism 3. Stage IV prostate cancer with lung and bony metastases 4. Obstructive uropathy Plan - Stable for discharge home - Given septic picture and rapid improvement on Ceftazidime, will discharge on Moxifloxacin to complete course for pneumonia - INR therapeutic, may continue Coumadin 5mg with home monitoring and goal at low end of INR 2-3 - Continue home medications
--- NOTE | 2016-03-12 07:51 | PN- Student ---
Subjective Subjective: History of Present Illness: Follow up visit for: Pulmonary Embolism Mr. Junior is a 55 y/o that presented with a PE and the symptoms associated with it. The patient has a past medical history of Cancer metastasis to the bones and lungs. Today I visited the patient and he was laying down comfortably on his bed without any noticeable signs of respiratory distress. He mentioned that he has not be coughing as frequent as he was yesterday and stated that he's feeling well. The patient is producing urine and denies any SOB, constipation, nausea, vomiting or diarrhea. He also mentioned that his partner has not recovered from the recent flu episode that started the day before yesterday. All of the patient 's vital signs were within the reference values and this was confirmed with the previous reported numbers on his chart. Allergies/Medications: Allergies -Ragweed pollen -Penicillin Past Medical Hx: Travel History Patient denies any trips outside of the [facility]. Review of Systems: General: 55 y/o M with no respiratory distress, alert, afebrile, no chills or night sweats. HEENT: Strabismus. Cardiovascular: NONE Respiratory: Refer to HPI. GI: NONE Genitourinary: Bilateral nephrostomy tubes & collecting bags. Skin: NONE Upper Limbs: NONE Lower Limbs: NONE MSK: NONE Objective Objective: Current Medications Sig/Aurora Start time Last Medication Dose Route Stop Time Status Admin Acetaminophen 650 MG .STK-MED ONE 03/11 0944 DC PO 03/11 0945 Acetaminophen 650 MG Q6P PRN 03/04 2200 AC 03/11 PO 0948 Benzonatate 100 MG TID 03/08 1600 AC 03/11 PO 2146 Bicalutamide 50 MG 0600 03/07 0600 AC 03/12 PO 0518 Ceftazidime 1,000 MG Q8 03/09 1400 DC 03/11 IV 1459 Enoxaparin Sodium 100 MG BID 03/05 1000 DC 03/10 SC 2048 Enoxaparin Sodium 30 MG BID 03/05 1000 DC 03/10 SC 204 Guaifenesin 600 MG Q12 03/10 1000 AC 03/11 PO 2146 Oxycodone/ 1 TAB Q6P PRN 03/04 2200 AC 03/06 Acetaminophen PO 1602 Oxycodone/ 2 TAB Q6P PRN 03/04 2200 AC 03/09 Acetaminophen PO 1601 Polyethylene Glycol 17 GM DAILY 03/05 1000 AC 03/07 PO 0845 Potassium Chloride 40 MEQ Q1 03/11 0900 DC 03/11 PO 03/11 1001 1110 Senna/Docusate Sodium 2 TAB DAILY PRN 03/04 2200 AC PO Sodium Chloride 1,000 ML Q13H 03/08 0745 DC 03/10 IV 2048 Tamsulosin HCl 0.4 MG 0600,1800 03/06 1800 AC 03/12 PO 0517 Vancomycin HCl 1,500 MG Q12 03/09 1040 DC 03/11 Sodium Chloride 250 ML IV 1223 Warfarin Sodium 7.5 MG COUMADIN 1700 ONE 03/11 1700 DC PO 03/11 1701 Warfarin Sodium 5 MG COUMADIN 1700 ONE 03/11 1700 DC 03/11 PO 03/11 1701 1614 Laboratory Tests 03/11/16 1057: Vancomycin Trough 11.7 03/11/16 1017: Vancomycin Trough Cancelled Vital Signs Date Time Temp Pulse Resp B/P Pulse O2 O2 Flow FiO2 Ox Delivery Rate 03/12 0623 97.7 95 20 130/70 93 Room Air 03/11 2208 98.2 82 20 132/80 92 Room Air 03/11 1803 91 124/74 03/11 1600 Room Air 03/11 1516 97.7 82 20 122/68 94 Intake & Output 03/12 0800 03/12 0000 03/11 1600 Intake Total 265 630 4998 Output Total 1030 550 600 Balance -890 180 600 Intake, IV 250 600 Intake, Oral 140 480 600 Number 1 Bowel Movements Output, Urine 1030 550 600 Physical Examination: General: 55 y/o M with no respiratory distress, alert, afebrile, no chills or night sweats. HEENT: Not assessed Neck: Not assessed Mouth: Not assessed Lungs: Mild expiratory wheezes were appreciated at base of the lungs. CV: S1, S2 were appreciated; no associated murmurs were heard. GI: Not assessed Genitourinary: The neprhostmy collecting bags had urine and the color was normal yellow without any signs of blood or other discharge. MSK: Not assessed Upper Extremities: Not assessed Lower Extremities: Not assessed Neurological: Normal Speech. Results Results: Laboratory Tests 03/11/16 1057: Vancomycin Trough 11.7 03/11/16 1017: Vancomycin Trough Cancelled 03/11/16 0655: Anion Gap 11, Estimated GFR > 60, BUN/Creatinine Ratio 10.0, PT 20.6 H, INR 1.98 H 03/10/16 0810: Anion Gap 11, Estimated GFR > 60, BUN/Creatinine Ratio 10.0, PT 17.7 H, INR 1.69 H, CBC w Diff NO MAN DIFF REQ, RBC 3.70 L, MCV 80.9, MCH 26.7 L, RDW 15.1 H, MPV 8.6, Gran % 71.9, Lymphocytes % 20.6, Monocytes % 6.2, Eosinophils % 0.8, Basophils % 0.5, Absolute Granulocytes 4.0, Absolute Lymphocytes 1.2, Absolute Monocytes 0.3, Absolute Eosinophils 0, Absolute Basophils 0, PUBS MCHC 33.0 03/09/16 0814: Anion Gap 12, Estimated GFR > 60, BUN/Creatinine Ratio 10.0, PT 15.8 H, INR 1.51 H Microbiology 03/09 104 LOWER RESP: Respiratory Culture - CAN Cancelled: SPECIMEN NOT RECEIVED IN LABORATORY 03/09 1040 LOWER RESP: Gram Stain - CAN Cancelled: SPECIMEN NOT RECEIVED IN LABORATORY Assessment/Plan Assessment: Mr. Junior is a 55 y/o patient that has a History of methastasized cancer and came in due to a Pulmonary Embolism. He currently doesn't has any GI symptoms or fever. 1) The patient has not been coughing as frequently as yesterday but still has mild inspiratory crackles that can be hear on auscultation. 2) Mr. Junior was swtiched to Warfarin PO yesterday since the targeted value was been approached ( 2-3); today his INR was 2.07, hence the bridging was completed and the patient is a 3) candidate for discharge today. 4) The patient's oncologic status has not worsened with his admission and remained stable, although he complained sporadically from chest pain due to his bone metastasis. 5) The patient was producing urine and there were no signs of infection localized on the nephrostomy tube insertion points. Plan: 1) Continue the patient on a mucolytic (Guaifenesin) for him to expectorate the remaining bibasilar consolidation. 2) Monitor the patient to assess the INR value; prescribe the patient Coumadin 5mg PO and educate on the nursing visits that he will be receiving to assess his INR. 3) Fill CMR and prepare the patient for discharge; he has been stable for >48 consecutive hours. 4) Follow up visits with Oncologist to monitor oncologic status of the patient. 5) Continue the current urologic medication regimen and follow up consult with Urologist pertaining his prostate.
[2016-03-12 08:22] LABS: PT 21.6 SEC (9.4-12.5)
--- NOTE | 2016-03-12 10:19 | PN- Urology ---
Subjective Subjective: NO distress Objective Vital Signs and I&Os Vital Signs Date Time Temp Pulse Resp B/P Pulse O2 O2 Flow FiO2 Ox Delivery Rate 03/12 0623 97.7 95 20 130/70 93 Room Air 03/11 2208 98.2 82 20 132/80 92 Room Air 03/11 1803 91 124/74 03/11 1600 Room Air 03/11 1516 97.7 82 20 122/68 94 Intake & Output 03/12 0803/12 0000 03/11 0000 Intake Total 036 604 8813 800 925 Output Total 1030 500 409 0871 300 Balance -890 180 600 -245 625 Intake, IV 250 600 600 600 Intake, Oral 140 480 600 200 325 Number 1 Bowel Movements Output, Urine 1030 215 153 2972 300 R and L nephrostomy draining Laboratory Tests 03/12 03/11 03/11 0740 1057 1017 Chemistry Sodium (137 - 145 mmol/L) 141 Potassium (3.5 - 5.1 mmol/L) 4.0 Chloride (98 - 107 mmol/L) 106 Carbon Dioxide (22 - 30 mmol/L) 22 Anion Gap (5 - 16) 13 BUN (9 - 20 mg/dL) 7 L Creatinine (0.7 - 1.2 mg/dL) 0.8 Estimated GFR (>60 ml/min) > 60 BUN/Creatinine Ratio (7 - 25 %) 8.8 Coagulation PT (9.4 - 12.5 SEC) 21.6 H INR (0.90 - 1.17) 2.07 H Toxicology Vancomycin Trough (10.0 - 20.0 ug/mL) 11.7 Cancelled Assessment/Plan Assessment/Plan Imp: Metastatic and locally extensive prostate ca Ureteral obstruction due to prostate ca s/p bilateral nephrostomies PE Plan: Continue bilateral nephrostomies. Will need VNA at home for dressing changes twice per week Outpatient chemotherapy with Dr Au Office f/u in 2-3 weeks
[2016-03-12] MEDS ORDERED: COUMADIN5 M2 PO (10:48)
[2016-03-12] MEDS ORDERED: BENZONATATE100 M1 PO (10:50)
[2016-03-12] MEDS ORDERED: GUAIFENESIN ER600 MG PO (10:50)
[2016-03-12] MEDS ORDERED: MOXIFLOXACIN H400 M2 PO (11:43)
--- NOTE | 2016-03-12 11:49 | Discharge Summary ---
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 He presented to the emergency department with vomiting, nausea, vomiting. Vitals in the emergency department was temperature 97.9, pulse 91, respiration 20, blood pressure 110/78, pulse oximetry 96% on room air. Labs as mentioned below. CT angiogram of chest showed bilateral pulmonary embolism, in addition to bilateral pulmonary nodules, bulky mediastinal and left hilar adenopathy, sclerotic metastasis within the thoracolumbar vertebral body, and other details mentioned below. Venous Doppler study showed normal triplex scan without evidence of DVT involving the bilateral lower extremities. He was initially manifested the telemetry floor, later transferred to the general medical floor for the following issues: #New onset pulmonary embolism Bilateral pulmonary embolism was most probably due to his hypercoagulable state as he has metastatic prostate cancer. Because he does not have DVT of lower extremities, he would not require IVC filter at present. He was heparinized initially, later on transitioned to subcutaneous Lovenox as a bridge for Coumadin therapy. Dr. Mondragon, his oncologist was consulted and agreed to the treatment plan. Dr. Granados, his urologist was consulted and agreed to the treatment plan and requested if the therapeutic anticoagulation could be done on the lower side. Target therapeutic level is 2 to 3. INR on 03/12/2016 was 2.07 and a daily dose of Coumadin 5 mg was given. Patient needs to take 5 mg of Coumadin daily with regular monitoring of INR. Prescription has been given for INR test, and he needs to follow-up with his primary care physician for his health maintenance, besides adjusting Coumadin levels. Patient, as well as his partner has been explained very well about the risk of blood thinners, including massive uncontrolled bleeding even in case of minor injuries, leading up to . He understands the situation and agrees to the plan to visit emergency department if he is bleeding or if he falls down or if there is any doubt. He agrees not to take any chances, and has agreed to the plan after understanding the risk and benefit of blood thinners. #Pneumonia Patient had some cough when he initially came in, but later started producing green sputum, and also spike temperatures despite having Bactrim round-the- clock. Sputum culture was sent, and the antibiotics changed to ceftazidime. Vancomycin initially started but stopped later on. Patient did significantly better when on ceftazidime. There was no fever, cough improved and so did the sputum production. He still does have some chest pain whenever he coughs but that is also not new and is probably related to his metastases. He is being discharged on moxifloxacin 400 mg, first dose received in the hospital, 9 more days to complete. #Urinary obstruction, status post nephrostomy tubes bilaterally Patient had no problem with urine output and nephrostomy tube were dressed regularly during his stay in the hospital. Upon his discharge, his home visiting nurse needs to address his nephrostomy site twice a week, and patient is supposed to visit Dr. Granados in 2-3 weeks. He is to return to the emergency department if symptoms worsen, there is decreased urine production, bleeding, abdominal pain, new symptoms, problem with nephrostomy tubes, or on his discretion. #Metastatic prostate cancer, stage IV Patient was seen by Dr. Mondragon, oncologist, and suggested follow-up after discharge as an outpatient. He also mentioned that he is in a hypercoagulable state due to metastatic cancer, which could be one of the reasons of this episode of pulmonary embolism. #Regular diet #DVT prophylaxis was done with initially heparin, later Lovenox and finally with Coumadin. #Patient holds a full CODE STATUS. Complications: None Allergies: Coded Allergies: ragweed pollen (Intermediate, NASAL CONGESTION 01/07/16) Penicillins (UNKNOWN 02/27/16) Significant Procedures: SERVICE DATE: 03/04/16 EXAM TYPE: CAT - CTA CHEST-PULMONARY EMBOLISM EXAMINATION: CT ANGIOGRAM OF THE CHEST WITH AND WITHOUT CONTRAST (CT PULMONARY ANGIOGRAM FOR PE) CLINICAL INFORMATION: Shortness of breath. Elevated d-dimer. History of prostate cancer. COMPARISON: No pertinent prior studies are available for comparison. TECHNIQUE: Prior to contrast administration, noncontrast localization images were obtained. Subsequently, multidetector volumetric imaging was performed from the thoracic inlet to below the diaphragms following the administration of 95 mL Optiray 320 intravenous contrast. No contrast reaction reported. Sagittal, coronal, and MIP oblique sagittal reformatted images were obtained on the CT workstation, uploaded to PACS, and reviewed. Total exam dose-length product 1957 mGy-cm. FINDINGS: QUALITY OF STUDY/CONTRAST BOLUS: Suboptimal contrast opacification of the pulmonary arterial vasculature. PULMONARY ARTERIES: Nevertheless, there are intraluminal filling defects within segmental and subsegmental branches of the right lower lobe, indicative of pulmonary emboli. No large central pulmonary emboli are identified. THORACIC AORTA: Normal caliber of the thoracic aorta, without evidence of aortic dissection. LUNG: Evaluation of the lung parenchyma demonstrates bilateral pulmonary nodules. For instance, there is a 1.0 x 1.3 cm nodule along the right minor fissure (series 2, image 170). A 1.1 x 1.3 cm nodule is identified within the left lower lobe (series 2, image 166). There is bibasilar subsegmental atelectasis. The central airways are patent, without endobronchial obstructing lesions. PLEURA: There are trace bilateral pleural effusions. No pneumothoraces. MEDIASTINUM: Normal heart size, without significant pericardial effusion. Normal three-vessel branching of the radiocarpal. Normal caliber of the thoracic aorta and main pulmonary artery. Of note, there are prominent and bulky mediastinal and left hilar lymph nodes, suspicious for ayse metastasis given the patient's history of metastatic prostate cancer. Specifically, there are prominent bulky lymph nodes within the prevascular space, visualized measuring up to 2.4 x 4.0 cm (series 4, image 18). Prominent lymph nodes within the right paratracheal region or visualized measuring up to 1.6 x 2.0 cm (series 4, image 9). There are prominent left hilar lymph nodes measuring up to 1.6 x 2.0 cm (series 4, image 20). Prominent lymph nodes are also identified within the precarinal and subcarinal regions and along the distal esophagus. There is no evidence of septal bowing or right heart strain. CHEST WALL/AXILLA: No significant axillary adenopathy. OSSEOUS STRUCTURES: Metastatic foci throughout the imaged axial and appendicular skeleton, indicative of sclerotic osseous metastases from prostate cancer. Specifically, there is a 1.8 x 2.7 cm sclerotic mass within the T6 vertebral body. There are smaller punctate sclerotic lesions within the T5, T11 and L1 vertebral bodies. There is diffuse sclerosis of the manubrium of the sternum with significant periosteal reaction, indicative of metastasis. There is associated soft tissue surrounding this structure lesion within the manubrium of the sternum. UPPER ABDOMEN: Hypoattenuating lesions within the imaged portions of the liver, corresponding to previously identified suspected liver metastases. No reflux of contrast into the hepatic veins to suggest elevated right heart pressures. IMPRESSION: 1. Suboptimal contrast opacification of the pulmonary arterial vasculature. Nevertheless, there are intraluminal filling defects within segmental and subsegmental branches of the right lower lobe, indicative of pulmonary emboli. No large central emboli are identified. There are no findings suggestive of right heart strain. 2. Bilateral pulmonary nodules. Specifically, there is a 1.0 x 1.3 cm nodule within the right lung, along the right minor fissure. A 1.1 x 1.3 cm nodule is identified within the left lower lobe. These nodules are suspicious for pulmonary metastases. 3. Bulky mediastinal and left hilar adenopathy, as described above, suspicious for ayse metastases. The largest lymph node within the prevascular space measures 2.4 x 4.0 cm. There is diffuse sclerosis of the manubrium of the sternum with significant periosteal reaction and surrounding soft tissue, indicative of sclerotic osseous metastasis to the sternum. Additional sclerotic metastases are identified within the thoracolumbar vertebral bodies, as detailed above. VTE: Positive. This critical result was discussed with Dr. Mamadou Townsend at 6:55 PM on 03/04/2016 and it was ascertained that the content and urgency of the report was understood at the time of direct communication. DICTATED BY: KYLEIGH ROQUE MD DATE/TIME DICTATED:03/04/161833 CATH LAB TECH:KAYY DATE/TIME TRANSCRIBED:03/04/161833 SERVICE DATE: 03/04/16 EXAM TYPE: CAT - CT ABD & PELVIS W IV CONTRAST EXAMINATION: CT ABDOMEN AND PELVIS WITH CONTRAST CLINICAL INFORMATION: Vomiting. Known metastatic prostate cancer. Evaluate for obstruction. COMPARISON: CT abdomen and pelvis without contrast 02/25/2016. Multiple prior CTs of the abdomen and pelvis dating back to 12/09/2015. MR abdomen with and without contrast 12/20/2015. TECHNIQUE: Multidetector volumetric imaging was performed of the abdomen and pelvis before and after the IV administration of 95 mL of Optiray 320 intravenous contrast. Sagittal and coronal reformatted images were obtained on the technologist's workstation. DLP: 1957 mGy-cm. FINDINGS: LUNG BASES: Please refer to a similarly dated CTA chest for further details regarding the lungs. LIVER, GALLBLADDER, AND BILIARY TREE: Evaluation of the liver parenchyma is again notable for two ill-defined hypoattenuating lesions within the hepatic dome as well as within segment IVb of the liver. These lesions do not appear significantly changed in size relative to the most recent examination performed on 02/24/2016. However, the lesion within the hepatic dome, which measures 3.9 x 3.9 cm, is new relative to an MRI of the abdomen dated 12/20/2015. There is a 5.2 x 7.8 cm ill-defined hypoattenuating but enhancing lesion within segment 4b of the liver (series 5, image 26). This lesion appears grossly stable in size relative to the most recent examination but has increased in size relative to a prior exam dating back to 12/09/2015 and which it measured 2.3 x 2.5 cm. The gallbladder is unremarkable with no evidence of radiopaque gallstones, gallbladder wall thickening, or obvious pericholecystic inflammatory changes. No intrahepatic or extrahepatic biliary ductal dilatation is identified. PANCREAS: Unremarkable. SPLEEN: Unremarkable. ADRENAL GLANDS: Evaluation of the bilateral adrenal glands is again notable for a 1.8 x 2.4 cm left adrenal gland mass, grossly unchanged in size relative to the most recent exam. There is also a stable 1.0 x 1.0 cm right adrenal gland nodule. KIDNEYS AND URETERS: Evaluation of the bilateral kidneys and renal collecting systems demonstrates postsurgical changes related to interval placement of bilateral percutaneous nephrostomy tubes. The catheters are visualized traversing the flanks bilaterally and terminating within the renal collecting systems bilaterally. The left-sided percutaneous nephrostomy tube terminates within the left renal pelvis. The right-sided percutaneous nephrostomy tube appears to terminate within a lower pole calyx of the right kidney. There is no appreciable hydronephrosis of either kidney. Redemonstrated is a simple renal cortical cysts along the lower pole of the left kidney measuring 2.3 cm. No renal or ureteral stones are identified. BLADDER: The urinary bladder is underdistended, limiting evaluation. There is diffuse circumferential bladder wall thickening, with no discernible fat plane between the prostate gland and the adjacent bladder. Soft tissue is visualized within the bladder lumen and is suspicious for local invasion of the urinary bladder by the patient's known prostate cancer. GASTROINTESTINAL TRACT: Normal anatomic orientation of the stomach relative to the duodenum. Normal caliber of abdominal and pelvic bowel loops, without evidence of obstruction or ileus. No circumferential bowel wall thickening with surrounding inflammatory changes to suggest an underlying infectious or inflammatory enterocolitis. Normal-appearing appendix within the right lower quadrant of the abdomen. Scattered colonic diverticulosis, without secondary signs of acute diverticulitis. Redemonstrated is a moderate hiatal hernia. No organizing intra-abdominal fluid collections or free intraperitoneal air. ABDOMINAL WALL: Small bilateral fat-containing inguinal hernias. LYMPH NODES: Prominent retroperitoneal adenopathy visualized measuring up to 3.1 cm within the left periaortic region, grossly unchanged relative to the most recent examination and indicative of ayse metastasis from metastatic prostate cancer. There is a stable right common iliac chain lymph node measuring 1.9 x 3.2 cm. Prominent adenopathy is also identified along the right pelvic sidewall and also appears grossly unchanged relative to the prior exam. VASCULAR: Scattered atherosclerosis of the abdominal aorta and its branching vessels, without aneurysmal dilatation. Limited evaluation for vascular patency given phase of contrast imaging. PELVIC VISCERA: Bulky heterogeneously enhancing prostate gland with visible tumor extension into the extra prostatic fat as well as the urinary bladder, corresponding to the patient's known prostate cancer. There is also suspected invasion of the seminal vesicles. OSSEOUS STRUCTURES: Multiple sclerotic lesions scattered throughout the axial and appendicular skeleton, grossly unchanged relative to the prior examination and corresponding to the patient's previously described sclerotic osseous metastases. No acute osseous abnormality. IMPRESSION: 1. No acute findings within the abdomen or pelvis to explain patient symptomatology. Postsurgical changes related to interval placement of bilateral percutaneous nephrostomy tubes, with interval decompression of the renal collecting systems bilaterally. No appreciable hydroureteronephrosis of either kidney or renal collecting system. 2. Bulky and heterogeneously enhancing prostate gland with extra prostatic extension of tumor and associated invasion of the adjacent urinary bladder, corresponding to the patient's known locally invasive prostate cancer. Stable bulky retroperitoneal adenopathy. 3. Normal caliber of abdominal and pelvic bowel loops, without findings indicative of obstruction or ileus. 4. Ill-defined hypoattenuating lesions within the hepatic dome and the medial segment of the left hepatic lobe, as described above. These lesions are stable in size relative to the most recent examination. The lesion within segment IVb of the liver has increased in size relative to a prior exam dating back to 12/09/2015, indicative of interval progression of metastatic disease. The lesion within the hepatic dome is new relative to the MRI and CT of the abdomen dating back to 12/19/2015. 5. No acute osseous abnormality. Several sclerotic foci scattered throughout the axial and appendicular skeleton as well as the pelvis and bilateral proximal femurs, corresponding to the patient's known sclerotic osseous metastases. DICTATED BY: KYLEIGH ROQUE MD DATE/TIME DICTATED:03/04/161850 CATH LAB TECH:KAYY DATE/TIME TRANSCRIBED:03/04/161850 SERVICE DATE: 03/04/16 EXAM TYPE: US - US-RENAL/KIDNEY EXAMINATION: US RETROPERITONEAL COMPLETE (RENAL) CLINICAL INFORMATION: History of bilateral nephrostomy catheter placement. Vomiting. Evaluate hydronephrosis.. COMPARISON: CT abdomen and pelvis, 02/25/2016. TECHNIQUE: Real-time imaging of the kidneys and bladder. FINDINGS: RIGHT KIDNEY: 10.9 x 5.6 x 6.5 cm (SAG x AP x TRV). The kidney has normal cortical thickness and cortical echotexture. There is no residual hydronephrosis. No renal calculi. LEFT KIDNEY: 11.7 x 6.1 x 5.9 cm (SAG x AP x TRV). The kidney has normal cortical thickness and cortical echotexture. 1.5 x 1.3 x 1.8 cm simple cortical cyst is seen at the lower pole. No nephrolithiasis. The mild left hydronephrosis of 02/25/2016 has decreased. BLADDER: Urinary bladder is nearly completely empty and, therefore, suboptimally evaluated. Large prostate gland measures approximately 5.5 cm transverse, 4.5 cm AP and 6.8 m craniocaudal; the prostate tissue appears to infiltrate into the bladder wall. IMPRESSION: 1. Right kidney is unremarkable. 2. Mild left hydronephrosis has decreased compared to 02/25/2016. 3. Large, irregular prostate gland appears to extend into the bladder wall, suggestive of bladder invasive carcinoma. DICTATED BY: ZAINAB KATZ MD DATE/TIME DICTATED:03/04/161614 CATH LAB TECH:GALLO DATE/TIME TRANSCRIBED:03/04/161614 ----- SERVICE DATE: 03/04/16 EXAM TYPE: US - US-EXT BILAT VENOUS DOPPLER EXAMINATION: US TRIPLEX LOWER EXTREMITY, BILATERAL CLINICAL INFORMATION: Bilateral lower extremity edema. COMPARISON: None. TECHNIQUE: Color-flow triplex imaging with spectral analysis and compression Doppler were performed on the bilateral lower extremities. FINDINGS: Respiratory variation, normal compression and augmented flow are noted throughout the bilateral lower extremities. The visualized common femoral vein, superficial femoral vein, profunda femoral vein, popliteal vein and mid calf peroneal and posterior tibial venous segments show no evidence of deep venous thrombosis. There is no Luque's cyst. Bilateral lower extremity edema. IMPRESSION: Normal triplex scan without evidence of deep venous thrombosis involving the bilateral lower extremities. DICTATED BY: KYLEIGH ROQUE MD DATE/TIME DICTATED:03/04/162128 CATH LAB TECH:GALLO DATE/TIME TRANSCRIBED:03/04/162128 --- SERVICE DATE: 03/06/16- EXAM TYPE: CARD - ECHOCARDIOGRAM EFRAIN OLIVERA Age: 55 : 1960 Gender: M Exam Date: 03/06/2016 18:35 Exam Location: [facility] Ht (in): 73 Wt (lb): 290 BSA: 2.65 BP: 140 / 80 Ordering Physician: ALYSSA CAUSEY MD Referring Physician: ALYSSA CAUSEY MD Technologist: Kathy Jackson [facility] Room Number: [id number] Indications: Rhythm: Sinus Technical Quality: Fair FINDINGS Left Ventricle Normal size left ventricle. Mild concentric left ventricular hypertrophy. Normal left ventricular ejection fraction visually estimated at %. No obvious regional wall motion abnormalities. Abnormal relaxation filling pattern of the left ventricle for age (stage 1 diastolic dysfunction). Right Ventricle The right ventricle is normal in size and function. Right Atrium The right atrium is normal in size. Left Atrium Left atrial size at the upper limits of normal. Mitral Valve The mitral valve is normal in structure and function. There is no mitral regurgitation. Aortic Valve Structurally normal aortic valve without significant sclerosis or stenosis. There is aortic regurgitation. Tricuspid Valve The tricuspid valve is normal in structure and function. There is no tricuspid regurgitation. Unable to estimate the right ventricular systolic pressure. Pulmonic Valve Structurally normal pulmonic valve. There is no pulmonic regurgitation. Pericardium Normal pericardium without effusion. No pleural effusion. Great Vessels Mildly dilated aortic root. CONCLUSIONS Mild concentric left ventricular hypertrophy. Normal left ventricular ejection fraction visually estimated at %. Abnormal relaxation filling pattern of the left ventricle for age (stage 1 diastolic dysfunction). Left atrial size at the upper limits of normal. No significant valve abnormalities. Unable to estimate the right ventricular systolic pressure. Butch Boswell M.D. (Electronically Signed) Final Date: 07 March 2016 12:15 MEASUREMENTS (Male / Female) Normal Values 2D ECHO LV Diastolic Diameter PLAX 4.7 cm 4.2 - 5.9 / 3.9 - 5.3 cm LV Systolic Diameter PLAX 3.6 cm 2.1 - 4.0 cm LV Fractional Shortening PLAX 23.4 % 25 - 46 % LV Ejection Fraction 2D Teich 46.8 % IVS Diastolic Thickness 1.1 cm LVPW Diastolic Thickness 1.2 cm LV Relative Wall Thickness 0.5 LVOT Diameter 2.3 cm Aortic Root Diameter 4.0 cm LA Systolic Diameter LX 3.2 cm 3.0 - 4.0 / 2.7 - 3.8 cm M-MODE Aortic Root Diameter MM 3.9 cm LA Systolic Diameter MM 3.6 cm 3.0 - 4.0 / 2.7 - 3.8 cm LA Ao Ratio MM 0.9 DOPPLER AV Peak Velocity 138.0 cm/s AV Peak Gradient 7.6 mmHg AV Mean Velocity 102.0 cm/s AV Mean Gradient 5.0 mmHg AV Velocity Time Integral 26.6 cm LVOT Peak Velocity 99.7 cm/s LVOT Peak Gradient 4.0 mmHg AV Area Cont Eq pk 3.0 cm MV Peak Velocity 77.2 cm/s MV Peak Gradient 2.4 mmHg MV Mean Velocity 58.7 cm/s MV Mean Gradient 2.0 mmHg Mitral E Point Velocity 63.7 cm/s Mitral A Point Velocity 79.0 cm/s Mitral E to A Ratio 0.8 MV PHT Velocity 82.8 cm/s MV Deceleration Gillespie 252.0 cm/s MV Pressure Half Time 98.6 ms MV Area PHT 2.2 cm MV Deceleration Time 292.0 ms PV Peak Velocity 110.0 cm/s PV Peak Gradient 4.8 mmHg LV E' Lateral Velocity 8.0 cm/s Mitral E to LV E' Lateral Ratio 8.0 LV E' Septal Velocity 7.9 cm/s Mitral E to LV E' Septal Ratio 8.1 DICTATED BY: KERWIN BROWN,BUTCH Mcgovern DATE/TIME DICTATED:03/07/161214 CATH LAB TECH:KAYY DATE/TIME TRANSCRIBED:03/07/161214 -- SERVICE DATE: 03/08/16- EXAM TYPE: RAD - XRY-PORTABLE CHEST XRAY EXAMINATION: XR PORTABLE CHEST CLINICAL INFORMATION: Cough COMPARISON: 02/04/[address] 03/04/2016 TECHNIQUE: 80 degrees portable upright chest FINDINGS: Increasing prominence of bulky mediastinal adenopathy particularly in the AP window. Low lung volumes. 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 Grossly clear lungs. Basal atelectasis in the posterior recesses is not well depicted on this portable radiograph. IMPRESSION: Progressive bulky mediastinal adenopathy. Unable to a follow-up of basal atelectasis on portable imaging. DICTATED BY: KE OWEN MD DATE/TIME DICTATED:03/08/161452 CATH LAB TECH:KAYY DATE/TIME TRANSCRIBED:03/08/161452 Pertinent Lab Results: Laboratory Tests 03/12/16 0740: Anion Gap 13, Estimated GFR > 60, BUN/Creatinine Ratio 8.8, PT 21.6 H, INR 2.07 H 03/09/16 08: Anion Gap 12, Estimated GFR > 60, BUN/Creatinine Ratio 10.0, PT 15.8 H, INR 1.51 H Microbiology 03/09 1040 LOWER RESP: Respiratory Culture - COLB 03/09 1040 LOWER RESP: Gram Stain - COLB 03/09/1614: Anion Gap 12, Estimated GFR > 60, BUN/Creatinine Ratio 10.0, PT 15.8 H, INR 1.51 H Microbiology 03/09 1040 LOWER RESP: Respiratory Culture - COLB 03/09 1040 LOWER RESP: Gram Stain - COLB 03/09/16813: Anion Gap 12, Estimated GFR > 60, BUN/Creatinine Ratio 10.0, PT 15.8 H, INR 1.51 H 03/09/16 0220: Urinalysis MOD H, Urine Color YEL, Urine Clarity HAZY H, Urine pH 6.0, Ur Specific [place] 1.025, Urine Protein 30 H, Urine Ketones NEG, Urine Nitrite NEG, Urine Bilirubin NEG, Urine Urobilinogen 0.2, Ur Leukocyte Esterase NEG, Ur Microscopic SEDIMENT EXAMINED, Urine RBC >75 H, Urine WBC 3-5 H, Ur Epithelial Cells RARE, Urine Mucus FEW, Urine Hemoglobin LARGE H, Urine Glucose NEG Microbiology 03/09 1041 LOWER RESP: Respiratory Culture - COLB 03/09 1041 LOWER RESP: Gram Stain - COLB 03/09 0220 URINE ROUT: Urine Culture - RECD 03/08 2341 STOOL: Stool Culture - RECD 03/08 2205 BLOOD: Blood Culture - RES 03/08 2103 BLOOD: Blood Culture - RES 03/08/16 1415: CBC w Diff NO MAN DIFF REQ, RBC 4.07 L, MCV 80.6, MCH 26.4 L, RDW 15.0 H, MPV 8.5, Gran % 85.3 H, Lymphocytes % 9.7 L, Monocytes % 4.3, Eosinophils % 0.5, Basophils % 0.2, Absolute Granulocytes 4.6, Absolute Lymphocytes 0.5 L, Absolute Monocytes 0.2, Absolute Eosinophils 0, Absolute Basophils 0, PUBS MCHC 32.8 L 03/08/16 0709: PT 15.5 H, INR 1.48 H Microbiology 03/08 1259 STOOL: Clostridium difficile Toxin A & B - COLB 03/08 1133 URINE ROUT: Urine Culture - COLB 03/08 0830 STOOL: Clostridium difficile Toxin A & B - COMP 03/07 1457 LOWER RESP: Respiratory Culture - CAN Cancelled: SPECIMEN NOT RECEIVED IN LABORATORY 03/07 1456 LOWER RESP: Gram Stain - CAN Cancelled: SPECIMEN NOT RECEIVED IN LABORATORY 03/07/16 0600: PT 12.9 H, INR 1.23 H, CBC w Diff NO MAN DIFF REQ, RBC 4.17 L, MCV 81.9, MCH 26.6 L, RDW 15.1 H, MPV 8.4, Gran % 73.7, Lymphocytes % 18.6 L, Monocytes % 5.3, Eosinophils % 1.8, Basophils % 0.6, Absolute Granulocytes 5.4, Absolute Lymphocytes 1.4, Absolute Monocytes 0.4, Absolute Eosinophils 0.1, Absolute Basophils 0, PUBS MCHC 32.5 L Microbiology 03/07 1053 LOWER RESP: Respiratory Culture - ORD 03/07 1053 LOWER RESP: Gram Stain - ORD 03/06/16 0600: Anion Gap 13, Estimated GFR > 60, BUN/Creatinine Ratio 17.0, PT 12.3, INR 1.17, CBC w Diff NO MAN DIFF REQ, RBC 3.96 L, MCV 81.1, MCH 27.2, RDW 15.0 H, MPV 8.8, Gran % 72.4, Lymphocytes % 20.9, Monocytes % 4.5, Eosinophils % 1.3, Basophils % 0.9, Absolute Granulocytes 6.7 H, Absolute Lymphocytes 2.0, Absolute Monocytes 0.4, Absolute Eosinophils 0.1, Absolute Basophils 0.1, PUBS MCHC 33.5 03/05/16 1300: Anion Gap 14, Estimated GFR > 60, BUN/Creatinine Ratio 13.6, Troponin I < 0.01, CBC w Diff NO MAN DIFF REQ, RBC 4.44 L, MCV 82.4, MCH 26.4 L, RDW 15.1 H, MPV 7.9, Gran % 77.1 H, Lymphocytes % 16.0 L, Monocytes % 4.5, Eosinophils % 0.8, Basophils % 1.6, Absolute Granulocytes 8.6 H, Absolute Lymphocytes 1.8, Absolute Monocytes 0.5, Absolute Eosinophils 0.1, Absolute Basophils 0.2, PUBS MCHC 32.0 L 03/05/16 0500: Sodium Cancelled, Potassium Cancelled, Chloride Cancelled, Carbon Dioxide Cancelled, Anion Gap Cancelled, BUN Cancelled, Creatinine Cancelled, BUN/ Creatinine Ratio Cancelled 03/05/16 0444: APTT 28 03/05/16 0205: Troponin I < 0.01, Lipase 118 03/04/16 1645: Urine Color YEL, Urine Clarity CLDY H, Urine pH 6.0, Ur Specific [place] >= 1.030, Urine Protein 100 H, Urine Ketones 15 H, Urine Nitrite NEG, Urine Bilirubin NEG, Urine Urobilinogen 0.2, Ur Leukocyte Esterase SMALL H, Ur Microscopic SEDIMENT EXAMINED, Urine RBC >75 H, Urine WBC 10-15 H, Ur Epithelial Cells RARE, Urine Mucus MOD H, Urine Hemoglobin LARGE H, Urine Glucose NEG 03/04/16 1615: Lactic Acid 1.4 03/04/16 1615: Anion Gap 12, Estimated GFR > 60, BUN/Creatinine Ratio 16.0, Glucose 134 H, Calcium 8.6, Total Bilirubin 0.6, AST 28, ALT 33, Alkaline Phosphatase 151 H, Troponin I < 0.01, Total Protein 6.2 L, Albumin 3.3 L, Globulin 2.9, Albumin/ Globulin Ratio 1.1, D-Dimer 3921 H, CBC w Diff NO MAN DIFF REQ, RBC 4.26 L, MCV 82.3, MCH 26.6 L, RDW 15.0 H, MPV 7.9, Gran % 85.2 H, Lymphocytes % 9.4 L, Monocytes % 4.5, Eosinophils % 0.2, Basophils % 0.7, Absolute Granulocytes 10.2 H, Absolute Lymphocytes 1.1 L, Absolute Monocytes 0.5, Absolute Eosinophils 0, Absolute Basophils 0.1, PUBS MCHC 32.4 L EKG on 03/04/16: HR 85, sinus rhythm, T abnormalities anterior leads, borderline prolonged QT interval. QTC 481 Disposition Summary Disposition Principal Diagnosis: Pulmonary embolism Additional Diagnosis: Prostate cancer with metastasis stage IV Obstructive uropathy, status post bilateral nephrostomy Discharge Disposition: home health services Discharge Instructions General Discharge Information Code Status: Full Code Patient's Diet: Regular diet, heart healthy Patient's Activity: As tolerated Follow-Up Instructions/Appts: Follow up with PCP in seven-ten days time. You have been started on blood thinner for pulmonary embolism (lung clots). You need to take it daily and have regular checkup of INR (blood test). Please visit your PCP for necessary dose adjustment, and follow up. Please visit the Emergency Department if you fall down, have bleeding of any kind. You are at increased shara of bleeding as you are taking blood thinner. Nephrostomy dressing on both sides need to be changed twice a week. Follow up with Dr. Byrne in two-three weeks after discharge, earlier if necessary. Follow up with Dr Mondragon within ten days of discharge. Avoid sick contacts, use masks and wash hands if close to sick people. (General precaution) Return to emergency if symptoms worsen. Medications at Discharge Discharge Medications: Continue taking these medications: Bicalutamide (Bicalutamide) 50 MG TABLET 1 Tablet ORAL DAILY Qty = 30 Comments: Last Taken:03/12/16 Time: 0518 AM Tamsulosin HCl (Tamsulosin HCl) 0.4 MG CAP.ER.24H 1 Capsule ORAL TWICE DAILY Qty = 30 Comments: Last Taken: 03/12/16 Time: 0517 AM Naloxegol Oxalate (Movantik) 25 MG TABLET 1 Tablet ORAL DAILY as needed for CONSTIPATION Qty = 30 Comments: NOT TAKEN IN HOSPITAL Morphine Sulfate (Morphine Sulfate) 15 MG TABLET 30 Milligram ORAL EVERY 4 HOURS NEEDED as needed for PAIN SCALE 7-10 ( SEVERE) Qty = 15 Comments: Last Taken: 03/02/15 Time: 0513 AM Polyethylene Glycol 3350 (Miralax) 17 GRAM/DOSE POWDER 17 Gram ORAL DAILY Days = 28 Comments: Last Taken: 03/07/16 Time: 0845 Sennosides/Docusate Sodium (Senna Plus Tablet) 8.6 MG-50 MG TABLET 2 Tablet ORAL DAILY as needed for CONSTIPATION Days = 28 Comments: Last Taken:03/04/16 Time:2200 Finasteride (Finasteride) 5 MG TABLET 5 Milligram ORAL DAILY Days = 28 Comments: Last Taken: 03/03/15 Time: 1000 Start taking the following new medications: Warfarin Sodium (Coumadin) 5 MG TABLET 5 Milligram ORAL COUMADIN AT 5PM Qty = 30 Refills = 1 Benzonatate (Benzonatate) 100 MG CAPSULE 100 Milligram ORAL THREE TIMES DAILY Qty = 9 No Refills Guaifenesin (Guaifenesin ER) 600 MG TAB.ER.12H 600 Milligram ORAL EVERY 12 HOURS Qty = 10 No Refills Moxifloxacin HCl (Moxifloxacin HCl) 400 MG TABLET 400 Milligram ORAL DAILY Days = 9 No Refills Copies To: MATTHEW VALDEZ DO
== END 2016-03-12 14:12 | disposition home health service (06) | DRG 134 ==
LOC: ERH 14:41 → ERHI 19:15 → 2NA 03-06 04:09
PROVIDERS: Emergency Medicine; Internal Medicine; ADMIT Internal Medicine
DX: I26.99 Other pulmonary embolism without acute cor pulmonale (principal); J18.9 Pneumonia, unspecified organism; C78.00 Secondary malignant neoplasm of unspecified lung; C79.51 Secondary malignant neoplasm of bone; C61 Malignant neoplasm of prostate; Z93.6 Other artificial openings of urinary tract status; Z19.2 Hormone resistant malignancy status
CPT/HCPCS: 2NAP; ERO; 36415; 74177; 76775; 81001; 82436; 87040; 87045; 87070; 87086; 87804; 87804-59; 93005; 93010; 93306; 93970; 96374; J0713; J1644; J1650; J2405; J2765; J3370; J7040; J9202

== ENCOUNTER 2016-03-20 16:21 | Inpatient (IN) | payer OTHER ==
[~2016-03-20] VITALS: Ht 185.4 cm; Wt 129.3 kg
[~2016-03-20 16:21] MED LIST changes: +BENZONATATE100 M1 PO; +COUMADIN5 M2 PO; +GUAIFENESIN ER600 MG PO; +MOXIFLOXACIN H400 M2 PO
--- NOTE | 2016-03-20 16:34 | NUR ---
PT SIB DR VALDEZ FOR ORTHOSTATIC BP, POSSIBLE SEPSIS AND R/O PE. PT CURRENTLY ON CHEMO FOR STAGE 4 PROSTATE CA, RECENTLY ADMITTED FOR PE AND PNA WELL. STATES HE SAW DR VALDEZ FOR F/U TODAY AND REPORTED THAT "I FEEL LIKE I CAN'T CATCH MY BREATHE, IM ALWAYS SO TIRED." ALSO STATING THAT "PUS IS COMING OUT OF MY NEPHROSTOMY SITE". LAST DOSE CHEMO WEDNESDAY AT [facility], ALSO CONTINUE TO C/O CONSTANT FROTHY SPUTUM AND INTERMITTENT FEVERS.
--- NOTE | 2016-03-20 16:46 | NUR ---
PER TRIAGE PT NEEDS TO GO TO ROOM,
--- NOTE | 2016-03-20 17:08 | ED GENERAL ADULT ---
History of Present Illness General Chief Complaint: General Adult Stated Complaint: SIB BY FOR POSSIBLE SEPSIS Source: patient, family, old records Exam Limitations: no limitations Vital Signs & Intake/Output Vital Signs & Intake/Output ED Intake and Output 03/24 0000 03/23 1200 Intake Total 120 Output Total 850 Balance -730 Intake, Oral 120 Output, Urine 850 Allergies Coded Allergies: ragweed pollen (Intermediate, NASAL CONGESTION 01/07/16) Penicillins (UNKNOWN 02/27/16) Triage Note: PT SIB DR VALDEZ FOR ORTHOSTATIC BP, POSSIBLE SEPSIS AND R/O PE. PT CURRENTLY ON CHEMO FOR STAGE 4 PROSTATE CA, RECENTLY ADMITTED FOR PE AND PNA WELL. STATES HE SAW DR VALDEZ FOR F/U TODAY AND REPORTED THAT "I FEEL LIKE I CAN'T CATCH MY BREATHE, IM ALWAYS SO TIRED." ALSO STATING THAT "PUS IS COMING OUT OF MY NEPHROSTOMY SITE". LA[facility] DO[facility], ALSO CONTINUE TO C/O CONSTANT FROTHY SPUTUM AND INTERMITTENT FEVERS. Triage Nurses Notes Reviewed? yes Onset: Gradual Duration: worse persistent since (3 DAYS) Timing: recent history Injury Environment: home Severity: moderate Severity Numbers: 7 No Modifying Factors: none HPI: Patient is a 55-year-old male with recent history of pneumonia, diagnosis with pulmonary embolus, on Coumadin presenting to the emergency department with chief complaint of generalized malaise, nausea, decreased by mouth intake, tactile fevers and episodes of hypotension at the primary care physician office today. Patient reports that he was recently discharged from the hospital approximately one week ago. He was admitted for pulmonary embolus. He also reports recent history of nephrostomy tube placement. He currently has history of prostate cancer stage IV. Underwent chemotherapy within the past couple days after discharge. Patient also reporting productive cough of white sputum, increasing shortness of breath. was recently diagnosed with influenza, just finished Tamiflu. Denies diarrhea. Per there has been increased redness around the nephrostomy tube insertion site. also reports some purulent discharge around the nephrostomy tube. (AUNG BENAVIDEZ,SEAN) Reconcile Medications Bicalutamide 50 MG TABLET 1 TAB PO DAILY HORMONE (Reported) Finasteride 5 MG TABLET 5 MG PO DAILY prostate Morphine Sulfate 15 MG TABLET 30 MG PO Q4 HRS NEEDED PRN PAIN SCALE 7-10 ( SEVERE) Naloxegol Oxalate (Movantik) 25 MG TABLET 1 TAB PO DAILY PRN CONSTIPATION Polyethylene Glycol 3350 (Miralax) 17 GRAM/DOSE POWDER 17 GM PO DAILY constipation Prochlorperazine Maleate 10 MG TABLET 1 TAB PO Q6 PRN N/V (Reported) Sennosides/Docusate Sodium (Senna Plus Tablet) 8.6 MG-50 MG TABLET 2 TAB PO DAILY PRN CONSTIPATION Tamsulosin HCl 0.4 MG CAP.ER.24H 1 CAP PO BID PROSTATE (Reported) Warfarin Sodium (Coumadin) 2.5 MG TABLET 1 TAB PO AD BLOOD THINNER (Reported) Warfarin Sodium 5 MG TABLET 1 TAB PO AD BLOOD THINNER (Reported) (MARLA BROWN,CHECO) Past History Travel History Traveled to [place] past 21 day No Medical History Any Pertinent Medical History? see below for history Neurological: NONE EENT: NONE Cardiovascular: NONE Respiratory: obstructive sleep apnea, pulmonary embolism, (DOES NOT USE CPAP) Gastrointestinal: NONE Hepatic: NONE Renal: BILATERAL NEPHROSTOMY Musculoskeletal: NONE Psychiatric: NONE Endocrine: NONE Blood Disorders: NONE Cancer(s): prostate cancer, METS TO the lymph nodes, bone and, possibly, the liver HIGH [employer] ART [employer]ER/Reproductive: PROSTATE CA METS TO LYMPH History of MRSA: No History of VRE: No History of CDIFF: No Surgical History Surgical History: prostatectomy, TONSILS Psychosocial History Who do you live with Significant Other Services at Home None What is your primary language Vietnamese Tobacco Use: Never used ETOH Use: denies use Illicit Drug Use: denies illicit drug use Family History Hx Contributory? No (SEAN CHOWDHURY) Review of Systems Review of Systems Constitutional: Reports: see HPI, chills, fever, malaise. Comments Review of systems: See HPI, All other systems negative. Constitutional, nO weight loss HEENT: No visual changes no sore throat no congestion Cardiovascular: No chest pain ,palpitation , orthopnea or ankle swelling Skin, no jaundice no rashes Respiratory: No hemoptysis GI: no vomiting : No dysuria No hematuria Muscle skeletal: no neck pain, Neurologic: No numbness no confusion Psych: No stress anxiety or depression,. Heme/endocrine: No bruising no bleeding no polyuria or polydipsia Immunology: No splenectomy or history of AIDS (SEAN CHOWDHURY) Physical Exam Physical Exam General Appearance: well developed/nourished, no apparent distress, alert, awake , obese, FATIGUED Comments: Well-developed well-nourished person in no acute distress HEENT: Pupils equally round and reactive to light and accommodation. Amblyopia present. Nose is atraumatic. External auditory canal and Tympanic membranes clear. Pharynx normal. No swelling or edema. Dry oral mucosa. Neck: Supple, no lymphadenopathy, normal range of motion without pain or tenderness Back: Nontender, no CVA tenderness. Full range of motion. Slight erythema surrounding nephrostomy tube bilaterally, right greater than left. Yellow cloudy urine coming from nephrostomy tube. Cardiovascular: Regular rate and rhythms no murmurs rubs or gallops, normal JVP Respiratory: Chest nontender. No respiratory distress.breath sounds clear to auscultation bilaterally Abdomen: Soft, obese, diffuse tenderness, no rebound or guarding, nondistended, no appreciable organomegaly. Normal bowel sounds. No ascites. Old bruising noted in the lower abdomen. Extremity: No edema, no calf tenderness to palpation, normal and equal pulses. Neuro: Alert oriented x3, motor sensory normal, cranial nerves II through XII grossly intact. Skin: No appreciable rash on exposed skin, skin is warm and dry. Psych: Mood and affect is normal, memory and judgment is normal. Core Measures ACS in differential dx? No CVA/TIA Diagnosis: No Severe Sepsis Present: No BC x2: Yes Lactic Acid x2: Yes IV ABX Broad Spectrum: Yes NS/LR Started: Yes Septic Shock Present: No (SEAN CHOWDHURY) Progress Differential Diagnoses I considered the following diagnoses in my evaluation of the patient: Electrolyte abnormality, dehydration, acute kidney injury, urosepsis, bacteremia , pneumonia, bronchitis, influenza, failed outpatient treatment CXR Impression: no acute abnormality, no infiltrates, normal size heart, normal mediastinum Initial ED EKG: NSR Comments: On arrival patient is febrile appears fatigued. Patient has erythema surrounding nephrostomy tubes, cloudy yellow urine draining from nephrostomy tubes. Diffuse abdominal pain on exam. We will assess CBC, CMP, blood cultures Patient will be medicated with IV fluids. 2 L ordered initially. Patient still feeling fatigued after IV hydration. Urinalysis shows UTI. Patient will be admitted for UTI, rule out sepsis, IV fluids. Discharged time would be clinically harmful. IV vancomycin and ceftaz ordered secondary to recent hospital stay. Patient will need urology consultation. Chest x-ray shows no pneumonia. (AUNG BENAVIDEZ,SEAN) Differential Diagnoses I considered the following diagnoses in my evaluation of the patient: Plan of Care: Orders Procedure Date/time Status Regular Diet 03/21 B Active PROTHROMBIN TIME 03/21 0600 Active CBC WITHOUT DIFFERENTIAL 03/21 0600 Active BASIC ELECTROLYTES PLUS BUN&CR 03/21 0600 Active URINALYSIS 03/20 2338 Active Vital Signs 03/20 2326 Complete Teach/Educate 03/20 232 Active Nutritional Intake, Monitor 03/20 2326 Active Isolation 03/20 232 Active Intake & Output 03/20 2326 Complete Patient Care Conference 03/20 2326 Active Activity/Ambulation 03/20 232 Active LACTIC ACID 03/20 2300 Active Pathway - chart 03/20 224 Active House Staff 03/20 2246 Active Code Status 03/20 2246 Active LOWER RESPIRATORY CULTURE 03/20 2132 Active LACTIC ACID 03/20 2006 Complete Saline Lock 03/20 192 Active Misc Message 03/20 192 Active ED Holding Orders 03/20 1921 Active Vital Signs 03/20 1921 Active Code Status 03/20 1921 Complete Admit to inpatient 03/20 1920 Active Patient Data 03/20 1910 Active Intake & Output 03/20 1837 Active PARTIAL THROMBOPLASTIN TIME 03/20 1822 Complete PROTHROMBIN TIME 03/20 1822 Complete Add-on Test (ER Only) 03/20 1755 Active Telemetry/Junior Estimator 03/20 1707 Complete RAPID VIRAL INFLUENZA A 03/20 1707 Complete CULTURE,URINE 03/20 1707 Active BLOOD CULTURE 03/20 1707 Active URINALYSIS 03/20 1707 Complete TROPONIN LEVEL 03/20 1707 Complete LACTIC ACID 03/20 1707 Complete COMPREHENSIVE METABOLIC PANEL 03/20 1707 Complete CBC WITHOUT DIFFERENTIAL 03/20 1707 Complete EKG 03/20 1636 Active VTE Mechanical Prophylaxis 03/20 UNK Active Current Medications Sig/[place] Start time Last Medication Dose Stop Time Status Admin Bicalutamide 50 MG DAILY 03/21 1000 AC (Casodex 50MG) Finasteride 5 MG DAILY 03/21 1000 AC (Proscar) Polyethylene Glycol 17 GM DAILY 03/21 1000 AC (Miralax) Tamsulosin HCl 0.4 MG BID 03/21 1000 AC (Flomax) Prochlorperazine 10 MG Q6 PRN 03/20 2299 AC (Compazine) Senna/Docusate Sodium 2 TAB DAILY PRN 03/20 2299 AC (Senokot S) Laboratory Tests 03/20/16 2340: Lactic Acid Pending 03/20/16 2000: Lactic Acid 2.3 H 03/20/16 1825: PT 22.6 H, INR 2.17 H, APTT 30 03/20/16 172: Urine Color YEL, Urine Clarity HAZY H, Urine pH 6.0, Ur Specific [place] 1.025, Urine Protein 100 H, Urine Ketones NEG, Urine Nitrite NEG, Urine Bilirubin NEG, Urine Urobilinogen 0.2, Ur Leukocyte Esterase SMALL H, Ur Microscopic SEDIMENT EXAMINED, Urine RBC >75 H, Urine WBC 50-75 H, Ur Epithelial Cells RARE, Urine Mucus MANY H, Urine Hemoglobin LARGE H, Urine Glucose NEG 03/20/16 1710: Anion Gap 10, Estimated GFR > 60, BUN/Creatinine Ratio 13.3, Glucose 117 H, Lactic Acid 2.5 H, Calcium 7.5 L, Total Bilirubin 0.7, AST 51, ALT 40, Alkaline Phosphatase 166 H, Troponin I < 0.01, Total Protein 6.1 L, Albumin 3.4 L, Globulin 2.7, Albumin/Globulin Ratio 1.3, CBC w Diff MAN DIFF ORDERED, RBC 4.05 L, MCV 80.5, MCH 26.5 L, RDW 15.7 H, MPV 8.2, Gran % 90.7 H, Lymphocytes % 8.1 L, Monocytes % 0.7 L, Eosinophils % 0.2, Basophils % 0.3, Absolute Granulocytes 13.7 H, Segmented Neutrophils 72, Band Neutrophils 16 H, Absolute Lymphocytes 1.2, Lymphocytes 8 L, Absolute Monocytes 0.1 L, Absolute Eosinophils 0, Basophils 1, Absolute Basophils 0, Metamyelocytes 2 H, Myelocytes 1 H, Platelet Estimate ADEQUATE, Polychromasia 1+, Hypochromic- Microcytic 2+, Anisocytosis 1+, Ovalocytes 1+, PUBS MCHC 32.9 L Microbiology 03/20 2131 LOWER RESP: Respiratory Culture - ORD 03/20 2131 LOWER RESP: Gram Stain - ORD 03/20 173 BLOOD: Blood Culture - RECD 03/20 1720 URINE ROUT: Urine Culture - RECD 03/20 1709 BLOOD: Blood Culture - RECD Diagnostic Imaging: Viewed by Me: Radiology Read. Discussed w/RAD: Radiology Read. (CHECO GUTIÉRREZ MD) Departure Departure Time of Disposition: 1838 Condition: Stable Clinical Impression Primary Impression: Urinary tract infection Qualifiers: Urinary tract infection type: site unspecified Hematuria presence: with hematuria Qualified Codes: N39.0 - Urinary tract infection, site not specified; R31.9 - Hematuria, unspecified Secondary Impressions: Bandemia Fever Qualifiers: Fever type: unspecified Qualified Code: R50.9 - Fever, unspecified Referrals: MATTHEW VALDEZ DO (PCP/Family) Departure Forms: Customer Survey General Discharge Information Admission Note Spoke With: ANTIONE REECE MD Documentation of Exam: Documentation of any treatments & extenuating circumstances including Concerns Regarding Discharge (functional status, medication knowledge or non-compliance, living conditions, etc.) that warrant an admission rather than observation: Patient requiring IV fluids, IV antibiotics, rule out sepsis, blood cultures to return, urology consultation. Discharge at this time would be medically harmful which end in sepsis and . (SEAN CHOWDHURY) Departure Disposition: STILL A PATIENT PA/SEWER PIPE OFFBEARER Co-Sign Statement Statement: ED Attending supervision documentation- [X] I saw and evaluated the patient. I have also reviewed all the pertinent lab results and diagnostic results. I agree with the findings and the plan of care as documented in the PA's/SEWER PIPE OFFBEARER's documentation. [X] I have reviewed the ED Record and agree with the PA's/SEWER PIPE OFFBEARER's documentation. [] Additions or exceptions (if any) to the PAs/SEWER PIPE OFFBEARER's note and plan are summarized below: [] (CHECO GUTIÉRREZ MD) Critical Care Note Critical Care Note Critical Care Time: 30-74 min (SEAN CHOWDHURY) PA/SEWER PIPE OFFBEARER Co-Sign Statement Statement: ED Attending supervision documentation- [X] I saw and evaluated the patient. I have also reviewed all the pertinent lab results and diagnostic results. I agree with the findings and the plan of care as documented in the PA's/SEWER PIPE OFFBEARER's documentation. [X] I have reviewed the ED Record and agree with the PA's/SEWER PIPE OFFBEARER's documentation. [] Additions or exceptions (if any) to the PAs/SEWER PIPE OFFBEARER's note and plan are summarized below: [] (CHECO GUTIÉRREZ MD) Critical Care Note Critical Care Note Critical Care Time: 30-74 min (AUNG BENAVIDEZ,SEAN)
[2016-03-20] MEDS ORDERED: COUMADIN2.5 M1 PO (17:10)
[2016-03-20] MEDS ORDERED: WARFARIN SODIUM5 M1 PO (17:10)
[2016-03-20] MEDS ORDERED: PROCHLORPERAZIN10 MG PO (17:12)
--- NOTE | 2016-03-20 17:29 | RADIOLOGY REPORT ---
EXAMINATION: XR PORTABLE CHEST CLINICAL INFORMATION: Shortness of breath. COMPARISON: Chest x-ray 03/20/2016 TECHNIQUE: Portable view of the chest was obtained. 5:16 PM FINDINGS: No significant abnormality is noted involving the heart, lungs, mediastinum, bony thorax or soft tissues. IMPRESSION: No acute abnormality of the chest.
[2016-03-20 17:40] LABS: ABSOLUTE BASOPHIL COUNT 0 /CUMM (0.0-0.2); ABSOLUTE EOSINOPHIL COUNT 0 /CUMM (0.0-0.7); ABSOLUTE GRANULOCYTE CT 13.7 /CUMM (1.4-6.5); ABSOLUTE LYMPH COUNT 1.2 /CUMM (1.2-3.4); ABSOLUTE MONOCYTE COUNT 0.1 /CUMM (0.10-0.60); BASOPHIL % 0.3 % (0.0-2.0); EOSINOPHIL % 0.2 % (0-5); GRANULOCYTE % 90.7 % (42.2-75.2); HEMATOCRIT 32.6 % (42-52); MEAN CORPUSCULAR HGB 26.5 PG (27.0-31.0); MEAN CORPUSCULAR HGB CONC 32.9 G/DL (33.0-37.0); MEAN CORPUSCULAR VOLUME 80.5 FL (80.0-94.0); MEAN PLATELET VOLUME 8.2 FL (7.4-10.4); PLATELET COUNT 254 /CUMM (130-400); RBC DISTRIBUTION WIDTH 15.7 % (11.5-14.5); RED BLOOD CELL CT 4.05 /CUMM (4.70-6.10); WHITE BLOOD CELL COUNT 15.1 /CUMM (4.8-10.8)
--- NOTE | 2016-03-20 17:53 | NUR ---
CRITICAL TEST RESULTS [id number] EFRAIN OLIVERA 55 M TESTS AND RESULTS: LACTIC ACID 2.5 Results received and read back by: RAMONE BETTS Results received date and time: 03/20/16 1753 The following provider was notified of the results, and read the results back: PRAMOD HORAN Notified date and time: 03/20/16 at 1754
--- NOTE | 2016-03-20 18:17 | NUR ---
PER LAB DID NOT RECIEVE ANY BLUE TUBE ON THIS PT, THIS RN IN ROOM WITH PA WHEN PT REPORTS HX OF PE. BLUE TUBE WAS SENT. PER LAB NO EXTRA TUBES IN LAB PER ZANDRA FOUND SEVERAL TUBES TUBES AFTER THIS RN INSISTANCE, BUT NONE EXCEPT 1 UNLABELED TUBE, LAB AWARE IT WILL BE REDRAWN AND ADD ON ORDERED NEW TEST
--- NOTE | 2016-03-20 18:45 | NUR ---
AWAKE ALERT NO DISTRESS.O2 SATS WNL LUNGS CLEAR NO COUGH, MEAL ORDERED AT 1830
[2016-03-20 18:52] LABS: PT 22.6 SEC (9.4-12.5); PTT 30 SEC (25-37)
--- NOTE | 2016-03-20 18:55 | NUR ---
PT. GIVEN LUCNH TRAY, HAM AND CHEESE SANDWICH, AND AGUIE
--- NOTE | 2016-03-20 20:12 | NUR ---
HOUSESTAFF AT BEDSIDE REPORTS BACK HURTS WHERE TUBES ARE. PT DENIES DESIDE OT TURN ON SIDE OR PROP PILLOW AT BACK
--- NOTE | 2016-03-20 20:16 | NUR ---
BED ASSIGNMENT [id number]
--- NOTE | 2016-03-20 20:22 | NUR ---
REPORT TO LAMINE. WHEN HOUSESTAFF FINISHED REPORT WILL BE CALLED,
--- NOTE | 2016-03-20 20:38 | History & Physical ---
DANI TRAORE MD 03/20/162036: General Information and HPI MD Statement: I have seen and personally examined EFRAIN OLIVERA and documented this H&P. The patient is a 55 year old M who presented with a patient stated chief complaint of [ORTHOSTATIC HYPOTENSION AND FEVER]. Source of Information: patient, family Exam Limitations: no limitations History of Present Illness: 55-year-old male with PMH of stage 4 prostate cancer, bilateral nephrostomy tubes, hx of pulmonary embolism on warfarin, was sent in by Dr. Valdez for further evaluation of orthostatic hypotension and fever found during office visit today. Brandon was at bedside during history and physical exam. According to pt, his BP went from systolic 158 lying to 99 standing. He was also feeling warm prior to coming to the ED. He was recently discharged 1 week ago. He was feeling fine for a couple of days, although his cough, productive of thick white frothy sputum persisted, despite him being on moxifloxacin (has 1 more day left). He had rapid shallow breathing earlier today because he was not able to catch his breath, he has been feeling tired. Since last discharge, there was already erythema and pus drainage from right nephrostomy tube. But since yesterday, the left one also became red, tender, with pus drainage. Pt reports excruciating pain on the right, "feels like it's on fire". The pain was relieved with change of dressing done by his fiance last night. He reports abdominal pain, mostly in the suprapubic area. Since he had TURP feb 10 2016, he had frankly bloody discharge and blood clots from his urethra. He also has pain with urination. The color of his urine from both nephrostomy tubes are reportedly "better". His BM has been normal, but he has not had BM today. He lost 10 lbs in a month. His appetite has been poor, he is eating "half of what he normally eats" He also reported headache today. His fiance was recently diagnosed with flu and had finished her tamiflu course. Pt was admitted in January 2016 for pyelonephritis with coag negative staph, treated with vancomycin and bactrim. Pt was again admitted in March 2016 for pulmonary embolism and pneumonia treated with bactrim and ceftazidime, followed by outpatient moxifloxacin. Allergies/Medications Allergies: Coded Allergies: ragweed pollen (Intermediate, NASAL CONGESTION 01/07/16) Penicillins (UNKNOWN 02/27/16) Home Med list Bicalutamide 50 MG TABLET 1 TAB PO DAILY HORMONE (Reported) Finasteride 5 MG TABLET 5 MG PO DAILY prostate Morphine Sulfate 15 MG TABLET 30 MG PO Q4 HRS NEEDED PRN PAIN SCALE 7-10 ( SEVERE) Moxifloxacin HCl 400 MG TABLET 400 MG PO DAILY infection Naloxegol Oxalate (Movantik) 25 MG TABLET 1 TAB PO DAILY PRN CONSTIPATION Polyethylene Glycol 3350 (Miralax) 17 GRAM/DOSE POWDER 17 GM PO DAILY constipation Prochlorperazine Maleate 10 MG TABLET 1 TAB PO Q6 PRN N/V (Reported) Sennosides/Docusate Sodium (Senna Plus Tablet) 8.6 MG-50 MG TABLET 2 TAB PO DAILY PRN CONSTIPATION Tamsulosin HCl 0.4 MG CAP.ER.24H 1 CAP PO BID PROSTATE (Reported) Warfarin Sodium (Coumadin) 2.5 MG TABLET 1 TAB PO AD BLOOD THINNER (Reported) Warfarin Sodium 5 MG TABLET 1 TAB PO AD BLOOD THINNER (Reported) Past History Travel History Traveled to [place] past 21 day No Medical History Neurological: NONE EENT: NONE Cardiovascular: NONE Respiratory: obstructive sleep apnea, pulmonary embolism, (DOES NOT USE CPAP) Gastrointestinal: NONE Hepatic: NONE Renal: BILATERAL NEPHROSTOMY Musculoskeletal: NONE Psychiatric: NONE Endocrine: NONE Blood Disorders: NONE Cancer(s): prostate cancer, METS TO the lymph nodes, bone and, possibly, the liver [employer] OFFICER/Reproductive: PROSTATE CA METS TO LYMPH History of MRSA: No History of VRE: No History of CDIFF: No Surgical History Surgical History: prostatectomy, TONSILS Past Family/Social History Psychosocial History Where do you live? Home Who Do You Live With? brandon, getting June Services at Home: None Primary Language: Tuvaluan ETOH Use: denies use Illicit Drug Use: denies illicit drug use Review of Systems Review of Systems Constitutional: Reports: fever, unexplained weight loss. Denies: chills. EENTM: Denies: visual changes. Cardiovascular: Denies: chest pain, palpitations. Respiratory: Reports: cough, short of breath, sputum production. GI: Reports: abdominal pain. Denies: constipation, diarrhea, nausea, bloody stool, changes in stool. Genitourinary: Reports: hematuria, pain. Musculoskeletal: Reports: back pain. Exam & Diagnostic Data Last 24 Hrs of Vital Signs/I&O Vital Signs Date Time Temp Pulse Resp B/P Pulse O2 O2 Flow FiO2 Ox Delivery Rate 03/20 1926 97.9 100 18 127/68 98 Room Air 03/20 1803 100.7 03/20 1656 100.7 105 18 126/61 95 Room Air Physical Exam General Appearance Alert, Oriented X3, Cooperative, No Acute Distress Skin SITE OF BILATERAL NEPHROSTOMY TUBE RED AND TENDER (RIGHT MORE THAN LEFT), NO PUS DRAINAGE NOTED. , DARK ORANGE URINE FROM RIGHT NEPHROSTOMY TUBE. 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 HEENT Atraumatic, Mucous Membr. moist/pink Neck Supple, No JVD, +2 Carotid Pulse wo Bruit, No LAD Lymphatic Axillary nl, Cervical nl Cardiovascular Regular Rate, Normal S1, Normal S2, No Murmurs, Gallops, Rubs, TACHYCARDIC Lungs MILD RHONCHI AT LUNG BASES Abdomen Normal Bowel Sounds, Soft, SLIGHTLY TENDER SUPRAPUBIC AREA Neurological Normal Speech Extremities Normal Pulses, DRY EXTREMITIES , TRACE PITTING EDEMA BILATERALLY , NORMAL CAP REFILL Diagnostic Data EKG Results Sinus tachy 107 Qtc 475 CXR Results IMPRESSION: No acute abnormality of the chest. Other Results CT 1. Increasing size and number of hepatic masses since CAT scan of 03/04/2016. 2. Persistent enlarged prostate. 3. Persistent sclerotic lesions in the osseous skeleton suspicious of metastasis. 4. Persistent retroperitoneal and pelvic lymphadenopathy. 5. Percutaneous nephrostomy catheters in place without acute change of the kidneys. No evidence of pyelonephritis of the kidneys. No abscess or inflammation in abdomen or pelvis. X. Bibasilar infiltrate/atelectasis. Assessment/Plan Assessment: 55-year-old male with PMH of stage 4 prostate cancer with mets to lung and bone, sp TURP 02/10/16, obstructive uropathy sp bilateral nephrostomy tubes, with UC + for coag negative staph, hx of pulmonary embolism on warfarin, was sent in by Dr. Valdez for further evaluation of orthostatic hypotension and fever found during office visit today. Pt admitted to with the following problems addressed. # Sepsis of most likely urological origin with leukocytosis and bandemia, tachycardia, fever, and UA with small LE and WBC 50-75, vs HCAP (recent hospitalization, cough not resolving, but negative cxr findings) - Given 1 time vanco and ceftaz in ED - rapid flu negative * Follow lactic acid , initial 2.5 --> 1.2. Received 2L bolus followed by 100ml/ hr NS * Urology consult * Consider repeat CXR tomorrow * Continue vanco and ceftaz * Pain control with morphine sulfate 30 mg q4 as needed * Bowel regimen * BC, UC, LRC # Hx of PE on warfarin * Continue 2.5 mg on M,W,F, Sat * Continue 5 mg Tue, Hanna, Sun * Daily INR checks # Stage 4 prostate cancer * Continue flomax 0.4 mg * Continue finasteride 5 mg * Continue bicalutamide 50 mg Diet: regular DVT ppx: mech and pharm FULL CODE As Ranked By This Provider Problem List: 1. Urinary tract infection Qualifiers Urinary tract infection type: site unspecified Hematuria presence: with hematuria Qualified Codes: N39.0 - Urinary tract infection, site not specified; R31.9 - Hematuria, unspecified 2. Sepsis Core Measures/Miscellaneous Acute Coronary Syndrome ACS Diagnosis: No Cerebrovascular Accident CVA/TIA Diagnosis: No Congestive Heart Failure CHF Diagnosis: No Venous Thromboembolism VTE Risk Factors: Acute medical illness, Age > 40 VTE Prophylaxis Ordered Inpt: Mech & Pharm No Mech VTE prophylaxis d/t: No contraindications No VTE Pharm Prophylaxis d/t: No contraindications VTE Diagnosis: No VTE Type: NONE VTE Confirmed by (Test): NONE Severe Sepsis Severe Sepsis Present: No Septic Shock Septic Shock Present: No Miscellaneous Documentation Attending Case Discussed With: ANTIONE REECE MD Primary Care Physician: BLAIRE VALDEZ DO Patient sees these Specialists Dr Granados urology Dr Au hematology/oncology Level of Patient Care: General Medicine JAKUB CAMPOS 03/21/16 0148: Resident Review Statement Resident Statement: examined this patient, discussed with fall intern, agreed with fall intern, reviewed images, amended to note Other Findings: 54-year-old man with past medical history of stage IV prostate cancer with metastasis to lungs and bones, recent pyelonephritis(coagulase-negative)in JAN 2016 due to progression of the cancer with bilateral hydronephrosis requiring nephrostomy tubes, and subsequent admission about 10 days ago for bilateral PE the which he was put on Xarelto ,(and pneumonia on moxifloxacin for 9 days) came back with chief complaint of not feeling good, low blood pressure, increased back pain from the office of Blaire Valdez DO. Patient reported having cough with phlegm, shallow breathing today been increased pain in the back .she reported there is some pus coming out of around the right nephrostomy tube . On admission patient had a fever of 100.7 with tachycardia of 105 General appearance alert and oriented 3, not in distress HEENT Atraumatic, PERRLA, EOMI Neck Supple, No JVD, No thryomegaly Cardiovascular tachycardia, Normal S1, Normal S2 Lungs Clear to mild basal crackles Abdomen Normal Bowel Sounds, Soft, mild tenderness in lower abdomen, N moderate to severe tenderness around the post nephrostomy tubes with redness eurological Normal Speech, Strength at 5/5 X4 Ext, Extremities trace Edema right leg,Normal Pulses Monitor labs and admission showed WBC of 15.1, hemoglobin 10.7, INR 12.17, lactic acid 2.5, calcium 7.5, ALP 166 Carin no masses should W Field 50-75, with large leukocyte esterase EKG shows sinus tachycardia of 107, QTC 467, no acute ST-T changes comparing to previous EKG Chest CT was unremarkable CT scan of abdomen and pelvis with IV contrast: IMPRESSION: 1. Increasing size and number of hepatic masses since CAT scan of 03/04/2016. 2. Persistent enlarged prostate. 3. Persistent sclerotic lesions in the osseous skeleton suspicious of metastasis. 4. Persistent retroperitoneal and pelvic lymphadenopathy. 5. Percutaneous nephrostomy catheters in place without acute change of the kidneys. No evidence of pyelonephritis of the kidneys. No abscess or inflammation in abdomen or pelvis. X. Bibasilar infiltrate/atelectasis. Assessment and plan #Sepsis possibly due to Pyelonephritis/UTI -Continue vancomycin and ceftaz IV for now -2 L normal saline, Continue 100 cc normal saline after that -follow lactic till normalized -Tylenol for fever -Check fresh UA with urine culture -Follow-up blood culture # PE -Continue warfarin( 2.5 mg 3 times a week, 5 mg 3 times a week) #hx of prostate cancer - patient got Taxoterate on Wednesday -Continue bicatulamide -Continue tamsulosin and finasteride #Pain due to metastases /constipation/nausea -Continue morphine sulfate and aggressive bowel regimen -Continue Compazine #Regular diet, DVT prophylaxis is ALPS and warfarin, morphine sulfate for pain, full code ANTIONE REECE 03/21/16 0533: Attending MD Review Statement Attending Statement Attending MD Statement: examined this patient, discuss w/resident/PA/CLEANER ASSISTANT, agreed w/resident/PA/CLEANER ASSISTANT, discussed with family, reviewed EMR data (avail), reviewed images, amended to note Attending Assessment/Plan: CC: Malaise, fever, hypotensive in PCP office PMH: stage IV prostate cancer, status post laser TURP, recent urinary obstruction status post bilateral nephrostomy Patient was recently admitted for PE, pneumonia. Discharged on March 12. Patient received chemotherapy 3 days back. He was following up with PCP for warfarin management when he was found to have hypotension, tachycardia. Patient was complaining of malaise, back pain since 2 days. Home Nurse started to notice some trace pus discharge from right nephrostomy tube 1 week back and from the left nephrostomy tube recently, was being treated with local bacitracin application. Vitals: T max 100.7, pulse in 100s, RR 18, BP, O2 saturation in acceptable range. On examination: A O 3, no acute distress, neck supple, no lymphadenopathy, mucosa moist, no focal neurological deficit. Abdomen: Soft, bowel sounds present . There was minimum pus discharge on left nephrostomy tube, no CVA tenderness, CVS: S1-S2, RRR. RS: Clear air entry bilaterally. Labs: WBC: 15.1, hemoglobin 10.7, lactate 2.5, alkaline phosphatase 166, INR 2.17, troponin less than 0.01. Urinalysis taken from bag shows leukocyte esterase positive Show leukocytosis and UA suggestive of UTI (sample taken from urinary bag). CXR: No acute abnormality in chest. Assessment and plan #1 sepsis: Secondary to SSTI at nephrostomy site, and UTI. Patient's urine sample was obtain from urinary bag, advised to repeat UA and urine culture from nephrostomy tube. Given that he is on chemotherapy and recent hospitalization, treating with vancomycin and ceftazidime. CT abdomen and pelvis was obtained to rule out any soft tissue abscesses or pyelonephritis which was ruled out. Continue IV hydration, trend lactate, blood culture, urine culture, inform urology. #2 recently treated pneumonia: Patient completed moxifloxacin, patient has some residual cough. X-ray does not show any new infiltrate. #3 stage IV prostate cancer: On outpatient chemotherapy. Inform oncology about patient being in hospital. #4 DVT prophylaxis: Patient currently on warfarin, continue home doses. Adequate pain control.
[2016-03-20 22:19] VITALS: BP 140/70
--- NOTE | 2016-03-20 22:49 | NUR ---
PT OFF FLOOR, TO CT SCAN, 1885.
--- NOTE | 2016-03-20 23:36 | CT SCAN REPORT ---
EXAMINATION: CT ABDOMEN AND PELVIS WITH CONTRAST CLINICAL INFORMATION: Fever. Nephrostomy tubes. Pus coming from the back. Concern for pyelonephritis. COMPARISON: CT scan abdomen pelvis 02/25/2016. 03/04/2016 TECHNIQUE: Multidetector volumetric imaging was performed of the abdomen and pelvis after the IV administration of 95 mL of Optiray 320 intravenous contrast. Sagittal and coronal reformatted images were obtained on the technologist's workstation. DLP: 1090.52 mGy-cm. FINDINGS: LUNG BASES: Bibasilar small infiltrates/atelectasis at the dependent lungs. LIVER, GALLBLADDER, AND BILIARY TREE: Multiple low attenuating lesions throughout the liver. Largest lesion in the central liver measuring 5.5 cm and the other near the gallbladder fossa measuring 6 cm. There is an addition numerous smaller lesions scattered throughout both lobes of the liver. The size and number of lesions in the liver are increasing compared to the exam of 03/04/2016. No intrahepatic bile duct dilatation. The gallbladder is unremarkable with no evidence of radiopaque gallstones, gallbladder wall thickening, or obvious pericholecystic inflammatory changes. PANCREAS: Unremarkable. SPLEEN: Unremarkable. ADRENAL GLANDS: Stable bilateral adrenal gland nodules. Left adrenal gland nodule measures approximately 1.8 x 2.4 cm. Right adrenal gland nodule measures 1 cm. KIDNEYS AND URETERS: Bilateral percutaneous nephrostomy catheters in place. No hydronephrosis. No ureteral stone. There is no edema in the perinephric space. No abnormal fluid collection. Enhancement of the cortex is symmetric with no evidence of pyelonephritis. There is a small cortical cyst at the lower pole of left kidney. BLADDER: Enlarged prostate engulfing in the bladder. Prostate measures 8 cm transverse. GASTROINTESTINAL TRACT: No acute change of the bowel. No bowel obstruction. No bowel wall thickening or edema. Scattered diverticula: Without diverticulitis. The appendix is normal. Moderate volume of stool in colon. The small bowel loops are normal. ABDOMINAL WALL: No significant hernia is appreciated. LYMPH NODES: Numerous retroperitoneal enlarged lymph nodes. Stable lymphadenopathy in the pelvis in the right iliac chain in the right pelvic sidewall. VASCULAR: Scattered vascular calcifications of aorta without aneurysm. PELVIC VISCERA: Unremarkable. OSSEOUS STRUCTURES: Stable small sclerotic foci throughout the osseous skeleton consistent with known osseous metastasis. IMPRESSION: 1. Increasing size and number of hepatic masses since CAT scan of 03/04/2016. 2. Persistent enlarged prostate. 3. Persistent sclerotic lesions in the osseous skeleton suspicious of metastasis. 4. Persistent retroperitoneal and pelvic lymphadenopathy. 5. Percutaneous nephrostomy catheters in place without acute change of the kidneys. No evidence of pyelonephritis of the kidneys. No abscess or inflammation in abdomen or pelvis. X. Bibasilar infiltrate/atelectasis.
--- NOTE | 2016-03-21 05:34 | Admission Certification ---
Admission Certification Certification Statement - As attending physician, I certify that at the time of - admission, based on clinical presentation, severity of - symptoms, need for further diagnostic testing and - therapeutic interventions, and risk of adverse outcomes - without in-hospital treatment, in my clinical assessment, - this patient requires an acute hospital stay for a minimum - of two nights or longer. I have also considered psychsocial - factors such as support system, advanced age, financial - issues, cognitive issues, and failed out-patient treatments, - past re-admission history, safety of patient, and lack of - compliance as applicable. Specific rationale supporting this admission is: Sepsis with complicated UTI
[2016-03-21 07:15] VITALS: BP 112/86
--- NOTE | 2016-03-21 07:52 | PN- Housestaff ---
ANDRESJAKUB MARADIAGA 03/21/16 0747: Subjective Follow-up For: Sepsis due to possible UTI Pulmonary embolism Subjective: Have seen and examined the patient. Patient back pain is mildy better. Patient overall feels better. Vital signs are stable except mild tachycardia. Review of Systems Constitutional: Reports: see HPI. Objective Last 24 Hrs of Vital Signs/I&O Vital Signs Date Time Temp Pulse Resp B/P Pulse O2 O2 Flow FiO2 Ox Delivery Rate 03/21 0715 98.3 106 20 112/86 91 03/20 2219 97.8 104 22 140/70 94 Room Air 03/20 1927 97.9 100 18 127/68 98 Room Air 03/20 1803 100.7 03/20 1656 100.7 105 18 126/61 95 Room Air Intake & Output 03/21 0800 03/21 0000 03/20 1600 Intake Total 1120 2240 Output Total 1000 400 Balance 120 1840 Intake, IV 1000 2000 Intake, Oral 120 240 Output, Urine 1000 400 Patient 285 lb Weight Physical Exam General Appearance: Alert, Oriented X3, Cooperative Cardiovascular: Normal S1, Normal S2, tachycardia Lungs: mild basal crackles Abdomen: Normal Bowel Sounds, Soft Current Medications: Current Medications Sig/[place]ora Start time Last Medication Dose Route Stop Time Status Admin Acetaminophen 325 MG Q6P PRN 03/21 0145 AC PO Acetaminophen 1,000 MG ONCE ONE 03/20 1800 DC 03/20 N/A 1 UNIT IV 03/20 1814 1803 Acetaminophen 0 .STK-MED ONE 03/20 1757 DC IV Bicalutamide 50 MG DAILY 03/21 1000 AC PO Ceftazidime 1,000 MG IQ8 03/21 0800 AC IV Ceftazidime 0 .STK-MED ONE 03/20 1917 DC .ROUTE Ceftazidime 1,000 MG ONCE ONE 03/20 1845 DC 03/20 IV 03/20 1846 1920 Finasteride 5 MG DAILY 03/21 1000 AC PO Morphine Sulfate 30 MG Q4 HRS NEEDED PRN 03/20 2200 AC 03/20 PO 2210 Polyethylene Glycol 17 GM DAILY 03/21 1000 AC PO Potassium Chloride 40 MEQ ONCE ONE 03/20 2245 DC 03/21 PO 03/20 2246 0006 Prochlorperazine 10 MG Q6 PRN 03/20 2300 AC PO Senna/Docusate Sodium 2 TAB DAILY PRN 03/20 2300 AC PO Sodium Chloride 1,000 ML Q13H 03/21 0030 AC 03/21 IV 0147 Sodium Chloride 1,000 ML BOLUS ONE 03/20 2115 DC 03/20 IV 03/20 2314 2323 Sodium Chloride 1,000 ML BOLUS ONE 03/20 1845 DC IV 03/20 1944 Sodium Chloride 1,000 ML BOLUS ONE 03/20 1800 DC 03/20 IV 03/20 1959 1803 Sodium Chloride 1,000 ML ONCE ONE 03/20 1715 DC IV 03/20 2354 Tamsulosin HCl 0.4 MG BID 03/21 1000 AC PO Vancomycin HCl 1,000 MG DAILY 03/21 1000 AC Dextrose/Water 250 ML IV Vancomycin HCl 0 .STK-MED ONE 03/20 1917 DC .ROUTE Vancomycin HCl 1,000 MG ONCE ONE 03/20 1845 DC 03/20 Dextrose/Water 250 ML IV 03/20 194 194 Warfarin Sodium 2.5 MG ONE TIME ONE 03/20 2199 DC 03/21 PO 03/20 220 0007 Last 24 Hrs of Lab/Raymundo Results Last 24 Hrs of Labs/Mics: Laboratory Tests 03/21/16 0615: Sodium Pending, Potassium Pending, Chloride Pending, Carbon Dioxide Pending, Anion Gap Pending, BUN Pending, Creatinine Pending, BUN/Creatinine Ratio Pending , PT Pending, INR Pending, CBC w Diff Pending, WBC Pending, RBC Pending, Hgb Pending, Hct Pending, MCV Pending, MCH Pending, RDW Pending, Plt Count Pending, MPV Pending, PUBS MCHC Pending 03/21/16 0015: Urine Color YEL, Urine Clarity CLEAR, Urine pH 6.5, Ur Specific [place] <= 1.005 , Urine Protein TRACE H, Urine Ketones NEG, Urine Nitrite NEG, Urine Bilirubin NEG, Urine Urobilinogen 0.2, Ur Leukocyte Esterase TRACE H, Ur Microscopic SEDIMENT EXAMINED, Urine RBC 3-5, Urine WBC 1-3 H, Urine Hemoglobin MOD H, Urine Glucose NEG 03/20/16 2340: Lactic Acid 1.2 03/20/16 2000: Lactic Acid 2.3 H 03/20/16 1825: PT 22.6 H, INR 2.17 H, APTT 30 03/20/16 1721: Urine Color YEL, Urine Clarity HAZY H, Urine pH 6.0, Ur Specific [place] 1.025, Urine Protein 100 H, Urine Ketones NEG, Urine Nitrite NEG, Urine Bilirubin NEG, Urine Urobilinogen 0.2, Ur Leukocyte Esterase SMALL H, Ur Microscopic SEDIMENT EXAMINED, Urine RBC >75 H, Urine WBC 50-75 H, Ur Epithelial Cells RARE, Urine Mucus MANY H, Urine Hemoglobin LARGE H, Urine Glucose NEG 03/20/16 1710: Anion Gap 10, Estimated GFR > 60, BUN/Creatinine Ratio 13.3, Glucose 117 H, Lactic Acid 2.5 H, Calcium 7.5 L, Total Bilirubin 0.7, AST 51, ALT 40, Alkaline Phosphatase 166 H, Troponin I < 0.01, Total Protein 6.1 L, Albumin 3.4 L, Globulin 2.7, Albumin/Globulin Ratio 1.3, CBC w Diff MAN DIFF ORDERED, RBC 4.05 L, MCV 80.5, MCH 26.5 L, RDW 15.7 H, MPV 8.2, Gran % 90.7 H, Lymphocytes % 8.1 L, Monocytes % 0.7 L, Eosinophils % 0.2, Basophils % 0.3, Absolute Granulocytes 13.7 H, Segmented Neutrophils 72, Band Neutrophils 16 H, Absolute Lymphocytes 1.2, Lymphocytes 8 L, Absolute Monocytes 0.1 L, Absolute Eosinophils 0, Basophils 1, Absolute Basophils 0, Metamyelocytes 2 H, Myelocytes 1 H, Platelet Estimate ADEQUATE, Polychromasia 1+, Hypochromic- Microcytic 2+, Anisocytosis 1+, Ovalocytes 1+, PUBS MCHC 32.9 L 03/20/16 1707: Virus Culture Pending Microbiology 03/21 0015 URINE ROUT: Urine Culture - RECD 03/20 2131 LOWER RESP: Respiratory Culture - COLB 03/20 2131 LOWER RESP: Gram Stain - COLB 03/20 1738 BLOOD: Blood Culture - WKST 03/20 172 URINE ROUT: Urine Culture - RECD 03/20 1709 BLOOD: Blood Culture - WKST Assessment/Plan Assessment: 54-year-old man with past medical history of stage IV prostate cancer with metastasis to lungs and bones, recent pyelonephritis(coagulase-negative)in JAN 2016 due to progression of the cancer with bilateral hydronephrosis requiring nephrostomy tubes, and subsequent admission about 10 days ago for bilateral PE the which he was put on Xarelto ,(and pneumonia on moxifloxacin for 9 days) came back with chief complaint of not feeling good, low blood pressure, increased back pain from the office of Blaire Epstein DO. On admission patient had a fever of 100.7 with tachycardia of 105 Monitor labs and admission showed WBC of 15.1, hemoglobin 10.7, INR 12.17, lactic acid 2.5, calcium 7.5, ALP 166 Carin no masses should W Field 50-75, with large leukocyte esterase EKG shows sinus tachycardia of 107, QTC 467, no acute ST-T changes comparing to previous EKG Chest CT was unremarkable CT scan of abdomen and pelvis with IV contrast: IMPRESSION: 1. Increasing size and number of hepatic masses since CAT scan of 03/04/2016. 2. Persistent enlarged prostate. 3. Persistent sclerotic lesions in the osseous skeleton suspicious of metastasis. 4. Persistent retroperitoneal and pelvic lymphadenopathy. 5. Percutaneous nephrostomy catheters in place without acute change of the kidneys. No evidence of pyelonephritis of the kidneys. No abscess or inflammation in abdomen or pelvis. X. Bibasilar infiltrate/atelectasis. Assessment and plan #Sepsis possibly due to Pyelonephritis/UTI -Continue vancomycin and ceftaz IV for now - Continue 100 cc normal saline after that -lactic acid has normalized -Tylenol for fever -Follow urine culture and blood culture -urology has been called to be follow his # PE -today INR is 1.83 -We will dose 5 mg today warfarin accordingly(INR target around 2) #hx of prostate cancer - patient got Taxoterate on Wednesday -Continue bicatulamide -Continue tamsulosin and finasteride #Pain due to metastases /constipation/nausea -Continue morphine sulfate and aggressive bowel regimen -Continue Compazine #Regular diet, DVT prophylaxis is ALPS and warfarin, morphine sulfate for pain, full code Problem List: 1. Sepsis Pain Ratin Pain Location: right flank Pain Goal: Pain 4 or less Pain Plan: same Tomorrow's Labs & Rationales: BEP,CBC,INR JOAQUIN BROWN,[facility] 03/21/16 1250: Attending MD Review Statement Attending Statement Attending MD Statement: examined this patient, discuss w/resident/PA/CLEANING STAFF SUPERVISOR, agreed w/resident/PA/CLEANING STAFF SUPERVISOR, reviewed EMR data (avail), reviewed images Attending Assessment/Plan: 54-year-old male with past medical history significant for stage IV CA prostate with metastases to the lungs and bones, recent history of coagulase-negative hilar nephritis in January 2016 with bilateral hydronephrosis requiring nephrostomy tubes, bilateral PE on warfarin is being readmitted to the floor for sepsis possibly secondary to pyelonephritis/UTI. Patient has been kept on vancomycin and ceftriaxone. Patient was seen and examined on the bedside and reported no active issues. Urology has been closely following up on the patient. Please have ID consulted as patient has been previously under their care. Agree with doubling the dose of Coumadin because of his subtherapeutic INR.
[2016-03-21 08:34] LABS: PT 19.1 SEC (9.4-12.5)
[2016-03-21 08:38] LABS: ABSOLUTE BASOPHIL COUNT 0 /CUMM (0.0-0.2); ABSOLUTE EOSINOPHIL COUNT 0.1 /CUMM (0.0-0.7); ABSOLUTE LYMPH COUNT 1.5 /CUMM (1.2-3.4); ABSOLUTE MONOCYTE COUNT 0.1 /CUMM (0.10-0.60); BASOPHIL % 0.3 % (0.0-2.0); EOSINOPHIL % 0.5 % (0-5); GRANULOCYTE % 85.6 % (42.2-75.2); HEMATOCRIT 29.3 % (42-52); MEAN CORPUSCULAR HGB 26.5 PG (27.0-31.0); MEAN CORPUSCULAR HGB CONC 32.7 G/DL (33.0-37.0); MEAN CORPUSCULAR VOLUME 80.8 FL (80.0-94.0); MEAN PLATELET VOLUME 8.3 FL (7.4-10.4); PLATELET COUNT 221 /CUMM (130-400); RBC DISTRIBUTION WIDTH 15.4 % (11.5-14.5); RED BLOOD CELL CT 3.63 /CUMM (4.70-6.10); WHITE BLOOD CELL COUNT 11.7 /CUMM (4.8-10.8)
--- NOTE | 2016-03-21 08:41 | Cons- Urology ---
General Information and HPI Consulting Request Date of Consult: 03/21/16 Requested By: ANTIONE Armstrong MD Reason for Consult: sepsis Source of Information: patient, old records Exam Limitations: no limitations History of Present Illness: Patient well known to me. He has locally extensive and metastatic prostate ca which is hormone refractory. He has progressive disease and is on out patient chemotherapy. In 01/2016 he had bilateral nephrostomies placed due to invasion of the trigone by prostate ca. He also has had a recent PE. He received outpatient chemotherapy on 03/18/16. He was admitted with low grade fever and orthostatic hypotension. Initial U/A showed > 75 wbc. Cultures are pending. Initial lactate level was elevated. He is improved after the initiation of empiric abx. A CT of the abd and pelvis shows both nephrostomies to be in correct location and there are no signs on CT of pyelonephritis. Allergies/Medications Allergies: Coded Allergies: ragweed pollen (Intermediate, NASAL CONGESTION 01/07/16) Penicillins (UNKNOWN 02/27/16) Home Med List: Bicalutamide 50 MG TABLET 1 TAB PO DAILY HORMONE (Reported) Finasteride 5 MG TABLET 5 MG PO DAILY prostate Morphine Sulfate 15 MG TABLET 30 MG PO Q4 HRS NEEDED PRN PAIN SCALE 7-10 ( SEVERE) Moxifloxacin HCl 400 MG TABLET 400 MG PO DAILY infection Naloxegol Oxalate (Movantik) 25 MG TABLET 1 TAB PO DAILY PRN CONSTIPATION Polyethylene Glycol 3350 (Miralax) 17 GRAM/DOSE POWDER 17 GM PO DAILY constipation Prochlorperazine Maleate 10 MG TABLET 1 TAB PO Q6 PRN N/V (Reported) Sennosides/Docusate Sodium (Senna Plus Tablet) 8.6 MG-50 MG TABLET 2 TAB PO DAILY PRN CONSTIPATION Tamsulosin HCl 0.4 MG CAP.ER.24H 1 CAP PO BID PROSTATE (Reported) Warfarin Sodium (Coumadin) 2.5 MG TABLET 1 TAB PO AD BLOOD THINNER (Reported) Warfarin Sodium 5 MG TABLET 1 TAB PO AD BLOOD THINNER (Reported) Past History Medical History Blood Transfusion Hx: No Neurological: NONE EENT: NONE Cardiovascular: NONE Respiratory: obstructive sleep apnea, pulmonary embolism, (DOES NOT USE CPAP) Gastrointestinal: NONE Hepatic: NONE Renal: BILATERAL NEPHROSTOMY Musculoskeletal: NONE Psychiatric: NONE Endocrine: NONE Blood Disorders: NONE Cancer(s): prostate cancer, METS TO the lymph nodes, bone and, possibly, the liver 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 Home Who Do You Live With? corey, getting June Services at Home: None Primary Language: [place] Smoking Status: Unknown If Ever Smoked ETOH Use: denies use Illicit Drug Use: denies illicit drug use Employment History Retired? no Exam & Diagnostic Data Vital Signs and I&O Vital Signs Date Time Temp Pulse Resp B/P Pulse O2 O2 Flow FiO2 Ox Delivery Rate 03/21 714 98.3 106 20 112/86 91 03/20 2219 97.8 104 22 140/70 94 Room Air 03/20 1927 97.9 100 18 127/68 98 Room Air 03/20 1803 100.7 03/20 1656 100.7 105 18 126/61 95 Room Air Intake & Output 03/21 1600 03/21 0800 03/21 0000 03/20 1600 03/20 0800 03/20 0000 Intake Total 1120 2240 Output Total 1000 400 Balance 120 1840 Intake, IV 1000 2000 Intake, Oral 120 240 Output, Urine 1000 400 Patient 285 lb Weight Back: R and L nephrostomy in place and draining well. Urine clear Laboratory Tests 03/21 03/21 03/20 0615 0015 2340 Chemistry Sodium (137 - 145 mmol/L) 145 Potassium (3.5 - 5.1 mmol/L) 3.8 Chloride (98 - 107 mmol/L) 110 H Carbon Dioxide (22 - 30 mmol/L) 27 Anion Gap (5 - 16) 8 BUN (9 - 20 mg/dL) 8 L Creatinine (0.7 - 1.2 mg/dL) 0.8 Estimated GFR (>60 ml/min) > 60 BUN/Creatinine Ratio (7 - 25 %) 10.0 Lactic Acid (0.7 - 2.1 mmol/L) 1.2 Coagulation PT Pending INR Pending Hematology CBC w Diff Pending WBC Pending RBC Pending Hgb Pending Hct Pending MCV Pending MCH Pending RDW Pending Plt Count Pending MPV Pending PUBS MCHC Pending Urines Urine Color (YEL,AMB,STR) YEL Urine Clarity (CLEAR) CLEAR Urine pH (5.0 - 8.0) 6.5 Ur Specific [place] (1.001 - 1.035) <= 1.005 Urine Protein (NEG,<30 MG/DL) TRACE H Urine Ketones (NEG) NEG Urine Nitrite (NEG) NEG Urine Bilirubin (NEG) NEG Urine Urobilinogen (0.1 - 1.0 EU/dl) 0.2 Ur Leukocyte Esterase (NEG) TRACE H Ur Microscopic SEDIMENT EXAMINED Urine RBC (0 - 5 /HPF) 3-5 Urine WBC (0 - 2 /HPF) 1-3 H Urine Hemoglobin (NEG) MOD H Urine Glucose (N MG/DL) NEG 03/20 1825 1721 Chemistry Lactic Acid (0.7 - 2.1 mmol/L) 2.3 H Coagulation PT (9.4 - 12.5 SEC) 22.6 H INR (0.90 - 1.17) 2.17 H APTT (25 - 37 SEC) 30 Urines Urine Color (YEL,AMB,STR) YEL Urine Clarity (CLEAR) HAZY H Urine pH (5.0 - 8.0) 6.0 Ur Specific [place] (1.001 - 1.035) 1.025 Urine Protein (NEG,<30 MG/DL) 100 H Urine Ketones (NEG) NEG Urine Nitrite (NEG) NEG Urine Bilirubin (NEG) NEG Urine Urobilinogen (0.1 - 1.0 EU/dl) 0.2 Ur Leukocyte Esterase (NEG) SMALL H Ur Microscopic SEDIMENT EXAMINED Urine RBC (0 - 5 /HPF) >75 H Urine WBC (0 - 2 /HPF) 50-75 H Ur Epithelial Cells (NONE,FEW) RARE Urine Mucus (FEW,NONE) MANY H Urine Hemoglobin (NEG) LARGE H Urine Glucose (N MG/DL) NEG 03/20 03/20 1710 1707 Chemistry Sodium (137 - 145 mmol/L) 142 Potassium (3.5 - 5.1 mmol/L) 3.4 L Chloride (98 - 107 mmol/L) 104 Carbon Dioxide (22 - 30 mmol/L) 27 Anion Gap (5 - 16) 10 BUN (9 - 20 mg/dL) 12 Creatinine (0.7 - 1.2 mg/dL) 0.9 Estimated GFR (>60 ml/min) > 60 BUN/Creatinine Ratio (7 - 25 %) 13.3 Glucose (65 - 99 mg/dL) 117 H Lactic Acid (0.7 - 2.1 mmol/L) 2.5 H Calcium (8.4 - 10.2 mg/dL) 7.5 L Total Bilirubin (0.2 - 1.3 mg/dL) 0.7 AST (17 - 59 U/L) 51 ALT (21 - 72 U/L) 40 Alkaline Phosphatase (< 127 U/L) 166 H Troponin I (<0.11 ng/ml) < 0.01 Total Protein (6.3 - 8.2 g/dL) 6.1 L Albumin (3.5 - 5.0 g/dL) 3.4 L Globulin (1.9 - 4.2 gm/dL) 2.7 Albumin/Globulin Ratio (1.1 - 2.2 %) 1.3 Hematology CBC w Diff MAN DIFF ORDERED WBC (4.8 - 10.8 /CUMM) 15.1 H RBC (4.70 - 6.10 /CUMM) 4.05 L Hgb (14.0 - 18.0 G/DL) 10.7 L Hct (42 - 52 %) 32.6 L MCV (80.0 - 94.0 FL) 80.5 MCH (27.0 - 31.0 PG) 26.5 L RDW (11.5 - 14.5 %) 15.7 H Plt Count (130 - 400 /CUMM) 254 MPV (7.4 - 10.4 FL) 8.2 Gran % (42.2 - 75.2 %) 90.7 H Lymphocytes % (20.5 - 51.1 %) 8.1 L Monocytes % (1.7 - 9.3 %) 0.7 L Eosinophils % (0 - 5 %) 0.2 Basophils % (0.0 - 2.0 %) 0.3 Absolute Granulocytes (1.4 - 6.5 /CUMM) 13.7 H Segmented Neutrophils (42.2 - 75.2 %) 72 Band Neutrophils (0.0 - 5.0 %) 16 H Absolute Lymphocytes (1.2 - 3.4 /CUMM) 1.2 Lymphocytes (20.5 - 51.1 %) 8 L Absolute Monocytes (0.10 - 0.60 /CUMM) 0.1 L Absolute Eosinophils (0.0 - 0.7 /CUMM) 0 Basophils (0.0 - 2.0 %) 1 Absolute Basophils (0.0 - 0.2 /CUMM) 0 Metamyelocytes (0.0 - 1.0 %) 2 H Myelocytes (0 - 0 %) 1 H Platelet Estimate (ADEQUATE) ADEQUATE Polychromasia 1+ Hypochromic-Microcytic 2+ Anisocytosis 1+ Ovalocytes 1+ PUBS MCHC (33.0 - 37.0 G/DL) 32.9 L Serology Virus Culture Pending Assessment/Plan Assessment/Plan Imp: hormone refractory, metastatic and locally extensive prostate ca bilateral ureteral obstruction with bilateral nephrostomies in place Recent PE Admitted for low grade fever and hypotention, improved on empiric abx Plan: Continue abx f/u cultures Consult Acknowledgment - Thank you for your consult request.
--- NOTE | 2016-03-21 08:44 | PN- Urology ---
Surgical Brief Attending Note Brief Attending Note: Addendum to above note. Would d/c proscar
[2016-03-21 14:37] VITALS: BP 120/80
[2016-03-21 22:00] VITALS: BP 134/70
[2016-03-22 06:49] VITALS: BP 132/70
[2016-03-22 07:58] LABS: ABSOLUTE BASOPHIL COUNT 0 /CUMM (0.0-0.2); ABSOLUTE EOSINOPHIL COUNT 0.1 /CUMM (0.0-0.7); ABSOLUTE GRANULOCYTE CT 7.5 /CUMM (1.4-6.5); ABSOLUTE LYMPH COUNT 1.8 /CUMM (1.2-3.4); ABSOLUTE MONOCYTE COUNT 0.1 /CUMM (0.10-0.60); BASOPHIL % 0.4 % (0.0-2.0); EOSINOPHIL % 0.8 % (0-5); GRANULOCYTE % 79.3 % (42.2-75.2); HEMATOCRIT 29.5 % (42-52); MEAN CORPUSCULAR HGB 26.1 PG (27.0-31.0); MEAN CORPUSCULAR HGB CONC 32.2 G/DL (33.0-37.0); MEAN PLATELET VOLUME 8.4 FL (7.4-10.4); PLATELET COUNT 214 /CUMM (130-400); RBC DISTRIBUTION WIDTH 15.9 % (11.5-14.5); RED BLOOD CELL CT 3.63 /CUMM (4.70-6.10)
[2016-03-22 08:36] LABS: PT 19.5 SEC (9.4-12.5)
--- NOTE | 2016-03-22 08:58 | PN- Urology ---
Subjective Subjective: Comfortable. No distress, feels better Objective Vital Signs and I&Os Vital Signs Date Time Temp Pulse Resp B/P Pulse O2 O2 Flow FiO2 Ox Delivery Rate 03/22 0649 97.9 101 19 132/70 90 Room Air 03/21 2200 98.5 104 18 134/70 94 Room Air 03/21 2040 104 134/70 03/21 1600 Room Air 03/21 1437 98.1 102 20 120/80 93 03/21 0934 120/74 Intake & Output 03/22 1600 03/22 0800 03/22 0000 03/21 1600 03/21 0800 03/21 0000 Intake Total 1040 1400 1200 1120 2240 Output Total 500 984 478 4390 400 Balance 540 725 378 958 8384 Intake, IV 800 401 387 2991 2000 Intake, Oral 240 600 500 120 240 Output, Urine 500 471 758 9070 400 Patient 285 lb Weight R and L nephrostomy draining. WBC count decreasing. Urine C&S negative Sputum and blood C&S pending Sputum gram stain with wbc and bacteria Laboratory Tests 03/22 0710 Chemistry Sodium (137 - 145 mmol/L) 142 Potassium (3.5 - 5.1 mmol/L) 3.6 Chloride (98 - 107 mmol/L) 108 H Carbon Dioxide (22 - 30 mmol/L) 28 Anion Gap (5 - 16) 6 BUN (9 - 20 mg/dL) 8 L Creatinine (0.7 - 1.2 mg/dL) 0.8 Estimated GFR (>60 ml/min) > 60 BUN/Creatinine Ratio (7 - 25 %) 10.0 Coagulation PT Pending INR Pending Hematology CBC w Diff Pending WBC Pending RBC Pending Hgb Pending Hct Pending MCV Pending MCH Pending RDW Pending Plt Count Pending MPV Pending PUBS MCHC Pending Assessment/Plan Assessment/Plan Imp: 1. Progressive metastatic and locally extensive hormone refractory prostate ca 2. s/p bilateral nephrostomies for bilateral hydro 3. Fever and hypotention resolved with hydration and empiric abx 4. Recent PE Plan: 1. Nephrostomies to remain in place 2. Outpatient chemotherapy
--- NOTE | 2016-03-22 10:07 | PN- Housestaff ---
ADRIAN BROWN,BG 03/22/16 1006: Subjective Follow-up For: Sepsis and UTI Pulmonary Embolism Complaints: no complaints Subjective: Patient is feeling better. Review of Systems Constitutional: Reports: see HPI. Objective Last 24 Hrs of Vital Signs/I&O Vital Signs Date Time Temp Pulse Resp B/P Pulse O2 O2 Flow FiO2 Ox Delivery Rate 03/22 0955 116/70 03/22 0649 97.9 101 19 132/70 90 Room Air 03/21 2200 98.5 104 18 134/70 94 Room Air 03/21 2040 104 134/70 03/21 1600 Room Air 03/21 1437 98.1 102 20 120/80 93 Intake & Output 03/22 1600 03/22 0800 03/22 0000 Intake Total 1040 1400 Output Total 500 675 Balance 540 725 Intake, IV 800 800 Intake, Oral 240 600 Output, Urine 500 675 Physical Exam General Appearance: Alert, Oriented X3 Skin: No Rashes, No Breakdown HEENT: PERRLA, EOMI Neck: Supple, No JVD, No thryomegaly Lymphatic: Axillary nl, Cervical nl Assessment/Plan Assessment: 54-year-old man with past medical history of stage IV prostate cancer with metastasis to lungs and bones, recent pyelonephritis(coagulase-negative)in JAN 2016 due to progression of the cancer with bilateral hydronephrosis requiring nephrostomy tubes, and subsequent admission about 10 days ago for bilateral PE the which he was put on Xarelto ,(and pneumonia on moxifloxacin for 9 days) came back with chief complaint of not feeling good, low blood pressure, increased back pain from the office of Blaire Epstein DO. On admission patient had a fever of 100.7 with tachycardia of 105 Monitor labs and admission showed WBC of 15.1, hemoglobin 10.7, INR 12.17, lactic acid 2.5, calcium 7.5, ALP 166 Carin no masses should W Field 50-75, with large leukocyte esterase EKG shows sinus tachycardia of 107, QTC 467, no acute ST-T changes comparing to previous EKG Chest CT was unremarkable CT scan of abdomen and pelvis with IV contrast: IMPRESSION: 1. Increasing size and number of hepatic masses since CAT scan of 03/04/2016. 2. Persistent enlarged prostate. 3. Persistent sclerotic lesions in the osseous skeleton suspicious of metastasis. 4. Persistent retroperitoneal and pelvic lymphadenopathy. 5. Percutaneous nephrostomy catheters in place without acute change of the kidneys. No evidence of pyelonephritis of the kidneys. No abscess or inflammation in abdomen or pelvis. X. Bibasilar infiltrate/atelectasis. Assessment and plan #Sepsis possibly due to Pyelonephritis/UTI The patient's source of sepsis is not sure at this point less likely to be urine or neurological region. Urine cultures done from the urine bag has been negative. I discussed the patient's presentation and case in detail with the ID staff Jason Solorio MD who recommended that we should discontinue the antibiotics at this point. We will also discontinue the patient's IV normal saline as the patient is tolerating by mouth intake very well. Jason Solorio MD to see the patient in the morning # PE -today INR is 1.83 -We will dose 5 mg today warfarin accordingly(INR target around 2) #hx of prostate cancer - patient got Taxoterate on Wednesday -Continue bicatulamide -Continue tamsulosin and finasteride #Pain due to metastases /constipation/nausea -Continue morphine sulfate and aggressive bowel regimen -Continue Compazine #Regular diet, DVT prophylaxis is ALPS and warfarin, morphine sulfate for pain, full code Problem List: 1. Nephrostomy status 2. Fever 3. Urinary tract infection Pain Ratin Pain Location: No pain Pain Goal: Remain pain free Pain Plan: By mouth Tylenol as needed Tomorrow's Labs & Rationales: CBC INR PT JOAQUIN BROWN,[facility] 03/22/16 1147: Attending MD Review Statement Attending Statement Attending MD Statement: examined this patient, discuss w/resident/PA/CAN VACUUM TESTER, agreed w/resident/PA/CAN VACUUM TESTER, reviewed EMR data (avail), discussed with nursing, reviewed images Attending Assessment/Plan: 54-year-old male with past medical history significant for stage IV CA prostate with metastases to the lungs and bones, recent history of coagulase-negative pyelonephritis in January 2016 with bilateral hydronephrosis requiring nephrostomy tubes, bilateral PE on warfarin is being readmitted to the floor for sepsis possibly secondary to pyelonephritis/UTI. Patient has been kept on vancomycin and ceftaz. Patient was seen and examined on the bedside and reported no active issues. Urology has been closely following up on the patient. Please have ID consulted as patient has been previously under their care. Please dose coumadin today. Pt would follow up with his urologist on wednesday and with Hem/Onc for chemotherapy.
[2016-03-22 14:23] VITALS: BP 120/70
[2016-03-22 22:11] VITALS: BP 120/64
--- NOTE | 2016-03-23 06:57 | PN- Urology ---
Subjective Subjective: No distress Objective Vital Signs and I&Os Vital Signs Date Time Temp Pulse Resp B/P Pulse O2 O2 Flow FiO2 Ox Delivery Rate 03/23 0000 Room Air 03/22 2211 98.1 97 20 120/64 93 Room Air 03/22 2134 97 120/64 03/22 1600 Room Air 03/22 1423 98.2 80 20 120/70 98 03/22 0955 116/70 Intake & Output 03/23 0800 03/23 0000 03/22 1600 03/22 0800 03/22 0000 03/21 1600 Intake Total 650 1450 1040 1400 1200 Output Total 625 600 500 675 725 Balance 25 850 540 725 475 Intake, IV 750 800 800 700 Intake, Oral 650 700 240 600 500 Output, Urine 625 600 500 675 725 Abd: soft and non tender. R and L nephrostomy draining well Laboratory Tests 03/22 0710 Chemistry Sodium (137 - 145 mmol/L) 142 Potassium (3.5 - 5.1 mmol/L) 3.6 Chloride (98 - 107 mmol/L) 108 H Carbon Dioxide (22 - 30 mmol/L) 28 Anion Gap (5 - 16) 6 BUN (9 - 20 mg/dL) 8 L Creatinine (0.7 - 1.2 mg/dL) 0.8 Estimated GFR (>60 ml/min) > 60 BUN/Creatinine Ratio (7 - 25 %) 10.0 Coagulation PT (9.4 - 12.5 SEC) 19.5 H INR (0.90 - 1.17) 1.87 H Hematology CBC w Diff MAN DIFF ORDERED WBC (4.8 - 10.8 /CUMM) 9.0 RBC (4.70 - 6.10 /CUMM) 3.63 L Hgb (14.0 - 18.0 G/DL) 9.5 L Hct (42 - 52 %) 29.5 L MCV (80.0 - 94.0 FL) 81.0 MCH (27.0 - 31.0 PG) 26.1 L RDW (11.5 - 14.5 %) 15.9 H Plt Count (130 - 400 /CUMM) 214 MPV (7.4 - 10.4 FL) 8.4 Gran % (42.2 - 75.2 %) 79.3 H Lymphocytes % (20.5 - 51.1 %) 18.6 L Monocytes % (1.7 - 9.3 %) 0.9 L Eosinophils % (0 - 5 %) 0.8 Basophils % (0.0 - 2.0 %) 0.4 Absolute Granulocytes (1.4 - 6.5 /CUMM) 7.5 H Segmented Neutrophils (42.2 - 75.2 %) 79 H Band Neutrophils (0.0 - 5.0 %) 7 H Absolute Lymphocytes (1.2 - 3.4 /CUMM) 1.8 Lymphocytes (20.5 - 51.1 %) 13 L Monocytes (1.7 - 9.3 %) 1 L Absolute Monocytes (0.10 - 0.60 /CUMM) 0.1 L Absolute Eosinophils (0.0 - 0.7 /CUMM) 0.1 Absolute Basophils (0.0 - 0.2 /CUMM) 0 Nucleated RBCs (0.0 - 0.0 /100WBC) 6 H Hypochromic-Microcytic 1+ Poikilocytosis 1+ Anisocytosis 2+ PUBS MCHC (33.0 - 37.0 G/DL) 32.2 L Assessment/Plan Assessment/Plan Imp: 1. Admitted with signs of sepsis, improved. Source unclear. Urine C&S neg 2. 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 Bilateral ureteral obstruction, s/p bilateral nephrostomies 4. Recent PE Plan: 1. Continue nephrostomies 2. Contnue outpatient chemotherapy
--- NOTE | 2016-03-23 07:00 | PN- Housestaff ---
LISA CRAWFORD MD 03/23/16 0700: Subjective Follow-up For: Sepsis and UTI Pulmonary Embolism Subjective: Patient seen and examined at bedside this AM. He denies any complaints including no chest pain, palpitations, lightheaded/dizziness, shortness of breath, cough, wheezing. He does mention that he has slight pain at the areas of his bilateral nephrostomy tubes. Review of Systems Constitutional: Denies: chills, fever, malaise. EENTM: Denies: blurred vision, visual changes, hearing changes, nasal congestion. Cardiovascular: Denies: chest pain, palpitations, syncope. Respiratory: Denies: cough, short of breath, sputum production, wheezing. Gastrointestinal: Denies: abdominal pain, bloating, constipation, diarrhea. Genitourinary: Reports: pain (At nephrostomy tube sites). Musculoskeletal: Reports: back pain (At nephrostomy tube insertions). Skin: Denies: change in skin color, change in hair/nails. Neurological/Psychological: Denies: confusion, emotional problems, headache. Hematologic/Endocrine: Denies: bruising. Objective Last 24 Hrs of Vital Signs/I&O Vital Signs Date Time Temp Pulse Resp B/P Pulse O2 O2 Flow FiO2 Ox Delivery Rate 03/23 0703 98.3 101 19 128/62 90 Room Air 03/23 0000 Room Air 03/22 2211 98.1 97 20 120/64 93 Room Air 03/22 2134 97 120/64 03/22 1600 Room Air Intake & Output 03/23 1600 03/23 0800 03/23 0000 Intake Total 120 650 Output Total 850 625 Balance -730 25 Intake, Oral 120 650 Output, Urine 850 625 Physical Exam General Appearance: Alert, Oriented X3, Cooperative, No Acute Distress Other Physical Findings: Skin: No Rashes, No Breakdown HEENT: PERRLA, EOMI Neck: Supple, No JVD, No thryomegaly Lymphatic: Axillary nl, Cervical nl Current Medications: Current Medications Sig/Aurora Start time Last Medication Dose Route Stop Time Status Admin Acetaminophen 325 MG Q6P PRN 03/21 0145 DCD PO Bicalutamide 50 MG DAILY 03/21 1000 DCD 03/23 PO 1053 Bisacodyl 5 MG DAILY 03/22 1413 DCD 03/23 PO 1052 Morphine Sulfate 30 MG Q4 HRS NEEDED PRN 03/200 DCD 03/22 PO 2134 Polyethylene Glycol 17 GM DAILY 03/21 1000 DCD 03/23 PO 1053 Prochlorperazine 10 MG Q6 PRN 03/20 2300 DCD PO Senna/Docusate Sodium 2 TAB DAILY PRN 03/20 2300 DCD PO Tamsulosin HCl 0.4 MG BID 03/21 1000 DCD 03/23 PO 1052 Warfarin Sodium 5 MG COUMADIN 1700 ONE 03/22 1700 DC 03/22 PO 03/22 1701 1655 Last 24 Hrs of Lab/Raymundo Results Last 24 Hrs of Labs/Mics: Laboratory Tests 03/23/16 0815: Anion Gap 8, Estimated GFR > 60, BUN/Creatinine Ratio 8.6, PT 19.8 H, INR 1.90 H, CBC w Diff MAN DIFF ORDERED, RBC 3.59 L, MCV 79.6 L, MCH 26.3 L, RDW 16.1 H, MPV 8.6, Gran % 72.1, Lymphocytes % 25.5, Monocytes % 1.0 L, Eosinophils % 0.7, Basophils % 0.7, Absolute Granulocytes 4.9, Segmented Neutrophils 50, Band Neutrophils 18 H, Absolute Lymphocytes 1.7, Lymphocytes 27, Monocytes 2, Absolute Monocytes 0.1 L, Absolute Eosinophils 0.1, Basophils 2, Absolute Basophils 0.1, Metamyelocytes 1, Platelet Estimate VERIFIED BY SMEAR, Polychromasia 1+, Hypochromic-Microcytic 1+, Poikilocytosis 1+, Anisocytosis 1+, Microcytic Cells 1+, Ovalocytes 1+, PUBS MCHC 33.1 Orders Radiology Findings: EXAMINATION: XR PORTABLE CHEST CLINICAL INFORMATION: Shortness of breath. COMPARISON: Chest x-ray 03/20/2016 TECHNIQUE: Portable view of the chest was obtained. 5:16 PM FINDINGS: No significant abnormality is noted involving the heart, lungs, mediastinum, bony thorax or soft tissues. IMPRESSION: No acute abnormality of the chest. Miscellaneous Findings: EXAMINATION: CT ABDOMEN AND PELVIS WITH CONTRAST CLINICAL INFORMATION: Fever. Nephrostomy tubes. Pus coming from the back. Concern for pyelonephritis. COMPARISON: CT scan abdomen pelvis 02/25/2016. 03/04/2016 TECHNIQUE: Multidetector volumetric imaging was performed of the abdomen and pelvis after the IV administration of 95 mL of Optiray 320 intravenous contrast. Sagittal and coronal reformatted images were obtained on the technologist's workstation. DLP: 1090.52 mGy-cm. FINDINGS: LUNG BASES: Bibasilar small infiltrates/atelectasis at the dependent lungs. LIVER, GALLBLADDER, AND BILIARY TREE: Multiple low attenuating lesions throughout the liver. Largest lesion in the central liver measuring 5.5 cm and the other near the gallbladder fossa measuring 6 cm. There is an addition numerous smaller lesions scattered throughout both lobes of the liver. The size and number of lesions in the liver are increasing compared to the exam of 03/04/2016. No intrahepatic bile duct dilatation. The gallbladder is unremarkable with no evidence of radiopaque gallstones, gallbladder wall thickening, or obvious pericholecystic inflammatory changes. PANCREAS: Unremarkable. SPLEEN: Unremarkable. ADRENAL GLANDS: Stable bilateral adrenal gland nodules. Left adrenal gland nodule measures approximately 1.8 x 2.4 cm. Right adrenal gland nodule measures 1 cm. KIDNEYS AND URETERS: Bilateral percutaneous nephrostomy catheters in place. No hydronephrosis. No ureteral stone. There is no edema in the perinephric space. No abnormal fluid collection. Enhancement of the cortex is symmetric with no evidence of pyelonephritis. There is a small cortical cyst at the lower pole of left kidney. BLADDER: Enlarged prostate engulfing in the bladder. Prostate measures 8 cm transverse. GASTROINTESTINAL TRACT: No acute change of the bowel. No bowel obstruction. No bowel wall thickening or edema. Scattered diverticula: Without diverticulitis. The appendix is normal. Moderate volume of stool in colon. The small bowel loops are normal. ABDOMINAL WALL: No significant hernia is appreciated. LYMPH NODES: Numerous retroperitoneal enlarged lymph nodes. Stable lymphadenopathy in the pelvis in the right iliac chain in the right pelvic sidewall. VASCULAR: Scattered vascular calcifications of aorta without aneurysm. PELVIC VISCERA: Unremarkable. OSSEOUS STRUCTURES: Stable small sclerotic foci throughout the osseous skeleton consistent with known osseous metastasis. IMPRESSION: 1. Increasing size and number of hepatic masses since CAT scan of 03/04/2016. 2. Persistent enlarged prostate. 3. Persistent sclerotic lesions in the osseous skeleton suspicious of metastasis. 4. Persistent retroperitoneal and pelvic lymphadenopathy. 5. Percutaneous nephrostomy catheters in place without acute change of the kidneys. No evidence of pyelonephritis of the kidneys. No abscess or inflammation in abdomen or pelvis. X. Bibasilar infiltrate/atelectasis. Assessment/Plan Assessment: Mr. Junior is a pleasant 54-year-old gentleman with H ostage IV prostate cancer with metastasis to lungs and bones, recent pyelonephritis (coagulase- negative) in January 2016 due to progression of the cancer with bilateral hydronephrosis requiring nephrostomy tubes and subsequent admission about 10 days ago for bilateral PE the which he was placed on coumadin. He was also found to have pneumonia and was discharged home on moxifloxacin for 9 days. He returned to the ED on 03/20/16 with chief complaint of generalized malaise, fluctuating blood pressure readings noted at his PCP Dr. Blaire Epstein DO's office and increasing back pain above baseline. In the ED: Vital signs showed T 100.7, tachycardia to 105, RR 18, BP 126/61 and O2 saturation of 95% on RA. Labs showed WBC of 15.1, hemoglobin 10.7, INR 12.17, lactic acid 2.5, calcium 7.5, ALP 166. UA was suggestive of UTI with high protein, + leukocyte esterase, >75 RBCs, 50-75 WBCs, and lots of mucus. EKG showed sinus tachycardia of 107, QTC 467, no acute ST-T changes comparing to previous EKG. Chest CT was unremarkable. Patient was admitted to the general medicine floor and the following is the management: 1. Fever * In setting of + fever to 100.7, + WBC, + lactic acid, patient believed to be septic on admission and source believed to be urinary * Initial UA suggestive of UTI given mucus, +WBC, +leukocyte esterase * However, the patient's source of sepsis is unclear at this point. Urine cultures done from the nephrostomy bags show no growth to date as well as no growth to date noted in blood cultures. * Yesterday, house staff had discussion with Jason Solorio MD who recommended the discontinuation of antibiotics given lack of etiology, patient remaining afebrile, and normalization of white count. * Patient has remained afebrile and WBC have trended down, we will discharge patient home without antibiotics and have him follow up closely with his PCP who will continue to monitor for s/s of infection * Fever likely 2/2 underlying malignancy and chemotherapy 2. Tachycardia in setting of PE on coumadin * Patient continued daily on coumadin with daily INR checks * Patient denies dypnea, cough, orthopnea or other signs of PE * Tachycardia likely 2/2 underlying malignancy * Continue anticoagulation on discharge with goal INR 2-2.5 * Echo done earlier this month reviewed and EF not noted in conclusion of report , will call the echo department to amend the results 3. Orthostatic hypotension * Likely 2/2 dehydration * Patient is s/p IV fluid hydration * Repeat orthostatic vital signs today are WNL 4. History of prostate cancer * Patient received Taxoterate on Wednesday * Continue bicatulamide * Continue tamsulosin and finasteride 5. Pain due to metastases /constipation/ nausea * Continue morphine sulfate and aggressive bowel regimen * Continue Compazine FULL CODE Regular diet DVT prophylaxis: ALPS/warfarin Morphine sulfate for pain Problem List: 1. Fever 2. Bandemia 3. Prostate cancer, primary, with metastasis from prostate to other site 4. Pulmonary embolism 5. Leg edema Pain Ratin Pain Location: Bilateral nephrostomy tube insertions. Pain Goal: Pain 4 or less Pain Plan: Morphine sulf immediate release 30 mg PO Q4H PRN for severe pain Tomorrow's Labs & Rationales: None, discharge today. OSCAR STOVER MD 03/23/16 1328: Attending MD Review Statement Attending Statement Attending MD Statement: examined this patient, discuss w/resident/PA/CURRICULUM MANAGER, agreed w/resident/PA/CURRICULUM MANAGER, reviewed EMR data (avail), discussed with nursing, discussed with case mgmt, amended to note Attending Assessment/Plan: Patient seen and examined. He was sent into the emergency room for evaluation by his primary care provider due to concerns for orthostatic hypotension and low -grade fever noted in the primary care provider's office. He did arrive in the emergency room hemodynamically stable. He had a low-grade fever of 100.7. Patient recently been admitted to [facility] where he was treated for pneumonia and was on oral antibiotics at the time of admission. He had also seen his oncologist a few days prior and received an injection of Neulasta. On account of abnormal urine he was started on IV antibiotics for persistent UTI and presumed sepsis. However on the results we'll see blood pressure has been stable. He has had no orthostatic blood pressure changes. His blood cultures and urine cultures have been negative. His leukocytosis is likely secondary to his Neulasta injection. Patient was tachycardic during this admission. EKG shows sinus tachycardia. He denies chest pain or palpitations. He reports ice tachycardia is chronic. It is likely secondary to his underlying malignancy. On examination he is alert and oriented 3. He is afebrile and hemodynamically stable. He has adequate entry bilaterally. He has no jugular venous distention. Abdomen is soft and nontender. He has trace peripheral edema. Abdomen is soft and nontender. Bilateral nephrostomy sites are intact with no surrounding erythema or tenderness. Problems: 1. Orthostatic hypotension; likely secondary to dehydration. Now resolved. 2. Fever; low-grade. Negative infection workup. Likely secondary to underlying malignancy/chemotherapy. 3. Leukocytosis; transient now resolved. Likely secondary to Neulasta he received prior to admission. 4. Thromboembolic disease; on and cognition Coumadin. 5. Metastatic prostate cancer Plan: -Patient is medically stable to be discharged home today. -Imaging reveals that his hepatic metastases have increased in size in just over a week. He is to follow-up with his oncologist later this week and his primary care provider. -He has been advised to return to the emergency room should he develop fever or chills. -Results of echocardiogram done earlier this month reviewed. Reported as normal ejection fraction however no number was documented. We'll contact the cardiology department to amend the results with the ejection fraction. -Patient is to continue on anticoagulant Coumadin upon discharge.
[2016-03-23 07:03] VITALS: BP 128/62
[2016-03-23 08:56] LABS: PT 19.8 SEC (9.4-12.5)
[2016-03-23 08:59] LABS: ABSOLUTE BASOPHIL COUNT 0.1 /CUMM (0.0-0.2); ABSOLUTE EOSINOPHIL COUNT 0.1 /CUMM (0.0-0.7); ABSOLUTE GRANULOCYTE CT 4.9 /CUMM (1.4-6.5); ABSOLUTE LYMPH COUNT 1.7 /CUMM (1.2-3.4); ABSOLUTE MONOCYTE COUNT 0.1 /CUMM (0.10-0.60); BASOPHIL % 0.7 % (0.0-2.0); EOSINOPHIL % 0.7 % (0-5); GRANULOCYTE % 72.1 % (42.2-75.2); HEMATOCRIT 28.5 % (42-52); MEAN CORPUSCULAR HGB 26.3 PG (27.0-31.0); MEAN CORPUSCULAR HGB CONC 33.1 G/DL (33.0-37.0); MEAN CORPUSCULAR VOLUME 79.6 FL (80.0-94.0); MEAN PLATELET VOLUME 8.6 FL (7.4-10.4); PLATELET COUNT 203 /CUMM (130-400); RBC DISTRIBUTION WIDTH 16.1 % (11.5-14.5); RED BLOOD CELL CT 3.59 /CUMM (4.70-6.10); WHITE BLOOD CELL COUNT 6.8 /CUMM (4.8-10.8)
--- NOTE | 2016-03-23 09:53 | Patient Discharge Instructions ---
Discharge Instructions General Discharge Information You were seen/treated for: Sepsis due to urinary tract infection Stage 4 prostate cancer Nephrostomy tubes Special Instructions: Please follow up with PCP by Wednesday. Monitor for fever, chills and other signs of infection and discuss with PCP that you were not sent home with antibiotics. Follow up with Dr. Granados within 1 week of discharge for continued care and management of nephrostomy tubes. Take all medications as directed. PLEASE TAKE COUMADIN TONIGHT 03/23/16 YOU WERE NOT DOSED IN THE HOSPITAL. Continue to check INR as per recommendations from Dr. Epstein. Diet Recommended Diet: Heart Healthy Activity Activity Self Limited: Yes Acute Coronary Syndrome Inclusion Criteria At DC or during hospital stay patient has or had the following: ACS DIAGNOSIS No Discharge Core Measures Meds if any: Prescribed or Continued at Discharge Meds if any: NOT Prescribed or Continued at Discharge Congestive Heart Failure Inclusion Criteria At DC or during hospital stay patient has or had the following: CHF DIAGNOSIS No Discharge Core Measures Meds if any: Prescribed or Continued at Discharge Meds if any: NOT Prescribed or Continued at Discharge Cerebrovascular accident Inclusion Criteria At DC or during hospital stay patient has or had the following: CVA/TIA Diagnosis No Discharge Core Measures Meds if any: Prescribed or Continued at Discharge Meds if any: NOT Prescribed or Continued at Discharge Venous thromboembolism Inclusion Criteria VTE Diagnosis No VTE Type NONE VTE Confirmed by (Test) NONE Discharge Core Measures - Per Current guidelines, there needs to be overlap - treatment for the first 5 days of Warfarin therapy. - If discharged on Warfarin prior to 5 days of - overlap therapy, the patient will need to be - assessed for post discharge needs including - *Post discharge parental anticoagulation - *Warfarin and/or parental anticoagulation education - *Follow up date to check INR post discharge At least 5 days overlap therapy as Inpatient No Meds if any: Prescribed or Continued at Discharge Note: Overlap Therapy is Warfarin and Anticoagulant Meds if any: NOT Prescribed or Continued at Discharge
--- NOTE | 2016-03-23 12:17 | Cons- Infect Disease ---
General Information and HPI Consulting Request Date of Consult: 03/23/16 Requested By: OSCAR STOVER M.D Reason for Consult: Rule out sepsis of urologic origin Source of Information: patient, old records History of Present Illness: This is a 55-year-old man with metastatic prostate cancer to the lymph nodes, bone and liver, restarted on chemotherapy 3 months prior to admission, hospitalized 3 1/2 weeks prior to admission, 2 weeks after a TURP, with a coag- negative Staph UTI in the setting of bilateral hydronephrosis, treated with bilateral percutaneous nephrostomies and Vancomycin, and discharged on Bactrim, readmitted on the day after discharge with pulmonary emboli, begun on anticoagulation, with his hospital course complicated by a fever, attributed to pneumonia, for which he was treated with Vancomycin and Ceftazidime and discharged on Moxifloxacin, readmitted March 20, 2 days after chemotherapy, after he was found to be orthostatic with a low-grade fever at his primary care physician's office and with the complaints of difficulty catching his breath, pain at the nephrostomy sites, right greater than left, and fatigue. On admission he was febrile to 100.7. Laboratory data revealed a white blood cell count of 15,000, with 72 segs and 16 bands, BUN/creatinine 12 and 0.9, lactic acid 2.5, alk phosphatase 166, INR 2.17. A urinalysis from one nephrostomy bag revealed greater than 75 RBC/50-75 WBCs. Another urinalysis, presumably from the other bag, revealed 3-5 RBC/1-[address] of the abdomen and pelvis with IV contrast revealed increasing size and number of liver masses, a persistently enlarged prostate, persistent sclerotic lesions in the osseous skeleton, persistent retroperitoneal and pelvic lymphadenopathy, percutaneous nephrostomy catheters in place and bibasilar densities. Chest x-ray was negative. He was given fluids and begun on Vancomycin and Ceftazidime with defervescence and normalization of his white blood cell count. His cultures have been negative, and the antibiotics, after discussion with me, were discontinued on March 22. At present he feels improved. He does note continued difficulty in taking a deep breath, mild discomfort at both percutaneous nephrostomy sites, right greater than left, suprapubic discomfort with bloody urethral discharge, which he has had since his surgery, and mild periumbilical discomfort, which he attributes to constipation, though he did move his bowels yesterday. Allergies/Medications Allergies: Coded Allergies: ragweed pollen (Intermediate, NASAL CONGESTION 01/07/16) Penicillins (UNKNOWN 02/27/16) Home Med List: Bicalutamide 50 MG TABLET 1 TAB PO DAILY HORMONE (Reported) Finasteride 5 MG TABLET 5 MG PO DAILY prostate Morphine Sulfate 15 MG TABLET 30 MG PO Q4 HRS NEEDED PRN PAIN SCALE 7-10 ( SEVERE) Moxifloxacin HCl 400 MG TABLET 400 MG PO DAILY infection Naloxegol Oxalate (Movantik) 25 MG TABLET 1 TAB PO DAILY PRN CONSTIPATION Polyethylene Glycol 3350 (Miralax) 17 GRAM/DOSE POWDER 17 GM PO DAILY constipation Prochlorperazine Maleate 10 MG TABLET 1 TAB PO Q6 PRN N/V (Reported) Sennosides/Docusate Sodium (Senna Plus Tablet) 8.6 MG-50 MG TABLET 2 TAB PO DAILY PRN CONSTIPATION Tamsulosin HCl 0.4 MG CAP.ER.24H 1 CAP PO BID PROSTATE (Reported) Warfarin Sodium (Coumadin) 2.5 MG TABLET 1 TAB PO AD BLOOD THINNER (Reported) Warfarin Sodium 5 MG TABLET 1 TAB PO AD BLOOD THINNER (Reported) Past History Travel History Traveled to [place] past 21 day No Medical History Blood Transfusion Hx: No Neurological: NONE EENT: NONE Cardiovascular: NONE Respiratory: obstructive sleep apnea, pulmonary embolism, (DOES NOT USE CPAP) Gastrointestinal: NONE Hepatic: NONE Renal: BILATERAL NEPHROSTOMY Musculoskeletal: NONE Psychiatric: NONE Endocrine: NONE Blood Disorders: NONE Cancer(s): prostate cancer, METS TO the lymph nodes, bone and liver History of MRSA: No History of VRE: No History of CDIFF: No Isolation History: Standard Surgical History Surgical History: prostatectomy, TONSILS Psychosocial History Where Do You Live? Home Who Do You Live With? fiance, getting June Services at Home: None Primary Language: Estonian Smoking Status: Unknown If Ever Smoked ETOH Use: denies use Illicit Drug Use: denies illicit drug use Review of Systems Review of Systems Cardiovascular: Denies: chest pain. Respiratory: Reports: cough, short of breath. Denies: sputum production. GI: Reports: constipation. All Other Systems: Reviewed and Negative Exam & Diagnostic Data Last 24 Hrs of Vital Signs/I&O Vital Signs Date Time Temp Pulse Resp B/P Pulse O2 O2 Flow FiO2 Ox Delivery Rate 03/23 0703 98.3 101 19 128/62 90 Room Air 03/23 0000 Room Air 03/22 2211 98.1 97 20 120/64 93 Room Air 03/22 2134 97 120/64 03/22 1600 Room Air 03/22 1423 98.2 80 20 120/70 98 Intake & Output 03/23 1600 03/23 0800 03/23 0000 Intake Total 120 650 Output Total 850 625 Balance -730 25 Intake, Oral 120 650 Output, Urine 850 625 Physical Exam Other Physical Findings: He is awake and alert in no acute distress. He is afebrile. Skin reveals no rash. HEENT exam is negative. Neck is supple with no adenopathy. Lungs bibasilar crackles. Heart regular rhythm with no murmur. Abdomen is soft, mild tenderness in the periumbilical area and the suprapubic area, with no guarding or rebound, with positive bowel sounds. Back bilateral percutaneous nephrostomy sites slightly tender, right greater than left, with no erythema or drainage; clear urine in both nephrostomy bags. Extremities trace edema both lower extremities. Neuro is without focality. Last 24 Hours of Lab Results: Laboratory Tests 03/23 0815 Chemistry Sodium (137 - 145 mmol/L) 141 Potassium (3.5 - 5.1 mmol/L) 3.4 L Chloride (98 - 107 mmol/L) 105 Carbon Dioxide (22 - 30 mmol/L) 28 Anion Gap (5 - 16) 8 BUN (9 - 20 mg/dL) 6 L Creatinine (0.7 - 1.2 mg/dL) 0.7 Estimated GFR (>60 ml/min) > 60 BUN/Creatinine Ratio (7 - 25 %) 8.6 Coagulation PT (9.4 - 12.5 SEC) 19.8 H INR (0.90 - 1.17) 1.90 H Hematology CBC w Diff MAN DIFF ORDERED WBC (4.8 - 10.8 /CUMM) 6.8 RBC (4.70 - 6.10 /CUMM) 3.59 L Hgb (14.0 - 18.0 G/DL) 9.4 L Hct (42 - 52 %) 28.5 L MCV (80.0 - 94.0 FL) 79.6 L MCH (27.0 - 31.0 PG) 26.3 L RDW (11.5 - 14.5 %) 16.1 H Plt Count (130 - 400 /CUMM) 203 MPV (7.4 - 10.4 FL) 8.6 Gran % (42.2 - 75.2 %) 72.1 Lymphocytes % (20.5 - 51.1 %) 25.5 Monocytes % (1.7 - 9.3 %) 1.0 L Eosinophils % (0 - 5 %) 0.7 Basophils % (0.0 - 2.0 %) 0.7 Absolute Granulocytes (1.4 - 6.5 /CUMM) 4.9 Segmented Neutrophils (42.2 - 75.2 %) Pending Absolute Lymphocytes (1.2 - 3.4 /CUMM) 1.7 Absolute Monocytes (0.10 - 0.60 /CUMM) 0.1 L Absolute Eosinophils (0.0 - 0.7 /CUMM) 0.1 Absolute Basophils (0.0 - 0.2 /CUMM) 0.1 PUBS MCHC (33.0 - 37.0 G/DL) 33.1 Last 24 Hours of Raymundo Results: Blood cultures March 20 negative Urine culture March 20 negative Urine culture March 21 negative Rapid flu swab March 20 negative Sputum culture March 22 mixed rosangela Diagnostic Data Recent Imaging Findings: CT of the abdomen and pelvis with IV contrast revealed increasing size and number of liver masses, a persistently enlarged prostate, persistent sclerotic lesions in the osseous skeleton, persistent retroperitoneal and pelvic lymphadenopathy, percutaneous nephrostomy catheters in place and bibasilar densities. Chest x-ray, personally reviewed, negative. Assessment/Plan Assessment/Plan Impression: This is a 55-year-old man with metastatic prostate cancer, status post placement of bilateral percutaneous nephrostomies on a recent admission for bilateral hydronephrosis, at which time he was treated for a coag-negative Staph UTI, readmitted with pulmonary emboli and treated at that time for pneumonia, readmitted on March 20 after he was found to be orthostatic with a low-grade fever and generalized weakness 2 days after chemotherapy, found to be febrile with a leukocytosis and treated empirically for sepsis with improvement but with cultures negative and with CT scan negative for any obvious infectious process. It does appear that he has responded to the antibiotics, with temperatures remain normal and white blood cell count and bandemia improved, but he has no obvious source, with urine cultures, presumably obtained from both the right and left nephrostomy bags, negative and with chest x-ray also negative. His respiratory complaints may be related to his recent pulmonary emboli, though there could be an element of fluid overload as he is 4 L ahead. At this time, as he appears to be relatively stable, he can be followed off antibiotics pending further evaluation. Metastatic disease to the liver could cause fever or leukocytosis, but, as these have resolved, this would be unlikely to explain these findings. Another possible cause of his leukocytosis on admission would be Neupogen, if he received this prior to admission. Suggestion: 1. Repeat chest x-ray 2. Review Echocardiogram from March 06, specifically to determine his ejection fraction 3. Oncology input 4. Continue to follow off antibiotics pending above Consult Acknowledgment - Thank you for your consult request.
--- NOTE | 2016-03-23 13:58 | Discharge Summary ---
Visit Information Visit Dates Admission Date: 03/20/16 Discharge Date: 03/23/16 Hospital Course Course Attending Physician: OSCAR STOVER M.D Primary Care Physician: BLAIRE VALDEZ DO Consulting Request: 1 Consulting Specialty: Infectious Disease Consulting Physician: Dr. Solorio Reason for Consult: Fever and leukocytosis of unknown origin. Consulting Request: 2 Consulting Specialty: Urology Consulting Physician: Dr. Kc Reason for Consult: Bilateral nephrostomy tubes with abnormal urine analysis. Hospital Course: Mr. Junior is a pleasant 55 year old male with PMH stage 4 prostate cancer with metastasis to the lung and bones, recent coagulase negative pyelonephritis (January 2016) with bilateral hydronephrosis requiring nephrostomy tubes, bilateral pulmonary embolism on warfarin who was recently discharged from [facility] with moxifloxacin for pneumonia who was sent in to [facility] by his PCP Dr. Blaire Valdez DO. Patient presented with chief complaint of generalized malaise, fluctuating blood pressure and increased low back pain 2 days after chemotherapy. Associated symptoms at time of admission included cough productive of phlegm, shallow breathing and pus leaking around nephrostomy tube sites. In the ED: Vital signs showed T 100.7, HR 105, RR 18, BP 126/61 and O2 saturation of 95% on RA. Labs were done which showed WBC 15.1, bandemia to 16, H &H 10.7/32.6, Plt 254, K 3.4, BUN 12, cre 0.9, lactic acid 2.5, troponin <0.01, with normal AST and ALT. INR was goal at 2.17 on admission. UA showed hazy urine with high protein, small leuk esterase, >75 RBCs, high mucus, large Hgb, and 50- [address] abdomen/pelvis was done on 03/20/16 which showed increasing size/number of hepatic metastasis since 03/04/16, persistently enlarged prostate, sclerotic bone metastasis, retroperitoneal/pelvis lymphadenopathy and no evidence of pyelonephritis/abscess of kidneys. There was suggestion of bibasilar infiltrate/ atelectasis. Physical exam was as follows: General appearance: alert and oriented 3, not in acute distress HEENT: Atraumatic, PERRLA, EOMI Neck: Supple, No JVD, No thyromegaly Cardiovascular: tachycardia, Normal S1, Normal S2 Lungs: Mild bilateral basal crackles Abdomen: Normal Bowel Sounds, Soft, Mild tenderness in lower abdomen Back: Moderate to severe tenderness around the post nephrostomy tubes with associated redness Neurological: Normal Speech, Strength 5/5 X4 Ext Extremities: Trace edema of patient's right leg, normal distal pulses Patient was admitted to the general medicine floor and the following was the management: 1. Fever of unknown origin with transient leukocytosis: Patient was admitted to the general medicine floor with differential diagnosis of sepsis likely secondary to UTI due to pus and erythema around nephrostomy sites. Urine culture and blood culture x 2 were drawn in the emergency room. Patient was started on IV vancomycin due to the fact that patient had recent hospitalization and chemotherapy. He was also placed on IV fluids as his lactate was elevated on admission. Investigation into fever and leukocytosis was continued on the floor, including CT abdomen/pelvis that ruled out soft tissue abscess or pyelonephrits. CXR was done as patient recently was treated for pneumonia with moxifloxacin; follow up CXR showed no new infiltrate. ID consult was placed and due to the fact that patient remained afebrile, leukocytosis resolved and there was no clear source of infection (abnormal UA likely represented chronic colonization in the setting of indwelling nephrostomy tubes), antibiotics were discontinued. Patient continued to remain stable off of antibiotics. Leukocytosis may have been a result of recent neupogen administration or metastatic disease to the liver. Patient was instructed to have close follow up with his PCP and to schedule an appointment by the end of the week for continued care. If patient has fever or any other signs/symptoms of infection, he was instructed to return to the ED. Of note, associated tachycardia may have been associated with underlying malignancy and appears chronic as per patient. 2. Orthostatic hypotension: Patient presented with positive orthostatic vital signs, likely secondary to dehydration. Patient was given IV fluids and had vital signs monitored every shift. His blood pressure changes normalized and patient had no further episodes of orthostatic hypotension prior to discharge. 3. Stage 4 prostate cancer: Patient follows with Dr. Au for management of his metastatic prostate cancer. CT abdomen/pelvis obtained to rule out abdominal infection suggested increasing size and number of hepatic masses from prior CT scan done only about 2 weeks prior. Patient was continued on bicatulamide, tamsulosin and finasteride. He was discharged with instructions to continue this therapy on discharge and should follow up with Dr. Au within 1 week for continued treatment. 4. Pulmonary embolism: Patient had his INR checked daily with goal INR 2-2.5. Initial INR was within goal range, however follow up INRs remained mildly subtherapeutic. Patient was discharged with instructions to continue warfarin daily with frequent INR checks and continued care of his anticoagulation status with his PCP. 5. Nephrostomy tubes: Urology consult was placed as patient was noted to have erythema around nephrostomy tubes and UA suggestive of UTI. Urology agreed with inital antibiotics, however there were no issues with the discontinuation of antibiotics as urine cultures returned negative. Dr. Granados suggested continuing nephrostomies and outpatient chemotherapy. Patient will follow up with Dr. Granados as an outpatient for further mangement of obstructive uropathy. 6. Diet: Regular 7. DVT Prophylaxis: Warfarin 8. Code Status: Full Code Complications: None. Allergies: Coded Allergies: ragweed pollen (Intermediate, NASAL CONGESTION 01/07/16) Penicillins (UNKNOWN 02/27/16) Significant Procedures: EXAMINATION: CT ABDOMEN AND PELVIS WITH CONTRAST CLINICAL INFORMATION: Fever. Nephrostomy tubes. Pus coming from the back. Concern for pyelonephritis. COMPARISON: CT scan abdomen pelvis 02/25/2016. 03/04/2016 TECHNIQUE: Multidetector volumetric imaging was performed of the abdomen and pelvis after the IV administration of 95 mL of Optiray 320 intravenous contrast. Sagittal and coronal reformatted images were obtained on the technologist's workstation. DLP: 1090.52 mGy-cm. FINDINGS: LUNG BASES: Bibasilar small infiltrates/atelectasis at the dependent lungs. LIVER, GALLBLADDER, AND BILIARY TREE: Multiple low attenuating lesions throughout the liver. Largest lesion in the central liver measuring 5.5 cm and the other near the gallbladder fossa measuring 6 cm. There is an addition numerous smaller lesions scattered throughout both lobes of the liver. The size and number of lesions in the liver are increasing compared to the exam of 03/04/2016. No intrahepatic bile duct dilatation. The gallbladder is unremarkable with no evidence of radiopaque gallstones, gallbladder wall thickening, or obvious pericholecystic inflammatory changes. PANCREAS: Unremarkable. SPLEEN: Unremarkable. ADRENAL GLANDS: Stable bilateral adrenal gland nodules. Left adrenal gland nodule measures approximately 1.8 x 2.4 cm. Right adrenal gland nodule measures 1 cm. KIDNEYS AND URETERS: Bilateral percutaneous nephrostomy catheters in place. No hydronephrosis. No ureteral stone. There is no edema in the perinephric space. No abnormal fluid collection. Enhancement of the cortex is symmetric with no evidence of pyelonephritis. There is a small cortical cyst at the lower pole of left kidney. BLADDER: Enlarged prostate engulfing in the bladder. Prostate measures 8 cm transverse. GASTROINTESTINAL TRACT: No acute change of the bowel. No bowel obstruction. No bowel wall thickening or edema. Scattered diverticula: Without diverticulitis. The appendix is normal. Moderate volume of stool in colon. The small bowel loops are normal. ABDOMINAL WALL: No significant hernia is appreciated. LYMPH NODES: Numerous retroperitoneal enlarged lymph nodes. Stable lymphadenopathy in the pelvis in the right iliac chain in the right pelvic sidewall. VASCULAR: Scattered vascular calcifications of aorta without aneurysm. PELVIC VISCERA: Unremarkable. OSSEOUS STRUCTURES: Stable small sclerotic foci throughout the osseous skeleton consistent with known osseous metastasis. IMPRESSION: 1. Increasing size and number of hepatic masses since CAT scan of 03/04/2016. 2. Persistent enlarged prostate. 3. Persistent sclerotic lesions in the osseous skeleton suspicious of metastasis. 4. Persistent retroperitoneal and pelvic lymphadenopathy. 5. Percutaneous nephrostomy catheters in place without acute change of the kidneys. No evidence of pyelonephritis of the kidneys. No abscess or inflammation in abdomen or pelvis. X. Bibasilar infiltrate/atelectasis. EXAMINATION: XR PORTABLE CHEST CLINICAL INFORMATION: Shortness of breath. COMPARISON: Chest x-ray 03/20/2016 TECHNIQUE: Portable view of the chest was obtained. 5:16 PM FINDINGS: No significant abnormality is noted involving the heart, lungs, mediastinum, bony thorax or soft tissues. IMPRESSION: No acute abnormality of the chest. Disposition Summary Disposition Principal Diagnosis: Fever of unknown origin Orthostatic hypotension Transient leukocytosis Additional Diagnosis: Metastatic prostate cancer Bilateral hydronephrosis s/p nephrostomy tube placement Thromboembolic disease on warfarin Discharge Disposition: home health services Discharge Instructions General Discharge Information Code Status: Full Code Patient's Diet: Regular Diet. Patient's Activity: Self-limited, as tolerated. Follow-Up Instructions/Appts: Please follow up with PCP by Wednesday. Monitor for fever, chills and other signs of infection and discuss with PCP that you were not sent home with antibiotics.If any signs or symptoms of infection develop, contact your PCP right away or return to the emergency room. Follow up with Dr. Granados within 1 week of discharge for continued care and management of nephrostomy tubes. Take all medications as directed. PLEASE TAKE COUMADIN TONIGHT 03/23/16 YOU WERE NOT DOSED IN THE HOSPITAL. Continue to check INR as per recommendations from Dr. Valdez. Please follow up with your oncologist later this week for continued care and management. Medications at Discharge Discharge Medications: Stop taking the following medications: Moxifloxacin HCl (Moxifloxacin HCl) 400 MG TABLET ORAL DAILY Days = 9 Continue taking these medications: Bicalutamide (Bicalutamide) 50 MG TABLET 1 Tablet ORAL DAILY Qty = 30 Comments: Last Taken:03/23/16 Time: 11 AM Tamsulosin HCl (Tamsulosin HCl) 0.4 MG CAP.ER.24H 1 Capsule ORAL TWICE DAILY Qty = 30 Comments: Last Taken: 03/23/16 Time: 11 AM Naloxegol Oxalate (Movantik) 25 MG TABLET 1 Tablet ORAL DAILY as needed for CONSTIPATION Qty = 30 Comments: NOT TAKEN IN HOSPITAL Morphine Sulfate (Morphine Sulfate) 15 MG TABLET 30 Milligram ORAL EVERY 4 HOURS NEEDED as needed for PAIN SCALE 7-10 ( SEVERE) Qty = 15 Comments: Last Taken: 03/22/16 Time: 9:30 PM Polyethylene Glycol 3350 (Miralax) 17 GRAM/DOSE POWDER 17 Gram ORAL DAILY Days = 28 Comments: Last Taken: 03/23/16 Time: 11 aM Sennosides/Docusate Sodium (Senna Plus Tablet) 8.6 MG-50 MG TABLET 2 Tablet ORAL DAILY as needed for CONSTIPATION Days = 28 Comments: NOT TAKEN IN HOSPITAL Finasteride (Finasteride) 5 MG TABLET 5 Milligram ORAL DAILY Days = 28 Comments: NOT TAKEN IN HOSPITAL Warfarin Sodium (Coumadin) 2.5 MG TABLET 1 Tablet ORAL As Directed Comments: 2.5 MG NOT TAKEN IN HOSPITAL Warfarin Sodium (Warfarin Sodium) 5 MG TABLET 1 Tablet ORAL As Directed Comments: Last Taken: 03/23/16 Time: 5 PM Prochlorperazine Maleate (Prochlorperazine Maleate) 10 MG TABLET 1 Tablet ORAL EVERY SIX HOURS as needed for N/V Qty = 30 Comments: NOT TAKEN IN HOSPITAL Copies To: SAIDA VALDEZ DO, MD,HERIBERTO A. Attending MD Review Statement Documenting Attending: OSCAR STOVER M.D Other Findings: I have reviewed the discharge summary
== END 2016-03-23 13:10 | disposition home health service (06) | DRG 720 ==
LOC: ENRESERVDT → ENRESERVTM → ERH 16:21 → 2NA 19:20 → ERHI 19:20 → 2NA 20:42
PROVIDERS: Internal Medicine; Internal Medicine Nephrology; Physician Assistant; ADMIT Internal Medicine
DX: A41.9 Sepsis, unspecified organism (principal); N39.0 Urinary tract infection, site not specified; N13.1 Hydronephrosis with ureteral stricture, not elsewhere classified; Z86.711 Personal history of pulmonary embolism; Z79.01 Long term (current) use of anticoagulants; C79.51 Secondary malignant neoplasm of bone; C61 Malignant neoplasm of prostate; C78.00 Secondary malignant neoplasm of unspecified lung; Z93.6 Other artificial openings of urinary tract status
CPT/HCPCS: 2NAP; 74177; 81001; 82436; 87040; 87070; 87086; 87804; 87804-59; 93005; 93010; 96361; 96374; 96375; 99291; J0131; J0713; J3370; J7060; J9202

== ENCOUNTER 2016-04-24 19:40 | Inpatient (IN) | payer OTHER ==
[~2016-04-24] VITALS: Ht 182.9 cm; Wt 130.2 kg
[~2016-04-24 19:40] MED LIST changes: +COUMADIN2.5 M1 PO; +PROCHLORPERAZIN10 MG PO; +WARFARIN SODIUM5 M1 PO
--- NOTE | 2016-04-24 19:50 | NUR ---
PAIN TO RT SIDE X 2 HRS NOW WITH NO DRAINAGE TO RT NEPHROSOOTOMY TUBE, HAD A LOW GRADE TEMP. MORPHINE AT 5 PM OXYCODEONE AT 7 PM WITHOUT EFFECT.
--- NOTE | 2016-04-24 20:15 | NUR ---
PT CURRENTLY ON CHEMO
--- NOTE | 2016-04-24 20:16 | ED GI/GU/ABDOMINAL COMPLAINT ---
History of Present Illness General Chief Complaint: General Adult Stated Complaint: ?KIDNEY INFECTIONS Source: patient Exam Limitations: no limitations Vital Signs & Intake/Output Vital Signs & Intake/Output Vital Signs Date Time Temp Pulse Resp B/P Pulse O2 O2 Flow FiO2 Ox Delivery Rate 04/24 2154 98.3 04/24 2140 98.2 80 19 126/74 94 Room Air 04/24 1950 98.5 108 22 129/78 92 Room Air ED Intake and Output 04/25 0000 04/24 1200 Intake Total Output Total 200 Balance -200 Output, Urine 200 Patient 287 lb Weight Allergies Coded Allergies: ragweed pollen (Intermediate, NASAL CONGESTION 01/07/16) Penicillins (UNKNOWN 02/27/16) Reconcile Medications Bicalutamide 50 MG TABLET 1 TAB PO DAILY HORMONE (Reported) Docetaxel (Taxotere) (Unknown Strength) VIAL (Unknown Dose) IV Q3W CHEMO ( Reported) Finasteride 5 MG TABLET 5 MG PO DAILY prostate Leuprolide Acetate (Lupron Depot) (Unknown Strength) SYRINGEKIT (Unknown Dose) IM Q4M CANCER (Reported) Mirtazapine (Remeron) 30 MG TABLET 1 TAB PO DAILY DEPRESSION (Reported) Morphine Sulfate 15 MG TABLET 1 TAB PO Q4H PAIN (Reported) Naloxegol Oxalate (Movantik) 25 MG TABLET 1 TAB PO DAILY PRN CONSTIPATION Pegfilgrastim (Neulasta) (Unknown Strength) SYRINGE (Unknown Dose) SC Q3W WBC PRODUCTION (Reported) Polyethylene Glycol 3350 (Miralax) 17 GRAM/DOSE POWDER 17 GM PO DAILY constipation Sennosides/Docusate Sodium (Senna Plus Tablet) 8.6 MG-50 MG TABLET 2 TAB PO DAILY PRN CONSTIPATION Tamsulosin HCl 0.4 MG CAP.ER.24H 1 CAP PO BID PROSTATE (Reported) Warfarin Sodium 5 MG TABLET 1 TAB PO DAILY BLOOD THINNER (Reported) Triage Note: PAIN TO RT SIDE X 2 HRS NOW WITH NO DRAINAGE TO RT NEPHROSOOTOMY TUBE, HAD A LOW GRADE TEMP. MORPHINE AT 5 PM OXYCODEONE AT 7 PM WITHOUT EFFECT. Triage Nurses Notes Reviewed? yes Onset: Gradual Duration: day(s): Timing: recent history Quality/Severity: cramping Location: right flank Radiation: RLQ Activities at Onset: none Prior Abdominal Problems: similar symptoms Modifying Factors: Worsens With: movement. Associated Symptoms: abdominal pain, nausea/vomiting HPI: 55-year-old gentleman with stage IV prostate cancer bilateral nephrostomy tubes, history of urinary tract infection, presents with low-grade temp right flank pain and diminished urinary output in his right nephrostomy tube. He states that he has had these symptoms for the past 1-2 days, associated also with diffuse nausea. He has no diarrhea, abdominal pain chest pain, shortness of breath. He notes that he's been taking his Coumadin for his pulmonary emboli. He states, "I think I have another urine infection." Past History Travel History Traveled to [place] past 21 day No Medical History Any Pertinent Medical History? see below for history Neurological: NONE EENT: NONE Cardiovascular: NONE Respiratory: obstructive sleep apnea, pulmonary embolism, (DOES NOT USE CPAP) Gastrointestinal: NONE Hepatic: NONE Renal: BILATERAL NEPHROSTOMY Musculoskeletal: NONE Psychiatric: NONE Endocrine: NONE Blood Disorders: NONE Cancer(s): prostate cancer, METS TO the lymph nodes, bone and liver History of MRSA: No History of VRE: No History of CDIFF: No Surgical History Surgical History: prostatectomy, TONSILS Psychosocial History Who do you live with Significant Other Services at Home None What is your primary language Turkish Tobacco Use: Never used Family History Hx Contributory? No Review of Systems Review of Systems Constitutional: Reports: no symptoms. EENTM: Reports: no symptoms. Respiratory: Reports: no symptoms. Cardiovascular: Reports: no symptoms. GI: Reports: no symptoms. Genitourinary: Reports: no symptoms. Musculoskeletal: Reports: no symptoms. Skin: Reports: no symptoms. Neurological/Psychological: Reports: no symptoms. Hematologic/Endocrine: Reports: no symptoms. Immunologic/Allergic: Reports: no symptoms. All Other Systems: Reviewed and Negative Physical Exam Physical Exam General Appearance: well developed/nourished, mild distress Head: atraumatic, normal appearance Eyes: Bilateral: normal appearance. Ears, Nose, Throat, Mouth: hearing grossly normal Neck: normal inspection, supple, full range of motion Respiratory: normal breath sounds, chest non-tender, no respiratory distress, quiet respiration, lungs clear Cardiovascular: regular rate/rhythm Gastrointestinal: normal bowel sounds, soft Back: normal inspection, bilateral nephrostomy sites appear clean dry and intact. Core Measures ACS in differential dx? No Severe Sepsis Present: No Septic Shock Present: No Progress Differential Diagnosis: ureterolithiasis, urinary retention, UTI/pyelo, mets Plan of Care: Orders Procedure Date/time Status Nothing by Mouth 04/25 B Active EKG 04/24 2349 Active Patient Data 04/24 2327 Active Saline Lock 04/24 2238 Active Misc Message 04/24 2238 Active ED Holding Orders 04/24 2238 Active Admit to inpatient 04/24 2238 Active Vital Signs 04/24 2238 Active Code Status 04/24 2238 Active CULTURE,URINE 04/24 2146 Active URINALYSIS 04/24 2129 Complete Intake & Output 04/24 2032 Active BLOOD CULTURE 04/24 2029 Active BLOOD CULTURE 04/24 2025 Active CULTURE,URINE 04/24 2024 Active URINALYSIS 04/24 2024 Complete PARTIAL THROMBOPLASTIN TIME 04/24 2016 Complete PROTHROMBIN TIME 04/24 2016 Complete LIPASE 04/24 2015 Complete HEPATIC FUNCTION PANEL 04/24 2015 Complete CBC WITHOUT DIFFERENTIAL 04/24 2015 Complete BASIC METABOLIC PANEL 04/24 2015 Complete AMYLASE 04/24 2015 Complete Current Medications Sig/[place] Start time Last Medication Dose Stop Time Status Admin Sodium Chloride 1,000 ML BOLUS ONE 04/25 0015 AC (Normal Saline 0.9%) 04/25 0114 Laboratory Tests 04/24/162132: Urine Color YEL, Urine Clarity CLDY H, Urine pH 6.0, Ur Specific [place] >= 1.030, Urine Protein >=300 H, Urine Ketones NEG, Urine Nitrite POS H, Urine Bilirubin NEG, Urine Urobilinogen 1.0, Ur Leukocyte Esterase TRACE H, Ur Microscopic SEDIMENT EXAMINED, Urine RBC >75 H, Urine WBC 1-3 H, Urine Mucus RARE, Urine Hemoglobin LARGE H, Urine Glucose NEG 04/24/162033: Anion Gap 12, Estimated GFR > 60, BUN/Creatinine Ratio 15.0, Glucose 125 H, Calcium 8.7, Total Bilirubin 0.6, Direct Bilirubin 0.4, AST 67 H, ALT 39, Alkaline Phosphatase 211 H, Total Protein 6.0 L, Albumin 3.4 L, Amylase < 30 L, Lipase 89, PT 19.2 H, INR 1.84 H, APTT 28, CBC w Diff MAN DIFF ORDERED, RBC 3.84 L, MCV 81.0, MCH 25.7 L, RDW 19.7 H, MPV 8.2, Gran % 88.8 H, Lymphocytes % 7.4 L, Monocytes % 3.2, Eosinophils % 0, Basophils % 0.6, Absolute Granulocytes 14.5 H, Absolute Lymphocytes 1.2, Absolute Monocytes 0.5, Absolute Eosinophils 0, Absolute Basophils 0.1, Platelet Estimate ADEQUATE, Poikilocytosis 1+, Radha Cells 1+, Elliptocytes 1+, Schistocytes 1+, PUBS MCHC 31.8 L 04/24/162029: Urine Color YEL, Urine Clarity HAZY H, Urine pH 6.0, Ur Specific [place] >= 1.030, Urine Protein >=300 H, Urine Ketones NEG, Urine Nitrite POS H, Urine Bilirubin NEG, Urine Urobilinogen 1.0, Ur Leukocyte Esterase SMALL H, Ur Microscopic SEDIMENT EXAMINED, Urine RBC >75 H, Urine WBC 50-75 H, Urine Mucus MOD H, Urine Hemoglobin LARGE H, Urine Glucose NEG 04/24/16 2016: Urine Color Cancelled, Urine Clarity Cancelled, Urine pH Cancelled, Ur Specific [place] Cancelled, Urine Protein Cancelled, Urine Ketones Cancelled, Urine Nitrite Cancelled, Urine Bilirubin Cancelled, Urine Urobilinogen Cancelled, Ur Leukocyte Esterase Cancelled, Ur Microscopic Cancelled, Urine Hemoglobin Cancelled, Urine Glucose Cancelled Microbiology 04/24 2132 URINE ROUT: Urine Culture - RECD 04/24 2041 BLOOD: Blood Culture - RECD 04/24 2033 BLOOD: Blood Culture - RECD 04/24 2029 URINE ROUT: Urine Culture - RECD 04/24 UNK URINE ROUT: Urine Culture - CAN Cancelled: DUP Diagnostic Imaging: Viewed by Me: CT Scan. Discussed w/RAD: CT Scan. Radiology Impression: abd/pelvic ct... mets noted, nephrostomy tubes in place. Initial ED EKG: normal axis, normal intervals, normal p-waves, normal QRS complex, normal sinus rhythm Comments: PATIENT: EFRAIN OLIVERA PRESENT AGE: 55 PATIENT ACCOUNT NO: [id number] : 62 LOCATION: [facility] ORDERING PHYSICIAN: JULIETTE QUINTERO MD SERVICE DATE: 04/24/16-2024 EXAM TYPE: CAT - CT ABD & PELVIS W/O IV CONTRAS EXAMINATION: CT ABDOMEN AND PELVIS WITHOUT CONTRAST CLINICAL INFORMATION: Right flank pain. History of prostate cancer. Bilateral nephrostomy tubes. COMPARISON: CT abdomen pelvis 03/20/2016 TECHNIQUE: Multidetector volumetric imaging was performed from the superior aspect of the liver through the pubic symphysis. Sagittal and coronal reformatted images were obtained on the technologist's workstation. No oral or intravenous contrast. DLP: 1323.94 mGy-cm FINDINGS: LUNG BASES: Small bilateral pleural effusions and basilar atelectasis. LIVER, GALLBLADDER, AND BILIARY TREE: Multiple hypodense liver masses again noted largest lesion in the central liver previously measured 5.5 cm on CAT scan of 03/20/2016 is now measures 6.7 cm. The lesion left lobe liver is increasing in size. Previously measured 7.7 x 6.4 cm and currently measures 8.6 x 9 cm. No intrahepatic bile duct dilatation. The gallbladder is unremarkable with no evidence of radiopaque gallstones, gallbladder wall thickening, or obvious pericholecystic inflammatory changes. PANCREAS: Unremarkable. SPLEEN: Unremarkable. ADRENAL GLANDS: Fullness of the left adrenal gland unchanged since prior study. Right adrenal gland normal. KIDNEYS AND URETERS: Bilateral percutaneous nephrostomy catheters in place in good position. Mild prominence of the right and left renal pelvis without significant hydronephrosis. No dilatation of the ureters. BLADDER: Base of bladder and prostate and bile enlarged lobular prostate. GASTROINTESTINAL TRACT: No acute change of the bowel. No bowel obstruction. No bowel wall thickening or edema. Scattered diverticula in the colon without diverticulitis. The appendix is normal. Small bowel loops are normal. ABDOMINAL WALL: No significant hernia is appreciated. LYMPH NODES: Persistent retroperitoneal and retrocrural lymphadenopathy. Enlarged lymph nodes in the right and left iliac chains similar prior CAT scan. VASCULAR: Scattered vascular wall calcifications of aorta. PELVIC VISCERA: Enlarged prostate impressing into the bladder base. Prostate measures 8.5 cm transverse. OSSEOUS STRUCTURES: Sclerotic foci throughout the osseous skeleton consistent with metastatic disease. IMPRESSION: 1. Bibasilar atelectasis and pleural effusion. 2. Increasing metastatic disease in liver, enlarging liver masses. 3. Persistent retroperitoneal lymphadenopathy. 4. Bilateral nephrostomy catheters in place. 5. Enlarged prostate. 6. Osseous metastatic disease. DICTATED BY: LARA MCKENZIE MD DATE/TIME DICTATED:04/24/162303 LIAISON OFFICER:KAYY DATE/TIME TRANSCRIBED:04/24/162303 CONFIDENTIAL, DO NOT COPY WITHOUT APPROPRIATE AUTHORIZATION. <Electronically signed in Other Vendor System> SIGNED BY: LARA MCKENZIE MD 04/24/16 3669 Departure Departure Disposition: STILL A PATIENT Condition: Stable Clinical Impression Primary Impression: Sepsis Secondary Impressions: Metastasis, Prostate cancer, UTI (urinary tract infection ) Referrals: MATTHEW VALDEZ DO (PCP/Family) Departure Forms: Customer Survey General Discharge Information Admission Note Spoke With: HECTOR BROWN,[facility] Documentation of Exam: Documentation of any treatments & extenuating circumstances including Concerns Regarding Discharge (functional status, medication knowledge or non-compliance, living conditions, etc.) that warrant an admission rather than observation: pt with stage iv prostate cancer, signs and symptoms suggestive of sepsis of urologic origin, in the context of bilateral ureteral obstruction/nephrostomy tubes..... BP stable. Pt safe for gen med. Would consider conversation/family meeting around goals of care given further dissemination of his prostate cancer.
--- NOTE | 2016-04-24 20:21 | NUR ---
DR QUINTERO AT BEDSIDE FOR EVAL.
--- NOTE | 2016-04-24 20:32 | NUR ---
PHARMACY CALLED FOR PREMARIN.
--- NOTE | 2016-04-24 20:32 | NUR ---
URINE TRIO SENT FROM L NEPHROSTOMY BAG. APPROX 200CCS CONCENTRATED URINE DRAINED.
--- NOTE | 2016-04-24 20:47 | NUR ---
LABS DRAWN AND SENT BY THIS [facility] (BLUE,2 SST,LAV,RAMIREZ,BOTH SETS OF B/C)
[2016-04-24 20:57] LABS: ABSOLUTE BASOPHIL COUNT 0.1 /CUMM (0.0-0.2); ABSOLUTE EOSINOPHIL COUNT 0 /CUMM (0.0-0.7); ABSOLUTE GRANULOCYTE CT 14.5 /CUMM (1.4-6.5); ABSOLUTE LYMPH COUNT 1.2 /CUMM (1.2-3.4); ABSOLUTE MONOCYTE COUNT 0.5 /CUMM (0.10-0.60); BASOPHIL % 0.6 % (0.0-2.0); EOSINOPHIL % 0 % (0-5); GRANULOCYTE % 88.8 % (42.2-75.2); HEMATOCRIT 31.1 % (42-52); MEAN CORPUSCULAR HGB 25.7 PG (27.0-31.0); MEAN CORPUSCULAR HGB CONC 31.8 G/DL (33.0-37.0); MEAN PLATELET VOLUME 8.2 FL (7.4-10.4); PLATELET COUNT 181 /CUMM (130-400); RBC DISTRIBUTION WIDTH 19.7 % (11.5-14.5); RED BLOOD CELL CT 3.84 /CUMM (4.70-6.10); WHITE BLOOD CELL COUNT 16.3 /CUMM (4.8-10.8)
[2016-04-24 21:04] LABS: PT 19.2 SEC (9.4-12.5); PTT 28 SEC (25-37)
--- NOTE | 2016-04-24 21:05 | NUR ---
PT MEDICATED WITH 2MG DILAUDID IV AND 4MG ZOFRAN IV. NORMAL SALINE INFUSING.
--- NOTE | 2016-04-24 21:30 | NUR ---
PT AWARE THAT WE ARE AWAITING CAT SCAN.
--- NOTE | 2016-04-24 21:42 | NUR ---
R NEPHROSTOMY BAG CONTAINS LESS THAN 10CC THICK JOSE ARMANDO COLORED DRAINAGE. SPECIMEN COLLECTED FROM DRAINAGE BAG AND URINE TRIO SENT TO LAB AT THIS TIME.
[2016-04-24] MEDS ORDERED: WARFARIN SODIUM5 M1 PO (22:57)
[2016-04-24] MEDS ORDERED: MORPHINE SULFAT15 M4 PO (22:58)
[2016-04-24] MEDS ORDERED: REMERON30 M3 PO (22:58)
[2016-04-24] MEDS ORDERED: TAXOTERE20 MG/1 ML IV (23:00)
[2016-04-24] MEDS ORDERED: NEULASTA6 MG/0.6 M SC (23:01)
[2016-04-24] MEDS ORDERED: LUPRON DEPOT30 MG IM (23:02)
--- NOTE | 2016-04-24 23:17 | NUR ---
PT MEDICATED WITH ROCEPHIN 1000MG IV.
--- NOTE | 2016-04-24 23:19 | CT SCAN REPORT ---
EXAMINATION: CT ABDOMEN AND PELVIS WITHOUT CONTRAST CLINICAL INFORMATION: Right flank pain. History of prostate cancer. Bilateral nephrostomy tubes. COMPARISON: CT abdomen pelvis 03/20/2016 TECHNIQUE: Multidetector volumetric imaging was performed from the superior aspect of the liver through the pubic symphysis. Sagittal and coronal reformatted images were obtained on the technologist's workstation. No oral or intravenous contrast. DLP: 1323.94 mGy-cm FINDINGS: LUNG BASES: Small bilateral pleural effusions and basilar atelectasis. LIVER, GALLBLADDER, AND BILIARY TREE: Multiple hypodense liver masses again noted largest lesion in the central liver previously measured 5.5 cm on CAT scan of 03/20/2016 is now measures 6.7 cm. The lesion left lobe liver is increasing in size. Previously measured 7.7 x 6.4 cm and currently measures 8.6 x 9 cm. No intrahepatic bile duct dilatation. The gallbladder is unremarkable with no evidence of radiopaque gallstones, gallbladder wall thickening, or obvious pericholecystic inflammatory changes. PANCREAS: Unremarkable. SPLEEN: Unremarkable. ADRENAL GLANDS: Fullness of the left adrenal gland unchanged since prior study. Right adrenal gland normal. KIDNEYS AND URETERS: Bilateral percutaneous nephrostomy catheters in place in good position. Mild prominence of the right and left renal pelvis without significant hydronephrosis. No dilatation of the ureters. BLADDER: Base of bladder and prostate and bile enlarged lobular prostate. GASTROINTESTINAL TRACT: No acute change of the bowel. No bowel obstruction. No bowel wall thickening or edema. Scattered diverticula in the colon without diverticulitis. The appendix is normal. Small bowel loops are normal. ABDOMINAL WALL: No significant hernia is appreciated. LYMPH NODES: Persistent retroperitoneal and retrocrural lymphadenopathy. Enlarged lymph nodes in the right and left iliac chains similar prior CAT scan. VASCULAR: Scattered vascular wall calcifications of aorta. PELVIC VISCERA: Enlarged prostate impressing into the bladder base. Prostate measures 8.5 cm transverse. OSSEOUS STRUCTURES: Sclerotic foci throughout the osseous skeleton consistent with metastatic disease. IMPRESSION: 1. Bibasilar atelectasis and pleural effusion. 2. Increasing metastatic disease in liver, enlarging liver masses. 3. Persistent retroperitoneal lymphadenopathy. 4. Bilateral nephrostomy catheters in place. 5. Enlarged prostate. 6. Osseous metastatic disease.
--- NOTE | 2016-04-24 23:49 | History & Physical ---
JONNA BROWN,[facility] 04/24/16 2346: General Information and HPI MD Statement: I have seen and personally examined EFRAIN JUNIOR and documented this H&P. The patient is a 55 year old M who presented with a patient stated chief complaint of right flank pain and diminished urine output. Source of Information: patient, family, old records Exam Limitations: no limitations History of Present Illness: Mr Junior is a 55-year-old male with PMH of stage 4 prostate cancer ( currently undergoing Chemotherapy with Docetaxel), bilateral nephrostomy tubes, hx of pulmonary embolism on daily Warfarin who presented to the emergency department at [facility] on 04/24/2016 after experiencing right-sided flank pain as well as decreased output in his right-sided nephrostomy bag. The patient states over the last 48 hours prior to admission his nephrostomy tube output on the right side gradually decreased. Output has a been approximately 100 mL per 24 hour period. This is approximately a half of what the output usually is. Over the course of the day on 04/24/2016 patient states that there has been no output on the right side prompting him to come to the ED. Patient does state that the left side has continued to drain approximately 200 mL over a 24 hour period. Patient also states that the color of his urine on the right side as change from hazy to Korin. The patiet did endorse right sided flank pain prior to pain relief medication administration at the ED. The patient also does take Coumadin on a daily basis due to a history of pulmonary embolism. He last took 10 mg of Coumadin on 04/24/2016. Patient stated that he has been instructed that his INR should be as close to 2 as possible. He normally follows up with his PCP Dr Valdez for management for management of his INR. Patient is scheduled to have upcoming chemotherapy this Wednesday on 04/29/2016. He is subsequently scheduled to have his nephrostomy tubes and and bags changed on 05/26/2016. He normally taked Ciprofloxacin PO X 5 days prior to this procedure. Patient follows up with: 1) Dr. Mondragon. 2) Dr. Granados Allergies/Medications Allergies: Coded Allergies: ragweed pollen (Intermediate, NASAL CONGESTION 01/07/16) Penicillins (UNKNOWN 02/27/16) Uncoded Allergies: POULTRY SKIN (Severe, THROAT CLOSURE 02/25/17) Home Med list Bicalutamide 50 MG TABLET 1 TAB PO DAILY HORMONE (Reported) Ciprofloxacin HCl (Cipro) 500 MG TABLET 1 TAB PO BID kidney infection Docetaxel (Taxotere) 20 MG/ML (1 ML) VIAL Pro Ca (Reported) Please follow with your oncologist for further advice. Morphine Sulfate 15 MG TABLET 1 TAB PO Q4H PAIN (Reported) Naloxegol Oxalate (Movantik) 25 MG TABLET 1 TAB PO DAILY PRN CONSTIPATION Polyethylene Glycol 3350 (Miralax) 17 GRAM/DOSE POWDER 17 GM PO DAILY constipation Sennosides/Docusate Sodium (Senna Plus Tablet) 8.6 MG-50 MG TABLET 2 TAB PO DAILY PRN CONSTIPATION Tamsulosin HCl 0.4 MG CAP.ER.24H 1 CAP PO BID PROSTATE (Reported) Warfarin Sodium 5 MG TABLET 1 TAB PO DAILY BLOOD THINNER (Reported) Please dose coumadin to keep the INR within one week of discharge. Compliance With Home Meds: UNKNOWN Past History Travel History Traveled to [place] past 21 day No Medical History Neurological: NONE EENT: NONE Cardiovascular: NONE Respiratory: obstructive sleep apnea, pulmonary embolism, (DOES NOT USE CPAP) Gastrointestinal: NONE Hepatic: NONE Renal: BILATERAL NEPHROSTOMY Musculoskeletal: NONE Psychiatric: NONE Endocrine: NONE Blood Disorders: NONE Cancer(s): prostate cancer, METS TO the lymph nodes, bone and liver History of MRSA: No History of VRE: No History of CDIFF: No Surgical History Surgical History: prostatectomy, TONSILS Past Family/Social History Psychosocial History Where do you live? Home Who Do You Live With? fiance, getting June Services at Home: None Primary Language: Pashto Review of Systems Review of Systems Constitutional: Reports: fever. Denies: chills, diaphoresis, malaise, weakness. Cardiovascular: Denies: chest pain, edema, orthopena, palpitations, peripheral edema, syncope. Respiratory: Denies: cough, hemoptysis, orthopnea, short of breath, sputum production. GI: Reports: nausea. Denies: abdominal pain, bloating, constipation, diarrhea, distention, bowel incontinence, vomiting. Genitourinary: Reports: see HPI. Denies: hematuria. Musculoskeletal: Reports: back pain, muscle pain (Generalized Bone Pain ). Skin: Denies: change in skin color, change in hair/nails, dryness, erythema. Exam & Diagnostic Data Last 24 Hrs of Vital Signs/I&O Vital Signs Date Time Temp Pulse Resp B/P Pulse O2 O2 Flow FiO2 Ox Delivery Rate 04/24 2154 98.3 04/24 2140 98.2 80 19 126/74 94 Room Air 04/24 1950 98.5 108 22 129/78 92 Room Air Physical Exam General Appearance Alert, Oriented X3, Cooperative Skin No Rashes, No Breakdown HEENT PERRLA, Mucous Membranes Dry Neck Supple Lymphatic Cervical nl Cardiovascular Regular Rate, Normal S1, Normal S2 Lungs Bilatterral Crackles. Abdomen Normal Bowel Sounds, Soft, No Tenderness, Nephrolsotomy tubes in Place. Right sided: ?evidence of tenderness and blood at site. Nephrostomy bag contained minimal cloudy urine Left sided: draining well, clean, dry, intact, output dark yellow Neurological Normal Speech Last 24 Hrs of Labs/Raymundo: Laboratory Tests 04/24/162132: Urine Color YEL, Urine Clarity CLDY H, Urine pH 6.0, Ur Specific Al[place]ord >= 1.030, Urine Protein >=300 H, Urine Ketones NEG, Urine Nitrite POS H, Urine Bilirubin NEG, Urine Urobilinogen 1.0, Ur Leukocyte Esterase TRACE H, Ur Microscopic SEDIMENT EXAMINED, Urine RBC >75 H, Urine WBC 1-3 H, Urine Mucus RARE, Urine Hemoglobin LARGE H, Urine Glucose NEG 04/24/162033: Anion Gap 12, Estimated GFR > 60, BUN/Creatinine Ratio 15.0, Glucose 125 H, Calcium 8.7, Total Bilirubin 0.6, Direct Bilirubin 0.4, AST 67 H, ALT 39, Alkaline Phosphatase 211 H, Total Protein 6.0 L, Albumin 3.4 L, Amylase < 30 L, Lipase 89, PT 19.2 H, INR 1.84 H, APTT 28, CBC w Diff MAN DIFF ORDERED, RBC 3.84 L, MCV 81.0, MCH 25.7 L, RDW 19.7 H, MPV 8.2, Gran % 88.8 H, Lymphocytes % 7.4 L, Monocytes % 3.2, Eosinophils % 0, Basophils % 0.6, Absolute Granulocytes 14.5 H, Absolute Lymphocytes 1.2, Absolute Monocytes 0.5, Absolute Eosinophils 0, Absolute Basophils 0.1, Platelet Estimate ADEQUATE, Poikilocytosis 1+, Philadelphia Cells 1+, Elliptocytes 1+, Schistocytes 1+, PUBS MCHC 31.8 L 04/24/162029: Urine Color YEL, Urine Clarity HAZY H, Urine pH 6.0, Ur Specific Alvord >= 1.030, Urine Protein >=300 H, Urine Ketones NEG, Urine Nitrite POS H, Urine Bilirubin NEG, Urine Urobilinogen 1.0, Ur Leukocyte Esterase SMALL H, Ur Microscopic SEDIMENT EXAMINED, Urine RBC >75 H, Urine WBC 50-75 H, Urine Mucus MOD H, Urine Hemoglobin LARGE H, Urine Glucose NEG 04/24/16 2016: Urine Color Cancelled, Urine Clarity Cancelled, Urine pH Cancelled, Ur Specific [place] Cancelled, Urine Protein Cancelled, Urine Ketones Cancelled, Urine Nitrite Cancelled, Urine Bilirubin Cancelled, Urine Urobilinogen Cancelled, Ur Leukocyte Esterase Cancelled, Ur Microscopic Cancelled, Urine Hemoglobin Cancelled, Urine Glucose Cancelled Microbiology 04/24 2132 URINE ROUT: Urine Culture - RECD 04/24 2041 BLOOD: Blood Culture - RECD 04/24 2033 BLOOD: Blood Culture - RECD 04/24 2029 URINE ROUT: Urine Culture - RECD 04/24 UNK URINE ROUT: Urine Culture - CAN Cancelled: DUP Diagnostic Data Other Results EXAM TYPE: CAT - CT ABD & PELVIS W/O IV CONTRAST IMPRESSION: 1. Bibasilar atelectasis and pleural effusion. 2. Increasing metastatic disease in liver, enlarging liver masses. 3. Persistent retroperitoneal lymphadenopathy. 4. Bilateral nephrostomy catheters in place. 5. Enlarged prostate. 6. Osseous metastatic disease. DICTATED BY: LARA MCKENZIE MD Assessment/Plan Assessment: Mr Junior is a 55-year-old male with PMH of stage 4 prostate cancer, bilateral nephrostomy tubes, hx of pulmonary embolism on warfarin who presented to the emergency department with decreased right-sided nephrostomy output and right sided flank pain. #Sepsis (confirmed with evidence of tachycardia (108) and leukocytosis). We will attempt to flush th nephrstomy tube. Elevation in white count is 16.3. As a result of Begin patient on Ceftazidime 1000 mg every 12 hours. Urine culture. Urology consult with Dr. Granados in a.m. Patient may need to have nephrostmy tubes changed. Repeat CBC in a.m. #Metastatic prostate CA CT abdmen and Pelvis Imaging studies showed evidence of enlaring liver masses. Oncology consult in a.m. #Generalized pain Continue MSIR for pain 15 mg Q4 Dilaudid Q6 PRN IV. #History of pulmonary embolism Check INR in a.m. On admission INR was 1.4. Patient states that he took 10 mg of warfarin. Maintain INR as close to 2 as possible as per instruction from patient. Daily INR checks. #Opioid-induced constipation Likely induced as a side effect of opiod medication. Continue MiraLAX and senna. #Diet Heart healthy #DVT prophylaxis Warfarin #Code Full code As Ranked By This Provider Problem List: 1. Urinary tract infection 2. Prostate cancer metastatic to bone 3. Prostate cancer, primary, with metastasis from prostate to other site 4. Sepsis Core Measures/Miscellaneous Acute Coronary Syndrome ACS Diagnosis: No Cerebrovascular Accident CVA/TIA Diagnosis: No Congestive Heart Failure CHF Diagnosis: No Venous Thromboembolism VTE Risk Factors: Age > 40 VTE Prophylaxis Ordered Inpt: Pharm- Warfarin No Mech VTE prophylaxis d/t: No contraindications No VTE Pharm Prophylaxis d/t: No contraindications VTE Diagnosis: No VTE Type: NONE VTE Confirmed by (Test): NONE Severe Sepsis Severe Sepsis Present: No BC x2: Yes Lactic Acid x2: Yes IV ABX Broad Spectrum: Yes Septic Shock Septic Shock Present: No Miscellaneous Documentation Attending Case Discussed With: HECTOR BROWN, [facility] Primary Care Physician: MATTHEW VALDEZ DO Patient sees these Specialists Dr. Mondragon. Dr. Granados Level of Patient Care: General Medicine KAROL BROWN,MAURICE 04/25/16 0146: Resident Review Statement Resident Statement: examined this patient, discussed with statistics intern, agreed with statistics intern Other Findings: This is a 55 y/o man with a PMH of Metastatic Prostate Cancer (liver, bone) s/p placement of bilateral nephrostomy tubes, MENDOZA, PE on Coumadin, currently undergoing chemotherapy with Docetaxel who presents to the ED after he found the drainage from his Rt sided nephrostomy tube to be minimal. He was recently discharged from [facility] at the end of March 2016 after he was found to be in sepsis of unknown origin. At the time, his urine cultures were thought to be colonization and he was not discharged on any antibiotics. He gets his nephrostomy tubes replaced every 3 months and was scheduled to get it done on May 26. He is also currently receiving Chemo with Docetaxel (Q3 weeks), next one scheduled for Wednesday. In the ED, Vitals: Stable Exam: Rt sided nephrostomy bag showed the presence of cloudy residue with left sided nephrostomy bag showing dark yellow urine. Some generalized tenderness around insertion of the tubes. Distended abdomen, non tender Labs: Elevated WBC with no left shift. Coags show INR of 1.84, U/A from both tubes shows the presence of nitrites, trace LE and 1-3 WBC (R) vs 50-75 WBC (L). Imaging: CAT scan of the abdomen and pelvis showed the presence of increasing metastatic disease in the liver with enlarging liver masses, bilateral nephrostomy tubes in place, enlarged prostate and osseous metastatic disease. Problem List: * Leukocytosis 2/2 infection (UTI) vs progressive metastatic disease of the liver * B/L Nephrostomy tube complicated by decreased output from right nephrostomy tube * Metastatic Prostate Cancer with mets to the liver and bone * PE on Coumadin, with goal INR closer to 2, as opposed to a higher INR Plan: * Admit to general medicine * Continue Ceftriaxone for now, pending cultures in suspicion of UTI * Urology consult for evaluation of the nephrostomy tubes and to r/o possible blockade * Oncology consult for management of increasing liver metastasis, which the patient and his fiance were not aware of at the time of the last discharge. * Continue home MSIR for pain with Dilaudid PRN for severe pain * Continue home Bicalutamide, Miralax, Senna * Please dose Warfarin depending on Coumadin in the AM (goal INR around [address] Granados) * Pain Pathway: as above * DVT PPx: Coumadin * Code Status: Full Code HECTOR BROWN, [facility] 04/25/16 0354: Attending MD Review Statement Attending Statement Attending MD Statement: examined this patient, discuss w/resident/PA/LEVEL VIAL INSIDE GRINDER, agreed w/resident/PA/LEVEL VIAL INSIDE GRINDER, discussed with family Attending Assessment/Plan: 55 yo unfortunate M with stage IV hormone refractory prostate cancer s/p laser TURP, with bone mets, s/p bilateral nephrostomies due to invasion of trigone by prostate cancer, currently on chemo (Docetaxell with Neulasta Q3 weeks, next due on 04/29), PE on coumadin, recently admitted (03/20 03/23) for FUO (UC grew coag neg staph) and orthostatic hypotension, pw right flank pain, low grade temp and reduced to nil cloudy drainage from Rt. nephrostomy tube. He is due for nephrostomy tube change on May [address] Granados. He gets his nephrostomy tubes replaced every 3 months and was scheduled to get it done on May 26. Vitals stable except for tachycardia. Labs: WBC 16.3, H/H 9.9/31.1, INR 1.84, AST 67, Alk phos 211. U/A +. CT abd/pelvis: b/l percutaneous nephrostomy cather in good position, mild prominence of right and left renal pelvis, no hydronephrosis, increasing metastatic liver disease, enlarged prostate, osseous metastatic disease. Imaging: CAT scan of the abdomen and pelvis showed the presence of increasing metastatic disease in the liver with enlarging liver masses, bilateral nephrostomy tubes in place, enlarged prostate and osseous metastatic disease. 1. Sepsis (leukocytosis, tachycardia) in the setting of complicated UTI ( obstructed right nephrostomy tube). GM admit, check lactic acid, panculture, IV fluids, IV ceftazidime until cultures return. Please have the nephrostomy tubes flushed to see if output changes. Urology consult. 2. Stage 4 prostate cancer. Oncology consult. Of note, patient and his fiance were unaware of the increasing metastatic disease in the liver. This was seen on imaging done in Mar 2016. Continue pain management. Patient is due for chemo on WednesdayApril 29. Continue bicalutamide. Palliative consult. DVT ppx coumadin. Full code.
--- NOTE | 2016-04-24 23:56 | NUR ---
AWAITS BED ASSIGNMENT.
--- NOTE | 2016-04-25 00:02 | NUR ---
BED ASSIGNMENT 210-2
--- NOTE | 2016-04-25 00:03 | NUR ---
PER PT IS REQUESTING A PRIVATE ROOM, UC ASKED TO CALL SUPERVISIOR TO FIND OUT IF POSSIBLE.
--- NOTE | 2016-04-25 00:05 | NUR ---
HPOSESTAFF AT BEDSIDE.
--- NOTE | 2016-04-25 00:09 | NUR ---
CHANGED TO BED #[id number]
--- NOTE | 2016-04-25 00:12 | NUR ---
BED ASSIGNMENT CHANGED TO 213.
--- NOTE | 2016-04-25 00:31 | NUR ---
EKG DONE AND SHOWNT MTO DR. QUINTERO.
[2016-04-25 01:26] VITALS: BP 124/76
--- NOTE | 2016-04-25 02:15 | NUR ---
PT ARRIVED FROM ER VIA STRETCHER, PT'S FIANCE AT BEDSIDE. AMBULATED TO BED WITHOUT DIFFICULTY. BILATERAL NEPHROSTOMIES NOTED, JOSE ARMANDO DRAINAGE FROM LEFT SIDE, SCANT AMOUNT OF PURULENT APPEARING DRAINAGE FROM RT. PER MD ORDER, ATTEMPT MADE TO FLUSH RT NEPHROSTOMY WITHOUT SUCCESS. CEDRIC COYLE NOTIFIED. CEDRIC COYLE ALSO NOTIFIED THAT PER PT AND , PT'S INR NOT TO BE ABOVE 2.0
--- NOTE | 2016-04-25 04:45 | Admission Certification ---
Admission Certification Certification Statement - As attending physician, I certify that at the time of - admission, based on clinical presentation, severity of - symptoms, need for further diagnostic testing and - therapeutic interventions, and risk of adverse outcomes - without in-hospital treatment, in my clinical assessment, - this patient requires an acute hospital stay for a minimum - of two nights or longer. I have also considered psychsocial - factors such as support system, advanced age, financial - issues, cognitive issues, and failed out-patient treatments, - past re-admission history, safety of patient, and lack of - compliance as applicable. Specific rationale supporting this admission is: Sepsis 2/2 complicated UTI.
--- NOTE | 2016-04-25 08:00 | NUR ---
NURSING NOTE: UNABLE TO FLUSH RIGHT NEPHROSTOMY TUBE. DR. ANTONIO @ BEDSIDE AND AWARE. LEFT NEPHROSTOMY TUBE WITH GOOD OUTPUT. WILL CONTINUE TO MONITOR
[2016-04-25 08:28] VITALS: BP 122/80
--- NOTE | 2016-04-25 08:47 | PN- Urology ---
Surgical Brief Attending Note Brief Attending Note: Hx as noted it H&P. Patient admitted last night with sudden onset of R flank pain and decreased drainage from R nephrostomy tube. No fevers or chills I attempted to flush R nephrostomy but was unsuccessful and the R nephrostomy will need to be changed. He is due to have both nephrostomies changed in April and therefore would plan to change both nephrostomies on this admission. Plan: 1. Continue abx 2. Would contact IR about changing both nephrostomies. As long as patient is comfortable and afebrile this can be done Wednesday. If patient develops fever or recurrent R flank pain then R nephrostomy would have to be changed by IR urgently
--- NOTE | 2016-04-25 09:33 | Cons- Oncology ---
General Information and HPI Consulting Request Date of Consult: 04/25/16 Requested By: HECTOR BROWN,JACKELINE History of Present Illness: The patient is a 55-year-old gentleman with known metastatic prostate cancer, hormone refractory, being treated with single agent Taxotere. The patient is now admitted with flank pain and low-grade fever. He does have a nephrostomy tube in place Allergies/Medications Allergies: Coded Allergies: ragweed pollen (Intermediate, NASAL CONGESTION 01/07/16) Penicillins (UNKNOWN 02/27/16) Uncoded Allergies: POULTRY SKIN (Severe, THROAT CLOSURE 04/25/16) Home Med List: Bicalutamide 50 MG TABLET 1 TAB PO DAILY HORMONE (Reported) Docetaxel (Taxotere) (Unknown Strength) VIAL (Unknown Dose) IV Q3W CHEMO ( Reported) Morphine Sulfate 15 MG TABLET 1 TAB PO Q4H PAIN (Reported) Naloxegol Oxalate (Movantik) 25 MG TABLET 1 TAB PO DAILY PRN CONSTIPATION Polyethylene Glycol 3350 (Miralax) 17 GRAM/DOSE POWDER 17 GM PO DAILY constipation Sennosides/Docusate Sodium (Senna Plus Tablet) 8.6 MG-50 MG TABLET 2 TAB PO DAILY PRN CONSTIPATION Tamsulosin HCl 0.4 MG CAP.ER.24H 1 CAP PO BID PROSTATE (Reported) Warfarin Sodium 5 MG TABLET 1 TAB PO DAILY BLOOD THINNER (Reported) Current Medications: Current Medications Sig/Aurora Start time Last Medication Dose Route Stop Time Status Admin Bicalutamide 50 MG DAILY 04/25 1000 AC PO Ceftazidime 1,000 MG Q8 04/25 0600 AC 04/25 IV 0627 Ceftriaxone Sodium 1,000 MG 0 04/25 2200 CAN IV Ceftriaxone Sodium 0 .STK-MED ONE 04/24 2308 DC .ROUTE Ceftriaxone Sodium 1,000 MG ONCE ONE 04/24 2245 DC 04/24 IV 04/24 2246 2316 Hydromorphone HCl 1 MG Q6P PRN 04/25 0115 AC IV Hydromorphone HCl 0 .STK-MED ONE 04/25 0027 DC .ROUTE Hydromorphone HCl 2 MG ONCE ONE 04/25 0015 DC 04/25 IV 04/25 0016 0030 Hydromorphone HCl 0 .STK-MED ONE 04/24 2103 DC .ROUTE Hydromorphone HCl 2 MG ONCE ONE 04/24 2029 DC 04/24 IV 04/24 Morphine Sulfate 15 MG EVERY 4 HRS/AWAKE 04/25 0800 AC 04/25 PO 0738 Morphine Sulfate 15 MG 0000 04/25 0200 AC 04/25 PO 0205 Ondansetron HCl 0 .STK-MED ONE 04/24 2102 DC .ROUTE Ondansetron HCl 4 MG ONCE ONE 04/24 2029 DC 04/24 IV 04/24 Polyethylene Glycol 17 GM DAILY 04/25 1000 AC PO Senna/Docusate Sodium 2 TAB DAILY NEEDED PRN 04/25 0130 AC PO Sodium Chloride 1,000 ML .Q10H 04/25 0115 AC 04/25 IV 04/26 0715 0201 Sodium Chloride 1,000 ML BOLUS ONE 04/25 001 DC IV 04/25 0114 Sodium Chloride 1,000 ML BOLUS ONE 04/24 2029 DC 04/24 IV 04/24 Tamsulosin HCl 0.4 MG BID 04/25 1000 AC PO Review of Systems Review of Systems: Patient denies headaches or dizziness. Patient denies shortness of breath cough chest pain or hemoptysis. Nausea vomiting or significant other abdominal pain. Patient denies new bone aches or focal neurologic deficit Past History Travel History Traveled to [place] past 21 day No Medical History Blood Transfusion Hx: No Neurological: NONE EENT: NONE Cardiovascular: PE RT LUNG Respiratory: obstructive sleep apnea, pulmonary embolism, (DOES NOT USE CPAP) Gastrointestinal: NONE Hepatic: NONE Renal: BILATERAL NEPHROSTOMY Musculoskeletal: NONE Psychiatric: NONE Endocrine: NONE Blood Disorders: NONE Cancer(s): prostate cancer, METS TO the lymph nodes, bone and liver BLADDER CA Surgical History Surgical History: prostatectomy, TONSILS Psychosocial History Where Do You Live? Home Who Do You Live With? fiance, getting June Services at Home: None Primary Language: Lao Smoking Status: Former Smoker Exam & Diagnostic Data Vital Signs and I&O Vital Signs Date Time Temp Pulse Resp B/P Pulse O2 O2 Flow FiO2 Ox Delivery Rate 04/25 827 98.4 106 22 122/80 93 04/25 012 98.0 105 20 124/76 94 Room Air 04/25 0000 Room Air 04/24 2154 98.3 04/24 2140 98.2 80 19 126/74 94 Room Air 04/24 1950 98.5 108 22 129/78 92 Room Air Intake & Output 04/25 1600 04/25 0800 04/25 0000 Intake Total 400 Output Total 900 200 Balance -500 -200 Intake, IV 400 Output, Urine 900 200 Patient 287 lb Weight Gen.: in NAD ENT: Sclera anicteric Chest: Normal respiratory effort, clear breath sounds Cor: RRR, no extra sounds Abdomen: Soft, bowel sounds present, no tenderness, no rebound Extremities: Without clubbing, cyanosis, or asymmetric edema Neurology: Alert and oriented 3, no gross deficit Skin: No rashes Last 48 Hours of Lab Results: Laboratory Tests 04/25 04/24 0720 2133 Chemistry Lactic Acid (0.7 - 2.1 mmol/L) 1.5 Urines Urine Color (YEL,AMB,STR) YEL Urine Clarity (CLEAR) CLDY H Urine pH (5.0 - 8.0) 6.0 Ur Specific [place] (1.001 - 1.035) >= 1.030 Urine Protein (NEG,<30 MG/DL) >=300 H Urine Ketones (NEG) NEG Urine Nitrite (NEG) POS H Urine Bilirubin (NEG) NEG Urine Urobilinogen (0.1 - 1.0 EU/dl) 1.0 Ur Leukocyte Esterase (NEG) TRACE H Ur Microscopic SEDIMENT EXAMINED Urine RBC (0 - 5 /HPF) >75 H Urine WBC (0 - 2 /HPF) 1-3 H Urine Mucus (FEW,NONE) RARE Urine Hemoglobin (NEG) LARGE H Urine Glucose (N MG/DL) NEG 04/24 Chemistry Sodium (137 - 145 mmol/L) 137 Potassium (3.5 - 5.1 mmol/L) 4.1 Chloride (98 - 107 mmol/L) 102 Carbon Dioxide (22 - 30 mmol/L) 24 Anion Gap (5 - 16) 12 BUN (9 - 20 mg/dL) 15 Creatinine (0.7 - 1.2 mg/dL) 1.0 Estimated GFR (>60 ml/min) > 60 BUN/Creatinine Ratio (7 - 25 %) 15.0 Glucose (65 - 99 mg/dL) 125 H Calcium (8.4 - 10.2 mg/dL) 8.7 Total Bilirubin (0.2 - 1.3 mg/dL) 0.6 Direct Bilirubin (< 0.4 mg/dL) 0.4 AST (17 - 59 U/L) 67 H ALT (21 - 72 U/L) 39 Alkaline Phosphatase (< 127 U/L) 211 H Total Protein (6.3 - 8.2 g/dL) 6.0 L Albumin (3.5 - 5.0 g/dL) 3.4 L Amylase (30 - 110 U/L) < 30 L Lipase (23 - 300 U/L) 89 Coagulation PT (9.4 - 12.5 SEC) 19.2 H INR (0.90 - 1.17) 1.84 H APTT (25 - 37 SEC) 28 Hematology CBC w Diff MAN DIFF ORDERED WBC (4.8 - 10.8 /CUMM) 16.3 H RBC (4.70 - 6.10 /CUMM) 3.84 L Hgb (14.0 - 18.0 G/DL) 9.9 L Hct (42 - 52 %) 31.1 L MCV (80.0 - 94.0 FL) 81.0 MCH (27.0 - 31.0 PG) 25.7 L RDW (11.5 - 14.5 %) 19.7 H Plt Count (130 - 400 /CUMM) 181 MPV (7.4 - 10.4 FL) 8.2 Gran % (42.2 - 75.2 %) 88.8 H Lymphocytes % (20.5 - 51.1 %) 7.4 L Monocytes % (1.7 - 9.3 %) 3.2 Eosinophils % (0 - 5 %) 0 Basophils % (0.0 - 2.0 %) 0.6 Absolute Granulocytes (1.4 - 6.5 /CUMM) 14.5 H Absolute Lymphocytes (1.2 - 3.4 /CUMM) 1.2 Absolute Monocytes (0.10 - 0.60 /CUMM) 0.5 Absolute Eosinophils (0.0 - 0.7 /CUMM) 0 Absolute Basophils (0.0 - 0.2 /CUMM) 0.1 Platelet Estimate (ADEQUATE) ADEQUATE Poikilocytosis 1+ [place] Cells 1+ Elliptocytes 1+ Schistocytes 1+ PUBS MCHC (33.0 - 37.0 G/DL) 31.8 L Urines Urine Color (YEL,AMB,STR) YEL Urine Clarity (CLEAR) HAZY H Urine pH (5.0 - 8.0) 6.0 Ur Specific [place] (1.001 - 1.035) >= 1.030 Urine Protein (NEG,<30 MG/DL) >=300 H Urine Ketones (NEG) NEG Urine Nitrite (NEG) POS H Urine Bilirubin (NEG) NEG Urine Urobilinogen (0.1 - 1.0 EU/dl) 1.0 Ur Leukocyte Esterase (NEG) SMALL H Ur Microscopic SEDIMENT EXAMINED Urine RBC (0 - 5 /HPF) >75 H Urine WBC (0 - 2 /HPF) 50-75 H Urine Mucus (FEW,NONE) MOD H Urine Hemoglobin (NEG) LARGE H Urine Glucose (N MG/DL) NEG 04/24 2015 Urines Urine Color Cancelled Urine Clarity Cancelled Urine pH Cancelled Ur Specific [place] Cancelled Urine Protein Cancelled Urine Ketones Cancelled Urine Nitrite Cancelled Urine Bilirubin Cancelled Urine Urobilinogen Cancelled Ur Leukocyte Esterase Cancelled Ur Microscopic Cancelled Urine Hemoglobin Cancelled Urine Glucose Cancelled Imaging/Other Studies: CT abdomen and pelvis-bone metastases, increased size of liver metastases Assessment/Plan Assessment: 1. Right flank pain-patient with potentially obstructed nephrostomy tube which is to be replaced. Patient has been pancultured and is on antibiotics 2. Metastatic prostate cancer-subtle increase in his known metastatic disease. Patient recently resumed Taxotere chemotherapy, which will be resumed as an outpatient I have discussed this in full with the patient Recommendations: .. Consult Acknowledgment - Thank you for your consult request.
--- NOTE | 2016-04-25 15:31 | PN- Att Addend ---
Attending Addendum Attending Brief Note Pt seen and examined. He is known to me from previous admissions. He feels okay. He says overall he feels better than when he first came in. On exam he is afebrile, blood pressure is 120/80, pulse rate 100, breathing at 18-20 and sats over 90% on room air. He is obese, lungs have decreased breath sounds at the bases, heart is S1-S2 regular, abdomen is soft and he has bilateral nephrostomy tubes with the left side draining well and the right side having scant drainage. Appreciate oncology and urology follow-up. He is a 55-year-old with severe refractory metastatic prostate CA. He is getting Taxotere now. He has bony and liver metastases and has obstructive uropathy with bilateral nephrostomy tubes. He also has a pulmonary embolism on Coumadin. And because of the fine balance between clotting and bleeding his INR is kept in the 1.8-2 range. He came in with leukocytosis and obstructed right nephrostomy tube. We have him on IV ceftaz and the urine culture is growing gram-negative rods , will follow-up that. Continue the IV fluids and follow up the status of the right flank and fever closely. The plan will be to get the nephrostomy tubes changed on Wednesday. I'll keep the Coumadin at a very low dose to keep the INR at 1.8 given the anticipated procedure. Nonetheless I also have to worry about hypercoagulable state in the setting of malignancy and the fact that he has had a pulmonary embolism.
[2016-04-25 15:58] LABS: ABSOLUTE BASOPHIL COUNT 0.1 /CUMM (0.0-0.2); ABSOLUTE EOSINOPHIL COUNT 0 /CUMM (0.0-0.7); ABSOLUTE GRANULOCYTE CT 10.7 /CUMM (1.4-6.5); ABSOLUTE LYMPH COUNT 0.9 /CUMM (1.2-3.4); ABSOLUTE MONOCYTE COUNT 0.9 /CUMM (0.10-0.60); BASOPHIL % 0.6 % (0.0-2.0); EOSINOPHIL % 0.1 % (0-5); GRANULOCYTE % 84.7 % (42.2-75.2); MEAN CORPUSCULAR HGB 25.6 PG (27.0-31.0); MEAN CORPUSCULAR HGB CONC 31.5 G/DL (33.0-37.0); MEAN CORPUSCULAR VOLUME 81.4 FL (80.0-94.0); MEAN PLATELET VOLUME 8.1 FL (7.4-10.4); PLATELET COUNT 176 /CUMM (130-400); RBC DISTRIBUTION WIDTH 20.3 % (11.5-14.5); RED BLOOD CELL CT 3.57 /CUMM (4.70-6.10); WHITE BLOOD CELL COUNT 12.7 /CUMM (4.8-10.8)
[2016-04-25 16:06] LABS: PT 24.5 SEC (9.4-12.5)
[2016-04-25 16:55] VITALS: BP 126/81
[2016-04-26 00:20] VITALS: BP 134/74
[2016-04-26 08:33] LABS: PT 23.4 SEC (9.4-12.5)
[2016-04-26 08:34] LABS: ABSOLUTE BASOPHIL COUNT 0.1 /CUMM (0.0-0.2); ABSOLUTE EOSINOPHIL COUNT 0 /CUMM (0.0-0.7); ABSOLUTE GRANULOCYTE CT 11.8 /CUMM (1.4-6.5); ABSOLUTE LYMPH COUNT 0.8 /CUMM (1.2-3.4); ABSOLUTE MONOCYTE COUNT 0.9 /CUMM (0.10-0.60); BASOPHIL % 0.6 % (0.0-2.0); EOSINOPHIL % 0 % (0-5); GRANULOCYTE % 86.8 % (42.2-75.2); MEAN CORPUSCULAR HGB 25.9 PG (27.0-31.0); MEAN CORPUSCULAR HGB CONC 31.6 G/DL (33.0-37.0); MEAN CORPUSCULAR VOLUME 81.9 FL (80.0-94.0); MEAN PLATELET VOLUME 8.5 FL (7.4-10.4); PLATELET COUNT 171 /CUMM (130-400); RED BLOOD CELL CT 3.42 /CUMM (4.70-6.10); WHITE BLOOD CELL COUNT 13.6 /CUMM (4.8-10.8)
--- NOTE | 2016-04-26 09:00 | PN- Urology ---
Surgical Brief Attending Note Brief Attending Note: Patient stable with some R flank pain. CT scan shows both nephrostomies to be in proper location. R nephrostomy not draining and can't be irrigated. Suggest: 1. continue abx 2. hold coumadin 3. When INR is lower have IR change both nephrostomies as they are due to be changed in April anyway.
[2016-04-26 09:16] VITALS: BP 124/62
--- NOTE | 2016-04-26 10:47 | PN- Att Addend ---
Attending Addendum Attending Brief Note Patient seen and examined. I spoke to the patient and patient's fianc at the bedside at length. On exam patient says he actually feels better today and he walked around with a walker. His MAXIMUM TEMPERATURE is 100, blood pressure is 124/60, his tachycardia at 100 and his respiratory rate is 18-20 with a sat of 94% on room air. He is obese, awake alert oriented, and lungs have decreased breath sounds at the bases, heart is S1-S2 regular and tachycardia, abdomen is obese but nontender. He is a 55-year-old with hormone therapy refractory prostate CA with documented metastases to the bone and liver. In addition he has an obstructive uropathy with bilateral nephrostomy tubes and has had a PE recently and is on Coumadin. He is here with in obstruction of the right nephrostomy tube. Dr. Granados has seen him and the plan is to get the nephrostomy tubes changed by IR as soon as his INR goes down. We don't want to actively reverse him given his fairly recent PE. We are not giving him any more Coumadin he walks a fine line between bleeding and clotting and we keep the INR at 1.8. Will watch the INR tomorrow. He also has an infection as evidenced by a white count and temperature and we have him on IV ceftaz and given the low-grade temp and the high heart rate will give him some more fluids. Will also put in a PT eval to get him out of bed and active as much as possible. I spoke to him and his fiance at length as they had numerous questions of degree of spread of cancer, his overall survival, whether they should involve hospice and all of that. I deferred to the oncologist in terms of his prognosis and 6 month life expectancy. However we did agree that given the extent of the disease and given the nature of the disease that we will do everything to treat him up to the point of heroics and that we will not do CPR or intubation. He and his fiancee clearly understand all of this and he at this point agrees that he wants to be DNR/DNI. Will follow up with case management as they have numerous questions about home care agency and equipment that they will need at home.
--- NOTE | 2016-04-26 11:00 | NUR ---
NURSING NOTE: PT RESTING IN CHAIR. DR. GONSALES AT BEDSIDE AND AWARE THAT PT HAS BEEN TACHY. PT PLACED BACK IN IVF. LEFT NEPHROSTOMY TUBE DRAINING WELL, THERE IS STILL NO DRAINAGE FROM RIGHT NEPHROSTOMY TUBE. WILL CONTINUE TO MONITOR.
[2016-04-26 11:30] VITALS: BP 120/64
[2016-04-26 16:14] VITALS: BP 114/72
[2016-04-26 18:45] VITALS: BP 142/70
--- NOTE | 2016-04-26 18:58 | NUR ---
ALERT AND ORIENTED X 3. VITAL SIGNS STABLE. DENIES CHEST PAIN. + PULSES IV FLUIDS RUNNING. NO DISCOMFORT NOTED. MEDICATIONS GIVEN. L NEPHROSTOMY DRAINING CLEAR YELLOW URINE. 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
--- NOTE | 2016-04-26 19:15 | Event Note ---
Event Note Event Note: patient spiked fever of 103 F. We assess the patient. He is not complaining of abdominal pain. per urology note on we called the IR radiology for urgent replacement of the nephrostomy. the matter will be discussed with hospitalist and urologist. The IR attending is Dr. Austen BROWN [phone]). She would expect a call from medical team attending/urologist to discuss the plan with them.
--- NOTE | 2016-04-26 21:01 | ULTRASOUND REPORT ---
EXAMINATION: US RETROPERITONEAL COMPLETE (RENAL) CLINICAL INFORMATION: Obstructive nephropathy. COMPARISON: CT abdomen and pelvis dated 04/24/2016; renal ultrasound dated 03/04/2016. TECHNIQUE: Real-time imaging of the kidneys and bladder. FINDINGS: RIGHT KIDNEY: 11.0 x 6.4 x 6.7 cm (SAG x AP x TRV). The kidney is normal in size, contour, and echogenicity. Renal cortical thickness is normal. No calculi or focal parenchymal lesions. There is mild right pelviectasis and hydronephrosis. LEFT KIDNEY: 10.9 x 5.5 x 6.2 cm (SAG x AP x TRV). The kidney is normal in size, contour, and echogenicity. Renal cortical thickness is normal. No calculi or focal parenchymal lesions. There is mild pelviectasis without zak hydronephrosis. At the lower pole, a 1.7 cm in maximal diameter simple cyst is seen. BLADDER: Poorly distended and presently incompletely evaluated with ultrasound. Bilateral ureteral jets are not demonstrated. Pre-void bladder volume is 81 mL. Again, there is a large, irregular prostatic impression upon the bladder base. The estimated prostate volume is 147.6 mL. IMPRESSION: 1. There is mild right hydronephrosis and pelviectasis. No left hydronephrosis is seen. 2. A simple left renal cyst is incidentally noted. 3. A large irregular prostate gland again impresses upon the bladder wall. Invasion of a prostate carcinoma cannot be excluded based upon this appearance. Consider Urology evaluation with possible cystoscopy.
[2016-04-27 00:53] VITALS: BP 136/76
--- NOTE | 2016-04-27 02:19 | Event Note ---
Event Note Event Note: I went to speak to patient and his fiance about the updates. Patient spiked fever at 6:45 PM, at that time housestaff tried to contact IR for emergent change of right nephrostomy tube, according to suggestion by urologist on apr,. Patient has sepsis of urological origin and growing Pseudomonas in urine, blood pressure and oxygen saturation in acceptable range. Fever resolved with Tylenol. Patient has recent history of PE, was on warfarin, INR in therapeutic range. Warfarin is on hold since April 24. Case was discussed with radiologist Dr. Akins, who suggested to repeat renal ultrasound stat. Renal ultrasound was obtained, radiologist discussed options with Dr. Granados and plan was to obtain INR in a.m., inform interventional radiology, transfuse FFP, scheduled for procedure tomorrow. Meanwhile patient's fianc spoke to Dr. Mariano on phone (application development liaison for Dr. Granados ) who was unaware about this plan. According to patient's fianc, "he had scheduled procedure now". Patient's fianc was very upset, crying, anxious. Because of all this confusion, I again called Dr. Mariano, Dr. Katie Akins, Dr. Granados. The plan is unchanged as mentioned above. When I told this updates to patient and the fianc, Patient's fianc wanted to hear it from Dr. Granados about the updates. Dr. Granados spoke to her on phone, upon my request. plan: Check INR at 6.30 am, call application development liaison IR or Dr. Akins to inform, get plan about how much FFP to be given and time of procedure for changing Right nephrostomy tube. Please watch vitals closely. Patient's fianc was also very upset about progression of the disease, metastases.
[2016-04-27 03:04] VITALS: BP 126/70
--- NOTE | 2016-04-27 07:32 | PN- Oncology ---
See Addendum Subjective Subjective: ? Scattered short-lived paresthesias, now asymptomatic Review of Systems: All point review of systems otherwise unchanged Objective Vital Signs and I&Os Vital Signs Date Time Temp Pulse Resp B/P Pulse O2 O2 Flow FiO2 Ox Delivery Rate 04/27 0304 98.2 107 20 126/70 92 04/27 0053 99.0 99 20 136/76 92 04/27 0000 Room Air 04/26 2206 98 120/60 04/26 2112 99.4 04/26 192 102.6 04/26 1845 102.6 119 20 142/70 95 Room Air 04/26 1614 99.0 109 18 114/72 91 Room Air 04/26 1600 91 Room Air 04/26 1130 99.9 108 18 120/64 92 Room Air Room Air 04/26 1000 117 124/62 04/26 0948 18 92 04/26 0916 100.0 117 20 124/62 88 Room Air 04/26 0800 912 Room Air Room Air Intake & Output 04/27 0800 04/27 0000 04/26 1600 04/26 0800 04/26 0000 04/25 1600 Intake Total 969 914 9202 1040 1020 1850 Output Total 650 450 650 425 625 800 Balance 170 -250 750 205 074 1931 Intake, IV 820 600 800 300 800 Intake, Oral 200 800 117 595 1479 Number 0 Bowel Movements Output, Urine 650 450 650 425 625 800 Gen.: in NAD ENT: Sclera anicteric Chest: Normal respiratory effort, decreased breath sounds Cor: RRR, no extra sounds Abdomen: Soft, bowel sounds present, no tenderness, no rebound Extremities: Without clubbing, cyanosis, or asymmetric edema Neurology: Alert and oriented 3, no gross deficit Current Medications: Current Medications Sig/Aurora Start time Last Medication Dose Route Stop Time Status Admin Acetaminophen 1,000 MG ONCE ONE 04/26 1914 DC 04/26 IV 04/26 Acetaminophen 650 MG .STK-MED ONE 04/26 1847 DC PO 04/26 184 Bicalutamide 50 MG DAILY 04/25 1000 AC 04/26 PO 0959 Ceftazidime 1,000 MG Q8 04/25 0600 AC 04/27 IV 0611 Hydromorphone HCl 1 MG Q6P PRN 04/25 0115 AC 04/26 IV 0120 Morphine Sulfate 15 MG EVERY 4 HRS/AWAKE 04/25 0800 AC 04/26 PO 2 Morphine Sulfate 15 MG 0000 04/25 0200 AC 04/27 PO 0056 Polyethylene Glycol 17 GM DAILY 04/25 1000 AC 04/26 PO 1000 Senna/Docusate Sodium 2 TAB DAILY NEEDED PRN 04/25 0130 AC 04/26 PO 0959 Sodium Chloride 1,000 ML Q10H 04/26 1100 DC 04/26 IV 04/27 0659 2109 Tamsulosin HCl 0.4 MG BID 04/25 1000 AC 04/26 PO 2206 Results Last 24 Hours of Lab Results: Laboratory Tests 04/27 0645 Chemistry Sodium (137 - 145 mmol/L) 138 Potassium (3.5 - 5.1 mmol/L) 4.3 Chloride (98 - 107 mmol/L) 106 Carbon Dioxide (22 - 30 mmol/L) 24 Anion Gap (5 - 16) 8 BUN (9 - 20 mg/dL) 14 Creatinine (0.7 - 1.2 mg/dL) 1.8 H Estimated GFR (>60 ml/min) 40 L BUN/Creatinine Ratio (7 - 25 %) 7.8 Coagulation PT Pending INR Pending Hematology CBC w Diff Pending WBC Pending RBC Pending Hgb Pending Hct Pending MCV Pending MCH Pending RDW Pending Plt Count Pending MPV Pending PUBS MCHC Pending Urine culture-Pseudomonas species Assessment/Plan Assessment/Recommendations: 1. ID-documented pseudomonas urinary tract infection, rule out sepsis. Plan is for tube replacement today Recommend- Reversal of PT/INR with FFP As per urology Consider ID consult 2. Metastatic prostate cancer-chemotherapy on hold
--- NOTE | 2016-04-27 07:47 | PN- Urology ---
Subjective Subjective: No acute distress. Spiked temp to 102.6 last PM. Afebrile now Objective Vital Signs and I&Os Vital Signs Date Time Temp Pulse Resp B/P Pulse O2 O2 Flow FiO2 Ox Delivery Rate 04/27 0304 98.2 107 20 126/70 92 04/27 0053 99.0 99 20 136/76 92 04/27 0000 Room Air 04/26 2206 98 120/60 04/26 2112 99.4 04/26 1927 102.6 04/26 1845 102.6 119 20 142/70 95 Room Air 04/26 1614 99.0 109 18 114/72 91 Room Air 04/26 1600 91 Room Air 04/26 1130 99.9 108 18 120/64 92 Room Air Room Air 04/26 1000 117 124/62 04/26 0948 18 92 04/26 0916 100.0 117 20 124/62 88 Room Air 04/26 0800 912 Room Air Room Air Intake & Output 04/27 0800 04/27 0000 04/26 1600 04/26 0800 04/26 0000 04/25 1600 Intake Total 935 288 9207 1040 1020 1850 Output Total 650 450 650 425 625 800 Balance 170 -250 750 003 544 2170 Intake, IV 820 600 800 300 800 Intake, Oral 200 800 409 183 8976 Number 0 Bowel Movements Output, Urine 650 450 650 425 625 800 Renal ultrasound: mild prominence of R renal collecting system without zak hydronephrosis. Today's labs pending Assessment/Plan Assessment/Plan Imp: Metastatic prostate ca Bilateral nephrostomies in place. R not draining and not able to be irrigated Hx of PE Plan: R nephrostomy to be changed by IR this AM as discussed with them last night f/u urine culture sensitivities Continue abx f/u AM labs and would ask IR if they want patient to get FFP prior to procedure
[2016-04-27 07:55] LABS: ABSOLUTE BASOPHIL COUNT 0.1 /CUMM (0.0-0.2); ABSOLUTE EOSINOPHIL COUNT 0 /CUMM (0.0-0.7); ABSOLUTE GRANULOCYTE CT 8.5 /CUMM (1.4-6.5); ABSOLUTE LYMPH COUNT 0.8 /CUMM (1.2-3.4); ABSOLUTE MONOCYTE COUNT 0.9 /CUMM (0.10-0.60); BASOPHIL % 0.6 % (0.0-2.0); EOSINOPHIL % 0.1 % (0-5); GRANULOCYTE % 82.8 % (42.2-75.2); HEMATOCRIT 26.7 % (42-52); MEAN CORPUSCULAR HGB CONC 31.9 G/DL (33.0-37.0); MEAN CORPUSCULAR VOLUME 81.5 FL (80.0-94.0); MEAN PLATELET VOLUME 8.4 FL (7.4-10.4); PLATELET COUNT 160 /CUMM (130-400); RBC DISTRIBUTION WIDTH 20.4 % (11.5-14.5); RED BLOOD CELL CT 3.28 /CUMM (4.70-6.10); WHITE BLOOD CELL COUNT 10.3 /CUMM (4.8-10.8)
[2016-04-27 08:19] LABS: PT 18.1 SEC (9.4-12.5)
[2016-04-27 08:38] VITALS: BP 135/65
--- NOTE | 2016-04-27 10:00 | NUR ---
NURSING NOTE: PT OFF FLOOR TO IR. PT A&O,VSS.
--- NOTE | 2016-04-27 10:36 | PN- Housestaff ---
Subjective Follow-up For: Sepsis of urologic origin Subjective: The patient was comfortable this a.m. Did not have any complaints. He remained afebrile overnight. Although he had fever up to 102 yesterday afternoon. and several items were made to have a nephrostomy tube placed by IR. Vitals stable overnight. Review of Systems Constitutional: Reports: see HPI. Objective Last 24 Hrs of Vital Signs/I&O Vital Signs Date Time Temp Pulse Resp B/P Pulse O2 O2 Flow FiO2 Ox Delivery Rate 04/27 1629 98.5 109 18 126/70 90 Room Air 04/27 1256 99.8 108 18 132/68 92 Room Air Room Air 04/27 1252 108 132/68 04/27 0930 99.3 04/27 0838 99.0 100 20 135/65 92 Room Air 04/27 0304 98.2 107 20 126/70 92 04/27 0053 99.0 99 20 136/76 92 04/27 0000 Room Air 04/26 2206 98 120/60 04/26 2112 99.4 Intake & Output 04/27 1600 04/27 0800 04/27 0000 Intake Total 1280 820 200 Output Total 600 650 450 Balance 680 170 -250 Intake, IV 800 820 Intake, Oral 480 200 Output, Urine 600 650 450 Patient 287 lb Weight Physical Exam General Appearance: No Acute Distress Other Physical Findings: General Exam: AAOx3, No acute distress, Skin: No rashes, no breakdown HEENT: PERRLA, EOMI Neck: Supple, No JVD No cervical lymphadenopathy CVS: Reg Rate, Normal S1,S2, No MGR Resp: Normal air entry, no ronchi/rales Abdomen: Soft, No tenderness, Normal Bowel Sounds, nephrostomy tubes in place. Neuro: Normal Speech, Strength 5/5 b/l x 4 extremities, Sensation intact, CN III -XII NL, Reflexes 2+ Extremities: No cyanosis, pedal edema Current Medications: Current Medications Sig/Aurora Start time Last Medication Dose Route Stop Time Status Admin Acetaminophen 650 MG Q6P PRN 04/27 1215 AC PO Bicalutamide 50 MG DAILY 04/25 1000 AC 04/27 PO 1253 Ceftazidime 1,000 MG Q8 04/25 0600 AC 04/27 IV 1325 Fentanyl Citrate 0 .STK-MED ONE 04/27 1047 DC .ROUTE Hydromorphone HCl 1 MG Q6P PRN 04/25 0115 AC 04/26 IV 0120 Lidocaine 0 .STK-MED ONE 04/27 1011 DC .ROUTE Midazolam HCl 0 .STK-MED ONE 04/27 1048 DC .ROUTE Morphine Sulfate 15 MG EVERY 4 HRS/AWAKE 04/25 0800 AC 04/27 PO 1731 Morphine Sulfate 15 MG 0000 04/25 0200 AC 04/27 PO 0056 Patient Medication 1 ED .STK-MED ONE 04/27 1410 DC Teaching ED 04/27 1411 Polyethylene Glycol 17 GM DAILY 04/25 1000 AC 04/26 PO 1000 Senna/Docusate Sodium 2 TAB DAILY NEEDED PRN 04/25 0130 AC 04/27 PO 1253 Sodium Chloride 1,000 ML Q10H 04/27 0845 DC 04/27 IV 04/27 1844 0916 Sodium Chloride 1,000 ML Q10H 04/26 1100 DC 04/26 IV 04/27 0659 2109 Tamsulosin HCl 0.4 MG BID 04/25 1000 04/27 PO 1252 Warfarin Sodium 5 MG COUMADIN 1700 ONE 04/27 1700 DC PO 04/27 1701 Last 24 Hrs of Lab/Raymundo Results Last 24 Hrs of Labs/Mics: Laboratory Tests 04/27/16 1755: Sodium Pending, Potassium Pending, Chloride Pending, Carbon Dioxide Pending, Anion Gap Pending, BUN Pending, Creatinine Pending, BUN/Creatinine Ratio Pending 04/27/16 0645: Anion Gap 8, Estimated GFR 40 L, BUN/Creatinine Ratio 7.8, PT 18.1 H, INR 1.73 H, CBC w Diff NO MAN DIFF REQ, RBC 3.28 L, MCV 81.5, MCH 26.0 L, RDW 20.4 H, MPV 8.4, Gran % 82.8 H, Lymphocytes % 7.8 L, Monocytes % 8.7, Eosinophils % 0.1, Basophils % 0.6, Absolute Granulocytes 8.5 H, Absolute Lymphocytes 0.8 L, Absolute Monocytes 0.9 H, Absolute Eosinophils 0, Absolute Basophils 0.1, PUBS MCHC 31.9 L Assessment/Plan Assessment: He is a middle-aged man with a history of prostate cancer (hormone refractory), stage IV, with metastasis to bone and liver (docetaxel), bilateral nephrostomy tube placement (placed 2015), history of PE on Coumadin and is being evaluated for right-sided flank pain, decreased urine output from the right nephrostomy tube, fever 2 days prior to admission. Differential diagnosis: #1. Pyelonephritis/sepsis of urologic origin #2 right nephrostomy tube block. She below is the problem list and plan: #1 sepsis of urologic origin-likely from obstruction. MAXIMUM TEMPERATURE 102 in the last 24 hours. The plan was to replace right nephrostomy tube, which did not materialize due to elevated INR and in availability of IR physician. IR guided nephrostomy tube replacement. This a.m. INR 1.73. Serum creatinine worsening. Microbiology-urine culture shows growth of Pseudomonas. Renal ultrasound revealed right hydronephrosis. Could change the antibiotics to ciprofloxacin. Status post nephrostomy tube-draining well. Repeat CBC at 6 PM. As per the interventional radiologist, Coumadin could be restarted this p.m. As before Dr. Granados, if the patient remains stable in the next 12-14 hours, the patient could be discharged on by mouth antibiotics. #2 acute kidney injury-likely due to obstructive uropathy. Continue to monitor closely. #3 history of pulmonary embolism-pulmonary embolism. Problem List: 1. Nephrostomy status 2. Sepsis Pain Ratin Pain Location: Back Pain Goal: Pain 4 or less Pain Plan: Tylenol when necessary Tomorrow's Labs & Rationales: CBC.-Low H&H. Basically to light panel-patient has elevated serum creatinine.
--- NOTE | 2016-04-27 12:18 | INTERVENTIONAL RADIOLOGY RPT ---
CLINICAL HISTORY: This patient is a 55-year-old man with prostate cancer and long-term percutaneous nephrostomy tubes in the kidneys, who presents to interventional radiology for urgent exchange. He is admitted in the hospital with urosepsis and the right nephrostomy tubes clogged. PROCEDURES: 1. Bilateral tube nephrostogram. 2. Bilateral nephrostomy tube exchange. 3. Bilateral tube nephrostogram. PHYSICIANS: Dr. Gregorio (attending). MONITORING: The procedure was performed with conscious sedation and analgesia under my direct supervision. Continuous blood pressure, pulse oximetry as well as heartrate monitoring was performed by an independent registered nurse. Physician intraservice sedation time was 20 minutes. MEDICATIONS: 1. 1 mg of Versed and 50 micrograms of fentanyl were administered. 2. 10 mL of 1% lidocaine SQ. 3. The patient was on antibiotics. COMPLICATIONS: None. ESTIMATED BLOOD LOSS: < 5 mL. SPECIMENS: None. CONTRAST: 20 mL Optiray 320 FLUOROSCOPY TIME: 4.7 minutes PROCEDURE NOTE: Informed consent was obtained from the patient prior to the procedure. During this process, the procedure and potential alternatives were explained along with the intended outcome and benefits. The risks of the procedure, including the possibility of an unsuccessful procedure, as well as the risk of not doing the procedure, were discussed. The patient was given the opportunity to ask questions regarding the procedure and appeared competent to make decisions. A signed consent form documenting this discussion was placed in the medical record. A time-out procedure was performed. The patient was placed prone on the fluoroscopy table. The back was prepped and draped in usual sterile fashion. Left: Gentle contrast injection through the existing nephrostomy catheter demonstrated tip position in the lower renal infundibulum. A 0.035 in short stiff Amplatz guide wire was advanced through the existing 8 Fr Resolve nephrostomy tube into the renal pelvis. The existing tube was removed over the wire. A new 10 Fr Resolve nephrostomy tube was advanced over the wire into the renal pelvis. The guide wire was removed and the tube was locked in position. Final injection of injection verified tube position within the renal pelvis. The tube was secured to the skin with 0 nylon suture. Sterile dressing was applied. Right: Gentle contrast injection through the existing nephrostomy catheter demonstrated the catheter to be clogged. The catheter was ligated as close to the skin surface is possible minimal wire was threaded centrally. The wire could not thread through the obstruction. A stiff Glidewire was then passed in parallel adjacent to the nephrostomy catheter and into the renal pelvis. The catheter was then removed under direct fluoroscopic guidance to ensure that the wire and the collecting system did not come out inadvertently. A new 10 Fr Resolve nephrostomy tube was advanced over the wire into the renal pelvis. The guide wire was removed and the tube was locked in position. Final injection of injection verified tube position within the renal pelvis. The tube was secured to the skin with 0 nylon suture. Sterile dressing was applied. FINDINGS: 1. The left nephrostomy tube had pulled back into the lower pole infundibulum. The catheter was patent. The catheter was successfully exchanged. 2. The right nephrostomy tube was clogged. The catheter was successfully exchanged using parallel technique. 3. Post exchange nephrostograms demonstrates good positioning within the renal pelves. IMPRESSION: Successful exchange of both nephrostomy catheters. PLAN: 1. The patient was stable after the procedure and was transferred to the interventional recovery area. The patient will be transferred back to his room. 2. The tubes should be left to external gravity drainage via drainage bag. 3. The patient should return to interventional radiology in 8 weeks for routine catheter exchange.
[2016-04-27 12:56] VITALS: BP 132/68
--- NOTE | 2016-04-27 13:31 | NUR ---
NURSING NOTE: PT ARRIVED TO FLOOR FROM IR VIA STRETCHER. PT A&O, VS CHARTED - DR. ARIZMENDI AWARE OF LOW GRADE TEMP AND PULSE OF 108. PT MEDICATED W/MSIR ORDERED WITH GOOD RESULTS. RIGHT NEPHROSOMY WITH HEMATURIA NOTED. LEFT NEPHROSTOMY WITH CLOUDY YELLOW URINE NOTED. PT RESTING COMFORTABLY W/FAMILY AT BEDSIDE. WILL CONTINUE TO MONITOR.
--- NOTE | 2016-04-27 13:32 | Transfer of Care Summary ---
Hospital Course Course Hospital Course: He is a middle-aged man with a history of prostate cancer (hormone refractory), stage IV, with metastasis to bone and liver ( on docetaxel), bilateral nephrostomy tube placement (placed 2015), history of PE on Coumadin and is being evaluated for right-sided flank pain, decreased urine output from the right nephrostomy tube, fever 2 days prior to admission. Differential diagnosis: #1. Pyelonephritis/sepsis of urologic origin #2 right nephrostomy tube block. Below is the problem list and plan: #1 sepsis of urologic origin-likely from obstruction. Tmax 102. The plan was to replace right nephrostomy tube, emergently as the pt had fever. Due to unavailability of IR person, this could not be done. Also, INR was slightly elevated, and considering bleeding risks, this procedure was postponed. During this time, the pt was stable. IR guided nephrostomy tube replacement was done on the following day on both sides, as they were due to be replaced in April. Renal ultrasound revealed right hydronephrosis. Microbiology-urine culture showed growth of Pseudomonas. Since, the pt was still on ceftazidime, the abx to be changed to a fluorquinolone. The nephrostomy tube-was draining well, but had some blood tinged urine, which was expected after a procedure. Serial CBC's were ordered, to monitor H&H. As per the interventional radiologist, Coumadin could was restarted. Dr Granados and Dr. Au advising. #2 acute kidney injury-likely due to obstructive uropathy. Plan was to monitor closely, and hopefully would trend down since the obstruction was relieved. #3 history of pulmonary embolism- Coumadin was restarted. #4 h/o prostate cancer- On taxane. To follow chemotherapy regimen after being discharged from the hosptial. Dr. Au advising. Assessment/Plan: as above.
--- NOTE | 2016-04-27 13:43 | PN- Att Addend ---
Attending Addendum Attending Brief Note Patient seen and examined, came back after nephrostomy tube change bilaterally. Currently denies any pain. Right nephrostomy tube is draining bloody urine. Left nephrostomy tube is draining clear urine. Vital Signs Date Time Temp Pulse Resp B/P Pulse O2 O2 Flow FiO2 Ox Delivery Rate 04/27 1256 99.8 108 18 132/68 92 Room Air Room Air 04/27 1252 108 132/68 04/27 0930 99.3 04/27 0838 99.0 100 20 135/65 92 Room Air 04/27 0304 98.2 107 20 126/70 92 04/27 0053 99.0 99 20 136/76 92 04/27 0000 Room Air 04/26 2206 98 120/60 04/26 2112 99.4 04/26 1927 102.6 04/26 1845 102.6 119 20 142/70 95 Room Air 04/26 1614 99.0 109 18 114/72 91 Room Air 04/26 1600 91 Room Air on exam; aox3, nad. cv; s1,s2, rrr. resp; clear abd; soft, nt, bs+ ext; no edema. Laboratory Tests 04/27 0645 Chemistry Sodium (137 - 145 mmol/L) 138 Potassium (3.5 - 5.1 mmol/L) 4.3 Chloride (98 - 107 mmol/L) 106 Carbon Dioxide (22 - 30 mmol/L) 24 Anion Gap (5 - 16) 8 BUN (9 - 20 mg/dL) 14 Creatinine (0.7 - 1.2 mg/dL) 1.8 H Estimated GFR (>60 ml/min) 40 L BUN/Creatinine Ratio (7 - 25 %) 7.8 Coagulation PT (9.4 - 12.5 SEC) 18.1 H INR (0.90 - 1.17) 1.73 H Hematology CBC w Diff NO MAN DIFF REQ WBC (4.8 - 10.8 /CUMM) 10.3 RBC (4.70 - 6.10 /CUMM) 3.28 L Hgb (14.0 - 18.0 G/DL) 8.5 L Hct (42 - 52 %) 26.7 L MCV (80.0 - 94.0 FL) 81.5 MCH (27.0 - 31.0 PG) 26.0 L RDW (11.5 - 14.5 %) 20.4 H Plt Count (130 - 400 /CUMM) 160 MPV (7.4 - 10.4 FL) 8.4 Gran % (42.2 - 75.2 %) 82.8 H Lymphocytes % (20.5 - 51.1 %) 7.8 L Monocytes % (1.7 - 9.3 %) 8.7 Eosinophils % (0 - 5 %) 0.1 Basophils % (0.0 - 2.0 %) 0.6 Absolute Granulocytes (1.4 - 6.5 /CUMM) 8.5 H Absolute Lymphocytes (1.2 - 3.4 /CUMM) 0.8 L Absolute Monocytes (0.10 - 0.60 /CUMM) 0.9 H Absolute Eosinophils (0.0 - 0.7 /CUMM) 0 Absolute Basophils (0.0 - 0.2 /CUMM) 0.1 PUBS MCHC (33.0 - 37.0 G/DL) 31.9 L A/P; 55-year-old male with past medical history significant for severe refractory metastatic prostate cancer with metastases to bone and liver now on Taxotere, history of PE on Coumadin who was admitted with the severe sepsis secondary to complicated urinary tract infection. Right nephrostomy tube was obstructed. Patient has been started on antibiotics and now status post bilateral nephrostomy tube change. Right nephrostomy tube is draining bloody urine. Left nephrostomy tube drains clear urine. We'll continue the current antibiotic and likely will switch to Cipro after confirming with urology. Please check with IR when to resume Coumadin. Continue current pain medications. But monitor his CBC. Disposition likely discharge in the next 1 or 2 days pending hemodynamic stability as well as making sure that patient's blood counts are stable.
--- NOTE | 2016-04-27 15:17 | PN- Urology ---
Surgical Brief Attending Note Brief Attending Note: Patient had R ureteroscopy and laser lithotripsy of 7 mm R ureteral stone today. He has significant prostatic hypertrophy and has post op hematuria due to prostatic bleeding. This required changing the erazo to a 3-way erazo and starting CBI. Therefore will admit over night for CBI. Will re-evaluate in AM and if CBI can be stopped he will be discharged with indwelling erazo.
--- NOTE | 2016-04-27 15:20 | PN- Urology ---
Surgical Brief Attending Note Brief Attending Note: Disregard last urology note. It was typed in the wrong patient's chart
[2016-04-27 16:29] VITALS: BP 126/70
[2016-04-27] MEDS ORDERED: CIPRO500 M1 PO (22:43)
--- NOTE | 2016-04-27 22:46 | Patient Discharge Instructions ---
Discharge Instructions General Discharge Information You were seen/treated for: - Kidney infection You had these procedures: - Nephrostomy tube replacement Watch for these problems: - fever, abdominal pain - chest pain, shortness of breath Special Instructions: - Please see your PCP within one week of discharge. - Please follow up with your urologist within one week of discharge. - Please follow up with your Oncologist within one week of discharge. -Your most recent INR was 1.29 (04/29/2016). Please take 10 mg of Warfarin on and 04/30/2016. Please have an INR checked on 05/01/2016. The results of these need to be sent to Dr Epstein (PCP) who will guide you on Coumadin dosing. We have provided you with a script to get this checked. Please also have your INR checked again on 05/04/2016. Acute Coronary Syndrome Inclusion Criteria At DC or during hospital stay patient has or had the following: ACS DIAGNOSIS No Discharge Core Measures Meds if any: Prescribed or Continued at Discharge Meds if any: NOT Prescribed or Continued at Discharge Congestive Heart Failure Inclusion Criteria At DC or during hospital stay patient has or had the following: CHF DIAGNOSIS No Discharge Core Measures Meds if any: Prescribed or Continued at Discharge Meds if any: NOT Prescribed or Continued at Discharge Cerebrovascular accident Inclusion Criteria At DC or during hospital stay patient has or had the following: CVA/TIA Diagnosis No Discharge Core Measures Meds if any: Prescribed or Continued at Discharge Meds if any: NOT Prescribed or Continued at Discharge Venous thromboembolism Inclusion Criteria VTE Diagnosis No VTE Type NONE VTE Confirmed by (Test) NONE Discharge Core Measures - Per Current guidelines, there needs to be overlap - treatment for the first 5 days of Warfarin therapy. - If discharged on Warfarin prior to 5 days of - overlap therapy, the patient will need to be - assessed for post discharge needs including - *Post discharge parental anticoagulation - *Warfarin and/or parental anticoagulation education - *Follow up date to check INR post discharge At least 5 days overlap therapy as Inpatient No Meds if any: Prescribed or Continued at Discharge Note: Overlap Therapy is Warfarin and Anticoagulant Meds if any: NOT Prescribed or Continued at Discharge
--- NOTE | 2016-04-28 00:07 | Event Note ---
Event Note Event Note: I was told by Dr Garcia, as per request of the of the patient,update clinical condition of the patient to Dr. Granados. I called him and told that right sided nephrostomy tube is containing clot and the total output from the right side is 100 mL up till now. Patient is complaining of mild tenderness. According to him, apparently, patient doesn't require any intervention and we will watch overnight. If still there is any clot in the morning, then we need to remove it will. I was told by the nurse that the patient is complaining of generalized sweating, bloated feeling of abdomen. I saw and examined the patient at the bedside. The patient was conscious, cooperative, denies chest pain, chest pressure, pain in lower limb. There was Mild tenderness on bilateral nephrostomy area. He was also saying that he is constipated since last couple of days but he is able to pass the flatus from the bottom . On examination, pulse 108, blood pressure 130/80, temperature 100.3, abdomen was soft and bowel sounds were positive. We took a state blood sugar which was 128. We gave Tylenol for the fever. We also advised for EKG/troponins. Troponins are negative. We also updated the about the situation and she understood well.
[2016-04-28 00:49] VITALS: BP 138/78
--- NOTE | 2016-04-28 03:08 | RADIOLOGY REPORT ---
EXAMINATION: XR ABDOMEN CLINICAL INDICATION: Sweating with tachycardia. COMPARISON: Abdominal CT from 04/24/2016. FINDINGS: Bilateral nephrostomy catheters are partially imaged. The visualized bowel gas pattern is nonobstructive however the entire abdomen is not included on this study. Technique is limited. No acute osseous findings are appreciated. I cannot assess for free air on this film. IMPRESSION: Technically limited examination but does not include the entire abdomen. The visualized bowel gas pattern is nonobstructive. Partially imaged bilateral nephrostomy catheters.
--- NOTE | 2016-04-28 06:15 | PN- Housestaff ---
JONNA BROWN,[facility] 04/28/16 0614: Subjective Follow-up For: Sepsis of urologic origin Subjective: Patient was seen and examined this morning. Resting comfortably in bed. Reports overnight he felt diaphoretic and feverish and stated he had decreased output of his right-sided nephrostomy tube (approximately 100 mL). In bed with fianc at bedside. Patient and partner upset at the at teaching structure and set up at the Hospital and request that they need to be seen only by the attending. Clinical encounter was therefore limited. Patient denies any fever, chills, nausea. Review of Systems Constitutional: Reports: see HPI. Objective Last 24 Hrs of Vital Signs/I&O Vital Signs Date Time Temp Pulse Resp B/P Pulse O2 O2 Flow FiO2 Ox Delivery Rate 04/28 0946 107 140/80 04/28 0846 98.2 107 20 140/80 92 Room Air 04/28 0049 98.6 100 20 138/78 92 04/28 0000 Room Air 04/27 2232 105 130/68 04/27 1629 98.5 109 18 126/70 90 Room Air 04/27 1256 99.8 108 18 132/68 92 Room Air Room Air 04/27 1252 108 132/68 Intake & Output 04/28 1600 04/28 0800 04/28 0000 Intake Total 220 Output Total 775 275 Balance -775 -55 Intake, Oral 220 Output, Urine 775 275 Physical Exam General Appearance: Alert Current Medications: Current Medications Sig/Aurora Start time Last Medication Dose Route Stop Time Status Admin Acetaminophen 650 MG Q6P PRN 04/27 1215 AC PO Bicalutamide 50 MG DAILY 04/25 1000 AC 04/28 PO 0946 Ceftazidime 1,000 MG Q8 04/25 0600 AC 04/28 IV 0648 Docusate Sodium 100 MG BID 04/28 1000 AC 04/28 PO 0946 Fentanyl Citrate 0 .STK-MED ONE 04/27 1047 DC .ROUTE Hydromorphone HCl 1 MG Q6P PRN 04/25 0115 AC 04/26 IV 0120 Midazolam HCl 0 .STK-MED ONE 04/27 1048 DC .ROUTE Morphine Sulfate 15 MG EVERY 4 HRS/AWAKE 04/25 0800 AC 04/28 PO 0648 Morphine Sulfate 15 MG 0000 04/25 0200 AC 04/28 PO 0011 Patient Medication 1 ED .STK-MED ONE 04/27 1410 CA Teaching ED 04/27 1411 Polyethylene Glycol 17 GM DAILY 04/28 1000 AC 04/28 PO 0946 Polyethylene Glycol 17 GM DAILY 04/25 1000 DC 04/26 PO 1000 Senna/Docusate Sodium 2 TAB DAILY NEEDED PRN 04/25 0130 AC 04/27 PO 1253 Sodium Chloride 1,000 ML Q10H 04/27 0845 DC 04/27 IV 04/27 1844 0916 Tamsulosin HCl 0.4 MG BID 04/25 1000 AC 04/28 PO 0946 Warfarin Sodium 5 MG COUMADIN 1700 ONE 04/27 1700 DC PO 04/27 1701 Last 24 Hrs of Lab/Raymundo Results Last 24 Hrs of Labs/Mics: Laboratory Tests 04/28/16 0932: CBC w Diff NO MAN DIFF REQ, RBC 3.04 L, MCV 80.8, MCH 25.6 L, RDW 20.5 H, MPV 8.3, Gran % 80.3 H, Lymphocytes % 12.9 L, Monocytes % 6.3, Eosinophils % 0.2, Basophils % 0.3, Absolute Granulocytes 5.9, Absolute Lymphocytes 1.0 L, Absolute Monocytes 0.5, Absolute Eosinophils 0, Absolute Basophils 0, PUBS MCHC 31.6 L 04/28/16 0625: Anion Gap 7, Estimated GFR > 60, BUN/Creatinine Ratio 15.0, PT 14.2 H, INR 1.36 H 04/28/16 0248: Troponin I 0.07 Assessment/Plan Assessment: Mr. 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 # Sepsis of urologic origin-likely from obstruction. MAXIMUM TEMPERATURE 99.8 in the last 24 hours. The plan was to replace right nephrostomy tube, which did not materialize due to elevated INR and in availability of IR physician. IR guided nephrostomy tube replacement. This a.m. INR 1.36 Microbiology-urine culture shows growth of Pseudomonas. Renal ultrasound revealed right hydronephrosis. Could change the antibiotics to Ciprofloxacin from 04/29/2016. Status post nephrostomy tube-draining well. As per the interventional radiologist, brief discussion with Dr. Villegas this a.m. states that the patient should be monitored for another 24 hours given the fact that he was febrile overnight. #Acute kidney injury Likely due to obstructive uropathy. Continue to monitor closely. Last creatinine within normal limits 1.2. #History of pulmonary embolism Continue warfarin. Dose today 5 mg. Will check INR in the a.m. #DVT Prophylaxis: Warfarin Problem List: 1. Sepsis 2. Nephrostomy status Pain Ratin Pain Location: Pain Adequately controlled Pain Goal: Remain pain free Pain Plan: MSIR Tomorrow's Labs & Rationales: CBC: Falling H&H 7.8 and 24.5 respectively trending to see if patient will benefit from transfusion. INR: Dosing of Ccalize ARIZMENDI MD,[facility] 04/28/16 1115: Attending MD Review Statement Attending Statement Attending MD Statement: examined this patient, discuss w/resident/PA/CAFETERIA WORKER, agreed w/resident/PA/CAFETERIA WORKER, discussed with family, reviewed EMR data (avail), discussed with nursing, discussed with case mgmt, reviewed images, amended to note Attending Assessment/Plan: Patient seen and examined, doing much better this morning. Last night had an episode of diaphoresis as well as some abdominal bloating. Abdominal x-ray which was obtained does not show any obstruction. Patient claims that he's constipated. Patient's fianc is at his bedside. Vital Signs Date Time Temp Pulse Resp B/P Pulse O2 O2 Flow FiO2 Ox Delivery Rate 04/28 0946 107 140/80 04/28 0846 98.2 107 20 140/80 92 Room Air 04/28 0049 98.6 100 20 138/78 92 04/28 0000 Room Air 04/27 2232 105 130/68 04/27 1629 98.5 109 18 126/70 90 Room Air 04/27 1256 99.8 108 18 132/68 92 Room Air Room Air 04/27 1252 108 132/68 on exam; aox3, nad. cv; s1,s2, rrr. resp; clear abd; soft, nt, bs+ ext; no edema. Laboratory Tests 04/28 04/28 04/28 04/27 0932 0625 0248 1755 Chemistry Sodium (137 - 145 mmol/L) 138 138 Potassium (3.5 - 5.1 mmol/L) 4.1 4.2 Chloride (98 - 107 mmol/L) 108 H 105 Carbon Dioxide (22 - 30 mmol/L) 24 25 Anion Gap (5 - 16) 7 8 BUN (9 - 20 mg/dL) 18 15 Creatinine (0.7 - 1.2 mg/dL) 1.2 1.5 H Estimated GFR (>60 ml/min) > 60 49 L BUN/Creatinine Ratio (7 - 25 %) 15.0 10.0 Troponin I (<0.11 ng/ml) 0.07 Coagulation PT (9.4 - 12.5 SEC) 14.2 H INR (0.90 - 1.17) 1.36 H Hematology CBC w Diff NO MAN DIFF REQ WBC (4.8 - 10.8 /CUMM) 7.4 RBC (4.70 - 6.10 /CUMM) 3.04 L Hgb (14.0 - 18.0 G/DL) 7.8 L Hct (42 - 52 %) 24.5 L MCV (80.0 - 94.0 FL) 80.8 MCH (27.0 - 31.0 PG) 25.6 L RDW (11.5 - 14.5 %) 20.5 H Plt Count (130 - 400 /CUMM) 179 MPV (7.4 - 10.4 FL) 8.3 Gran % (42.2 - 75.2 %) 80.3 H Lymphocytes % (20.5 - 51.1 %) 12.9 L Monocytes % (1.7 - 9.3 %) 6.3 Eosinophils % (0 - 5 %) 0.2 Basophils % (0.0 - 2.0 %) 0.3 Absolute Granulocytes (1.4 - 6.5 /CUMM) 5.9 Absolute Lymphocytes (1.2 - 3.4 /CUMM) 1.0 L Absolute Monocytes (0.10 - 0.60 /CUMM) 0.5 Absolute Eosinophils (0.0 - 0.7 /CUMM) 0 Absolute Basophils (0.0 - 0.2 /CUMM) 0 PUBS MCHC (33.0 - 37.0 G/DL) 31.6 L A/P; 55-year-old male with past medical history significant for severe refractory metastatic prostate cancer with metastases to bone and liver now on Taxotere, history of PE on Coumadin who was admitted with the severe sepsis secondary to complicated urinary tract infection. Right nephrostomy tube was obstructed. Patient has been started on antibiotics and now status post bilateral nephrostomy tube change. This morning doing well. Last night developed some diaphoresis and abdominal bloating. Abdominal x-ray was obtained which does not show any obstruction. Patient does admit to having constipation. Stool softeners have been ordered but if no luck with then please order suppository. We'll continue ceftaz today and then tomorrow we'll switch him to oral Cipro. If patient continues to do well then likely can be discharged home tomorrow. Dr. Kc is recommending holding the Coumadin today secondary to blood clots in the night nephrostomy tube overnight. His INR is 1.36 and his H&H has a slight drop. Now the right nephrostomy is draining almost clear urine. I will double check with Dr. Granados if he still recommends to hold the Coumadin because INR is only 1.36. Discussed with patient's abimael at length at bedside.
--- NOTE | 2016-04-28 06:45 | PN- Urology ---
Subjective Subjective: No distress Pt underwent bilateral nephrostomy tube change yesterday Objective Vital Signs and I&Os Vital Signs Date Time Temp Pulse Resp B/P Pulse O2 O2 Flow FiO2 Ox Delivery Rate 04/28 0049 98.6 100 20 138/78 92 04/28 0000 Room Air 04/27 2232 105 130/68 04/27 1629 98.5 109 18 126/70 90 Room Air 04/27 1256 99.8 108 18 132/68 92 Room Air Room Air 04/27 1252 108 132/68 04/27 0930 99.3 04/27 0838 99.0 100 20 135/65 92 Room Air Intake & Output 04/28 0800 04/28 0000 04/27 1600 04/27 0800 04/27 0000 04/26 1600 Intake Total 220 1280 003 884 5609 Output Total 425 275 600 650 450 650 Balance -425 -55 680 170 -250 750 Intake, IV 800 820 600 Intake, Oral 220 480 200 800 Output, Urine 425 275 600 650 450 650 Patient 287 lb Weight Back: R and L nephrostomy tubes in place. R tube draining dark tea-colored urine Abd: soft and non tender Laboratory Tests 04/28 04/27 04/27 0248 1755 0645 Chemistry Sodium (137 - 145 mmol/L) 138 138 Potassium (3.5 - 5.1 mmol/L) 4.2 4.3 Chloride (98 - 107 mmol/L) 105 106 Carbon Dioxide (22 - 30 mmol/L) 25 24 Anion Gap (5 - 16) 8 8 BUN (9 - 20 mg/dL) 15 14 Creatinine (0.7 - 1.2 mg/dL) 1.5 H 1.8 H Estimated GFR (>60 ml/min) 49 L 40 L BUN/Creatinine Ratio (7 - 25 %) 10.0 7.8 Troponin I (<0.11 ng/ml) 0.07 Coagulation PT (9.4 - 12.5 SEC) 18.1 H INR (0.90 - 1.17) 1.73 H Hematology CBC w Diff NO MAN DIFF REQ WBC (4.8 - 10.8 /CUMM) 10.3 RBC (4.70 - 6.10 /CUMM) 3.28 L Hgb (14.0 - 18.0 G/DL) 8.5 L Hct (42 - 52 %) 26.7 L MCV (80.0 - 94.0 FL) 81.5 MCH (27.0 - 31.0 PG) 26.0 L RDW (11.5 - 14.5 %) 20.4 H Plt Count (130 - 400 /CUMM) 160 MPV (7.4 - 10.4 FL) 8.4 Gran % (42.2 - 75.2 %) 82.8 H Lymphocytes % (20.5 - 51.1 %) 7.8 L Monocytes % (1.7 - 9.3 %) 8.7 Eosinophils % (0 - 5 %) 0.1 Basophils % (0.0 - 2.0 %) 0.6 Absolute Granulocytes (1.4 - 6.5 /CUMM) 8.5 H Absolute Lymphocytes (1.2 - 3.4 /CUMM) 0.8 L Absolute Monocytes (0.10 - 0.60 /CUMM) 0.9 H Absolute Eosinophils (0.0 - 0.7 /CUMM) 0 Absolute Basophils (0.0 - 0.2 /CUMM) 0.1 PUBS MCHC (33.0 - 37.0 G/DL) 31.9 L Assessment/Plan Assessment/Plan Imp: 1. Metastatic prostate ca, castrate resistant 2. Bilateral ureteral obstruction due to extensive local disease 3. UTI Plan: 1. Bilateral nephrostomies to remain in place 2. Would hold coumadin today and restart tomorrow based on color of urine from R nephrostomy 3. Abx for UTI
[2016-04-28 08:46] VITALS: BP 140/80
[2016-04-28 08:52] LABS: PT 14.2 SEC (9.4-12.5)
[2016-04-28 10:09] LABS: ABSOLUTE BASOPHIL COUNT 0 /CUMM (0.0-0.2); ABSOLUTE EOSINOPHIL COUNT 0 /CUMM (0.0-0.7); ABSOLUTE GRANULOCYTE CT 5.9 /CUMM (1.4-6.5); ABSOLUTE MONOCYTE COUNT 0.5 /CUMM (0.10-0.60); BASOPHIL % 0.3 % (0.0-2.0); EOSINOPHIL % 0.2 % (0-5); GRANULOCYTE % 80.3 % (42.2-75.2); HEMATOCRIT 24.5 % (42-52); MEAN CORPUSCULAR HGB 25.6 PG (27.0-31.0); MEAN CORPUSCULAR HGB CONC 31.6 G/DL (33.0-37.0); MEAN CORPUSCULAR VOLUME 80.8 FL (80.0-94.0); MEAN PLATELET VOLUME 8.3 FL (7.4-10.4); PLATELET COUNT 179 /CUMM (130-400); RBC DISTRIBUTION WIDTH 20.5 % (11.5-14.5); RED BLOOD CELL CT 3.04 /CUMM (4.70-6.10); WHITE BLOOD CELL COUNT 7.4 /CUMM (4.8-10.8)
[2016-04-28 17:26] VITALS: BP 130/68
[2016-04-29 00:39] VITALS: BP 130/70
--- NOTE | 2016-04-29 02:09 | NUR ---
PT A&OX3, RA, ABD SOFT, TOLERATING REG DIET, PT HAS BILATERAL NEPH TUBES DSG INTACT, LEFT TUBE DRAINED 200ML CLEAR YELLOW URINE, SCHEDULED PAIN MEDICATION GIVEN, CALL LIGHT WITHIN REACH, H&H 7.8 & 24.5 04/28/16 DR. GÉNESIS RASHID #[id number] NOTIFIED.
--- NOTE | 2016-04-29 06:00 | PN- Housestaff ---
JONNA BROWN,[facility] 04/29/16 0559: Subjective Follow-up For: Sepsis of Urological Origin Subjective: Mr Junior was seen and examined this morning. He endorses no issues overnight and states that the right nephrostomy tube has continued to draing well overnight. He does mention a left hip pain. Pain is rated at a 7/10 in severity. Patient states that this pain has been previously present and patient feels pain is well controlled. Patient did have a small BM this am. The patient denies and fever, chills, nausea and vomiting. Review of Systems Constitutional: Reports: see HPI. Objective Last 24 Hrs of Vital Signs/I&O Vital Signs Date Time Temp Pulse Resp B/P Pulse O2 O2 Flow FiO2 Ox Delivery Rate 04/29 0840 98.4 98 18 128/70 92 Room Air 04/29 0039 98.6 96 18 130/70 94 Room Air 04/28 2119 128/72 04/28 1726 98.9 94 18 130/68 94 Room Air Room Air 04/28 0946 107 140/80 Intake & Output 04/29 1600 04/29 0800 04/29 0000 Intake Total 120 920 Output Total 550 625 Balance -430 295 Intake, Oral 120 920 Output, Urine 550 625 Physical Exam General Appearance: Alert, Cooperative, No Acute Distress Cardiovascular: Normal S1, Normal S2 Lungs: Clear to Auscultation Abdomen: Normal Bowel Sounds, Soft, No Tenderness, Right Nephrostomy tube draining well. No Clots. Korin colored. Left Nephrostomy tube draining well. No clot. Straw colored. Neurological: Normal Speech Extremities: No Edema Current Medications: Current Medications Sig/Aurora Start time Last Medication Dose Route Stop Time Status Admin Acetaminophen 650 MG Q6P PRN 04/27 1215 AC PO Bicalutamide 50 MG DAILY 04/25 1000 AC 04/28 PO 0946 Bisacodyl 10 MG ONCE PRN 04/28 1915 AC DC Bisacodyl 5 MG DAILY PRN 04/28 1145 AC 04/28 PO 1720 Ceftazidime 1,000 MG Q8 04/25 0600 DC 04/29 IV 04/29 06 0606 Ciprofloxacin 500 MG BID 04/29 1000 AC PO 05/03 0959 Docusate Sodium 100 MG BID 04/28 1000 AC 04/28 PO 2119 Hydromorphone HCl 1 MG Q6P PRN 04/25 0115 AC 04/26 IV 0120 Magnesium Hydroxide 30 ML AT BEDTIME PRN 04/28 1915 AC PO Morphine Sulfate 15 MG EVERY 4 HRS/AWAKE 04/25 0800 AC 04/29 PO 0621 Morphine Sulfate 15 MG 0000 04/25 0200 AC 04/29 PO 0043 Polyethylene Glycol 17 GM DAILY 04/28 1000 AC 04/28 PO 0946 Senna/Docusate Sodium 2 TAB DAILY NEEDED PRN 04/25 0130 AC 04/27 PO 1253 Tamsulosin HCl 0.4 MG BID 04/25 1000 AC 04/28 PO 2119 Warfarin Sodium 5 MG COUMADIN 1700 ONE 04/28 1700 DC 04/28 PO 04/28 1701 1720 Last 24 Hrs of Lab/Raymundo Results Last 24 Hrs of Labs/Mics: Laboratory Tests 04/29/16 0615: PT 13.5 H, INR 1.29 H, CBC w Diff NO MAN DIFF REQ, RBC 3.11 L, MCV 80.8, MCH 25.9 L, RDW 21.1 H, MPV 8.1, Gran % 76.2 H, Lymphocytes % 14.8 L, Monocytes % 8.1, Eosinophils % 0.4, Basophils % 0.5, Absolute Granulocytes 5.5, Absolute Lymphocytes 1.1 L, Absolute Monocytes 0.6, Absolute Eosinophils 0, Absolute Basophils 0, PUBS MCHC 32.0 L 04/28/16 0932: CBC w Diff NO MAN DIFF REQ, RBC 3.04 L, MCV 80.8, MCH 25.6 L, RDW 20.5 H, MPV 8.3, Gran % 80.3 H, Lymphocytes % 12.9 L, Monocytes % 6.3, Eosinophils % 0.2, Basophils % 0.3, Absolute Granulocytes 5.9, Absolute Lymphocytes 1.0 L, Absolute Monocytes 0.5, Absolute Eosinophils 0, Absolute Basophils 0, PUBS MCHC 31.6 L Assessment/Plan Assessment: Mr. 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 # Sepsis of urologic origin-likely from obstruction. MAXIMUM TEMPERATURE 99.8 in the last 24 hours. The plan was to replace right nephrostomy tube, which did not materialize due to elevated INR and in availability of IR physician. IR guided nephrostomy tube replacement. This a.m. INR 1.29. Microbiology-urine culture shows growth of Pseudomonas. Renal ultrasound revealed right hydronephrosis. Could change the antibiotics to Ciprofloxacin from 04/29/2016. Status post nephrostomy tube-draining well. #Acute kidney injury Likely due to obstructive uropathy. Continue to monitor closely. Last creatinine within normal limits 1.2. #History of pulmonary embolism Continue warfarin. Patient instructed to take 10 mg of Coumadin on 05/08 and . He was then instructed to check INR on 05/01/2016. #DVT Prophylaxis: Warfarin Problem List: 1. Sepsis 2. Fever 3. Pulmonary embolus Pain Ratin Pain Location: NA Pain Goal: Remain pain free Pain Plan: Morphine Tomorrow's Labs & Rationales: CECIL ARIZMENDI MD,[facility] 04/29/16 1409: Attending MD Review Statement Attending Statement Attending MD Statement: examined this patient, discuss w/resident/PA/CARTOON ANIMATOR, agreed w/resident/PA/CARTOON ANIMATOR, discussed with family, reviewed EMR data (avail), discussed with nursing, discussed with case mgmt, amended to note Attending Assessment/Plan: Patient seen and examined, feeling overall much better. Denies any further diaphoresis or abdominal discomfort/bloating. Remains afebrile. Bilateral nephrostomy tubes are draining clear urine. H&H remained stable. INR subtherapeutic. Patient is medically stable for discharge today. He will receive high-dose of Coumadin today at 10 mg as well as tomorrow at 10 mg and a repeat INR will be checked on 05/01/2016. After that INR will be repeated on 05/04/2016. Those results will be faxed to Blaire Epstein DO. He has a visiting nurse who can check INR and send the results to Blaire Epstein DO. His Coumadin will need to be adjusted accordingly. According to Dr. Granados, patient will need follow-up with him in his office and the nephrostomy tubes will be changed and of May. Discussed with patient's fianc at bedside. Discussed with patient's fianc at bedside.
--- NOTE | 2016-04-29 07:16 | PN- Oncology ---
Subjective Subjective: Feeling quite well, no pain Review of Systems: 12 point review of systems otherwise negative Objective Vital Signs and I&Os Vital Signs Date Time Temp Pulse Resp B/P Pulse O2 O2 Flow FiO2 Ox Delivery Rate 04/29 0039 98.6 96 18 130/70 94 Room Air 04/28 2119 128/72 04/28 1726 98.9 94 18 130/68 94 Room Air Room Air 04/28 0946 107 140/80 04/28 0846 98.2 107 20 140/80 92 Room Air Intake & Output 04/29 0804/29 0000 04/28 1600 04/28 0800 04/28 0000 04/27 1600 Intake Total 120 920 334 627 2899 Output Total 550 625 550 775 275 600 Balance -430 295 250 -775 -55 680 Intake, IV 800 Intake, Oral 120 920 800 220 480 Output, Urine 550 625 550 775 275 600 Patient 287 lb Weight Gen.: in NAD ENT: Sclera anicteric Chest: Normal respiratory effort, clear breath sounds Cor: RRR, no extra sounds Abdomen: Soft, bowel sounds present, no tenderness, Extremities: Without clubbing, cyanosis, or asymmetric edema Neurology: Alert and oriented 3, no gross deficit Current Medications: Current Medications Sig/Aurora Start time Last Medication Dose Route Stop Time Status Admin Acetaminophen 650 MG Q6P PRN 04/27 1215 AC PO Bicalutamide 50 MG DAILY 04/25 1000 AC 04/28 PO 0946 Bisacodyl 10 MG ONCE PRN 04/28 1914 AC VT Bisacodyl 5 MG DAILY PRN 04/28 1145 AC 04/28 PO 1720 Ceftazidime 1,000 MG Q8 04/25 0600 DC 04/29 IV 04/29 0600 0606 Ciprofloxacin 500 MG BID 04/29 1000 AC PO 05/03 0959 Docusate Sodium 100 MG BID 04/28 1000 AC 04/28 PO 2119 Hydromorphone HCl 1 MG Q6P PRN 04/25 0115 AC 04/26 IV 0120 Magnesium Hydroxide 30 ML AT BEDTIME PRN 04/28 1915 AC PO Morphine Sulfate 15 MG EVERY 4 HRS/AWAKE 04/25 0800 AC 04/29 PO 0621 Morphine Sulfate 15 MG 0000 04/25 0200 AC 04/29 PO 0043 Polyethylene Glycol 17 GM DAILY 04/28 1000 AC 04/28 PO 0946 Senna/Docusate Sodium 2 TAB DAILY NEEDED PRN 04/25 0130 AC 04/27 PO 1253 Tamsulosin HCl 0.4 MG BID 04/25 1000 AC 04/28 PO 2119 Warfarin Sodium 5 MG COUMADIN 1700 ONE 04/28 1700 DC 04/28 PO 04/28 1701 1720 Results Last 24 Hours of Lab Results: Laboratory Tests 04/28 0932 Hematology CBC w Diff NO MAN DIFF REQ WBC (4.8 - 10.8 /CUMM) 7.4 RBC (4.70 - 6.10 /CUMM) 3.04 L Hgb (14.0 - 18.0 G/DL) 7.8 L Hct (42 - 52 %) 24.5 L MCV (80.0 - 94.0 FL) 80.8 MCH (27.0 - 31.0 PG) 25.6 L RDW (11.5 - 14.5 %) 20.5 H Plt Count (130 - 400 /CUMM) 179 MPV (7.4 - 10.4 FL) 8.3 Gran % (42.2 - 75.2 %) 80.3 H Lymphocytes % (20.5 - 51.1 %) 12.9 L Monocytes % (1.7 - 9.3 %) 6.3 Eosinophils % (0 - 5 %) 0.2 Basophils % (0.0 - 2.0 %) 0.3 Absolute Granulocytes (1.4 - 6.5 /CUMM) 5.9 Absolute Lymphocytes (1.2 - 3.4 /CUMM) 1.0 L Absolute Monocytes (0.10 - 0.60 /CUMM) 0.5 Absolute Eosinophils (0.0 - 0.7 /CUMM) 0 Absolute Basophils (0.0 - 0.2 /CUMM) 0 PUBS MCHC (33.0 - 37.0 G/DL) 31.6 L Assessment/Plan Assessment/Recommendations: 1. Urinary tract infection-status post nephrostomy change-currently stable on oral antibiotics 2. Metastatic prostate cancer-chemotherapy to resume as an outpatient Follow-up my office
--- NOTE | 2016-04-29 07:40 | PN- Urology ---
Subjective Subjective: Feels well. Comfortable Objective Vital Signs and I&Os Vital Signs Date Time Temp Pulse Resp B/P Pulse O2 O2 Flow FiO2 Ox Delivery Rate 04/29 0039 98.6 96 18 130/70 94 Room Air 04/28 2119 128/72 04/28 1726 98.9 94 18 130/68 94 Room Air Room Air 04/28 0946 107 140/80 04/28 0846 98.2 107 20 140/80 92 Room Air Intake & Output 04/29 0804/29 1600 04/28 0804/28 1600 Intake Total 120 920 359 246 0389 Output Total 550 625 550 775 275 600 Balance -430 295 250 -775 -55 680 Intake, IV 800 Intake, Oral 120 920 800 220 480 Output, Urine 550 625 550 775 275 600 Patient 287 lb Weight Back: R and L nephrostomies draining clear urine Abd: soft and non tender Laboratory Tests 04/29 04/28 0615 0932 Coagulation PT Pending INR Pending Hematology CBC w Diff Pending NO MAN DIFF REQ WBC (4.8 - 10.8 /CUMM) Pending 7.4 RBC (4.70 - 6.10 /CUMM) Pending 3.04 L Hgb (14.0 - 18.0 G/DL) Pending 7.8 L Hct (42 - 52 %) Pending 24.5 L MCV (80.0 - 94.0 FL) Pending 80.8 MCH (27.0 - 31.0 PG) Pending 25.6 L RDW (11.5 - 14.5 %) Pending 20.5 H Plt Count (130 - 400 /CUMM) Pending 179 MPV (7.4 - 10.4 FL) Pending 8.3 Gran % (42.2 - 75.2 %) 80.3 H Lymphocytes % (20.5 - 51.1 %) 12.9 L Monocytes % (1.7 - 9.3 %) 6.3 Eosinophils % (0 - 5 %) 0.2 Basophils % (0.0 - 2.0 %) 0.3 Absolute Granulocytes (1.4 - 6.5 /CUMM) 5.9 Absolute Lymphocytes (1.2 - 3.4 /CUMM) 1.0 L Absolute Monocytes (0.10 - 0.60 /CUMM) 0.5 Absolute Eosinophils (0.0 - 0.7 /CUMM) 0 Absolute Basophils (0.0 - 0.2 /CUMM) 0 PUBS MCHC (33.0 - 37.0 G/DL) Pending 31.6 L Assessment/Plan Assessment/Plan Imp: 1. Metastatic prostate ca 2. Bilateral ureteral obstruction managed with perc nephrostomies 3. hx of DVT Plan: 1. From my point of view ok to discharge home on cipro 2. continue coumadin 3. Should have PT/INR in a few days since coumadin and cipro interact 4. Will plan to have nephrostomies changed at end may
[2016-04-29 08:06] LABS: ABSOLUTE BASOPHIL COUNT 0 /CUMM (0.0-0.2); ABSOLUTE EOSINOPHIL COUNT 0 /CUMM (0.0-0.7); ABSOLUTE GRANULOCYTE CT 5.5 /CUMM (1.4-6.5); ABSOLUTE LYMPH COUNT 1.1 /CUMM (1.2-3.4); ABSOLUTE MONOCYTE COUNT 0.6 /CUMM (0.10-0.60); BASOPHIL % 0.5 % (0.0-2.0); EOSINOPHIL % 0.4 % (0-5); GRANULOCYTE % 76.2 % (42.2-75.2); HEMATOCRIT 25.1 % (42-52); MEAN CORPUSCULAR HGB 25.9 PG (27.0-31.0); MEAN CORPUSCULAR VOLUME 80.8 FL (80.0-94.0); MEAN PLATELET VOLUME 8.1 FL (7.4-10.4); PLATELET COUNT 199 /CUMM (130-400); RBC DISTRIBUTION WIDTH 21.1 % (11.5-14.5); RED BLOOD CELL CT 3.11 /CUMM (4.70-6.10); WHITE BLOOD CELL COUNT 7.2 /CUMM (4.8-10.8)
[2016-04-29 08:26] LABS: PT 13.5 SEC (9.4-12.5)
[2016-04-29 08:40] VITALS: BP 128/70; BP 140/74
--- NOTE | 2016-04-29 19:36 | Discharge Summary ---
Visit Information Visit Dates Admission Date: 04/24/16 Discharge Date: 04/29/16 Hospital Course Course Attending Physician: FER ARIZMENDI MD Primary Care Physician: MATTHEW VALDEZ DO Other Care Providers: SERVICE DATE: 04/24/16-2024 EXAM TYPE: CAT - CT ABD & PELVIS W/O IV CONTRAS IMPRESSION: 1. Bibasilar atelectasis and pleural effusion. 2. Increasing metastatic disease in liver, enlarging liver masses. 3. Persistent retroperitoneal lymphadenopathy. 4. Bilateral nephrostomy catheters in place. 5. Enlarged prostate. 6. Osseous metastatic disease. DICTATED BY: LARA MCKENZIE MD SERVICE DATE: 04/26/16-1917 EXAM TYPE: US - US-RENAL/KIDNEY IMPRESSION: 1. There is mild right hydronephrosis and pelviectasis. No left hydronephrosis is seen. 2. A simple left renal cyst is incidentally noted. 3. A large irregular prostate gland again impresses upon the bladder wall. Invasion of a prostate carcinoma cannot be excluded based upon this appearance. Consider Urology evaluation with possible cystoscopy. DICTATED BY: MOSEH BROWN,[facility] Course: Mr. Junior is a 55-year-old gentleman with past medical history of prostate cancer (hormone refractory), stage IV, with metastasis to bone and liver, bilateral nephrostomy tube placement (placed 2015), history of PE on Coumadin who presented with a chief compalint of right-sided flank pain, decreased urine output from the right nephrostomy tube and a fever. He was admittied to the general medicine service and below is a summarry of the care he received. # Sepsis of urologic origin-likely from obstruction of right Nephrostomy tube. At the time of admission, the patient was initially started on Ceftriaxone. Initial attempts to flush the Right nephrostomy tube were unsuccessful. On day four of admission, the patient had a bilateral nephrostomy tube exchange under IR. He tolerated this procedure well. Final urine cultures were positive for Pseudomonas Aeruginosa. The patient was started on Ciprofloxacin from 2016. Status post nephrostomy both right and left tubes were draining well. #Acute kidney injury At the time of admission, the patient's creatinine was 1.0. On day three of admission his creatinine value went up to 1.7. The patient was maintain on IVF. Prior to discharge, the patient Creatinine has normalized to a value of 1.2. #History of pulmonary embolism Given the patient's history of pulmonary emobolisms in the past, we continued the patient on Warfarin initially. His coumadin was briefly held due to his nephrostomy change procedure. After the procedure, his INR was Subtherapetic. Mr Junior was instructed to take 10 mg of Coumadin on 04/29 and 04/30. He was then instructed to check INR on 05/01/2016 and copy these results to his PCP for further recomendations on his Coumadin dosing. His Target INR was 2.0. Allergies: Coded Allergies: ragweed pollen (Intermediate, NASAL CONGESTION 01/07/16) Penicillins (UNKNOWN 02/27/16) Uncoded Allergies: POULTRY SKIN (Severe, THROAT CLOSURE 04/25/16) Significant Procedures: SERVICE DATE: 04/27/16 EXAM TYPE: IR - DRAINAGE CATHETER CHANGE; INTERVENTIONAL SETUP FINDINGS: 1. The left nephrostomy tube had pulled back into the lower pole infundibulum. The catheter was patent. The catheter was successfully exchanged. 2. The right nephrostomy tube was clogged. The catheter was successfully exchanged using parallel technique. 3. Post exchange nephrostograms demonstrates good positioning within the renal pelves. IMPRESSION: Successful exchange of both nephrostomy catheters. PLAN: 1. The patient was stable after the procedure and was transferred to the interventional recovery area. The patient will be transferred back to his room. 2. The tubes should be left to external gravity drainage via drainage bag. 3. The patient should return to interventional radiology in 8 weeks for routine catheter exchange. DICTATED BY: DARIN SIMS MD Pertinent Lab Results: SERVICE DATE: 04/24/16 EXAM TYPE: CAT - CT ABD & PELVIS W/O IV CONTRAST IMPRESSION: 1. Bibasilar atelectasis and pleural effusion. 2. Increasing metastatic disease in liver, enlarging liver masses. 3. Persistent retroperitoneal lymphadenopathy. 4. Bilateral nephrostomy catheters in place. 5. Enlarged prostate. 6. Osseous metastatic disease. DICTATED BY: LARA MCKENZIE MD SERVICE DATE: 04/26/16 EXAM TYPE: US - US-RENAL/KIDNEY IMPRESSION: 1. There is mild right hydronephrosis and pelviectasis. No left hydronephrosis is seen. 2. A simple left renal cyst is incidentally noted. 3. A large irregular prostate gland again impresses upon the bladder wall. Invasion of a prostate carcinoma cannot be excluded based upon this appearance. Consider Urology evaluation with possible cystoscopy. DICTATED BY: KE MESA MD SERVICE DATE: 04/28/16 EXAM TYPE: RAD - [id number]-FTFPAS VIEW IMPRESSION: Technically limited examination but does not include the entire abdomen. The visualized bowel gas pattern is nonobstructive. Partially imaged bilateral nephrostomy catheters. DICTATED BY: THALIA SPENCER MD Disposition Summary Disposition Principal Diagnosis: Sepsis of urologic origin-likely from obstruction. Additional Diagnosis: Acute Kidney Injury History of pulmonary embolism Discharge Disposition: home or self care Discharge Instructions General Discharge Information Code Status: Do Not Resucitate/Intubat Patient's Diet: Heart Healthy Patient's Activity: As Tolerated Follow-Up Instructions/Appts: Please see your PCP within one week of discharge. Please follow up with your urologist within one week of discharge. Please follow up with your Oncologist within one week of discharge. Your most recent INR was 1.29 (04/29/2016). Please take 10 mg of Warfarin on 03/2016 and 04/30/2016. Please have an INR checked on 05/01/2016. The results of these need to be sent to Dr Valdez (PCP) who will guide you on Coumadin dosing. We have provided you with a script to get this checked. Please also have your INR checked again on 05/04/2016. Medications at Discharge Discharge Medications: Continue taking these medications: Bicalutamide (Bicalutamide) 50 MG TABLET 1 Tablet ORAL DAILY Qty = 30 Comments: Last Taken: 04/29/16 Time: 10 AM Tamsulosin HCl (Tamsulosin HCl) 0.4 MG CAP.ER.24H 1 Capsule ORAL TWICE DAILY Qty = 30 Comments: GIVEN 05/06/16 @ 1124 Naloxegol Oxalate (Movantik) 25 MG TABLET 1 Tablet ORAL DAILY as needed for CONSTIPATION Qty = 30 Comments: NOT TAKEN IN HOSPITAL Polyethylene Glycol 3350 (Miralax) 17 GRAM/DOSE POWDER 17 Gram ORAL DAILY Days = 28 Comments: GIVEN 05/06/16 @ 1124 Sennosides/Docusate Sodium (Senna Plus Tablet) 8.6 MG-50 MG TABLET 2 Tablet ORAL DAILY as needed for CONSTIPATION Days = 28 Comments: GIVEN 05/04/16 @ 9:50 PM Warfarin Sodium (Warfarin Sodium) 5 MG TABLET 1 Tablet ORAL DAILY Instructions: Please dose coumadin to keep the INR within one week of discharge. Comments: LAST DOSE GIVEN 04/28/16 AT 5:00 PM. Please check INR on 06/05/16 and restart coumadin once INR is at a goal of 1.8-1.9. Morphine Sulfate (Morphine Sulfate) 15 MG TABLET 1 Tablet ORAL Q4H Comments: LAST DOSE TAKEN 04/29/16 AT 11:00 AM Docetaxel (Taxotere) 20 MG/ML (1 ML) VIAL INTRAVEN AAC Instructions: Please follow with your oncologist for further advice. Comments: PER PT MED LIST Start taking the following new medications: Ciprofloxacin HCl (Cipro) 500 MG TABLET 1 Tablet ORAL TWICE DAILY Qty = 22 No Refills Comments: GIVEN 05/06/16 @ 1124 Please take till 05/09/16 Copies To: SAIDA VALDEZ DO, MD,HERIBERTO WILLS MD,MICHELE Velez
== END 2016-04-29 12:30 | disposition home health service (06) | DRG 720 ==
LOC: ENRESERVTM → ENRESERVDT → ERH 19:40 → 2NB 22:39 → ENPENDDIS 22:39 → ERHI 22:39 → ERH 22:39 → 2NB 04-25 01:03
PROVIDERS: Internal Medicine; Internal Medicine Endocrinology, Diabetes & Metabolism; Internal Medicine Interventional Cardiology; Pediatrics; Student in an Organized Health Care Education/Training Program; ADMIT Student in an Organized Health Care Education/Training Program
PROC: 0T25X0Z Change Drainage Device in Kidney, External Approach (ICD-10-PCS; principal; 2016-04-27)
DX: A41.9 Sepsis, unspecified organism (principal); N39.0 Urinary tract infection, site not specified; C61 Malignant neoplasm of prostate; C78.7 Secondary malignant neoplasm of liver and intrahepatic bile duct; C77.9 Secondary and unspecified malignant neoplasm of lymph node, unspecified; C79.51 Secondary malignant neoplasm of bone; N13.8 Other obstructive and reflux uropathy; Z86.711 Personal history of pulmonary embolism; Z79.01 Long term (current) use of anticoagulants; E66.9 Obesity, unspecified; Z68.38 Body mass index [BMI] 38.0-38.9, adult
CPT/HCPCS: 2NBP; ERO; 36415; 74000; 74176; 75984; 76775; 81001; 82436; 87040; 87086; 93005; 93010; 96361; 96365; 96375; 97116-GO; 97161-GP; 97530-GO; J0131; J0696; J0713; J2405; J9202

== ENCOUNTER 2016-05-02 23:00 | Observation (INO) | payer OTHER ==
[~2016-05-02] VITALS: Ht 185.4 cm; Wt 127.0 kg
[~2016-05-02 23:00] MED LIST changes: +LUPRON DEPOT30 MG IM; +NEULASTA6 MG/0.6 M SC; +REMERON30 M3 PO; +TAXOTERE20 MG/1 ML IV
--- NOTE | 2016-05-02 23:06 | NUR ---
PT FROM HOME C/O SLURRED SPEECH AND PT UNABLE TO COMMUNICATE THOUGHTS. PER MEDIC AND PTS , AROUND 2300 IT WAS THE SECOND EPISODE OF THE PT HAVING SLURRED SPEECH AND UNABLE TO COMMUNICATE. PT HAS HX OF CA METS TO THE ENTIRE BODY EXCEPT THE BRAIN. PT HAD THE FIRST EPISIDE EARLIER IN THE EVENING. PT UPON ARRIVAL WAS NEGATIVE ON NIHS STROKE SCALE AND NEGATIVE ON THE CINNINATI SCALE PER MEDIC. DR CHAVEZ AT BEDSIDE FOR EVAL. PT PLACE ON MONITOR IN RM. AT BEDSIDE.
--- NOTE | 2016-05-02 23:10 | ED NEURO DEFICIT/STROKE ---
History of Present Illness General Chief Complaint: Altered Mental Status Stated Complaint: BIBA FOR AMS Source: patient, family, old records, EMS Exam Limitations: no limitations Vital Signs & Intake/Output Vital Signs & Intake/Output Vital Signs Date Time Temp Pulse Resp B/P Pulse O2 O2 Flow FiO2 Ox Delivery Rate 05/02 2303 98.5 111 20 145/74 92 Room Air ED Intake and Output 05/03 0000 05/02 1200 Intake Total Output Total Balance Patient 280 lb Weight Allergies Coded Allergies: ragweed pollen (Intermediate, NASAL CONGESTION 01/07/16) Penicillins (UNKNOWN 02/27/16) Uncoded Allergies: POULTRY SKIN (Severe, THROAT CLOSURE 04/25/16) Reconcile Medications Bicalutamide 50 MG TABLET 1 TAB PO DAILY HORMONE (Reported) Ciprofloxacin HCl (Cipro) 500 MG TABLET 1 TAB PO BID kidney infection Docetaxel (Taxotere) 20 MG/ML (1 ML) VIAL Pro Ca (Reported) Please follow with your oncologist for further advice. Morphine Sulfate 15 MG TABLET 1 TAB PO Q4H PAIN (Reported) Naloxegol Oxalate (Movantik) 25 MG TABLET 1 TAB PO DAILY PRN CONSTIPATION Polyethylene Glycol 3350 (Miralax) 17 GRAM/DOSE POWDER 17 GM PO DAILY constipation Sennosides/Docusate Sodium (Senna Plus Tablet) 8.6 MG-50 MG TABLET 2 TAB PO DAILY PRN CONSTIPATION Tamsulosin HCl 0.4 MG CAP.ER.24H 1 CAP PO BID PROSTATE (Reported) Warfarin Sodium 5 MG TABLET 1 TAB PO DAILY BLOOD THINNER (Reported) Please dose coumadin to keep the INR within one week of discharge. Triage Nurses Notes Reviewed? yes HPI: Patient brought in by ambulance for episodic word finding started this evening. Patient states that he knows what he wants to stay there just reports that will help. Patient has known metastatic prostate CA. Patient states that for the past few weeks he has been having numbness to his face and his left arm. Patient states he has never had episodes of word finding. Patient denies any recent trauma. Patient denies any headache or blurry vision. Patient denies any nausea or vomiting. Patient is on Coumadin for PE. Past History Travel History Traveled to [place] past 21 day No Medical History Any Pertinent Medical History? see below for history Neurological: NONE EENT: NONE Cardiovascular: PE RT LUNG Respiratory: obstructive sleep apnea, pulmonary embolism, (DOES NOT USE CPAP) Gastrointestinal: NONE Hepatic: NONE Renal: BILATERAL NEPHROSTOMY Musculoskeletal: NONE Psychiatric: NONE Endocrine: NONE Blood Disorders: NONE Cancer(s): prostate cancer, METS TO the lymph nodes, bone and liver BLADDER CA History of MRSA: No History of VRE: No History of CDIFF: No Surgical History Surgical History: prostatectomy, TONSILS Psychosocial History Who do you live with Significant Other Services at Home None What is your primary language Greenlandic Tobacco Use: Never used ETOH Use: denies use Illicit Drug Use: denies illicit drug use Family History Hx Contributory? No Review of Systems Review of Systems Constitutional: Reports: no symptoms. EENTM: Reports: no symptoms. Respiratory: Reports: no symptoms. Cardiovascular: Reports: no symptoms. GI: Reports: no symptoms. Genitourinary: Reports: no symptoms. Musculoskeletal: Reports: no symptoms. Skin: Reports: no symptoms. Neurological/Psychological: Reports: see HPI. Hematologic/Endocrine: Reports: no symptoms. Immunologic/Allergic: Reports: no symptoms. All Other Systems: Reviewed and Negative Physical Exam Physical Exam General Appearance: well developed/nourished, alert, awake, anxious, moderate distress Head: atraumatic, normal appearance Eyes: Bilateral: PERRL, EOMI. Ears, Nose, Throat: normal ENT inspection, moist mucous membrane Neck: normal inspection, supple, full range of motion Respiratory: normal breath sounds, chest non-tender, no respiratory distress, lungs clear Cardiovascular: normal peripheral pulses, tachycardia Gastrointestinal: normal bowel sounds, soft, non-tender Extremities: normal range of motion Psychiatric: awake, alert, oriented x 3 Cranial Nerves: normal hearing, PERRL, EPISODIC WORD FINDING Coordination/Gait: normal finger to nose Motor/Sensory: no motor/sensory deficits Core Measures CVA/TIA Diagnosis: Yes NIH Stroke Scale: Total 0 Date Last Known Well: 05/03/16 Neurological S/S of CVA: Difficulty Speaking Symptom Start Date: 05/03/16 Reason tPA not ordered+ Medical Contraindication Severe Sepsis Present: No Septic Shock Present: No Bedside Dysphagia Screen Bedside Swallow Eval Done: Yes Result of Evaluation: Pass Progress Differential Diagnosis: electrolyte imbalance, CVA/TIA Plan of Care: Orders Procedure Date/time Status Patient Data 05/[address] in observation 05/03 40 Active Telemetry/Student Development Coordinator 05/02 2309 Active TROPONIN LEVEL 05/02 2309 Complete PROTHROMBIN TIME 05/02 2309 Complete COMPREHENSIVE METABOLIC PANEL 05/02 2309 Complete CBC WITHOUT DIFFERENTIAL 05/02 2309 Complete EKG 05/02 2309 Active Laboratory Tests 05/02/162337: Anion Gap 8, Estimated GFR > 60, BUN/Creatinine Ratio 9.0, Glucose 99, Calcium 8.3 L, Total Bilirubin 0.5, AST 70 H, ALT 43, Alkaline Phosphatase 216 H, Troponin I < 0.01, Total Protein 5.5 L, Albumin 2.8 L, Globulin 2.7, Albumin/ Globulin Ratio 1.0 L, PT 26.8 H, INR 2.58 H, CBC w Diff NO MAN DIFF REQ, RBC 3.28 L, MCV 80.1, MCH 25.3 L, RDW 20.7 H, MPV 7.8, Gran % 75.4 H, Lymphocytes % 16.9 L, Monocytes % 5.0, Eosinophils % 1.9, Basophils % 0.8, Absolute Granulocytes 7.4 H, Absolute Lymphocytes 1.7, Absolute Monocytes 0.5, Absolute Eosinophils 0.2, Absolute Basophils 0.1, PUBS MCHC 31.5 L Diagnostic Imaging: Viewed by Me: CT Scan. Discussed w/RAD: CT Scan. Radiology Impression: PATIENT: EFRAIN OLIVERA PRESENT AGE: 55 PATIENT ACCOUNT NO: [id number] : 62 LOCATION: [facility] ORDERING PHYSICIAN: SHANTANU CHAVEZ MD SERVICE DATE: 05/02/16 EXAM TYPE: CAT - CT HEAD WO IV CONTRAST EXAMINATION: CT HEAD WITHOUT CONTRAST CLINICAL INFORMATION: Difficulty with word finding. Cerebrovascular accident. COMPARISON: None TECHNIQUE: Contiguous axial imaging was performed from the skull base to vertex without intravenous administration of contrast. DLP: 600.71 mGy-cm FINDINGS: The images of the head are suboptimal due to motion and may be repeated at a time when patient is able to cooperate for the exam. The ventricles have normal size and configuration; no hydrocephalus. This no gross evidence of intracranial hemorrhage or gross extra-axial fluid collection. Also, no gross evidence of a major vascular territory infarction. The images of the calvarium that are not degraded by motion show intact appearance of the skull. The mastoid air cells and middle ear cavities are clear. Small mucous retention cyst is seen along the medial wall of the right maxillary antrum and inferior left maxillary antrum. No air-fluid levels. IMPRESSION: Suboptimal examination of the head due to patient motion. Consider repeating the exam at a time when patient is better able to cooperate. No gross evidence of acute intracranial pathology. DICTATED BY: ZAINAB KATZ MD DATE/TIME DICTATED:05/02/162338 CHILD AND FAMILY SERVICES WORKER:KAYY DATE/TIME TRANSCRIBED:05/02/162338 CONFIDENTIAL, DO NOT COPY WITHOUT APPROPRIATE AUTHORIZATION. <Electronically signed in Other Vendor System> SIGNED BY: ZAINAB KATZ MD 05/02/16 0303 Initial ED EKG: SINUS TACHYCARDIA AT 1:[address]-t CHANGES. Prior EKG: unchanged Rhythm Strip: normal sinus rhythm Departure Departure Disposition: STILL A PATIENT Condition: Guarded Clinical Impression Primary Impression: TIA (transient ischemic attack) Referrals: MATTHEW VALDEZ DO (PCP/Family) Departure Forms: Customer Survey General Discharge Information Observation Note Spoke With: JACKELINE YOUNG MD Physician Advisor Notified: KATHY BROWN,SHANTANU Gray Place Patient In: Non-ED OBS Care Area Rationale for Observation: My rational for observation is as follows [telemetry monitoring, neurology consultation, MRI].
--- NOTE | 2016-05-02 23:22 | NUR ---
PT TO CAT SCAN
--- NOTE | 2016-05-02 23:40 | NUR ---
LABS SENT (1LAV,1SST,1BLUE)
--- NOTE | 2016-05-02 23:50 | CT SCAN REPORT ---
EXAMINATION: CT HEAD WITHOUT CONTRAST CLINICAL INFORMATION: Difficulty with word finding. Cerebrovascular accident. COMPARISON: None TECHNIQUE: Contiguous axial imaging was performed from the skull base to vertex without intravenous administration of contrast. DLP: 600.71 mGy-cm FINDINGS: The images of the head are suboptimal due to motion and may be repeated at a time when patient is able to cooperate for the exam. The ventricles have normal size and configuration; no hydrocephalus. This no gross evidence of intracranial hemorrhage or gross extra-axial fluid collection. Also, no gross evidence of a major vascular territory infarction. The images of the calvarium that are not degraded by motion show intact appearance of the skull. The mastoid air cells and middle ear cavities are clear. Small mucous retention cyst is seen along the medial wall of the right maxillary antrum and inferior left maxillary antrum. No air-fluid levels. IMPRESSION: Suboptimal examination of the head due to patient motion. Consider repeating the exam at a time when patient is better able to cooperate. No gross evidence of acute intracranial pathology.
--- NOTE | 2016-05-02 23:56 | NUR ---
THIS RN ESTABLISHED IV ACCESS LAC #20.
[2016-05-03] LABS: ABSOLUTE BASOPHIL COUNT 0.1 /CUMM (0.0-0.2); ABSOLUTE EOSINOPHIL COUNT 0.2 /CUMM (0.0-0.7); ABSOLUTE GRANULOCYTE CT 7.4 /CUMM (1.4-6.5); ABSOLUTE LYMPH COUNT 1.7 /CUMM (1.2-3.4); ABSOLUTE MONOCYTE COUNT 0.5 /CUMM (0.10-0.60); BASOPHIL % 0.8 % (0.0-2.0); EOSINOPHIL % 1.9 % (0-5); GRANULOCYTE % 75.4 % (42.2-75.2); HEMATOCRIT 26.3 % (42-52); MEAN CORPUSCULAR HGB 25.3 PG (27.0-31.0); MEAN CORPUSCULAR HGB CONC 31.5 G/DL (33.0-37.0); MEAN CORPUSCULAR VOLUME 80.1 FL (80.0-94.0); MEAN PLATELET VOLUME 7.8 FL (7.4-10.4); PLATELET COUNT 263 /CUMM (130-400); RBC DISTRIBUTION WIDTH 20.7 % (11.5-14.5); RED BLOOD CELL CT 3.28 /CUMM (4.70-6.10); WHITE BLOOD CELL COUNT 9.8 /CUMM (4.8-10.8)
[2016-05-03 00:01] LABS: PT 26.8 SEC (9.4-12.5)
--- NOTE | 2016-05-03 00:36 | NUR ---
PT MEDICATED WITH 15MG MORPHINE SULFATE TAB PER EMAR FOR PAIN 10/08.
--- NOTE | 2016-05-03 01:04 | NUR ---
HOUSE STAFF IN FOR EVAL
--- NOTE | 2016-05-03 01:27 | NUR ---
PT'S ASSIGNMENT 188
--- NOTE | 2016-05-03 01:53 | History & Physical ---
LOREN MAYO MD 05/03/16 0140: General Information and HPI MD Statement: I have seen and personally examined EFRAIN OLIVERA and documented this H&P. The patient is a 55 year old M who presented with a patient stated chief complaint of inability to find words. Source of Information: patient, family, old records Exam Limitations: no limitations History of Present Illness: 55 year old man with significant past medical history of metastatic stage IV prostate cancer and bilateral nephrostomy tubes seen for evaluation of inability to find words or speak, confusion, and generalized malase. Patient was recently admitted to [facility] on 04/24/16 for evaluation of right sided flank pain found to have sepsis of urologic origin secondary to pseudomonas bacteruria. Patient was discharged to home 04/29/16 to complete a total 15 day antibiotic course of ciprofloxacin. Presently patient reports that he had an episode where he could not speak today with inability to find words. He does not recall how long the episode lasted. He reports multiple recent similar episodes with associated facial numbness and right hand numbness. He admits to mild associated intermittent confusion and constipation. Otherwise he denies any blurred/double vision, lightheadedness/dizzyness, headache, fever, chills, chest pain, palpitations, shortness of breath, nausea, vomiting, diarrhea. PMHx: Metastatic Prostate cancer to bone/liver, Bilateral nephrostomy tubes, MENDOZA not on CPAP, Hx of PE on Coumadin Allergies/Medications Allergies: Coded Allergies: ragweed pollen (Intermediate, NASAL CONGESTION 01/07/16) Penicillins (UNKNOWN 02/27/16) Uncoded Allergies: POULTRY SKIN (Severe, THROAT CLOSURE 04/25/16) Home Med list Bicalutamide 50 MG TABLET 1 TAB PO DAILY HORMONE (Reported) Ciprofloxacin HCl (Cipro) 500 MG TABLET 1 TAB PO BID kidney infection Docetaxel (Taxotere) 20 MG/ML (1 ML) VIAL Pro Ca (Reported) Please follow with your oncologist for further advice. Morphine Sulfate 15 MG TABLET 1 TAB PO Q4H PAIN (Reported) Naloxegol Oxalate (Movantik) 25 MG TABLET 1 TAB PO DAILY PRN CONSTIPATION Polyethylene Glycol 3350 (Miralax) 17 GRAM/DOSE POWDER 17 GM PO DAILY constipation Sennosides/Docusate Sodium (Senna Plus Tablet) 8.6 MG-50 MG TABLET 2 TAB PO DAILY PRN CONSTIPATION Tamsulosin HCl 0.4 MG CAP.ER.24H 1 CAP PO BID PROSTATE (Reported) Warfarin Sodium 5 MG TABLET 1 TAB PO DAILY BLOOD THINNER (Reported) Please dose coumadin to keep the INR within one week of discharge. Past History Travel History Traveled to [place] past 21 day No Medical History Neurological: NONE EENT: NONE Cardiovascular: PE RT LUNG Respiratory: obstructive sleep apnea, pulmonary embolism, (DOES NOT USE CPAP) Gastrointestinal: NONE Hepatic: NONE Renal: BILATERAL NEPHROSTOMY Musculoskeletal: NONE Psychiatric: NONE Endocrine: NONE Blood Disorders: NONE Cancer(s): prostate cancer, METS TO the lymph nodes, bone and liver BLADDER CA History of MRSA: No History of VRE: No History of CDIFF: No Surgical History Surgical History: prostatectomy, TONSILS Past Family/Social History Psychosocial History Who Do You Live With? corey, getting June Services at Home: None Primary Language: Luxembourgish ETOH Use: denies use Illicit Drug Use: denies illicit drug use Review of Systems Review of Systems Constitutional: Reports: see HPI. Exam & Diagnostic Data Last 24 Hrs of Vital Signs/I&O Vital Signs Date Time Temp Pulse Resp B/P Pulse O2 O2 Flow FiO2 Ox Delivery Rate 05/03 0142 98.9 102 18 138/64 94 Nasal 2.0L Cannula 05/02 2303 98.5 111 20 145/74 92 Room Air Intake & Output 05/03 0800 03/05 0000 05/02 1600 Intake Total Output Total Balance Patient 127.006 kg Weight Physical Exam General Appearance Alert, Oriented X3, Cooperative, No Acute Distress Skin No Rashes, No Breakdown, No Significant Lesion HEENT Atraumatic, PERRLA, EOMI, Mucous Membr. moist/pink Neck Supple, No JVD, +2 Carotid Pulse wo Bruit Cardiovascular Regular Rate, Normal S1, Normal S2, No Murmurs Lungs Clear to Auscultation, Normal Air Movement Abdomen Normal Bowel Sounds, Soft, No Hepatospenomegaly, No Masses, No CVA tenderness, Bilateral nephrostomy tubes in place draining clear yellow urine without any drainage or surrounding erythema at insertion site, Mild left lower quadrant tenderness Neurological Strength at 5/5 X4 Ext, Normal Tone, Sensation Intact, Cranial Nerves 3-12 NL, Reflexes 2+, Slow methadoical speech, coherent and intact Extremities No Clubbing, No Cyanosis, Normal Pulses, No Tenderness/Swelling, 2+ bilateral lower extremity edema Vascular Normal Pulses, Pulses Symmetrical Last 24 Hrs of Labs/Raymundo: Laboratory Tests 05/02/16 2338: Anion Gap 8, Estimated GFR > 60, BUN/Creatinine Ratio 9.0, Glucose 99, Calcium 8.3 L, Total Bilirubin 0.5, AST 70 H, ALT 43, Alkaline Phosphatase 216 H, Troponin I < 0.01, Total Protein 5.5 L, Albumin 2.8 L, Globulin 2.7, Albumin/ Globulin Ratio 1.0 L, PT 26.8 H, INR 2.58 H, CBC w Diff NO MAN DIFF REQ, RBC 3.28 L, MCV 80.1, MCH 25.3 L, RDW 20.7 H, MPV 7.8, Gran % 75.4 H, Lymphocytes % 16.9 L, Monocytes % 5.0, Eosinophils % 1.9, Basophils % 0.8, Absolute Granulocytes 7.4 H, Absolute Lymphocytes 1.7, Absolute Monocytes 0.5, Absolute Eosinophils 0.2, Absolute Basophils 0.1, PUBS MCHC 31.5 L Diagnostic Data EKG Results Sinus Tachycardia HR 105 CO 156 QTc 466 Inverted T-wave III [address] HEAD WITHOUT CONTRAST IMPRESSION: Suboptimal examination of the head due to patient motion. Consider repeating the exam at a time when patient is better able to cooperate. No gross evidence of acute intracranial pathology. Assessment/Plan Assessment: 55 year old man with multiple medical problems and hospitcal readmission seen for evaluation of intermittent facial numbness/right hand numbness with associated difficulty with finding words and inability to speak for a brief time. During these episodes he admits to being mildy confused. Patients family member brought patient to the [place] ED for further evaluation for fear of "having a stroke". Vital signs on inital evaluation were significant for Temp 98.5, HR 111, RR 20, BP 145/74, O2 92% on room air. Physical examination demonstrated an ill appearing middle aged man in no acute distress with a normal cardiopulmonary/abdominal examation with intact bilateral nephrostomy tubes in place and an otherwise grossly normal complete neurologic examination other than slow speech that was coherent and not slurred. CBC demonstrated a mild anemia without leukocytosis. Serum chemistries were within normal limits. Ca 8.3, AST/ ALT 70/43, ALK 216, Troponin <0.01, INR 2.58. CT head was limited secondary to patient movement. EKG demonstrated sinus tachycardia to 105 with normal axis and intervals and devoid of any ST segment changes. Given patients persisent intermittent subjective neurologic symptoms in the context of extensive metastatic prostate cancer diagnoses such and transient ischemia attack or metastatic brain disease should be considered. His neurologic examination is grossly within normal limits. Patient is started on aspirin, statin, and is admitted to the telemetry floor under observation for further evaluation. Altered Mental Status/Possible TIA/Possible Metastatic Disease Patient with stage IV metastatic prostate cancer to bone and liver complaining intermittent facial numbness/right hand numbness with associated difficulty with speach and finding words. Patient of Dr. Au. No obvious neurologic deficits appreciated on initial evaluation. CT scan limited secondary to patient movement. EKG demonstrates sinus tachycardia. -Telemetry -Carotid Doppler/Echocardiogram -D51/2NS -Aspirin 81mg PO Daily -Atorvastatin 80mg PO Daily -Neuro consult in AM -Swallow Evaluation in AM -PT evaluation -NPO -Obtain MRI on wednesday, or per Neuro recommendations -F/U Urine Toxicology, ammonia level Metastatic Prostate Cancer to Bone and Liver Patient of Dr. Au. -Bicatulamide 50mg PO Daily -Tamsulosin 0.4mg PO BID -Morphine Sulfate Immediate Release 15mg PO Q4H -Courtesy heme/onc consult Urinary Tract Infection Recent hospitalization for sepsis of urologic origin from 04/24/16 - 04/29/16. Urine culture growing pseudomonas. Patient was discharged to home to complete a total 15 day antibiotic course of Ciprofloxacin. -Ciprofloxacin 500mg PO BID, total 15 days History of Pulmonary Embolism on Coumadin -Daily INR, dose coumadin accordingly Pain plan - as above Bowel Regimen - senokot, miralax Diet - NPO aside from meds, pending swallow evaluation DVT PPx - on anticoagulation Code Status - DNR/DNI As Ranked By This Provider Problem List: 1. Prostate cancer Core Measures/Miscellaneous Acute Coronary Syndrome ACS Diagnosis: No Cerebrovascular Accident CVA/TIA Diagnosis: No Date Last Known Well: 05/03/16 Neurological S/S of CVA: Difficulty Speaking Symptom Start Date: 05/03/16 Reason tPA not ordered Medical Contraindication Bedside Swallow Eval Done: Yes Result of Evaluation: Pass Congestive Heart Failure CHF Diagnosis: No Venous Thromboembolism VTE Risk Factors: Acute medical illness, Age > 40, Cancer/chemo/oth therapy, Obesity No Mech VTE prophylaxis d/t: No contraindications No VTE Pharm Prophylaxis d/t: No contraindications VTE Diagnosis: No VTE Type: NONE VTE Confirmed by (Test): NONE Severe Sepsis Severe Sepsis Present: No BC x2: Yes Lactic Acid x2: Yes IV ABX Broad Spectrum: Yes Septic Shock Septic Shock Present: No Miscellaneous Documentation Attending Case Discussed With: HECTOR BROWN,ALBARORamonita Primary Care Physician: MATTHEW VALDEZ DO Patient sees these Specialists Dr. Angely Granados Level of Patient Care: Telemetry Consults Needed: Consulting Specialty: Neurology ANDRESJAKUB MARADIAGA 05/03/16 0216: Resident Review Statement Resident Statement: examined this patient, discussed with buying intern, agreed with buying intern, discussed with family, amended to note Other Findings: 55-year-old man with past medical history of stage IV prostate cancer with metastasis to lungs and bones, with bilateral hydronephrosis requiring nephrostomy tubes, PE on warfarin and instability episode of UTI requiring hospitalization was discharged recently from [facility] for an episode of complicated UTI Came to ED with chief complaint of inability to speak for 45 minutes and weakness of the right upper extremity. Per patient fianc and himself previously patient habits short episode of inability to find the right fourth speak however this time he was unable to speak for 45 minutes around 10 PM And also he noticed that he is right arm is weak and his hand is in claw form. During the examination patient reported that he is feeling confused. Patient denies any fevers, chills, chest pain, constipation, diarrhea, nausea, vomiting. However he does report of constipation due to narcotic use. Patient cut his 5 mg of warfarin today. During the examination it is noticed that patient occasionally is slow for answering to questions. vital signs is noted above and is notable for mild tachycardia General appearance alert and oriented 3, not in distress HEENT Atraumatic, PERRLA, EOMI Neck Supple, No JVD, No thryomegaly Cardiovascular mild tachycardia, Normal S1, Normal S2 Lungs Clear Abdomen Normal Bowel Sounds, Soft, distented, functional nephrostomy tubes Neurological exams cranial nerves grossly normal, 5 out of 5 strenght in 4 limbs, sensation intact, coordination intact Patient passed a bedside swallow evaluation Vitamin 8.3 (around baseline), INR 2.58, uncorrected calcium 8.3, AST 70, ALP 216, troponin within normal limits EKG shows sinus tachycardia of 108, QTC 466, no acute ST-T changes comparing to previous EKG(inverted T in lead 3) Head CT scan was suboptimal due to motion artifact Assessment and plan #TIA versus metastasis to the brain -Last MRI of the brain was in December 2015(showed no mets). Will get a new head MRI be done without contrast -Echocardiogram(resected done in March so there is no need for repeat),carotid doppler ultrasound tomorrow -Cardiac monitoring for at least 24 hours -Tylenol for mild pain -Check urine tox for any illicit drugs -Start the patient on low-dose aspirin and statin -Check an ammonia level -Neurology consult placed for tomorrow morning -NPO(meds can be given) for now and official swallow evaluation tomorrow -Mild IV hydration with D5 half for one bag #recent UTI on Cipro 500 BID -Started in on April 29, we will continue till May 09 # hx of PE -Check INR in the morning and does warfarin accordingly #hx of prostate cancer -Continue bicatulamide -Continue tamsulosin -Oncology consult was placed for tomorrow #Pain due to metastases /constipation/nausea -Continue morphine sulfate and aggressive bowel regimen -Movantik isn't available in the formulary -We will consider enema if patient did not have any bowel movement in 24 hours #Regular diet, DVT prophylaxis is ALPS and warfarin, morphine sulfate for pain, DNR/DNI HECTOR BROWN, [facility] 05/03/16 0219: Attending MD Review Statement Attending Statement Attending MD Statement: examined this patient, discuss w/resident/PA/ACCORDION TUNER, agreed w/resident/PA/ACCORDION TUNER, discussed with family Attending Assessment/Plan: 55 yo M with stage IV hormone refractory prostate cancer s/p laser TURP, with bone and liver mets, s/p bilateral nephrostomies due to invasion of trigone by prostate cancer, currently on chemo (Docetaxell with Neulasta Q3 weeks, next due on 05/06), PE on coumadin, recently admitted (04/24-04/29) for urosepsis due to obstructed right nephrostomy tube and underwent b/l nephrostomy tube replacement , is here for evaluation of sudden onset speech deficit around 10 pm, wherein he had word finding difficulty and unable to speak for almost 45 minutes until EMS arrived. He knew what he wanted to say, but was not able to find the right words to speak. According to his fiancee Pinky, patient also had slurring and slow speech as if he was intoxicated. Associated with facial numbness, no facial droop, and right hand numbness/ claw hand, no hemiparesis. Patient does recall having few similar episodes in the past week, but they were short-lived compared to this one. No previous TIA or stroke. Vitals stable except for tachycardia. Neuro exam: Lethargic, speech is slow, no word salad, Uvula and tongue central, PERRL, slight pronator drift to right, cranial nerves 2-12 intact, power 5/5 upper extremity, 4-5/5 lower extremities, sensation intact, reflexes 2+, plantars downgoing, Cerebellar signs negative. Unable to test gait and romberg's sign. Labs: H/H 8.3/26.3 (baseline 9 -11 Hb, 28-22 Hct), normocytic anemia, INR 2.58, Calcium 8.3, albumin 2.8, Mag 1.7, trop neg. CT head: suboptimal examination due to patient motion. EKG: Sinus tachycardia, nonspecific ST-T changes. Echo (Mar 2016): EF > 65%, stage 1 diastolic dysfunction. 1. Speech deficits, confusion, right sided numbness likely secondary to TIA/ CVA vs. ?brain mets in this patient with metastatic prostate cancer, vs. Metabolic encephalopathy. No h/o seizures. Tele 23 Obs, neurochecks, monitor for arrhythmias, obtain carotid doppler, no need to repeat Echo. Aspirin and high dose statin. Neuro consult. MRI brain on Wednesday. Passed bedside swallow. Keep NPO until lethargy improves, IV hydration, official swallow eval in AM, PT/ OT therapy. Check urine tox screen, TSH, free T4, ammonia and phosphorus levels. Corrected calcium is 9.3 mg/dl. Monitor accucheks to rule out hypoglycemia. Oncology consult with Dr. Au, patient is scheduled to resume chemo on Saturday 05/06. Continue pain management, while keeping a close eye on patient' s mental and neuro status. Treat constipation. 2. Anemia seems to be gradually worsening over past 2 months, ?chemotherapy induced, although other cell lines are normal. Would guaiac all stools, check iron studies, B12, folic acid. 3. Pseudomonas UTI s/p recent nephrostomy tube change. Continue cipro until 01/15. Plan is for nephrostomy change in May by Dr. Granados. 4. PE. Recheck INR in AM, dose coumadin per INR. DVT ppx therapeutic INR on coumadin. DNR/I.
--- NOTE | 2016-05-03 02:28 | NUR ---
THIS RN GAVE REPORT TO TADEO PATHAK.
[2016-05-03 03:00] VITALS: BP 122/88
[2016-05-03 07:50] VITALS: BP 126/70
[2016-05-03 08:23] LABS: PT 26.7 SEC (9.4-12.5)
[2016-05-03 08:28] LABS: ABSOLUTE BASOPHIL COUNT 0 /CUMM (0.0-0.2); ABSOLUTE EOSINOPHIL COUNT 0.2 /CUMM (0.0-0.7); ABSOLUTE GRANULOCYTE CT 6.4 /CUMM (1.4-6.5); ABSOLUTE LYMPH COUNT 1.5 /CUMM (1.2-3.4); ABSOLUTE MONOCYTE COUNT 0.5 /CUMM (0.10-0.60); BASOPHIL % 0.5 % (0.0-2.0); GRANULOCYTE % 74.3 % (42.2-75.2); HEMATOCRIT 24.9 % (42-52); MEAN CORPUSCULAR HGB 25.4 PG (27.0-31.0); MEAN CORPUSCULAR HGB CONC 31.5 G/DL (33.0-37.0); MEAN CORPUSCULAR VOLUME 80.6 FL (80.0-94.0); MEAN PLATELET VOLUME 8.2 FL (7.4-10.4); PLATELET COUNT 254 /CUMM (130-400); RBC DISTRIBUTION WIDTH 20.8 % (11.5-14.5); RED BLOOD CELL CT 3.09 /CUMM (4.70-6.10); WHITE BLOOD CELL COUNT 8.7 /CUMM (4.8-10.8)
--- NOTE | 2016-05-03 10:08 | NUR ---
PT HEARD OVERHEAD PAGE FOR ASSIST 188. PT WENT IN TO ASSIST TECH WITH NEEDS AND UPON ENTRY HELP WAS NEEDED TO ASSIST WITH A DEPENDENT TRANSFER FROM HOSPITAL BED TO STRETCHER TO TAKE PATIENT TO ULTRASOUND. TRANSFER WAS A DEPENDEDNT TRANSFER FROM BED TO STRETCHER REQ. ASSIST X4. PT NOT DEMONSTRATING ABILITY TO STAND/AMBULATE AT THIS TIME. PT WILL ATTEMPT TO TREAT/EVAL TOMORROW
--- NOTE | 2016-05-03 11:35 | Cons- Neurology ---
General Information and HPI Consulting Request Date of Consult: 05/03/16 Requested By: HECTOR BROWN,KATELYNKSHMI Reason for Consult: Right sided weakness and speech difficulty Source of Information: patient, family, old records Exam Limitations: no limitations History of Present Illness: This is a pleasant 55-year-old man who was originally admitted to [facility] on 04/24/16 for evaluation of right sided flank pain found to have sepsis of urologic origin secondary to pseudomonas bacteruria. Patient was discharged to home 04/29/16 to complete a total 15 day antibiotic course of ciprofloxacin. The week of hospitalization the patient per family report was experiencing intermittent word finding difficulties and right-sided weakness. He was eventually discharged on Wednesday to return to the hospital yesterday after developing more permanent right-sided weakness in arm and speech difficulties. He has had intermittent headaches all through the period of chemotherapy for his stage IV prostate cancer. Of note is that the patient was on anticoagulation with therapeutic INR throughout this period for a pulmonary embolus. Allergies/Medications Allergies: Coded Allergies: ragweed pollen (Intermediate, NASAL CONGESTION 01/07/16) Penicillins (UNKNOWN 02/27/16) Uncoded Allergies: POULTRY SKIN (Severe, THROAT CLOSURE 04/25/16) Home Med List: Bicalutamide 50 MG TABLET 1 TAB PO DAILY HORMONE (Reported) Ciprofloxacin HCl (Cipro) 500 MG TABLET 1 TAB PO BID kidney infection Docetaxel (Taxotere) 20 MG/ML (1 ML) VIAL Pro Ca (Reported) Please follow with your oncologist for further advice. Morphine Sulfate 15 MG TABLET 1 TAB PO Q4H PAIN (Reported) Naloxegol Oxalate (Movantik) 25 MG TABLET 1 TAB PO DAILY PRN CONSTIPATION Polyethylene Glycol 3350 (Miralax) 17 GRAM/DOSE POWDER 17 GM PO DAILY constipation Sennosides/Docusate Sodium (Senna Plus Tablet) 8.6 MG-50 MG TABLET 2 TAB PO DAILY PRN CONSTIPATION Tamsulosin HCl 0.4 MG CAP.ER.24H 1 CAP PO BID PROSTATE (Reported) Warfarin Sodium 5 MG TABLET 1 TAB PO DAILY BLOOD THINNER (Reported) Please dose coumadin to keep the INR within one week of discharge. Current Medications: Current Medications Sig/Aurora Start time Last Medication Dose Route Stop Time Status Admin Acetaminophen 650 MG Q6 PRN 05/03 0145 AC PO Aspirin 81 MG DAILY 05/03 1000 AC PO Atorvastatin Calcium 20 MG 1700 05/03 1700 DC PO Atorvastatin Calcium 40 MG 1700 05/03 1700 CAN PO Atorvastatin Calcium 80 MG 1700 05/03 1700 AC PO Bicalutamide 50 MG DAILY 05/03 1000 AC PO Ciprofloxacin 500 MG BID 05/03 1000 AC PO 05/09 0144 Ciprofloxacin 500 MG .[BID] 05/03 0145 DC PO 05/07 0144 Dextrose/Sodium 1,000 ML Q20H 05/03 0230 AC 05/03 Chloride IV 05/03 2229 0253 Morphine Sulfate 2 MG ONCE ONE 05/03 0415 DC 05/03 IV 05/03 0416 0417 Morphine Sulfate 15 MG Q4H 05/03 0145 AC 05/03 PO 1103 Morphine Sulfate 15 MG ONCE ONE 05/03 0030 DC 05/03 PO 05/03 003 0035 Polyethylene Glycol 17 GM DAILY 05/03 1000 AC PO Senna/Docusate Sodium 2 TAB DAILY PRN 05/03 0145 AC PO Tamsulosin HCl 0.4 MG BID 05/03 1000 AC PO Past History Travel History Traveled to [place] past 21 day No Medical History Neurological: NONE EENT: NONE Cardiovascular: PE RT LUNG Respiratory: obstructive sleep apnea, pulmonary embolism, (DOES NOT USE CPAP) Gastrointestinal: NONE Hepatic: NONE Renal: BILATERAL NEPHROSTOMY Musculoskeletal: NONE Psychiatric: NONE Endocrine: NONE Blood Disorders: NONE Cancer(s): prostate cancer, METS TO the lymph nodes, bone and liver BLADDER CA Surgical History Surgical History: prostatectomy, TONSILS Psychosocial History Who Do You Live With? fiance, getting June Services at Home: None Primary Language: Hungarian Smoking Status: Former Smoker ETOH Use: denies use Illicit Drug Use: denies illicit drug use Exam & Diagnostic Data Vital Signs and I&O Vital Signs Date Time Temp Pulse Resp B/P Pulse O2 O2 Flow FiO2 Ox Delivery Rate 05/03 0750 98.2 98 20 126/70 92 05/03 0300 98.3 99 18 122/88 92 Room Air 05/03 0231 92 Room Air 05/03 0229 95 Nasal 2.0L Cannula 05/03 0142 98.9 102 18 138/64 94 Nasal 2.0L Cannula 05/02 2303 98.5 111 20 145/74 92 Room Air Intake & Output 05/03 1600 05/03 0800 05/03 0000 Intake Total 100 Output Total 350 Balance -250 Intake, IV 100 Output, Urine 350 Patient 280 lb 280 lb Weight Physical Exam: General: The patient is in no distress. Pleasant and cooperative. MSE: Alert and oriented 3. Good attention and concentration. Good short-term memory and fund of knowledge reflected through our conversation. Language is fluent with good comprehension and repetition. Cardiovascular: S1 and S2 are normal, regular rate and rhythm, and normal pedal pulses. Vision: Visual mock are intact. Neurological: Extra ocular movements intact, YUSUF, face is symmetric, tongue midline, uvula raises equally in the midline, V1-V3 sensation to touch is intact and equal bilaterallty, sternocleidomastoid and trapezius are strong on both sides, muscles of mastication are strong. No dysarthria noted. Motor exam reveals no abnormality of strength. Power is 3 out of 5 proximally and in the right hand. Sensory exam did not reveal any deficits to touch, temperature, vibration and proprioception. Reflexes are symmetric bilaterally. Cerebellar exam does not reveal any dysmetria. Rapid alternating movements are intact bilaterally. Gait is steady with normal base. Last 48 Hours of Lab Results: Laboratory Tests 05/03 02/07 01/ 0710 0710 0600 Chemistry Sodium (137 - 145 mmol/L) 140 Potassium (3.5 - 5.1 mmol/L) 3.6 Chloride (98 - 107 mmol/L) 106 Carbon Dioxide (22 - 30 mmol/L) 29 Anion Gap (5 - 16) 5 BUN (9 - 20 mg/dL) 9 Creatinine (0.7 - 1.2 mg/dL) 0.9 Estimated GFR (>60 ml/min) > 60 BUN/Creatinine Ratio (7 - 25 %) 10.0 Phosphorus (2.5 - 4.5 mg/dL) 4.1 Iron (49 - 181 ug/dL) 31 L Cancelled TIBC (261 - 462 ug/dL) 221 L Cancelled Ferritin (17.9 - 464 ng/mL) 1110.0 H Cancelled Ammonia (9 - 30 umol/L) 18 Triglycerides (<150 mg/dL) 95 Cholesterol (< 200 MG/DL) 123 LDL Cholesterol, Calc (65 - 129 mg/dL) 69 HDL Cholesterol (40 - 60 mg/dL) 35 L Cholesterol/HDL Ratio (0.00 - 4.88 %) 4 Vitamin B12 (239 - 931 pg/mL) 840 Cancelled Folate (2.76 - 20.0 ng/mL) 7.0 Cancelled TSH (0.270 - 4.200 uIU/mL) 2.280 Free T4 (0.64 - 1.79 ng/dL) 1.63 Coagulation PT (9.4 - 12.5 SEC) 26.7 H INR (0.90 - 1.17) 2.57 H Hematology CBC w Diff NO MAN DIFF REQ WBC (4.8 - 10.8 /CUMM) 8.7 RBC (4.70 - 6.10 /CUMM) 3.09 L Hgb (14.0 - 18.0 G/DL) 7.9 L Hct (42 - 52 %) 24.9 L MCV (80.0 - 94.0 FL) 80.6 MCH (27.0 - 31.0 PG) 25.4 L RDW (11.5 - 14.5 %) 20.8 H Plt Count (130 - 400 /CUMM) 254 MPV (7.4 - 10.4 FL) 8.2 Gran % (42.2 - 75.2 %) 74.3 Lymphocytes % (20.5 - 51.1 %) 17.8 L Monocytes % (1.7 - 9.3 %) 5.4 Eosinophils % (0 - 5 %) 2.0 Basophils % (0.0 - 2.0 %) 0.5 Absolute Granulocytes (1.4 - 6.5 /CUMM) 6.4 Absolute Lymphocytes (1.2 - 3.4 /CUMM) 1.5 Absolute Monocytes (0.10 - 0.60 /CUMM) 0.5 Absolute Eosinophils (0.0 - 0.7 /CUMM) 0.2 Absolute Basophils (0.0 - 0.2 /CUMM) 0 PUBS MCHC (33.0 - 37.0 G/DL) 31.5 L /04 2338 Chemistry Sodium (137 - 145 mmol/L) 142 Potassium (3.5 - 5.1 mmol/L) 3.6 Chloride (98 - 107 mmol/L) 103 Carbon Dioxide (22 - 30 mmol/L) 30 Anion Gap (5 - 16) 8 BUN (9 - 20 mg/dL) 9 Creatinine (0.7 - 1.2 mg/dL) 1.0 Estimated GFR (>60 ml/min) > 60 BUN/Creatinine Ratio (7 - 25 %) 9.0 Glucose (65 - 99 mg/dL) 99 Calcium (8.4 - 10.2 mg/dL) 8.3 L Magnesium (1.6 - 2.3 mg/dL) 1.7 Total Bilirubin (0.2 - 1.3 mg/dL) 0.5 AST (17 - 59 U/L) 70 H ALT (21 - 72 U/L) 43 Alkaline Phosphatase (< 127 U/L) 216 H Troponin I (<0.11 ng/ml) < 0.01 Total Protein (6.3 - 8.2 g/dL) 5.5 L Albumin (3.5 - 5.0 g/dL) 2.8 L Globulin (1.9 - 4.2 gm/dL) 2.7 Albumin/Globulin Ratio (1.1 - 2.2 %) 1.0 L Coagulation PT (9.4 - 12.5 SEC) 26.8 H INR (0.90 - 1.17) 2.58 H Hematology CBC w Diff NO MAN DIFF REQ WBC (4.8 - 10.8 /CUMM) 9.8 RBC (4.70 - 6.10 /CUMM) 3.28 L Hgb (14.0 - 18.0 G/DL) 8.3 L Hct (42 - 52 %) 26.3 L MCV (80.0 - 94.0 FL) 80.1 MCH (27.0 - 31.0 PG) 25.3 L RDW (11.5 - 14.5 %) 20.7 H Plt Count (130 - 400 /CUMM) 263 MPV (7.4 - 10.4 FL) 7.8 Gran % (42.2 - 75.2 %) 75.4 H Lymphocytes % (20.5 - 51.1 %) 16.9 L Monocytes % (1.7 - 9.3 %) 5.0 Eosinophils % (0 - 5 %) 1.9 Basophils % (0.0 - 2.0 %) 0.8 Absolute Granulocytes (1.4 - 6.5 /CUMM) 7.4 H Absolute Lymphocytes (1.2 - 3.4 /CUMM) 1.7 Absolute Monocytes (0.10 - 0.60 /CUMM) 0.5 Absolute Eosinophils (0.0 - 0.7 /CUMM) 0.2 Absolute Basophils (0.0 - 0.2 /CUMM) 0.1 PUBS MCHC (33.0 - 37.0 G/DL) 31.5 L Imaging/Other Studies: NCHCT>> IMPRESSION: Suboptimal examination of the head due to patient motion. Consider repeating the exam at a time when patient is better able to cooperate. No gross evidence of acute intracranial pathology. Assessment/Plan Assessment: This is a 55-year-old man with stage IV prostate cancer who developed a new onset stroke. Was likely a stuttering TIA that eventually completely occluded. Recommendations: Continue with the current regimen as is. Consider carotid duplex and echocardiogram. PT and OT for right-sided weakness and speech therapy for speech. YC Consult Acknowledgment - Thank you for your consult request.
--- NOTE | 2016-05-03 11:38 | ULTRASOUND REPORT ---
EXAMINATION: US DUPLEX CAROTID, BILATERAL CLINICAL INDICATION: TIA COMPARISON: None. TECHNIQUE: Duplex ultrasound with spectral analysis and color flow imaging was performed of both carotid arteries. FINDINGS: On the right, there is a small amount of heterogeneous plaque at the carotid bulb.. In the distal CCA, the peak systolic velocity is 78 cm/sec. In the proximal ICA, the peak systolic velocity is 50 cm/sec, and the end diastolic velocity is 19 cm/sec. The peak systolic velocity of the external carotid artery is 116 cm/s.. On the left, there is no significant plaque present at the carotid bifurcation. In the distal CCA, the peak systolic velocity is 97 cm/sec. In the proximal ICA, the peak systolic velocity is 80 cm/sec, and the end diastolic velocity is 32 cm/sec. The peak systolic velocity of the external carotid artery is 104 cm/s. The vertebral arteries show antegrade flow with normal waveforms bilaterally. There is a prominent lymph node measuring 1.5 x 0.8 x 0.7 cm in size lateral to the left common carotid artery proximally. IMPRESSION: 1. The right internal carotid artery shows no hemodynamically significant stenosis. 2. The left internal carotid artery shows no hemodynamically significant stenosis. Right and left internal carotid artery stenoses fall in the 0-49% category by duplex Doppler velocity spectral waveform analysis.
--- NOTE | 2016-05-03 14:55 | PN- Att Addend ---
Attending Addendum Attending Brief Note 55M PMH IV hormone refractory prostate cancer s/p laser TURP, with bone and liver mets, s/p bilateral nephrostomies due to invasion of trigone by prostate cancer, currently on chemo (Docetaxell with Neulasta Q3 weeks, next due on 05/06 ), PE on coumadin, recently admitted (04/24-04/29) for urosepsis due to obstructed right nephrostomy tube and underwent b/l nephrostomy tube replacement admitted for TIA in the setting of 45 minutes of inability to speak and right arm weakness/spasm. Today patient feels near his baseline. His hand has normal strength and sensation. He is able to speak, but still sometimes has difficulty finding a word. Vision is normal. He denies headache. AFVSS NAD Supple RRR CTAB Soft, NTND No c/c/e A&Ox3, strength and sensation intact, cranial nerves grossly normal Current Medications Sig/Aurora Start time Last Medication Dose Route Stop Time Status Admin Acetaminophen 650 MG Q6 PRN 05/03 0145 AC PO Aspirin 81 MG DAILY 05/03 1000 AC 05/03 PO 1417 Atorvastatin Calcium 20 MG 1700 05/03 1700 DC PO Atorvastatin Calcium 40 MG 1700 05/03 1700 CAN PO Atorvastatin Calcium 80 MG 1700 05/03 1700 AC PO Bicalutamide 50 MG DAILY 05/03 1000 AC 05/03 PO 1326 Ciprofloxacin 500 MG BID 05/03 1000 AC 05/03 PO 05/09 0144 1416 Ciprofloxacin 500 MG .[BID] 05/03 014 DC PO 05/07 0144 Dextrose/Sodium 1,000 ML Q20H 05/03 0230 AC 05/03 Chloride IV 05/03 2229 0253 Hydromorphone HCl 1 MG ONCE ONE 05/03 1430 DC / IV 05/03 1431 1436 Morphine Sulfate 2 MG ONCE ONE 05/03 0415 DC 05/03 IV 05/03 0416 0417 Morphine Sulfate 15 MG Q4H 05/03 0145 AC 05/03 PO 1326 Morphine Sulfate 15 MG ONCE ONE 05/03 0030 DC 05/03 PO 05/03 0031 0035 Polyethylene Glycol 17 GM DAILY 05/03 1000 AC 05/03 PO 1417 Senna/Docusate Sodium 2 TAB DAILY PRN 05/03 0145 AC PO Tamsulosin HCl 0.4 MG BID 05/03 1000 AC 05/03 PO 1416 Laboratory Tests 05/03 05/03 05/03 0710 0710 0600 Chemistry Sodium (137 - 145 mmol/L) 140 Potassium (3.5 - 5.1 mmol/L) 3.6 Chloride (98 - 107 mmol/L) 106 Carbon Dioxide (22 - 30 mmol/L) 29 Anion Gap (5 - 16) 5 BUN (9 - 20 mg/dL) 9 Creatinine (0.7 - 1.2 mg/dL) 0.9 Estimated GFR (>60 ml/min) > 60 BUN/Creatinine Ratio (7 - 25 %) 10.0 Phosphorus (2.5 - 4.5 mg/dL) 4.1 Iron (49 - 181 ug/dL) 31 L Cancelled TIBC (261 - 462 ug/dL) 221 L Cancelled Ferritin (17.9 - 464 ng/mL) 1110.0 H Cancelled Ammonia (9 - 30 umol/L) 18 Triglycerides (<150 mg/dL) 95 Cholesterol (< 200 MG/DL) 123 LDL Cholesterol, Calc (65 - 129 mg/dL) 69 HDL Cholesterol (40 - 60 mg/dL) 35 L Cholesterol/HDL Ratio (0.00 - 4.88 %) 4 Vitamin B12 (239 - 931 pg/mL) 840 Cancelled Folate (2.76 - 20.0 ng/mL) 7.0 Cancelled TSH (0.270 - 4.200 uIU/mL) 2.280 Free T4 (0.64 - 1.79 ng/dL) 1.63 Coagulation PT (9.4 - 12.5 SEC) 26.7 H INR (0.90 - 1.17) 2.57 H Hematology CBC w Diff NO MAN DIFF REQ WBC (4.8 - 10.8 /CUMM) 8.7 RBC (4.70 - 6.10 /CUMM) 3.09 L Hgb (14.0 - 18.0 G/DL) 7.9 L Hct (42 - 52 %) 24.9 L MCV (80.0 - 94.0 FL) 80.6 MCH (27.0 - 31.0 PG) 25.4 L RDW (11.5 - 14.5 %) 20.8 H Plt Count (130 - 400 /CUMM) 254 MPV (7.4 - 10.4 FL) 8.2 Gran % (42.2 - 75.2 %) 74.3 Lymphocytes % (20.5 - 51.1 %) 17.8 L Monocytes % (1.7 - 9.3 %) 5.4 Eosinophils % (0 - 5 %) 2.0 Basophils % (0.0 - 2.0 %) 0.5 Absolute Granulocytes (1.4 - 6.5 /CUMM) 6.4 Absolute Lymphocytes (1.2 - 3.4 /CUMM) 1.5 Absolute Monocytes (0.10 - 0.60 /CUMM) 0.5 Absolute Eosinophils (0.0 - 0.7 /CUMM) 0.2 Absolute Basophils (0.0 - 0.2 /CUMM) 0 PUBS MCHC (33.0 - 37.0 G/DL) 31.5 L / 2338 Chemistry Sodium (137 - 145 mmol/L) 142 Potassium (3.5 - 5.1 mmol/L) 3.6 Chloride (98 - 107 mmol/L) 103 Carbon Dioxide (22 - 30 mmol/L) 30 Anion Gap (5 - 16) 8 BUN (9 - 20 mg/dL) 9 Creatinine (0.7 - 1.2 mg/dL) 1.0 Estimated GFR (>60 ml/min) > 60 BUN/Creatinine Ratio (7 - 25 %) 9.0 Glucose (65 - 99 mg/dL) 99 Calcium (8.4 - 10.2 mg/dL) 8.3 L Magnesium (1.6 - 2.3 mg/dL) 1.7 Total Bilirubin (0.2 - 1.3 mg/dL) 0.5 AST (17 - 59 U/L) 70 H ALT (21 - 72 U/L) 43 Alkaline Phosphatase (< 127 U/L) 216 H Troponin I (<0.11 ng/ml) < 0.01 Total Protein (6.3 - 8.2 g/dL) 5.5 L Albumin (3.5 - 5.0 g/dL) 2.8 L Globulin (1.9 - 4.2 gm/dL) 2.7 Albumin/Globulin Ratio (1.1 - 2.2 %) 1.0 L Coagulation PT (9.4 - 12.5 SEC) 26.8 H INR (0.90 - 1.17) 2.58 H Hematology CBC w Diff NO MAN DIFF REQ WBC (4.8 - 10.8 /CUMM) 9.8 RBC (4.70 - 6.10 /CUMM) 3.28 L Hgb (14.0 - 18.0 G/DL) 8.3 L Hct (42 - 52 %) 26.3 L MCV (80.0 - 94.0 FL) 80.1 MCH (27.0 - 31.0 PG) 25.3 L RDW (11.5 - 14.5 %) 20.7 H Plt Count (130 - 400 /CUMM) 263 MPV (7.4 - 10.4 FL) 7.8 Gran % (42.2 - 75.2 %) 75.4 H Lymphocytes % (20.5 - 51.1 %) 16.9 L Monocytes % (1.7 - 9.3 %) 5.0 Eosinophils % (0 - 5 %) 1.9 Basophils % (0.0 - 2.0 %) 0.8 Absolute Granulocytes (1.4 - 6.5 /CUMM) 7.4 H Absolute Lymphocytes (1.2 - 3.4 /CUMM) 1.7 Absolute Monocytes (0.10 - 0.60 /CUMM) 0.5 Absolute Eosinophils (0.0 - 0.7 /CUMM) 0.2 Absolute Basophils (0.0 - 0.2 /CUMM) 0.1 PUBS MCHC (33.0 - 37.0 G/DL) 31.5 L 1. TIA 2. Stage 4 prostate cancer 3. Aphasia 4. History of PE Plan - Continue on telemetry - Continue ASA and statin - Obtain MRI head - Prior to MRI patient will require pain medication and help from the pulmonary function technician to find a comfortable position for his neck, as he has bone mets to his clavible and has lots of pain laying flat - Continue home medications - Follow neurology recommendations
[2016-05-03 16:15] VITALS: BP 140/76
[2016-05-03 22:00] VITALS: BP 128/70
--- NOTE | 2016-05-03 22:10 | NUR ---
DURING SHIFT, PT HAD 2 EPISODES OF R SIDED UPPER ARM WEAKNESS W/ WORD FINDING DIFFICULTY. REMAINS A/O X3, VSS. EPISODES RESOLVE WITHIN 30 MINS OR SO. INTFORMED INTERNS LISA AND LORRIE. NO NEW ORDERS. WILL CTM.
--- NOTE | 2016-05-04 07:11 | Cons- Oncology ---
General Information and HPI Consulting Request Date of Consult: 05/04/16 Requested By: HECTOR BROWN,JACKELINE History of Present Illness: 55-year-old man well known to me with advanced, hormone refractory prostate cancer now admitted with aphasia and right-sided weakness that is somewhat improved this morning. Patient denies headaches or dizziness. Patient denies other significant neurologic deficit. The patient has known advanced prostate cancer currently on Taxotere. Recent past is remarkable for urinary tract infection and need for nephrostomy tube replacement. The patient has had occasional paresthesias and underwent an MRI of his head in December 2015 that was unremarkable. Allergies/Medications Allergies: Coded Allergies: ragweed pollen (Intermediate, NASAL CONGESTION 01/07/16) Penicillins (UNKNOWN 02/27/16) Uncoded Allergies: POULTRY SKIN (Severe, THROAT CLOSURE 04/25/16) Home Med List: Bicalutamide 50 MG TABLET 1 TAB PO DAILY HORMONE (Reported) Ciprofloxacin HCl (Cipro) 500 MG TABLET 1 TAB PO BID kidney infection Docetaxel (Taxotere) 20 MG/ML (1 ML) VIAL Pro Ca (Reported) Please follow with your oncologist for further advice. Morphine Sulfate 15 MG TABLET 1 TAB PO Q4H PAIN (Reported) Naloxegol Oxalate (Movantik) 25 MG TABLET 1 TAB PO DAILY PRN CONSTIPATION Polyethylene Glycol 3350 (Miralax) 17 GRAM/DOSE POWDER 17 GM PO DAILY constipation Sennosides/Docusate Sodium (Senna Plus Tablet) 8.6 MG-50 MG TABLET 2 TAB PO DAILY PRN CONSTIPATION Tamsulosin HCl 0.4 MG CAP.ER.24H 1 CAP PO BID PROSTATE (Reported) Warfarin Sodium 5 MG TABLET 1 TAB PO DAILY BLOOD THINNER (Reported) Please dose coumadin to keep the INR within one week of discharge. Current Medications: Current Medications Sig/Aurora Start time Last Medication Dose Route Stop Time Status Admin Acetaminophen 650 MG Q6 PRN 05/03 0145 AC PO Aspirin 81 MG DAILY 05/03 1000 AC 05/03 PO 1417 Atorvastatin Calcium 80 MG 1700 05/03 1700 AC 05/03 PO 1803 Bicalutamide 50 MG DAILY 05/03 1000 AC 05/03 PO 1326 Ciprofloxacin 500 MG BID 05/03 1000 AC /05 PO 05/09 0144 2153 Dextrose/Sodium 1,000 ML Q20H 05/03 0230 DC 05/03 Chloride IV 05/039 0253 Hydromorphone HCl 1 MG ONCE ONE 05/03 1430 DC / IV 05/03 1431 1436 Morphine Sulfate 15 MG Q4H 05/03 0145 AC 05/04 PO 0541 Polyethylene Glycol 17 GM DAILY 05/03 1000 AC 05/03 PO 1417 Senna/Docusate Sodium 2 TAB DAILY PRN 05/03 0145 AC PO Tamsulosin HCl 0.4 MG BID 05/03 1000 AC 05/03 PO 2153 Review of Systems Review of Systems: Patient denies new shortness of breath cough chest pain or hemoptysis. Patient denies nausea vomiting or change in bowel habits. He had no dysuria hematuria. Patient denied new bone aches. Past History Travel History Traveled to [place] past 21 day No Medical History Neurological: NONE EENT: NONE Cardiovascular: PE RT LUNG Respiratory: obstructive sleep apnea, pulmonary embolism, (DOES NOT USE CPAP) Gastrointestinal: NONE Hepatic: NONE Renal: BILATERAL NEPHROSTOMY Musculoskeletal: NONE Psychiatric: NONE Endocrine: NONE Blood Disorders: NONE Cancer(s): prostate cancer, METS TO the lymph nodes, bone and liver BLADDER CA Surgical History Surgical History: prostatectomy, TONSILS Psychosocial History Who Do You Live With? fiance, getting June Services at Home: None Primary Language: Northern Irish Smoking Status: Former Smoker ETOH Use: denies use Illicit Drug Use: denies illicit drug use Exam & Diagnostic Data Vital Signs and I&O Vital Signs Date Time Temp Pulse Resp B/P Pulse O2 O2 Flow FiO2 Ox Delivery Rate 05/04 0000 93 Room Air 05/03 2200 98.4 100 20 128/70 93 Room Air 05/03 1615 98.0 104 18 140/76 92 Room Air 05/03 0800 Nasal 2.0L Cannula 05/03 0750 98.2 98 20 126/70 92 Intake & Output 05/04 0800 03/ 0000 05/03 1600 Intake Total 390 1000 840 Output Total 478 021 0634 Balance -60 150 -710 Intake, IV 150 400 600 Intake, Oral 240 600 240 Number 0 Bowel Movements Output, Urine [phone] Gen.: in NAD ENT: Sclera anicteric Chest: Normal respiratory effort, decreased breath sounds Cor: RRR, no extra sounds Abdomen: Soft, bowel sounds present, no tenderness, no rebound Extremities: Without clubbing, cyanosis, or asymmetric edema Neurology: Alert and oriented 3, minimal expressive aphasia, right upper extremity weakness Skin: No rashes Last 48 Hours of Lab Results: Laboratory Tests 05/03 05/03 05/03 0710 0710 0600 Chemistry Sodium (137 - 145 mmol/L) 140 Potassium (3.5 - 5.1 mmol/L) 3.6 Chloride (98 - 107 mmol/L) 106 Carbon Dioxide (22 - 30 mmol/L) 29 Anion Gap (5 - 16) 5 BUN (9 - 20 mg/dL) 9 Creatinine (0.7 - 1.2 mg/dL) 0.9 Estimated GFR (>60 ml/min) > 60 BUN/Creatinine Ratio (7 - 25 %) 10.0 Phosphorus (2.5 - 4.5 mg/dL) 4.1 Iron (49 - 181 ug/dL) 31 L Cancelled TIBC (261 - 462 ug/dL) 221 L Cancelled Ferritin (17.9 - 464 ng/mL) 1110.0 H Cancelled Ammonia (9 - 30 umol/L) 18 Triglycerides (<150 mg/dL) 95 Cholesterol (< 200 MG/DL) 123 LDL Cholesterol, Calc (65 - 129 mg/dL) 69 HDL Cholesterol (40 - 60 mg/dL) 35 L Cholesterol/HDL Ratio (0.00 - 4.88 %) 4 Vitamin B12 (239 - 931 pg/mL) 840 Cancelled Folate (2.76 - 20.0 ng/mL) 7.0 Cancelled TSH (0.270 - 4.200 uIU/mL) 2.280 Free T4 (0.64 - 1.79 ng/dL) 1.63 Coagulation PT (9.4 - 12.5 SEC) 26.7 H INR (0.90 - 1.17) 2.57 H Hematology CBC w Diff NO MAN DIFF REQ WBC (4.8 - 10.8 /CUMM) 8.7 RBC (4.70 - 6.10 /CUMM) 3.09 L Hgb (14.0 - 18.0 G/DL) 7.9 L Hct (42 - 52 %) 24.9 L MCV (80.0 - 94.0 FL) 80.6 MCH (27.0 - 31.0 PG) 25.4 L RDW (11.5 - 14.5 %) 20.8 H Plt Count (130 - 400 /CUMM) 254 MPV (7.4 - 10.4 FL) 8.2 Gran % (42.2 - 75.2 %) 74.3 Lymphocytes % (20.5 - 51.1 %) 17.8 L Monocytes % (1.7 - 9.3 %) 5.4 Eosinophils % (0 - 5 %) 2.0 Basophils % (0.0 - 2.0 %) 0.5 Absolute Granulocytes (1.4 - 6.5 /CUMM) 6.4 Absolute Lymphocytes (1.2 - 3.4 /CUMM) 1.5 Absolute Monocytes (0.10 - 0.60 /CUMM) 0.5 Absolute Eosinophils (0.0 - 0.7 /CUMM) 0.2 Absolute Basophils (0.0 - 0.2 /CUMM) 0 PUBS MCHC (33.0 - 37.0 G/DL) 31.5 L 05/02 2338 Chemistry Sodium (137 - 145 mmol/L) 142 Potassium (3.5 - 5.1 mmol/L) 3.6 Chloride (98 - 107 mmol/L) 103 Carbon Dioxide (22 - 30 mmol/L) 30 Anion Gap (5 - 16) 8 BUN (9 - 20 mg/dL) 9 Creatinine (0.7 - 1.2 mg/dL) 1.0 Estimated GFR (>60 ml/min) > 60 BUN/Creatinine Ratio (7 - 25 %) 9.0 Glucose (65 - 99 mg/dL) 99 Calcium (8.4 - 10.2 mg/dL) 8.3 L Magnesium (1.6 - 2.3 mg/dL) 1.7 Total Bilirubin (0.2 - 1.3 mg/dL) 0.5 AST (17 - 59 U/L) 70 H ALT (21 - 72 U/L) 43 Alkaline Phosphatase (< 127 U/L) 216 H Troponin I (<0.11 ng/ml) < 0.01 Total Protein (6.3 - 8.2 g/dL) 5.5 L Albumin (3.5 - 5.0 g/dL) 2.8 L Globulin (1.9 - 4.2 gm/dL) 2.7 Albumin/Globulin Ratio (1.1 - 2.2 %) 1.0 L Coagulation PT (9.4 - 12.5 SEC) 26.8 H INR (0.90 - 1.17) 2.58 H Hematology CBC w Diff NO MAN DIFF REQ WBC (4.8 - 10.8 /CUMM) 9.8 RBC (4.70 - 6.10 /CUMM) 3.28 L Hgb (14.0 - 18.0 G/DL) 8.3 L Hct (42 - 52 %) 26.3 L MCV (80.0 - 94.0 FL) 80.1 MCH (27.0 - 31.0 PG) 25.3 L RDW (11.5 - 14.5 %) 20.7 H Plt Count (130 - 400 /CUMM) 263 MPV (7.4 - 10.4 FL) 7.8 Gran % (42.2 - 75.2 %) 75.4 H Lymphocytes % (20.5 - 51.1 %) 16.9 L Monocytes % (1.7 - 9.3 %) 5.0 Eosinophils % (0 - 5 %) 1.9 Basophils % (0.0 - 2.0 %) 0.8 Absolute Granulocytes (1.4 - 6.5 /CUMM) 7.4 H Absolute Lymphocytes (1.2 - 3.4 /CUMM) 1.7 Absolute Monocytes (0.10 - 0.60 /CUMM) 0.5 Absolute Eosinophils (0.0 - 0.7 /CUMM) 0.2 Absolute Basophils (0.0 - 0.2 /CUMM) 0.1 PUBS MCHC (33.0 - 37.0 G/DL) 31.5 L Imaging/Other Studies: CT head-poor quality Carotid Doppler-negative bilaterally Assessment/Plan Assessment: 1. CVA in patient with advanced prostate cancer currently on warfarin for recent pulmonary embolism. Patient previously had an MRI were no pain metastases were evident osseous/skull impingement on brain. Etiologies would include continued hypercoagulability from his cancer despite warfarin, marantic endocarditis or possibly related to metastatic disease. Recommend- MRI with gadolinium Echocardiogram Systemic chemotherapy on hold Discussed with patient and significant other 2. Metastatic prostate cancer 3. Renal obstruction/status post nephrostomies/frequent UTIs Overall prognosis-poor Recommendations: .. Consult Acknowledgment - Thank you for your consult request.
[2016-05-04 09:20] VITALS: BP 116/64
[2016-05-04 10:01] LABS: PT 25.4 SEC (9.4-12.5)
--- NOTE | 2016-05-04 10:07 | PN- Housestaff ---
Assessment/Plan Assessment: 55 yo M with stage IV hormone refractory prostate cancer s/p laser TURP, with bone and liver mets, s/p bilateral nephrostomies due to invasion of trigone by prostate cancer, currently on chemo (Docetaxell with Neulasta Q3 weeks, next due on 05/06), PE on coumadin, bilateral nephrostomy tubes secondary to urosepsis who was admitted yesterday with right-sided weakness and speech deficits. Labs: H/H 8.3/26.3 (baseline 9 ), normocytic anemia, INR 2.58, Calcium 8.3, albumin 2.8, Mag 1.7, trop neg. CT head: suboptimal examination due to patient motion. EKG: Sinus tachycardia, nonspecific ST-T changes. Echo (Mar 2016): EF > 65%, stage 1 diastolic dysfunction. Plan: #1 Right-sided weakness, speech deficits likely due to TIA versus brain metastasis -Currently being monitored on telemetry.. -Frequent Neuro checks -Passed swallow eval, on a regular diet. -Continued on aspirin and statin -CT head inconclusive -Carotid Doppler ultrasound showed no significant stenosis -MRI with gadolinium pending -Echocardiogram pending -PT /OT evaluation -Neurology consult appreciated # Hx of PE on Coumadin -Patient had significant bleeding from the nephrostomy tube and genitourinary bleeding -Target INR 1.8-1.9. -INR this morning was 2.44,will hold Coumadin for today #Hx of prostate cancer currently on Taxotere. Patient previously had an MRI where no brain metastases were evident. -Systemic chemotherapy on hold now -Continue bicatulamide -Continue tamsulosin -Dr Au following -MRI pending # Pseudomonas UTI s/p recent nephrostomy tube change. -Continue cipro until 05/09/16. - Plan is for nephrostomy change in May by Dr. Granados. #Pain due to metastases /constipation/nausea -Continue morphine sulfate and dilaudid IV as needed -aggressive bowel regimen -Movantik isn't available in the formulary -We will consider enema if patient did not have any bowel movement in 24 hours #Regular diet DVT prophylaxis is ALPS and warfarin morphine sulfate for pain DNR/DNI Consulting Request: Consulting Specialty: Neurology
[2016-05-04 10:33] LABS: ABSOLUTE BASOPHIL COUNT 0 /CUMM (0.0-0.2); ABSOLUTE EOSINOPHIL COUNT 0.1 /CUMM (0.0-0.7); ABSOLUTE GRANULOCYTE CT 5.7 /CUMM (1.4-6.5); ABSOLUTE LYMPH COUNT 1.2 /CUMM (1.2-3.4); ABSOLUTE MONOCYTE COUNT 0.3 /CUMM (0.10-0.60); BASOPHIL % 0.6 % (0.0-2.0); EOSINOPHIL % 1.9 % (0-5); GRANULOCYTE % 78.1 % (42.2-75.2); HEMATOCRIT 25.4 % (42-52); MEAN CORPUSCULAR HGB 25.5 PG (27.0-31.0); MEAN CORPUSCULAR HGB CONC 31.7 G/DL (33.0-37.0); MEAN CORPUSCULAR VOLUME 80.5 FL (80.0-94.0); MEAN PLATELET VOLUME 8.4 FL (7.4-10.4); PLATELET COUNT 249 /CUMM (130-400); RBC DISTRIBUTION WIDTH 20.6 % (11.5-14.5); RED BLOOD CELL CT 3.16 /CUMM (4.70-6.10); WHITE BLOOD CELL COUNT 7.3 /CUMM (4.8-10.8)
--- NOTE | 2016-05-04 11:36 | PN- Housestaff ---
DOARNELFRANK 05/04/16 1109: Subjective Follow-up For: Right-sided weakness and slurring of speech Anemia History of prostate cancer Complaints: patient feels distressed and does not wish to see the resident. Tele-Events Since Last Visit: Sinus rhythm, sinus tachycardia 90-100's. Subjective: Patient was admitted yesterday for speech deficits confusion and right-sided numbness likely secondary to a TIA/CVA Vs Brain metastasis. Refuses to see the resident this morning. Reports he is feeling a little better than yesterday. Review of Systems Constitutional: Reports: weakness. EENTM: Reports: no symptoms. Cardiovascular: Reports: no symptoms. Respiratory: Reports: no symptoms. Gastrointestinal: Reports: no symptoms. Genitourinary: Reports: no symptoms. Musculoskeletal: Reports: muscle pain, muscle stiffness. Skin: Reports: no symptoms. Objective Last 24 Hrs of Vital Signs/I&O Vital Signs Date Time Temp Pulse Resp B/P Pulse O2 O2 Flow FiO2 Ox Delivery Rate 05/04 921 109 130/72 05/05 919 98.2 119 18 116/64 87 Room Air 03/ 0000 93 Room Air / 2200 98.4 100 20 128/70 93 Room Air /05 1615 98.0 104 18 140/76 92 Room Air Intake & Output 05/04 1600 05/04 0800 05/04 0000 Intake Total 390 1000 Output Total 450 850 Balance -60 150 Intake, IV 150 400 Intake, Oral 240 600 Number 0 Bowel Movements Output, Urine 450 850 Physical Exam General Appearance: Alert (patient denied examination), Oriented X3, Moderate Distress Current Medications: Current Medications Sig/Aurora Start time Last Medication Dose Route Stop Time Status Admin Acetaminophen 650 MG Q6 PRN 05/03 0145 AC PO Aspirin 81 MG DAILY 05/03 1000 AC 05/04 PO 0922 Atorvastatin Calcium 80 MG 1700 05/03 1700 AC / PO 1803 Bicalutamide 50 MG DAILY 05/03 1000 AC 05/04 PO 0922 Ciprofloxacin 500 MG BID 05/03 1000 AC / PO 05/09 0144 0922 Dextrose/Sodium 1,000 ML Q20H / 0230 DC 05/03 Chloride IV 05/03 2229 0253 Hydromorphone HCl 1 MG ONCE ONE 05/04 914 DC 05/04 IV 05/04 0916 0922 Hydromorphone HCl 1 MG ONCE ONE 05/03 1430 DC 05/03 IV 05/03 1431 1436 Morphine Sulfate 15 MG Q4H 05/03 0145 AC 05/04 PO 1018 Polyethylene Glycol 17 GM DAILY 05/03 1000 AC 05/04 PO 0921 Senna/Docusate Sodium 2 TAB DAILY PRN 05/03 014 AC PO Tamsulosin HCl 0.4 MG BID 05/03 1000 AC 05/04 PO 0922 Last 24 Hrs of Lab/Raymundo Results Last 24 Hrs of Labs/Mics: Laboratory Tests 05/04/16 0930: Methadone Screen Pending, Barbiturate Screen Pending, Ur Phencyclidine Scrn Pending, Amphetamines Screen Pending, U Benzodiazepines Scrn Pending, Urine Cocaine Screen Pending, Urine Cannabis Screen Pending 05/04/16 0845: PT 25.4 H, INR 2.44 H, CBC w Diff NO MAN DIFF REQ, RBC 3.16 L, MCV 80.5, MCH 25.5 L, RDW 20.6 H, MPV 8.4, Gran % 78.1 H, Lymphocytes % 15.7 L, Monocytes % 3.7, Eosinophils % 1.9, Basophils % 0.6, Absolute Granulocytes 5.7, Absolute Lymphocytes 1.2, Absolute Monocytes 0.3, Absolute Eosinophils 0.1, Absolute Basophils 0, PUBS MCHC 31.7 L Assessment/Plan Assessment: 55 yo M with stage IV hormone refractory prostate cancer s/p laser TURP, with bone and liver mets, s/p bilateral nephrostomies due to invasion of trigone by prostate cancer, currently on chemo (Docetaxell with Neulasta Q3 weeks, next due on 05/06), PE on coumadin, bilateral nephrostomy tubes secondary to urosepsis who was admitted yesterday with right-sided weakness and speech deficits. Labs: H/H 8.3/26.3 (baseline 9 ), normocytic anemia, INR 2.58, Calcium 8.3, albumin 2.8, Mag 1.7, trop neg. CT head: suboptimal examination due to patient motion. EKG: Sinus tachycardia, nonspecific ST-T changes. Echo (Mar 2016): EF > 65%, stage 1 diastolic dysfunction. Plan: #1 Right-sided weakness, speech deficits likely due to TIA versus brain metastasis -Currently being monitored on telemetry.. -Frequent Neuro checks -Passed swallow eval, on a regular diet. -Continued on aspirin and statin -CT head inconclusive -Carotid Doppler ultrasound showed no significant stenosis -MRI with gadolinium pending -Echocardiogram pending -PT /OT evaluation -Neurology consult appreciated # Hx of PE on Coumadin -Patient had significant bleeding from the nephrostomy tube and genitourinary bleeding -Target INR 1.8-1.9. -INR this morning was 2.44,will hold Coumadin for today #Hx of prostate cancer currently on Taxotere. Patient previously had an MRI where no brain metastases were evident. -Systemic chemotherapy on hold now -Continue bicatulamide -Continue tamsulosin -Dr Au following -MRI pending # Pseudomonas UTI s/p recent nephrostomy tube change. -Continue cipro until 05/09/16. - Plan is for nephrostomy change in May by Dr. Granados. #Pain due to metastases /constipation/nausea -Continue morphine sulfate and dilaudid IV as needed -aggressive bowel regimen -Movantik isn't available in the formulary -We will consider enema if patient did not have any bowel movement in 24 hours #Regular diet DVT prophylaxis is ALPS and warfarin morphine sulfate for pain DNR/DNI Problem List: 1. Prostate cancer 2. Metastasis 3. TIA (transient ischemic attack) Pain Ratin Pain Location: neck and back Pain Goal: Pain 4 or less Pain Plan: dilaudid Tomorrow's Labs & Rationales: cbc...anemia Consulting Request: Consulting Specialty: Neurology ILDA BROWN,FEDE 05/04/16 1144: Attending MD Review Statement Attending Statement Attending MD Statement: examined this patient, discuss w/resident/PA/BIOINFORMATICS RESEARCH TECHNICIAN, agreed w/resident/PA/BIOINFORMATICS RESEARCH TECHNICIAN, discussed with family, reviewed EMR data (avail), discussed with nursing, discussed with case mgmt, reviewed images Attending Assessment/Plan: I spent a lot of time (36 minutes at bedside) talking to the patient and patient 's fianc. Patient is known to me from multiple previous admissions. Patient has now been here from February 18March 03, March 04 to March 12, March 20 to March 23 and most recently Apr 24 to April 29 with multiple complications of sepsis, obstructive uropathy, PE all in the setting of severe hormone refractory prostate CA with metastases in the liver and bones. Right now the issue is the acute neurological deficit and the working diagnosis is questionable brain metastases versus arterial hypercoagulability versus marantic endocarditis in the setting of a therapeutic INR. The patient and patient's fianc do appear to be tired of it all and are inclined towards hospice but are not 100% sure yet. I explained at length that I will talk to Dr. Mondragon and follow-up on the MRI and follow up.
--- NOTE | 2016-05-04 12:05 | MRI REPORT ---
EXAMINATION: MR BRAIN WITHOUT AND WITH CONTRAST CLINICAL INFORMATION: 55-year-old man with left-sided weakness. History of prostate cancer. COMPARISON: 05/02/[address], 01/03/2016 brain MRI TECHNIQUE: MRI of the brain was obtained using routine sequences before and after the intravenous administration of 10 mL of Gadavist. FINDINGS: Images are moderately degraded by patient motion. Despite this limitation, there is clearly abnormal dural thickening and enhancement around the entirety of the left cerebral hemisphere that is more focal adjacent to the frontal and parietal lobes where it is more lobular and measures up to 1.1 cm in diameter. No definite marrow signal abnormality is seen in the adjacent bone, although assessment is felt to be limited due to motion. There is no obvious edema in the adjacent brain parenchyma and no significant mass effect or midline shift. No focal reduced diffusion is seen to suggest acute or subacute cerebral ischemia. No intra-axial blood products or extra-axial collection is visualized. The ventricles and sulcal spaces appear normal. Normal arterial and venous vascular flow voids are present. A mucus retention cyst is visible in the left maxillary sinus. IMPRESSION: Motion degraded study demonstrates abnormal smooth and lobular dural thickening around the left cerebral hemisphere. In the context of the patient's history, this is most consistent with metastatic disease from known prostate cancer.
--- NOTE | 2016-05-04 14:13 | Event Note ---
Event Note Event Note: I spoke to the radiologist Dr. Leija about the MRI findings of the patient. The patient does have abnormal smooth and lobular dural thickening around the left cerebral hemisphere which are consistent with metastasis. Prostate cancer does have a tendency to metastasize to the dura mater and rarely to the cortex. However these findings do explain with the current symptoms ,right-sided weakness and speech deficits. Metastasis can however cause cortical irritation in the future resulting in seizures. We'll discuss the case in detail with Dr. Au and decide upon further management. The family is not convinced for hospice at this point.
--- NOTE | 2016-05-04 15:11 | Event Note ---
Event Note Event Note: Patient's observation status needs to be extended for another 24 hrs as his Echocardiogram result is still pending and he needs to be worked up further. for his current symptoms.
[2016-05-04 16:41] VITALS: BP 128/74
--- NOTE | 2016-05-04 22:58 | NUR ---
DRESSINGS TO BILATERAL NEPHROSTOMY TUBES CHANGED AT 1930 WITH GAUZE, AND TEGADERM. PERISITE WNL, NO S/S INFECTION.
[2016-05-05 00:23] VITALS: BP 128/60
--- NOTE | 2016-05-05 06:59 | PN- Oncology ---
Subjective Subjective: Feeling somewhat improved, but speech and right upper extremity still remain problematic Review of Systems: 12 point review of systems unchanged Objective Vital Signs and I&Os Vital Signs Date Time Temp Pulse Resp B/P Pulse O2 O2 Flow FiO2 Ox Delivery Rate 05/05 0023 98.3 105 20 128/60 91 Nasal 2.0L Cannula 05/05 0000 Nasal 2.0L Cannula 05/04 1641 98.3 100 18 128/74 93 Room Air 05/04 0922 109 130/72 05/04 0920 98.2 119 18 116/64 87 Room Air Intake & Output 05/05 0800 05/05 0000 05/04 1600 05/04 0800 05/04 0000 05/03 1600 Intake Total 100 600 800 943 1054 840 Output Total 100 440 100 846 315 3922 Balance 0 160 400 -60 150 -710 Intake, IV 150 400 600 Intake, Oral 100 600 500 240 600 240 Number 0 Bowel Movements Output, Urine 100 440 100 663 059 3031 Gen.: in NAD ENT: Sclera anicteric Chest: Normal respiratory effort, decreased breath sounds Cor: RRR, no extra sounds Abdomen: Soft, bowel sounds present, no tenderness, no rebound Extremities: Without clubbing, cyanosis, or asymmetric edema Neurology: Alert and oriented 3, minimally aphasic persistent right upper extremity paresis Skin: No rashes Current Medications: Current Medications Sig/Aurora Start time Last Medication Dose Route Stop Time Status Admin Acetaminophen 650 MG Q6 PRN 05/03 014 AC PO Aspirin 81 MG DAILY 05/03 1000 AC 05/04 PO 0922 Atorvastatin Calcium 80 MG 1700 05/03 1700 AC 05/04 PO 1731 Bicalutamide 50 MG DAILY 05/03 1000 AC 05/04 PO 0922 Ciprofloxacin 500 MG BID 05/03 1000 AC 05/04 PO 05/09 0144 2150 Hydromorphone HCl 1 MG ONCE ONE 05/04 190 DC 05/04 IV 05/04 190 1913 Hydromorphone HCl 1 MG ONCE ONE 05/04 0915 DC 05/04 IV 05/04 0916 0922 Morphine Sulfate 15 MG Q4H 05/03 0145 AC 05/05 PO 0606 Polyethylene Glycol 17 GM DAILY 05/03 1000 AC 05/04 PO 0921 Senna/Docusate Sodium 2 TAB DAILY PRN 05/03 0145 AC 05/04 PO 2150 Tamsulosin HCl 0.4 MG BID 05/03 1000 AC 05/04 PO 2150 Results Last 24 Hours of Lab Results: Laboratory Tests 05/05 05/04 0617 0930 Coagulation PT Pending INR Pending Toxicology Urine Opiates Screen (>2000 NG/ML) > 4000.00 H Methadone Screen (>300 NG/ML) 53 Barbiturate Screen (>200 NG/ML) < 60 Ur Phencyclidine Scrn (>25 NG/ML) < 6.00 Amphetamines Screen (>1000 NG/ML) < 100 U Benzodiazepines Scrn (>200 NG/ML) < 85 Urine Cocaine Screen (>300 NG/ML) < 50 Urine Cannabis Screen (>50 NG/ML) < 5.00 03 0845 Coagulation PT (9.4 - 12.5 SEC) 25.4 H INR (0.90 - 1.17) 2.44 H Hematology CBC w Diff NO MAN DIFF REQ WBC (4.8 - 10.8 /CUMM) 7.3 RBC (4.70 - 6.10 /CUMM) 3.16 L Hgb (14.0 - 18.0 G/DL) 8.1 L Hct (42 - 52 %) 25.4 L MCV (80.0 - 94.0 FL) 80.5 MCH (27.0 - 31.0 PG) 25.5 L RDW (11.5 - 14.5 %) 20.6 H Plt Count (130 - 400 /CUMM) 249 MPV (7.4 - 10.4 FL) 8.4 Gran % (42.2 - 75.2 %) 78.1 H Lymphocytes % (20.5 - 51.1 %) 15.7 L Monocytes % (1.7 - 9.3 %) 3.7 Eosinophils % (0 - 5 %) 1.9 Basophils % (0.0 - 2.0 %) 0.6 Absolute Granulocytes (1.4 - 6.5 /CUMM) 5.7 Absolute Lymphocytes (1.2 - 3.4 /CUMM) 1.2 Absolute Monocytes (0.10 - 0.60 /CUMM) 0.3 Absolute Eosinophils (0.0 - 0.7 /CUMM) 0.1 Absolute Basophils (0.0 - 0.2 /CUMM) 0 PUBS MCHC (33.0 - 37.0 G/DL) 31.7 L Recent Imaging Studies: MRI-abnormal dura extending over cortex and the left, likely metastatic disease Assessment/Plan Assessment/Recommendations: Advanced prostate cancer-I do not believe the current findings found on MRI are causing his current neurologic deficit. The patient's overall performance status however has markedly deteriorated. I do lengthy discussion with the patient and his significant other regarding long-term planning. We did discuss hospice care. At this juncture, patient wishes to think things over. Significant time was spent with the patient regarding all these issues Recommend- Discharge to home with can support nursing, hopefully today I will discuss the MRI findings with radiation therapy Follow-up my office CVA-await echocardiogram
[2016-05-05 07:46] VITALS: BP 126/80
[2016-05-05 08:13] LABS: PT 22.5 SEC (9.4-12.5)
--- NOTE | 2016-05-05 08:47 | PN- Housestaff ---
[facility] [place] 05/05/16 0834: Subjective Follow-up For: Right-sided weakness and slurring of speech Complaints: weakness continues, improved speech Subjective: Patient feels a little better than yesterday. Weakness in his arms continues however he feels speech has improved. His symptoms are fluctuating and intermittent. Review of Systems Constitutional: Reports: malaise, weakness. Cardiovascular: Reports: no symptoms. Respiratory: Reports: no symptoms. Gastrointestinal: Reports: no symptoms. Genitourinary: Reports: no symptoms. Skin: Reports: no symptoms. Objective Last 24 Hrs of Vital Signs/I&O Vital Signs Date Time Temp Pulse Resp B/P Pulse O2 O2 Flow FiO2 Ox Delivery Rate 05/05 0746 98.1 106 20 126/80 93 Room Air 05/05 0023 98.3 105 20 128/60 91 Nasal 2.0L Cannula 05/05 0000 Nasal 2.0L Cannula 05/04 1641 98.3 100 18 128/74 93 Room Air 05/04 0922 109 130/72 05/04 0920 98.2 119 18 116/64 87 Room Air Intake & Output 05/05 1600 05/05 0800 05/05 0000 Intake Total 100 600 Output Total 100 440 Balance 0 160 Intake, Oral 100 600 Output, Urine 100 440 Physical Exam General Appearance: Alert, Oriented X3, Cooperative, No Acute Distress Skin: No Rashes, No Breakdown HEENT: Atraumatic, PERRLA, EOMI Neck: Supple, No JVD Lymphatic: Cervical nl Cardiovascular: Regular Rate, Normal S1, Normal S2 Lungs: decreased breath sounds bilaterally. Abdomen: Normal Bowel Sounds, Soft, No Tenderness Neurological: speech deficits, power 3/5 in the right upper and lower extremity.5 / 5 on the left side Extremities: No Clubbing, No Cyanosis, No Edema Current Medications: Current Medications Sig/Aurora Start time Last Medication Dose Route Stop Time Status Admin Acetaminophen 650 MG Q6 PRN 05/03 0145 AC PO Aspirin 81 MG DAILY 05/03 1000 AC 05/04 PO 0922 Atorvastatin Calcium 80 MG 1700 05/03 1700 AC 05/04 PO 1731 Bicalutamide 50 MG DAILY 05/03 1000 AC 05/04 PO 0922 Ciprofloxacin 500 MG BID 05/03 1000 AC 05/04 PO 05/09 0144 2150 Hydromorphone HCl 1 MG ONCE ONE 05/04 1899 DC 05/04 IV 05/04 190 191 Hydromorphone HCl 1 MG ONCE ONE 05/04 914 DC 05/04 IV 05/04 0816 22 Morphine Sulfate 15 MG Q4H 05/03 0145 AC 05/05 PO 0606 Polyethylene Glycol 17 GM DAILY 05/03 1000 AC 05/04 PO 0921 Senna/Docusate Sodium 2 TAB DAILY PRN 05/03 014 AC 05/04 PO 2150 Tamsulosin HCl 0.4 MG BID 05/03 1000 AC 05/04 PO 2150 Last 24 Hrs of Lab/Raymundo Results Last 24 Hrs of Labs/Mics: Laboratory Tests 05/05/16 0617: PT 22.5 H, INR 2.16 H 05/04/16 0930: Urine Opiates Screen > 4000.00 H, Methadone Screen 53, Barbiturate Screen < 60, Ur Phencyclidine Scrn < 6.00, Amphetamines Screen < 100, U Benzodiazepines Scrn < 85, Urine Cocaine Screen < 50, Urine Cannabis Screen < 5.00 05/04/16 0845: PT 25.4 H, INR 2.44 H, CBC w Diff NO MAN DIFF REQ, RBC 3.16 L, MCV 80.5, MCH 25.5 L, RDW 20.6 H, MPV 8.4, Gran % 78.1 H, Lymphocytes % 15.7 L, Monocytes % 3.7, Eosinophils % 1.9, Basophils % 0.6, Absolute Granulocytes 5.7, Absolute Lymphocytes 1.2, Absolute Monocytes 0.3, Absolute Eosinophils 0.1, Absolute Basophils 0, PUBS MCHC 31.7 L Assessment/Plan Assessment: 55 yo M with stage IV hormone refractory prostate cancer s/p laser TURP, with bone and liver mets, s/p bilateral nephrostomies due to invasion of trigone by prostate cancer, currently on chemo (Docetaxell with Neulasta Q3 weeks, next due on 05/06), PE on coumadin, bilateral nephrostomy tubes secondary to urosepsis who was admitted yesterday with right-sided weakness and speech deficits. Plan: #1 Right-sided weakness, speech deficits likely due to TIA versus brain metastasis -Continues to have right-sided weakness and aphasia -Frequent Neuro checks -Passed swallow eval, on a regular diet. -Continued on aspirin and statin -CT head inconclusive -Carotid Doppler ultrasound showed no significant stenosis -MRI showed abnormal smooth and lobular dural thickening around the left cerebral hemisphere which are consistent with metastasis. However this does not explain his focal neurological deficits. -Echocardiogram pending -PT /OT evaluation -Dr. Au had a long discussion with the patient regarding his MRI results and his goals of care. Hospice was discussed with the patient and his significant other, however at this juncture they want to think it over. MRI results will be discussed with radiation therapy. Patient needs to follow up with in his office after discharge. # Hx of PE on Coumadin -Patient had significant bleeding from the nephrostomy tube and genitourinary bleeding -Target INR 1.8-1.9. -INR this morning was 2.16,will hold Coumadin for today #Hx of prostate cancer : MRI showed metastasis in the due to matter of the brain. -Systemic chemotherapy on hold now -Continue bicatulamide -Continue tamsulosin # Pseudomonas UTI s/p recent nephrostomy tube change. -Continue cipro until 05/09/16. - Plan is for nephrostomy change in May by Dr. Granados. #Pain due to metastases /constipation/nausea -Continue morphine sulfate and dilaudid IV as needed -aggressive bowel regimen -Movantik isn't available in the formulary #Regular diet DVT prophylaxis is ALPS and warfarin morphine sulfate for pain DNR/DNI Problem List: 1. Metastasis 2. Prostate cancer 3. TIA (transient ischemic attack) Pain Ratin Pain Location: neck and back Pain Goal: Pain 4 or less Pain Plan: Morphine sulfate and Dilaudid Tomorrow's Labs & Rationales: none Consulting Request: Consulting Specialty: Neurology FEDE GONSALES MD 05/05/16 1341: Attending MD Review Statement Attending Statement Attending MD Statement: examined this patient, discuss w/resident/PA/ASSISTANT PROFESSOR OF NURSING, agreed w/resident/PA/ASSISTANT PROFESSOR OF NURSING, discussed with family, reviewed EMR data (avail), discussed with nursing, discussed with case mgmt, reviewed images Attending Assessment/Plan: Spoke to the patient and patient's fianc at length. They had talked to Dr. Mondragon this morning and at this point they have decided to pursue home hospice care. They are going to stop all treatments and pursue quality and comfort in a hospice setting at home. He does not want to be rehospitalized for medical needs. He understands that he may need to be rehospitalized for inpatient hospice if the dying process becomes overwhelming at home. At this point I'm calling the hospice nurse to see him and she is going to help us out with the equipment and medications needed at home to facilitate the patient's decision of home hospice.
--- NOTE | 2016-05-05 08:59 | Patient Discharge Instructions ---
Discharge Instructions General Discharge Information You were seen/treated for: Right-sided weakness and slurring of speech Special Instructions: #1. Please take the medications as instructed Diet Continue normal diet: Yes Activity Full Activity/No Limits: Yes (as tolerated) Acute Coronary Syndrome Inclusion Criteria At DC or during hospital stay patient has or had the following: ACS DIAGNOSIS No Discharge Core Measures Meds if any: Prescribed or Continued at Discharge Meds if any: NOT Prescribed or Continued at Discharge Congestive Heart Failure Inclusion Criteria At DC or during hospital stay patient has or had the following: CHF DIAGNOSIS No Discharge Core Measures Meds if any: Prescribed or Continued at Discharge Meds if any: NOT Prescribed or Continued at Discharge Cerebrovascular accident Inclusion Criteria At DC or during hospital stay patient has or had the following: CVA/TIA Diagnosis No Discharge Core Measures Meds if any: Prescribed or Continued at Discharge Meds if any: NOT Prescribed or Continued at Discharge Venous thromboembolism Inclusion Criteria VTE Diagnosis No VTE Type NONE VTE Confirmed by (Test) NONE Discharge Core Measures - Per Current guidelines, there needs to be overlap - treatment for the first 5 days of Warfarin therapy. - If discharged on Warfarin prior to 5 days of - overlap therapy, the patient will need to be - assessed for post discharge needs including - *Post discharge parental anticoagulation - *Warfarin and/or parental anticoagulation education - *Follow up date to check INR post discharge At least 5 days overlap therapy as Inpatient No Meds if any: Prescribed or Continued at Discharge Note: Overlap Therapy is Warfarin and Anticoagulant Meds if any: NOT Prescribed or Continued at Discharge Meds if any: Prescribed or Continued at Discharge Note: Overlap Therapy is Warfarin and Anticoagulant Meds if any: NOT Prescribed or Continued at Discharge
--- NOTE | 2016-05-05 09:14 | NUR ---
OCCUPATIONAL THERAPY NOTE: PER RN PATIENT AND FAMILY DECIDED TO RECEIVE HOME HOSPISE. OT SPOKE WITH PATIENT AND FIANCE, PATIENT AND FIANCE CONFIRMED COMFORT CARE, OT SERVICES IS NO LONGER RECOMMENDED
--- NOTE | 2016-05-05 11:07 | NUR ---
PT ON HOSPICE CARE AT THIS TIME, PT AND FAMILY REFUSING ANY FURTHER PT INTERVENTION AT THIS TIME
--- NOTE | 2016-05-05 15:56 | ECHOCARDIOGRAM REPORT ---
EFRAIN OLIVERA Age: 55 : 1960 Gender: M Exam Date: 05/04/2016 18:26 Exam Location: [address] Ht (in): 73 Wt (lb): 280 BSA: 2.60 BP: 130 / 72 Ordering Physician: DEMOND LEI, Referring Physician: Kyle Jiménez MD Technologist: Maria E Brothers [facility] Room Number: 188 Indications: STROKE Rhythm: Sinus Technical Quality: Technically difficult study FINDINGS Left Ventricle Normal size left ventricle. Mild concentric left ventricular hypertrophy. Normal left ventricular ejection fraction visually estimated at >55%. Normal left ventricular wall motion. Right Ventricle Normal right ventricular size and function. Right Atrium Normal right atrial size. Left Atrium Normal left atrial size. Mitral Valve Mild mitral annular calcification. Mitral valve thickened. Trace mitral regurgitation. Aortic Valve Aortic valve mildly thickened. No aortic stenosis. No aortic regurgitation. Tricuspid Valve Tricuspid valve not well visualized, grossly normal. Trace tricuspid regurgitation. No evidence of pulmonary hypertension. Pulmonic Valve Pulmonic valve not well visualized, grossly normal. Pericardium No pericardial effusion. Great Vessels Normal size aortic root. CONCLUSIONS Normal size left ventricle. Mild concentric left ventricular hypertrophy. Normal left ventricular ejection fraction visually estimated at > 55%. Trace mitral regurgitation. Trace tricuspid regurgitation. Kyle Jiménez M.D. (Electronically Signed) Final Date: 05 May 2016 15:55 MEASUREMENTS (Male / Female) Normal Values 2D ECHO LV Diastolic Diameter PLAX 5.5 cm 4.2 - 5.9 / 3.9 - 5.3 cm LV Systolic Diameter PLAX 3.2 cm 2.1 - 4.0 cm LV Fractional Shortening PLAX 41.8 % 25 - 46 % LV Ejection Fraction 2D Teich 72.2 % IVS Diastolic Thickness 1.2 cm LVPW Diastolic Thickness 1.2 cm LV Relative Wall Thickness 0.4 RV Internal Dim ED PLAX 3.4 cm 1.9 - 3.8 cm LVOT Diameter 2.3 cm Aortic Root Diameter 3.6 cm LA Systolic Diameter LX 3.6 cm 3.0 - 4.0 / 2.7 - 3.8 cm LA Volume 52.0 cm 18 - 58 / 22 - 52 cm Ascending Aorta Diameter 3.9 cm DOPPLER AV Peak Velocity 130.0 cm/s AV Peak Gradient 6.8 mmHg AV Mean Velocity 91.8 cm/s AV Mean Gradient 4.0 mmHg AV Velocity Time Integral 21.4 cm LVOT Peak Velocity 119.0 cm/s LVOT Peak Gradient 5.7 mmHg LVOT Mean Velocity 79.0 cm/s LVOT Mean Gradient 3.0 mmHg LVOT Velocity Time Integral 18.2 cm LVOT Stroke Volume 75.6 cm AV Area Cont Eq vti 3.5 cm AV Area Cont Eq pk 3.8 cm MV Peak Velocity 95.9 cm/s MV Peak Gradient 3.7 mmHg MV Mean Velocity 58.1 cm/s MV Mean Gradient 2.0 mmHg Mitral E Point Velocity 83.2 cm/s Mitral A Point Velocity 92.3 cm/s Mitral E to A Ratio 0.9 MV PHT Velocity 76.4 cm/s MV Deceleration Rice 440.0 cm/s MV Pressure Half Time 52.1 ms MV Area PHT 4.2 cm MV Deceleration Time 243.0 ms TR Peak Velocity 263.0 cm/s TR Peak Gradient 27.7 mmHg Right Atrial Pressure 5.0 mmHg Pulmonary Artery Systolic Pressu 32.7 mmHg Right Ventricular Systolic Press 32.7 mmHg PV Peak Velocity 110.0 cm/s PV Peak Gradient 4.8 mmHg PV Mean Velocity 78.8 cm/s PV Mean Gradient 3.0 mmHg PV Velocity Time Integral 21.0 cm LV E' Lateral Velocity 13.1 cm/s Mitral E to LV E' Lateral Ratio 6.3 LV E' Septal Velocity 9.9 cm/s Mitral E to LV E' Septal Ratio 8.4
[2016-05-05 16:00] VITALS: BP 106/60
--- NOTE | 2016-05-05 16:29 | Event Note ---
Event Note Event Note: Spoke to Patient's fianc and patient with case management multiple times. Patient is going to stay here today and all meds and the equipment to be delivered at home to set up home hospice care. Patient and patient's fianc are requesting IV Dilaudid when necessary and nurse confirms that patient is in severe pain and needs a rescue besides the oral morphine. Code status is now comfort measures. And the plan is for us to set up everything for him to go home with home hospice with a focus on quality and comfort in a patient with a very poor prognosis and I believe is imminently dying.
[2016-05-05] MEDS ORDERED: MORPHINE S100 MG/5 M PO (17:16)
[2016-05-05] MEDS ORDERED: ATIVAN2 MG/1 ML SL (17:16)
[2016-05-05] MEDS ORDERED: TRANSDERM-SCOP1 EACH TOP (17:16)
--- NOTE | 2016-05-05 23:56 | NUR ---
late entry: at approx 1700, pt code status changed to comfort care and d/c tele. family and fiance in room, emotional support given. tele monitor d/c. pt comfortable in bed and shows no s/s distress.
--- NOTE | 2016-05-06 07:18 | PN- Oncology ---
Subjective Subjective: Offers no new complaints, speaking remains an issue Review of Systems: 12 point review of systems unchanged Objective Vital Signs and I&Os Vital Signs Date Time Temp Pulse Resp B/P Pulse O2 O2 Flow FiO2 Ox Delivery Rate 05/06 0000 Nasal 2.0L Cannula 05/05 2152 80 124/60 05/05 1600 92 Nasal 2.0L Cannula 05/05 1600 98.9 97 26 106/60 92 Nasal 2.0L Cannula 05/05 0746 98.1 106 20 126/80 93 Room Air Intake & Output 05/06 0805/06 0000 05/05 1600 05/05 0805/05 0000 05/04 1600 Intake Total 250 240 720 100 600 500 Output Total 400 400 600 100 440 100 Balance -150 -160 120 0 160 400 Intake, Oral 250 240 720 100 600 500 Number 0 Bowel Movements Output, Urine 400 400 600 100 440 100 Gen.: in NAD ENT: Sclera anicteric Chest: Normal respiratory effort, decreased breath sounds Cor: RRR, no extra sounds Abdomen: Soft, bowel sounds present, no tenderness, no rebound Extremities: Without clubbing, cyanosis, or edema Neurology: Alert and oriented 3, unchanged Current Medications: Current Medications Sig/Aurora Start time Last Medication Dose Route Stop Time Status Admin Acetaminophen 650 MG Q6 PRN 05/03 0145 AC PO Aspirin 81 MG DAILY 05/03 1000 AC 05/04 PO 0922 Atorvastatin Calcium 80 MG 1700 05/03 1700 AC 05/05 PO 1941 Bicalutamide 50 MG DAILY 05/03 1000 AC 05/04 PO 0922 Ciprofloxacin 500 MG BID 05/03 1000 AC 05/05 PO 05/09 0144 2150 Hydromorphone HCl 1 MG Q4P PRN 05/05 1200 AC 05/05 IV 1529 Hydromorphone HCl 1 MG ONCE ONE 05/05 1145 DC 03/ IV 05/05 1146 1149 Morphine Sulfate 15 MG Q4H 05/03 0145 AC 05/06 PO 0355 Patient Medication 1 ED .STK-MED ONE 05/05 1403 DC Teaching ED 05/05 1404 Polyethylene Glycol 17 GM DAILY 05/03 1000 AC 05/05 PO 1104 Senna/Docusate Sodium 2 TAB DAILY PRN 05/03 0145 AC 05/04 PO 2150 Tamsulosin HCl 0.4 MG BID 05/03 1000 AC 05/05 PO 2152 Warfarin Sodium 2.5 MG COUMADIN 1700 ONE 05/05 1700 DC 05/05 PO 05/05 1701 1941 Assessment/Plan Assessment/Recommendations: Advanced prostate cancer-the patient has made a decision for comfort care only Patient is to be discharged today and I will be responsible for home hospice care
[2016-05-06 08:08] VITALS: BP 120/62
[2016-05-06] MEDS ORDERED: COUMADIN2.5 M1 PO (10:11)
[2016-05-06] MEDS ORDERED: COUMADIN2 M1 PO (10:17)
[2016-05-06 11:24] VITALS: BP 120/62
--- NOTE | 2016-05-06 14:12 | PN- Att Addend ---
Attending Addendum Attending Brief Note Patient seen and examined. He is completely comfortable with this plan for home hospice care. He stayed here because he needed all of his equipment and medications delivered. On exam he is more awake and less lethargic today. Blood pressure is on the low side at 100/60, not tachycardic, resp rate is 16- 18. Lungs have decreased breath sounds bilaterally, heart is S1-S2 regular, abdomen is obese nontender. He is a 55-year-old with advanced metastatic prostate CA with liver metastases, bony metastases and now dural matter metastases with obstructive uropathy, bilateral nephrostomy tubes, infection that he is on by mouth Cipro and PE on Coumadin. He is going home with home hospice care with do not rehospitalize for medical reasons. He may need to be rehospitalized for inpatient hospice at [facility] or here if the dying process becomes overwhelming at home.
--- NOTE | 2016-05-06 14:41 | PN- Housestaff ---
Subjective Follow-up For: Right-sided weakness and slurring of speech Complaints: no complaints Subjective: Patient feels a little better today. Weakness and speech deficits are improving. He is going for hospice at home. The overnight stay was to get all his medications and equipments delivered he is comfortable with his medications. Review of Systems Constitutional: Reports: malaise, weakness. EENTM: Reports: no symptoms. Cardiovascular: Reports: no symptoms. Respiratory: Reports: no symptoms. Gastrointestinal: Reports: no symptoms. Genitourinary: Reports: no symptoms. Musculoskeletal: Reports: no symptoms. Skin: Reports: no symptoms. Neurological/Psychological: Reports: weakness (SPEECH DEFICIT). Objective Last 24 Hrs of Vital Signs/I&O Vital Signs Date Time Temp Pulse Resp B/P Pulse O2 O2 Flow FiO2 Ox Delivery Rate 05/06 1124 120/62 05/06 0808 98.8 100 24 120/62 94 Nasal 2.0L Cannula 05/06 0800 94 Nasal 2.0L Cannula 05/06 0000 Nasal 2.0L Cannula 05/05 2152 80 124/60 05/05 1600 92 Nasal 2.0L Cannula 05/05 1600 98.9 97 26 106/60 92 Nasal 2.0L Cannula Intake & Output 05/06 1600 08 0800 03/08 0000 Intake Total 250 240 Output Total 400 400 Balance -150 -160 Intake, Oral 250 240 Number 0 Bowel Movements Output, Urine 400 400 Physical Exam General Appearance: Alert, Oriented X3, Cooperative, Mild Distress Skin: No Rashes, No Breakdown, No Significant Lesion HEENT: Atraumatic, PERRLA, EOMI Neck: Supple, No JVD Lymphatic: Cervical nl Cardiovascular: Regular Rate, Normal S1, Normal S2 Lungs: DECREASED BREATH SOUNDS Abdomen: Normal Bowel Sounds, Soft Neurological: DIMINISHED POWER ON THE RIGHT SIDE, SPEECH DEFICITS Extremities: No Clubbing, No Cyanosis, No Edema, Normal Pulses Current Medications: Current Medications Sig/Aurora Start time Last Medication Dose Route Stop Time Status Admin Acetaminophen 650 MG Q6 PRN 05/03 0145 DCD PO Aspirin 81 MG DAILY 05/03 1000 DCD 05/04 PO 0922 Atorvastatin Calcium 80 MG 1700 05/03 1700 DCD 05/05 PO 1941 Bicalutamide 50 MG DAILY 05/03 1000 DCD 05/04 PO 0922 Ciprofloxacin 500 MG BID 05/03 1000 DCD 05/06 PO 05/09 0144 1124 Hydromorphone HCl 1 MG Q4P PRN 05/05 1200 DCD 05/05 IV 1529 Morphine Sulfate 15 MG Q4H 05/03 0145 DCD 05/06 PO 1124 Polyethylene Glycol 17 GM DAILY 05/03 1000 DCD 05/06 PO 1124 Senna/Docusate Sodium 2 TAB DAILY PRN 05/03 0145 DCD 05/04 PO 2150 Tamsulosin HCl 0.4 MG BID 05/03 1000 DCD 05/06 PO 1124 Warfarin Sodium 2.5 MG COUMADIN 1700 ONE 05/05 1700 DC 05/05 PO 05/05 1701 1941 Last 24 Hrs of Lab/Raymundo Results Last 24 Hrs of Labs/Mics: S Assessment/Plan Assessment: 55 yo M with stage IV hormone refractory prostate cancer s/p laser TURP, with bone and liver mets, s/p bilateral nephrostomies due to invasion of trigone by prostate cancer, currently on chemo (Docetaxell with Neulasta Q3 weeks, next due on 05/06), PE on coumadin, bilateral nephrostomy tubes secondary to urosepsis who was admitted yesterday with right-sided weakness and speech deficits. Plan: #1 Right-sided weakness, speech deficits /advanced prostate cancer with extensive metastases -Improved weakness and speech deficits. -Patient has agreed to become home hospice. -No further rehospitalization for medical reasons -Rehospitalization in the future for inpatient hospice if the process becomes overwhelming at home -We will continue comfort meds morphine, scopolamine, and Coumadin low-dose # Hx of PE on Coumadin -Low-dose Coumadin for comfort continued #Hx of prostate cancer : -Chemotherapy medications have been stopped as patient is not hospice care # Pseudomonas UTI s/p recent nephrostomy tube change. -Patient will continue Cipro as scheduled #Pain due to metastases /constipation/nausea -Continue morphine sulfate and dilaudid IV as needed -aggressive bowel regimen -Movantik continued #Regular diet DVT prophylaxis is ALPS and warfarin morphine sulfate for pain DNR/DNI Problem List: 1. Prostate cancer 2. Metastasis 3. TIA (transient ischemic attack) Pain Ratin Pain Location: neck and back Pain Goal: Pain 4 or less Pain Plan: Morphine sulfate None Tomorrow's Labs & Rationales: none Consulting Request: Consulting Specialty: Neurology
== END 2016-05-06 13:42 | disposition home or self-care (01) ==
LOC: ENRESERVTM → ENRESERVDT → ERH 23:00 → ERHI 05-03 00:41 → 1NO 05-03 00:41 → ENPENDDIS 05-03 00:41 → ERHI 05-03 00:41 → 1NO 05-03 02:35
PROVIDERS: Emergency Medicine; Internal Medicine; Internal Medicine Interventional Cardiology; Student in an Organized Health Care Education/Training Program; ADMIT Student in an Organized Health Care Education/Training Program
DX: C61 Malignant neoplasm of prostate (principal); Z86.711 Personal history of pulmonary embolism; Z51.5 Encounter for palliative care; C78.7 Secondary malignant neoplasm of liver and intrahepatic bile duct; C79.51 Secondary malignant neoplasm of bone; N13.9 Obstructive and reflux uropathy, unspecified
CPT/HCPCS: 1328; 1530; 1748; 70552; 36415; 70553; 80307; 82436; 93005; 93010; 93306; 96374; 96375; 96376; 97161-GP; 97166-GO; 97530-GP; A9579; G0378; J2270; J3490; J9202